=== PATIENT | female | born 1940 | race Caucasian/White ===

== ENCOUNTER 2022-12-18 11:24 | Inpatient (IN) | payer MEDICARE, SELFPAY ==
[2022-12-18] VITALS (32 sets, daily range): BP systolic 115–181; BP diastolic 53–89; PULSE 58–84; RESP 7–27; TEMP 36.4–36.8; O2SAT 93–100; BMI 35.6; BMI 36.7
--- NOTE | 2022-12-18 11:37 | ECG_ITS ---
[facility] Test Date: 2022-12-18 Pat Name: ISAAC TOURE Department: Room: - Gender: Female Events Director: : 1940 Requested By: BENSON CHAKRABORTY Order Number: [id number] Reading MD: OLIVIA NAJERA Measurements Intervals [place] Rate: 59 P: -87170 NE: -22928 QRS: 126 QRSD: 146 T: 63 QT: 458 QTc: 457 Interpretive Statements 1210 Atrial fibrillation LEFT BUNDLE BRANCH BLOCK w/ secondary ST/T wave changes 3534 Lateral myocardial infarction, age undetermined 9150 abnormal ECG No previous ECG available for comparison Electronically Signed On 12-19-2022 12:35:56 EDT by OLIVIA NAJERA
--- NOTE | 2022-12-18 11:37 | XR_ITS ---
[facility] [place] [id number] Patient Name: ISAAC TOURE MRN: [id number] date: 1940 Sex: F Assigned Patient Location: ER Current Patient Location: ER Accession/Order Number: [id number] Exam Date: 12/18/2022 12:20 Report Date: 12/18/2022 12:39 At the request of: HILLARY LÓPEZ Procedure: XR chest 2V EXAMINATION: XR chest 2V 12/18/2022 9:37 AM PDT, [id number]. HISTORY: sob TECHNIQUE: 2 views of the chest were acquired. COMPARISONS: Chest x-ray 06/06/2021. FINDINGS: Lines/tubes/other: Cardiac pulse generator is similar. Heart and mediastinum: Stable. Bones: No acute osseous abnormality. Lungs: Patchy right basilar opacification, new. No pulmonary edema. Pleura: No pleural effusion or pneumothorax. Other: No pneumoperitoneum. XR/XR chest 2V IMPRESSION: Right basilar opacification, compatible with pneumonia in the appropriate clinical context. Recommend follow-up radiograph in 4-6 weeks, allowing sufficient time after appropriate therapy to evaluate for radiographic improvement/resolution. Electronically authenticated by: SHAHNAZ HAAS Date: 12/18/2022 12:39
[2022-12-18 12:21] LABS: Basophils Absolute Auto 0.1 10^3/uL (0.0-0.1); Basophils Percent Auto 1.2 % (0.2-2.0); Eosinophils Absolute Auto 0.1 10^3/uL (0.0-0.7); Eosinophils Percent Auto 2.6 % (0.9-7.0); Hemoglobin 9.4 g/dL (12.0-16.0); Immature Granulocytes Abs Auto 0.02 10^3/uL (0.00-0.03); Immature Granulocytes Pct Auto 0.4 % (0.0-0.5); Lymphocytes Percent Auto 20.4 % (20.5-60.0); Mean Corpuscular HGB Conc 31.3 g/dL (29.9-35.2); Mean Corpuscular Volume 83.1 fL (81.0-99.0); Mean Platelet Volume 9.5 fL (9.5-13.5); Monocytes Absolute Auto 0.8 10^3/uL (0.3-0.8); Monocytes Percent Auto 16.1 % (1.7-12.0); Neutrophils Percent Auto 59.3 % (43.0-75.0); Platelet Count 219 10^3/uL (150-450); Red Blood Count 3.61 10^6/uL (4.20-5.40); Red Cell Distribution Width 18.6 % (11.0-15.0)
[2022-12-18 12:38] LABS: Alanine Aminotransferase 23 U/L (14-59); Albumin Level 3.5 g/dL (3.4-5.0); Alkaline Phosphatase 78 U/L (46-116); Anion Gap 9.5; Aspartate Amino Transferase 29 U/L (15-37); BUN Creatinine Ratio 15.3; Bilirubin Total 0.5 mg/dL (0.2-1.0); Calcium 8.2 mg/dL (8.5-10.1); Carbon Dioxide 29.1 mmol/L (21.0-32.0); Chloride 102 mmol/L (98-107); Estimated GFR (African America >60 (>=60); Estimated GFR (Non-African Ame 54 (>=60); Globulin 3.4 g/dL; Glucose 113 mg/dL (74-106); Potassium 3.6 mmol/L (3.5-5.1); Sodium 137 mmol/L (136-145); Total Protein 6.9 g/dL (6.4-8.2); Troponin I High Sensitivity 7.8 pg/mL (4.0-51.3)
[2022-12-18] MEDS: IPRATROPIUM/ALBUTEROL SULFATE 3 ML AMPUL.NEB IH (12:49)
[2022-12-18 12:55] LABS: SARS-CoV-2 Ag NEGATIVE (NEGATIVE)
--- NOTE | 2022-12-18 13:36 | ED.GENADUL1 ---
Documented by User: Dionne Green 12/18/22 13:57 HPI - General Adult General Chief complaint: Shortness of Breath/Dyspnea Stated complaint: SHORTNESS OF BREATH Time Seen by Provider: 12/18/22 13:20 Mode of arrival: Wheelchair Limitations: no limitations History of Present Illness HPI narrative: 82-year-old female presents with a chief complaint of shortness of breath. She's had increased shortness of breath while ambulating for the past 3-4 days. Denies any fevers or chills. States she does have a history of chronic obstructive pulmonary disease but denies using oxygen at home. She does have a cardiac history with pacemaker. EKG shows a history of atrial fibrillation with previous EKG similar. Related Data Home Medications Medication Instructions Recorded Confirmed amlodipine 10 mg tablet 10 mg PO DAILY 12/18/22 12/18/22 calcitriol 0.25 mcg capsule 0.25 mcg PO DAILY 12/18/22 12/18/22 doxazosin 2 mg tablet (Cardura) 2 mg PO DAILY 12/18/22 12/18/22 fluticasone propionate 50 1 spray intranasal DAILY PRN 12/18/22 12/18/22 mcg/actuation nasal allergy symptoms spray,suspension (24 Hour Allergy Relief) furosemide 20 mg tablet 20 mg PO DAILY 12/18/22 12/18/22 hydrochlorothiazide 50 mg tablet 50 mg PO DAILY 12/18/22 12/18/22 hydrocodone 5 mg-acetaminophen 325 1 tab PO Q8H PRN pain 12/18/22 12/18/22 mg tablet levothyroxine 112 mcg tablet 112 mcg PO DAILY 12/18/22 12/18/22 (Levo-T) losartan 100 mg tablet 100 mg PO DAILY 12/18/22 12/18/22 metoprolol succinate 100 mg 100 mg PO DAILY 12/18/22 12/18/22 tablet,extended release 24 hr montelukast 10 mg tablet 10 mg PO DAILY 12/18/22 12/18/22 paroxetine HCl 10 mg tablet 10 mg PO DAILY 12/18/22 12/18/22 potassium chloride 20 mEq oral 20 meq PO DAILY 12/18/22 12/18/22 packet (Klor-Con) sulfasalazine 500 mg tablet 0.5 g PO BID 12/18/22 12/18/22 warfarin 2 mg tablet 2 mg PO DAILY 12/18/22 12/18/22 Allergies Allergy/AdvReac Type Severity Reaction Status Date / Time Sulfa (Sulfonamide AdvReac Intermediate Verified 12/18/22 11:33 Antibiotics) Review of Systems ROS Narrative All Systems are negative except as noted/marked.All systems reviewed and otherwise negative [facility] PFS Medical History (Updated 12/18/22 @ 15:27 by Ros Telles) Surgical History (Updated 12/18/22 @ 15:18 by Ros Telles) Family History (Updated 12/18/22 @ 15:21 by Ros Telles) Mother Family history of COPD (chronic obstructive pulmonary disease) Family history of hypertension Brother Family history of diabetes mellitus Father Family history of hypertension Social History (Updated 12/18/22 @ 15:22 by Ros Telles) Within the past year, how often did you have a drink containing alcohol: never Within the past year, how often did you have six or more drinks on one occasion: never Score interpretation: A score less than 3 is consistent with normal alcohol consumption. Smoking status: Former smoker Non-prescribed substance use: denies use Previous occupational history: retired Highest level of school completed/degree received: high school graduate Are you now , , , , never or living with a partner: Little interest or pleasure in doing things: not at all Feeling down, depressed, or hopeless: not at all Feel stressed/tense/nervous/anxious/difficulty sleeping: only a little Do you think of yourself as: straight/heterosexual Gender Identity: female Exam Narrative Exam Narrative: Nurses note and vital signs reviewed and patient is not hypoxic. General: The patient appears well and in no apparent distress. Patient is resting comfortably on cart. Skin: Warm, dry, no pallor noted. There is no rash noted. Head: Normocephalic, atraumatic Eye: Normal conjunctiva, no drainage, EOMI. PERRL Ears, Nose, Mouth, and Throat: oral mucosa is moist. Nares patent. Mouth without vesicles. Ear canals patent. Tm's without Erythema Cardiovascular: Regular Rate and Rhythm Respiratory: Patient is in no distress, no accessory muscle use, lungs are clear to auscultation, no wheezing, rales or rhonchi Back: non-tender, no CVA tenderness bilaterally to percussion. rectal exam is within normal limits, no dark tarry stools GI: Normal bowel sounds, no tenderness to palpation, no masses appreciated. No rebound, guarding, or rigidity noted. Musculoskeletal: The patient has no evidence of calf tenderness, no pitting edema, symmetrical pulses noted bilaterally Neurological: A&O x4, normal speech Psychiatric: Cooperative Constitutional Vital Signs, click to edit/add: Last Vital Signs Temp 98.1 F 12/18/22 14:38 Pulse 60 12/18/22 16:26 Resp 20 12/18/22 14:38 BP 156/76 H 12/18/22 14:38 Pulse Ox 94 L 12/18/22 14:38 O2 Del Method Room Air 12/18/22 14:38 Course Vital Signs Vital signs: Vital Signs Pulse Oximetry 95 12/18/22 11:30 Temperature 98.1 F 12/18/22 14:38 Pulse Rate 60 12/18/22 16:26 Respiratory Rate 20 12/18/22 14:38 Blood Pressure 156/76 H 12/18/22 14:38 Pulse Oximetry 94 L 12/18/22 14:38 Oxygen Delivery Method Room Air 12/18/22 14:38 Medical Decision Making MDM Narrative Medical decision making narrative: patient presented here to the emergency room with chief complaint of increased shortness of breath. she states when she walks her house at home or lays flat she has increased shortness of breath. She denies any weight gain recently.patient is not hypoxic here in the emergency room. Patient was medicated here with breathing treatment to help Improve her symptoms. Chest x-ray shows a right lower lobe pneumonia. She has not been hospitalized the last several months her had a history of pneumonia recently. She states she does take Coumadin daily for her pacemaker. She has not had that checked recently. She states Dr. Almonte checks every couple of months. Patient denies a history of dark tarry stools.CBC BMP were reviewed patient does have a low hemoglobin and hematocrit here today of 9.4 and thirty. Hemoccult is currently pending.EKG does show atrial fibrillation which she has had previously in January 2021. Speak to serving as patient's care. He agrees patient can be admitted for shortness of breath anemia and pneumonia. IV Rocephin and Zithromax given here. Patient be admitted for observation. The family members are aware and agreeable plan of care. Differential Diagnosis Differential Diagnosis: dyspnea, shortness of breath, pneumonia, Medical Records Medical records reviewed: Yes I reviewed the patient's medical records Lab Data Lab results reviewed: Yes I reviewed the patient's lab results Lab results narrative: hemoglobin and hematocrit are low at 9.4 and thirty. Patient has a right lower lobe pneumonia. Labs: Lab Results 12/18/22 12/18/22 12/18/22 Range/Units 12:00 12:01 12:30 WBC 5.0 (4.0-11.0) 10^3/uL RBC 3.61 L (4.20-5.40) 10^6/uL Hgb 9.4 L (12.0-16.0) g/dL Hct 30.0 L (36.0-48.0) % MCV 83.1 (81.0-99.0) fL MCH 26.0 L (26.7-34.0) pg MCHC 31.3 (29.9-35.2) g/dL RDW 18.6 H (11.0-15.0) % Plt Count 219 (150-450) 10^3/uL MPV 9.5 (9.5-13.5) fL Neut % (Auto) 59.3 (43.0-75.0) % Lymph % (Auto) 20.4 L (20.5-60.0) % Gillespie % (Auto) 16.1 H (1.7-12.0) % Eos % (Auto) 2.6 (0.9-7.0) % Baso % (Auto) 1.2 (0.2-2.0) % Neut # (Auto) 3.0 (1.4-6.5) 10^3/uL Lymph # (Auto) 1.0 L (1.2-3.8) 10^3/uL Gillespie # (Auto) 0.8 (0.3-0.8) 10^3/uL Eos # (Auto) 0.1 (0.0-0.7) 10^3/uL Baso # (Auto) 0.1 (0.0-0.1) 10^3/uL Abs Immat Gran (auto) 0.02 (0.00-0.03) 10^3/uL Imm/Tot Granulo (auto) 0.4 (0.0-0.5) % PT 24.1 H (9.0-11.6) sec INR 2.39 APTT 39.6 H (22.3-36.2) sec Sodium 137 (136-145) mmol/L Potassium 3.6 (3.5-5.1) mmol/L Chloride 102 (98-107) mmol/L Carbon Dioxide 29.1 (21.0-32.0) mmol/L Anion Gap 9.5 BUN 15.0 (7.0-18.0) mg/dL Creatinine 0.98 (0.55-1.02) mg/dL Est GFR ( Amer) >60 (>=60) Est GFR (Non-Af Amer) 54 L (>=60) BUN/Creatinine Ratio 15.3 Glucose 113 H (74-106) mg/dL Calcium 8.2 L (8.5-10.1) mg/dL Iron 28.0 L (50.0-170.0) ug/dL TIBC 427.0 (250.0-450.0) ug/dL % Saturation 6.6 % Ferritin 21.0 (8.0-252.0) ng/mL Total Bilirubin 0.5 (0.2-1.0) mg/dL AST 29 (15-37) U/L ALT 23 (14-59) U/L Alkaline Phosphatase 78 (46-116) U/L Troponin I High Sens 7.8 (4.0-51.3) pg/mL NT-Pro-B Natriuret Pep 958.0 (<=1800.0) pg/mL Total Protein 6.9 (6.4-8.2) g/dL Albumin 3.5 (3.4-5.0) g/dL Globulin 3.4 g/dL Albumin/Globulin Ratio 1.0 Vitamin B12 891.0 (193.0-986.0) pg/mL Folate 24.40 (8.60-58.90) ng/mL Stool Occult Blood SARS-CoV-2 (PCR) Negative (NEGATIVE) 12/18/22 Range/Units 13:35 WBC (4.0-11.0) 10^3/uL RBC (4.20-5.40) 10^6/uL Hgb (12.0-16.0) g/dL Hct (36.0-48.0) % MCV (81.0-99.0) fL MCH (26.7-34.0) pg MCHC (29.9-35.2) g/dL RDW (11.0-15.0) % Plt Count (150-450) 10^3/uL MPV (9.5-13.5) fL Neut % (Auto) (43.0-75.0) % Lymph % (Auto) (20.5-60.0) % Gillespie % (Auto) (1.7-12.0) % Eos % (Auto) (0.9-7.0) % Baso % (Auto) (0.2-2.0) % Neut # (Auto) (1.4-6.5) 10^3/uL Lymph # (Auto) (1.2-3.8) 10^3/uL Gillespie # (Auto) (0.3-0.8) 10^3/uL Eos # (Auto) (0.0-0.7) 10^3/uL Baso # (Auto) (0.0-0.1) 10^3/uL Abs Immat Gran (auto) (0.00-0.03) 10^3/uL Imm/Tot Granulo (auto) (0.0-0.5) % PT (9.0-11.6) sec INR APTT (22.3-36.2) sec Sodium (136-145) mmol/L Potassium (3.5-5.1) mmol/L Chloride (98-107) mmol/L Carbon Dioxide (21.0-32.0) mmol/L Anion Gap BUN (7.0-18.0) mg/dL Creatinine (0.55-1.02) mg/dL Est GFR ( Amer) (>=60) Est GFR (Non-Af Amer) (>=60) BUN/Creatinine Ratio Glucose (74-106) mg/dL Calcium (8.5-10.1) mg/dL Iron (50.0-170.0) ug/dL TIBC (250.0-450.0) ug/dL % Saturation % Ferritin (8.0-252.0) ng/mL Total Bilirubin (0.2-1.0) mg/dL AST (15-37) U/L ALT (14-59) U/L Alkaline Phosphatase (46-116) U/L Troponin I High Sens (4.0-51.3) pg/mL NT-Pro-B Natriuret Pep (<=1800.0) pg/mL Total Protein (6.4-8.2) g/dL Albumin (3.4-5.0) g/dL Globulin g/dL Albumin/Globulin Ratio Vitamin B12 (193.0-986.0) pg/mL Folate (8.60-58.90) ng/mL Stool Occult Blood Negative SARS-CoV-2 (PCR) (NEGATIVE) Imaging Data Chest x-ray: Radiologist's impression: Patient Name: ISAAC TOURE MRN: [facility]:[id number] date: 1940 Sex: F Assigned Patient Location: ER Current Patient Location: ER Accession/Order Number: [id number] Exam Date: 12/18/2022 12:20 Report Date: 12/18/2022 12:39 At the request of: HILLARY BAEZ Procedure: XR chest 2V EXAMINATION: XR chest 2V 12/18/2022 9:37 AM PDT, [id number]. HISTORY: sob TECHNIQUE: 2 views of the chest were acquired. COMPARISONS: Chest x-ray 06/06/2021. FINDINGS: Lines/tubes/other: Cardiac pulse generator is similar. Heart and mediastinum: Stable. Bones: No acute osseous abnormality. Lungs: Patchy right basilar opacification, new. No pulmonary edema. Pleura: No pleural effusion or pneumothorax. Other: No pneumoperitoneum. IMPRESSION: Right basilar opacification, compatible with pneumonia in the appropriate clinical context. Recommend follow-up radiograph in 4-6 weeks, allowing sufficient time after appropriate therapy to evaluate for radiographic improvement/resolution. Electronically authenticated by: SHAHNAZ HAAS Date: 12/18/2022 12: ECG Data Attestation: I personally reviewed and interpreted this ECG as follows: Interpretation: 1132 her fibrillation no STEMI QRS duration are 46 ms. similar to previous in 01/2021 Discharge Plan Discharge Chief Complaint: Shortness of Breath/Dyspnea Clinical Impression: Anemia, Community acquired pneumonia Patient Disposition: Admitted As Inpatient Time of Disposition Decision: 13:30 Condition: Fair Discharge Date/Time: 12/18/22 14:29 Documented by User: Hillary Baez MD 12/18/22 16:51 HPI - General Adult General Chief complaint: Shortness of Breath/Dyspnea Stated complaint: SHORTNESS OF BREATH Time Seen by Provider: 12/18/22 13:20 Related Data Home Medications Medication Instructions Recorded Confirmed amlodipine 10 mg tablet 10 mg PO DAILY 12/18/22 12/18/22 calcitriol 0.25 mcg capsule 0.25 mcg PO DAILY 12/18/22 12/18/22 doxazosin 2 mg tablet (Cardura) 2 mg PO DAILY 12/18/22 12/18/22 fluticasone propionate 50 1 spray intranasal DAILY PRN 12/18/22 12/18/22 mcg/actuation nasal allergy symptoms spray,suspension (24 Hour Allergy Relief) furosemide 20 mg tablet 20 mg PO DAILY 12/18/22 12/18/22 hydrochlorothiazide 50 mg tablet 50 mg PO DAILY 12/18/22 12/18/22 hydrocodone 5 mg-acetaminophen 325 1 tab PO Q8H PRN pain 12/18/22 12/18/22 mg tablet levothyroxine 112 mcg tablet 112 mcg PO DAILY 12/18/22 12/18/22 (Levo-T) losartan 100 mg tablet 100 mg PO DAILY 12/18/22 12/18/22 metoprolol succinate 100 mg 100 mg PO DAILY 12/18/22 12/18/22 tablet,extended release 24 hr montelukast 10 mg tablet 10 mg PO DAILY 12/18/22 12/18/22 paroxetine HCl 10 mg tablet 10 mg PO DAILY 12/18/22 12/18/22 potassium chloride 20 mEq oral 20 meq PO DAILY 12/18/22 12/18/22 packet (Klor-Con) sulfasalazine 500 mg tablet 0.5 g PO BID 12/18/22 12/18/22 warfarin 2 mg tablet 2 mg PO DAILY 12/18/22 12/18/22 Allergies Allergy/AdvReac Type Severity Reaction Status Date / Time Sulfa (Sulfonamide AdvReac Intermediate Verified 12/18/22 11:33 Antibiotics) PFSH PFS Medical History (Updated 12/18/22 @ 15:27 by Ros Telles) Surgical History (Updated 12/18/22 @ 15:18 by Ros Telles) Family History (Updated 12/18/22 @ 15:21 by Ros Telles) Mother Family history of COPD (chronic obstructive pulmonary disease) Family history of hypertension Brother Family history of diabetes mellitus Father Family history of hypertension Social History (Updated 12/18/22 @ 15:22 by Ros Telles) Within the past year, how often did you have a drink containing alcohol: never Within the past year, how often did you have six or more drinks on one occasion: never Score interpretation: A score less than 3 is consistent with normal alcohol consumption. Smoking status: Former smoker Non-prescribed substance use: denies use Previous occupational history: retired Highest level of school completed/degree received: high school graduate Are you now , , , , never or living with a partner: Little interest or pleasure in doing things: not at all Feeling down, depressed, or hopeless: not at all Feel stressed/tense/nervous/anxious/difficulty sleeping: only a little Do you think of yourself as: straight/heterosexual Gender Identity: female Exam Constitutional Vital Signs, click to edit/add: Last Vital Signs Temp 98.1 F 12/18/22 14:38 Pulse 60 12/18/22 16:26 Resp 20 12/18/22 14:38 BP 156/76 H 12/18/22 14:38 Pulse Ox 94 L 12/18/22 14:38 O2 Del Method Room Air 12/18/22 14:38 Course Vital Signs Vital signs: Vital Signs Pulse Oximetry 95 12/18/22 11:30 Temperature 98.1 F 12/18/22 14:38 Pulse Rate 60 12/18/22 16:26 Respiratory Rate 20 12/18/22 14:38 Blood Pressure 156/76 H 12/18/22 14:38 Pulse Oximetry 94 L 12/18/22 14:38 Oxygen Delivery Method Room Air 12/18/22 14:38 Medical Decision Making MDM Narrative Medical decision making narrative: patient presented here to the emergency room with chief complaint of increased shortness of breath. she states when she walks her house at home or lays flat she has increased shortness of breath. She denies any weight gain recently.patient is not hypoxic here in the emergency room. Patient was medicated here with breathing treatment to help Improve her symptoms. Chest x-ray shows a right lower lobe pneumonia. She has not been hospitalized the last several months her had a history of pneumonia recently. She states she does take Coumadin daily for her pacemaker. She has not had that checked recently. She states Dr. Almonte checks every couple of months. Patient denies a history of dark tarry stools.CBC BMP were reviewed patient does have a low hemoglobin and hematocrit here today of 9.4 and thirty. Hemoccult is currently pending.EKG does show atrial fibrillation which she has had previously in January 2021. Speak to serving as patient's care. He agrees patient can be admitted for shortness of breath anemia and pneumonia. IV Rocephin and Zithromax given here. Patient be admitted for observation. The family members are aware and agreeable plan of care. I, Dr Beaz, have reviewed the above progress note and course of action in the ER; agree with the above. I have personally seen and evaluated this patient, gone over history and physical, and discussed disposition and treatment plan with the patient. Lab Data Labs: Lab Results 12/18/22 12/18/22 12/18/22 Range/Units 12:00 12:01 12:30 WBC 5.0 (4.0-11.0) 10^3/uL RBC 3.61 L (4.20-5.40) 10^6/uL Hgb 9.4 L (12.0-16.0) g/dL Hct 30.0 L (36.0-48.0) % MCV 83.1 (81.0-99.0) fL MCH 26.0 L (26.7-34.0) pg MCHC 31.3 (29.9-35.2) g/dL RDW 18.6 H (11.0-15.0) % Plt Count 219 (150-450) 10^3/uL MPV 9.5 (9.5-13.5) fL Neut % (Auto) 59.3 (43.0-75.0) % Lymph % (Auto) 20.4 L (20.5-60.0) % Gillespie % (Auto) 16.1 H (1.7-12.0) % Eos % (Auto) 2.6 (0.9-7.0) % Baso % (Auto) 1.2 (0.2-2.0) % Neut # (Auto) 3.0 (1.4-6.5) 10^3/uL Lymph # (Auto) 1.0 L (1.2-3.8) 10^3/uL Gillespie # (Auto) 0.8 (0.3-0.8) 10^3/uL Eos # (Auto) 0.1 (0.0-0.7) 10^3/uL Baso # (Auto) 0.1 (0.0-0.1) 10^3/uL Abs Immat Gran (auto) 0.02 (0.00-0.03) 10^3/uL Imm/Tot Granulo (auto) 0.4 (0.0-0.5) % PT 24.1 H (9.0-11.6) sec INR 2.39 APTT 39.6 H (22.3-36.2) sec Sodium 137 (136-145) mmol/L Potassium 3.6 (3.5-5.1) mmol/L Chloride 102 (98-107) mmol/L Carbon Dioxide 29.1 (21.0-32.0) mmol/L Anion Gap 9.5 BUN 15.0 (7.0-18.0) mg/dL Creatinine 0.98 (0.55-1.02) mg/dL Est GFR ( Amer) >60 (>=60) Est GFR (Non-Af Amer) 54 L (>=60) BUN/Creatinine Ratio 15.3 Glucose 113 H (74-106) mg/dL Calcium 8.2 L (8.5-10.1) mg/dL Iron 28.0 L (50.0-170.0) ug/dL TIBC 427.0 (250.0-450.0) ug/dL % Saturation 6.6 % Ferritin 21.0 (8.0-252.0) ng/mL Total Bilirubin 0.5 (0.2-1.0) mg/dL AST 29 (15-37) U/L ALT 23 (14-59) U/L Alkaline Phosphatase 78 (46-116) U/L Troponin I High Sens 7.8 (4.0-51.3) pg/mL NT-Pro-B Natriuret Pep 958.0 (<=1800.0) pg/mL Total Protein 6.9 (6.4-8.2) g/dL Albumin 3.5 (3.4-5.0) g/dL Globulin 3.4 g/dL Albumin/Globulin Ratio 1.0 Vitamin B12 891.0 (193.0-986.0) pg/mL Folate 24.40 (8.60-58.90) ng/mL Stool Occult Blood SARS-CoV-2 (PCR) Negative (NEGATIVE) 12/18/22 Range/Units 13:35 WBC (4.0-11.0) 10^3/uL RBC (4.20-5.40) 10^6/uL Hgb (12.0-16.0) g/dL Hct (36.0-48.0) % MCV (81.0-99.0) fL MCH (26.7-34.0) pg MCHC (29.9-35.2) g/dL RDW (11.0-15.0) % Plt Count (150-450) 10^3/uL MPV (9.5-13.5) fL Neut % (Auto) (43.0-75.0) % Lymph % (Auto) (20.5-60.0) % Gillespie % (Auto) (1.7-12.0) % Eos % (Auto) (0.9-7.0) % Baso % (Auto) (0.2-2.0) % Neut # (Auto) (1.4-6.5) 10^3/uL Lymph # (Auto) (1.2-3.8) 10^3/uL Gillespie # (Auto) (0.3-0.8) 10^3/uL Eos # (Auto) (0.0-0.7) 10^3/uL Baso # (Auto) (0.0-0.1) 10^3/uL Abs Immat Gran (auto) (0.00-0.03) 10^3/uL Imm/Tot Granulo (auto) (0.0-0.5) % PT (9.0-11.6) sec INR APTT (22.3-36.2) sec Sodium (136-145) mmol/L Potassium (3.5-5.1) mmol/L Chloride (98-107) mmol/L Carbon Dioxide (21.0-32.0) mmol/L Anion Gap BUN (7.0-18.0) mg/dL Creatinine (0.55-1.02) mg/dL Est GFR ( Amer) (>=60) Est GFR (Non-Af Amer) (>=60) BUN/Creatinine Ratio Glucose (74-106) mg/dL Calcium (8.5-10.1) mg/dL Iron (50.0-170.0) ug/dL TIBC (250.0-450.0) ug/dL % Saturation % Ferritin (8.0-252.0) ng/mL Total Bilirubin (0.2-1.0) mg/dL AST (15-37) U/L ALT (14-59) U/L Alkaline Phosphatase (46-116) U/L Troponin I High Sens (4.0-51.3) pg/mL NT-Pro-B Natriuret Pep (<=1800.0) pg/mL Total Protein (6.4-8.2) g/dL Albumin (3.4-5.0) g/dL Globulin g/dL Albumin/Globulin Ratio Vitamin B12 (193.0-986.0) pg/mL Folate (8.60-58.90) ng/mL Stool Occult Blood Negative SARS-CoV-2 (PCR) (NEGATIVE) Discharge Plan Discharge Chief Complaint: Shortness of Breath/Dyspnea Clinical Impression: Anemia, Community acquired pneumonia Patient Disposition: Admitted As Inpatient Time of Disposition Decision: 13:30 Condition: Fair Discharge Date/Time: 12/18/22 14:29
[2022-12-18] MEDS: CEFTRIAXONE 1,000 MG in 0.9 % SODIUM CHLORIDE 50 ML 100 MG IV (13:51)
[2022-12-18 13:57] LABS: Occult Blood Negative
[2022-12-18 14:08] LABS: INR 2.39; Partial Thromboplastin Time 39.6 sec (22.3-36.2); Prothrombin Time 24.1 sec (9.0-11.6)
[2022-12-18] MEDS: AZITHROMYCIN 500 MG in 0.9 % SODIUM CHLORIDE 250 ML 250 MG IV (14:24)
[2022-12-18 14:31] LABS: Percent Iron Saturation 6.6 %
[2022-12-18] MEDS: DOXAZOSIN MESYLATE 2 MG TABLET PO (21:06)
[2022-12-18] MEDS: SULFASALAZINE 500 MG TABLET PO (21:06)
--- NOTE | 2022-12-18 21:24 | RESP.RT ---
Patient states she is feeling much better
[2022-12-19] VITALS (22 sets, daily range): BP systolic 143–152; BP diastolic 66–74; PULSE 60–75; RESP 18; TEMP 36.4–36.7; O2SAT 82–97
[2022-12-19 05:07] LABS: Transferrin 333 mg/dL (149-313)
[2022-12-19] MEDS: LEVOTHYROXINE SODIUM 112 MCG TABLET PO (05:34)
[2022-12-19 05:55] LABS: Basophils Absolute Auto 0.1 10^3/uL (0.0-0.1); Basophils Percent Auto 1.1 % (0.2-2.0); Eosinophils Absolute Auto 0.1 10^3/uL (0.0-0.7); Eosinophils Percent Auto 2.3 % (0.9-7.0); Hemoglobin 9.1 g/dL (12.0-16.0); Immature Granulocytes Abs Auto 0.02 10^3/uL (0.00-0.03); Immature Granulocytes Pct Auto 0.4 % (0.0-0.5); Lymphocytes Absolute Auto 1.2 10^3/uL (1.2-3.8); Lymphocytes Percent Auto 21.1 % (20.5-60.0); Mean Corpuscular HGB Conc 31.4 g/dL (29.9-35.2); Mean Corpuscular Hemoglobin 25.9 pg (26.7-34.0); Mean Corpuscular Volume 82.4 fL (81.0-99.0); Mean Platelet Volume 10.1 fL (9.5-13.5); Monocytes Absolute Auto 1.1 10^3/uL (0.3-0.8); Monocytes Percent Auto 19.1 % (1.7-12.0); Neutrophils Absolute Auto 3.2 10^3/uL (1.4-6.5); Platelet Count 214 10^3/uL (150-450); Red Blood Count 3.52 10^6/uL (4.20-5.40); Red Cell Distribution Width 18.4 % (11.0-15.0); White Blood Count 5.6 10^3/uL (4.0-11.0)
[2022-12-19 06:11] LABS: INR 2.31; Prothrombin Time 23.4 sec (9.0-11.6)
[2022-12-19 06:12] LABS: Alanine Aminotransferase 28 U/L (14-59); Albumin Level 3.2 g/dL (3.4-5.0); Alkaline Phosphatase 74 U/L (46-116); Anion Gap 9.4; Aspartate Amino Transferase 26 U/L (15-37); Bilirubin Total 0.5 mg/dL (0.2-1.0); Calcium 8.1 mg/dL (8.5-10.1); Carbon Dioxide 29.3 mmol/L (21.0-32.0); Chloride 106 mmol/L (98-107); Estimated GFR (African America >60 (>=60); Estimated GFR (Non-African Ame >60 (>=60); Globulin 3.2 g/dL; Glucose 85 mg/dL (74-106); Potassium 3.7 mmol/L (3.5-5.1); Sodium 141 mmol/L (136-145); Total Protein 6.4 g/dL (6.4-8.2)
--- NOTE | 2022-12-19 08:17 | PT.DAILY ---
Physical Therapy Daily Note PT Daily Note/Assess Start: 12/19/22 08:13 Freq: Status: Active Protocol: Document 12/19/22 08:13 [email or web address] (Rec: 12/19/22 08:17 [email or web address] [id number]) Physical Therapy Daily Note/Assessment Time In/Time Out Time In 07:38 Time Out 08:05 Pain In Pain N/A Pain Out Pain N/A Subjective Subjective Pt supine upon arrival. Agrees to PT. Denies pain currently. Therapeutic Exercise Time Therapeutic Exercise Minutes (minutes) 5 Therapeutic Exercise Units 0 Therapeutic Exercise Treatment Therapeutic Exercise Treatment Seated ex complete while sitting unsupported at EOB - 10x ea. Therapeutic Activity Time Therapeutic Activity Minutes (minutes) 20 Therapeutic Activity Units 2 Therapeutic Activity Treatment Bed Mobility Ability Standby Assistance Chair Transfer Ability Standby Assistance Therapeutic Activity Comments Pt performs supine>sit transfer with SBA and increased time needed to advance upper body using handrail. Pt sits EOB unsupported for 5 min while completing bilat LE strengthening ex - no LOB. Sit >stand to RW SBA with increased time. Pt amb in room 40' then stops at sink. While at sink pt washes face and brushes her teeth - 5 min static standing without LOB. Pt amb 8' into restroom with RW. Performs toilet transfer SUP and able to misha/doff her brief and performs pericare with SUP. Pt amb 25' with RW over to BS chair. Pt remains in BS chair with call light in reach and needs met. Total Physical Therapy Time Total Therapy Minutes 25 Total Physical Therapy Units 2 Summary Daily Note Summary Does well with functional activity in room this morning. NO LOB. Does require set up for self care at sink. Wheezing noticed with activity . Denies pain upon completion.
--- NOTE | 2022-12-19 08:32 | PM.HP ---
H&P: HPI History of Present Illness Chief complaint: SOB/PNEUMONIA/HYPOXIA Narrative: patient is a 82-year-old female with past medical history of atrial fibrillation, status post pacemaker, and chronic obstructive pulmonary disease. Patient follows with Dr. Mckeon as her primary care physician and [facility] cardiology. She reports a several day history of increased shortness of breath and also increased coughing. She has a history of chronic obstructive pulmonary disease but denies using any oxygen at home. She denies any fevers or chills but says that her breathing just became worse so her brought her to the Emergency Room yesterday. This morning she notes improvement in her breathing but is requiring 2 L of nasal cannula. She was found to have a right lower lobe pneumonia. Patient remained afebrile overnight and appears in no acute respiratory distress at the time of exam. Review of Systems ROS Narrative ROS: a complete review of systems were reviewed with patient and are positive as below or listed in History of Chief Complaint. General: no fever, chills, night sweats Head: no headache, trauma, visual changes, nausea or vomiting Skin: no reported rashes, itching or sores Eyes: no blurriness of vision Ears: no reported hearing loss, vertigo, earache, or tinnitus Throat: no sore throat, hoarseness, swelling of neck, or tongue pain Heart: no chest pain Lungs: shortness of breath with dry cough GI: no diarrhea or vomiting/nausea Urinary: no urinary urgency, frequency or pain Neuro: no numbness or tingling HEM: no bleeding issues or bruising ENDO: no thyroid problems Psych: no anxiety or depression PFSH [facility] Medical History (Updated 12/18/22 @ 15:27 by Ros Telles) Surgical History Family History Mother Family history of COPD (chronic obstructive pulmonary disease) Family history of hypertension Brother Family history of diabetes mellitus Father Family history of hypertension Social History Within the past year, how often did you have a drink containing alcohol: never Within the past year, how often did you have six or more drinks on one occasion: never Score interpretation: A score less than 3 is consistent with normal alcohol consumption. Smoking status: Former smoker Non-prescribed substance use: denies use Previous occupational history: retired Highest level of school completed/degree received: high school graduate Are you now , , , , never or living with a partner: Little interest or pleasure in doing things: not at all Feeling down, depressed, or hopeless: not at all Feel stressed/tense/nervous/anxious/difficulty sleeping: only a little Do you think of yourself as: straight/heterosexual Gender Identity: female Meds Home Medications and Allergies Home Medications Medication Instructions Recorded Confirmed Type amlodipine 10 mg tablet 10 mg PO DAILY 12/18/22 12/18/22 History calcitriol 0.25 mcg capsule 0.25 mcg PO DAILY 12/18/22 12/18/22 History doxazosin 2 mg tablet (Cardura) 2 mg PO DAILY 12/18/22 12/18/22 History fluticasone propionate 50 1 spray intranasal DAILY PRN 12/18/22 12/18/22 History mcg/actuation nasal allergy symptoms spray,suspension (24 Hour Allergy Relief) furosemide 20 mg tablet 20 mg PO DAILY 12/18/22 12/18/22 History hydrochlorothiazide 50 mg tablet 50 mg PO DAILY 12/18/22 12/18/22 History hydrocodone 5 mg-acetaminophen 325 1 tab PO Q8H PRN pain 12/18/22 12/18/22 History mg tablet levothyroxine 112 mcg tablet 112 mcg PO DAILY 12/18/22 12/18/22 History (Levo-T) losartan 100 mg tablet 100 mg PO DAILY 12/18/22 12/18/22 History metoprolol succinate 100 mg 100 mg PO DAILY 12/18/22 12/18/22 History tablet,extended release 24 hr montelukast 10 mg tablet 10 mg PO DAILY 12/18/22 12/18/22 History paroxetine HCl 10 mg tablet 10 mg PO DAILY 12/18/22 12/18/22 History potassium chloride 20 mEq oral 20 meq PO DAILY 12/18/22 12/18/22 History packet (Klor-Con) sulfasalazine 500 mg tablet 0.5 g PO BID 12/18/22 12/18/22 History warfarin 2 mg tablet 2 mg PO DAILY 12/18/22 12/18/22 History Allergies Allergy/AdvReac Type Severity Reaction Status Date / Time Sulfa (Sulfonamide AdvReac Intermediate Verified 12/18/22 11:33 Antibiotics) Exam Narrative Exam Narrative: General: Patient is alert, and oriented to person, place and time with normal affect, proper hygiene Skin: no visible rashes, or ulcers Head: atraumatic, acephalic Eyes: PERRLA, no nystagmus present, conjunctiva clear, no scleral icterus Ears: normal gross auditory acuity Nose: symmetric, no discharge, no maxillary or frontal sinus tenderness Neck: no masses palpated, normal thyroid, no JVD or audible carotid bruits Heart: Normal rate and rhythm, no murmurs/rubs/gallops Lungs: no audible wheezes, crackles and diminished breath sounds all lung barton Abdomen: Normal audible bowel sounds, no distension, No palpable masses, no organomegaly, no rebound/guarding/ or rigidity Musculoskeletal: muscle atrophy noted, ROM is limited due to being in hospital bed, +1 swelling bilateral lower extremities Vascular: Normal carotid, radial, femoral, posterior tibial, and dorsalis pedis pulses Lymph: no supraclavicular, axillary, or anterior/posterior cervical adenopathy Neuro: CN II-X grossly intact, normal sensation upper and lower extremities Constitutional Vital Signs, click to edit/add: Last Vital Signs Temp 97.8 F 12/19/22 05:10 Pulse 60 12/19/22 06:00 Resp 18 12/19/22 05:10 BP 143/74 H 12/19/22 05:10 Pulse Ox 94 L 12/19/22 05:10 O2 Del Method Nasal Cannula 12/19/22 05:10 O2 Flow Rate 2 12/19/22 05:10 Results Labs Labs: Short CBC 12/18/22 12/19/22 Range/Units 12:00 04:50 WBC 5.0 5.6 (4.0-11.0) 10^3/uL Hgb 9.4 L 9.1 L (12.0-16.0) g/dL Hct 30.0 L 29.0 L (36.0-48.0) % Plt Count 219 214 (150-450) 10^3/uL BMP 12/18/22 12/19/22 12:00 04:50 Sodium 137 141 Potassium 3.6 3.7 Chloride 102 106 Carbon Dioxide 29.1 29.3 BUN 15.0 12.0 Creatinine 0.98 0.86 Glucose 113 H 85 Calcium 8.2 L 8.1 L Liver Function 12/18/22 12/19/22 Range/Units 12:00 04:50 Total Bilirubin 0.5 0.5 (0.2-1.0) mg/dL AST 29 26 (15-37) U/L ALT 23 28 (14-59) U/L Alkaline Phosphatase 78 74 (46-116) U/L Albumin 3.5 3.2 L (3.4-5.0) g/dL Assessment and Plan Assessment and Plan (1) Community acquired pneumonia: Assessment and Plan: continue Rocephin and Levaquin. Continue oxygen as needed, will schedule duo nebulizers and placed on PEP therapy, normal white blood cell count, however patient is requiring 2 L nasal cannula (2) Afib: Assessment and Plan: monitor daily INRs, continue warfarin (3) Hypertension: Assessment and Plan: continue with metoprolol, losartan, hydrochlorothiazide, Lasix, Cardura, amlodipine. (4) Seasonal allergies: Assessment and Plan: continue Flonase, montelukast (5) Anemia: Assessment and Plan: no acute bleeding, stool Hemoccult negative, urine studies normal (6) COPD (chronic obstructive pulmonary disease): Assessment and Plan: please see #1 Plan patient is a full code Will continue Coumadin for deep vein thrombosis and PE prophylaxis Patient is inpatient status and is expected to stay more than two midnights
[2022-12-19] MEDS: WARFARIN SODIUM 2 MG TABLET PO (09:25)
[2022-12-19] MEDS: LOSARTAN POTASSIUM 50 MG TABLET 100 MG PO (09:25)
[2022-12-19] MEDS: MONTELUKAST SODIUM 10 MG TABLET PO (09:25)
[2022-12-19] MEDS: POTASSIUM CHLORIDE 10 MEQ ER TABLET 20 MEQ PO (09:25)
[2022-12-19] MEDS: METOPROLOL SUCCINATE 100 MG TAB.ER.24H PO (09:25)
[2022-12-19] MEDS: SULFASALAZINE 500 MG TABLET PO ×2 (09:25→20:14)
[2022-12-19] MEDS: CALCITRIOL 0.25 MCG CAPSULE PO (09:25)
[2022-12-19] MEDS: PAROXETINE HCL 20 MG TABLET 10 MG PO (09:25)
[2022-12-19] MEDS: AMLODIPINE BESYLATE 5 MG TABLET 10 MG PO (09:25)
[2022-12-19] MEDS: IPRATROPIUM/ALBUTEROL SULFATE 3 ML AMPUL.NEB IH ×3 (11:39→23:35)
[2022-12-19] MEDS: CEFTRIAXONE 1,000 MG in 0.9 % SODIUM CHLORIDE 50 ML 100 MG IV (14:09)
[2022-12-19 14:16] LABS: SARS-CoV-2 NAA INVALID (NOT DETECTE)
--- NOTE | 2022-12-19 16:53 | RESP.RT ---
placed on room air
[2022-12-19] MEDS: ACETAMINOPHEN 325 MG TABLET 650 MG PO (20:14)
[2022-12-19] MEDS: DOXAZOSIN MESYLATE 2 MG TABLET PO (21:17)
[2022-12-20] VITALS (10 sets, daily range): BP systolic 156; BP diastolic 70; PULSE 60–67; RESP 18–20; TEMP 36.6; O2SAT 93–96
[2022-12-20] MEDS: IPRATROPIUM/ALBUTEROL SULFATE 3 ML AMPUL.NEB IH (04:11)
[2022-12-20 05:11] LABS: Basophils Absolute Auto 0.1 10^3/uL (0.0-0.1); Basophils Percent Auto 0.9 % (0.2-2.0); Eosinophils Absolute Auto 0.1 10^3/uL (0.0-0.7); Hematocrit 28.3 % (36.0-48.0); Hemoglobin 8.8 g/dL (12.0-16.0); Immature Granulocytes Abs Auto 0.02 10^3/uL (0.00-0.03); Immature Granulocytes Pct Auto 0.4 % (0.0-0.5); Lymphocytes Absolute Auto 1.1 10^3/uL (1.2-3.8); Lymphocytes Percent Auto 20.2 % (20.5-60.0); Mean Corpuscular HGB Conc 31.1 g/dL (29.9-35.2); Mean Corpuscular Volume 83.7 fL (81.0-99.0); Monocytes Absolute Auto 1.2 10^3/uL (0.3-0.8); Monocytes Percent Auto 20.9 % (1.7-12.0); Neutrophils Absolute Auto 3.1 10^3/uL (1.4-6.5); Neutrophils Percent Auto 55.6 % (43.0-75.0); Platelet Count 202 10^3/uL (150-450); Red Blood Count 3.38 10^6/uL (4.20-5.40); Red Cell Distribution Width 18.7 % (11.0-15.0); White Blood Count 5.5 10^3/uL (4.0-11.0)
[2022-12-20 05:27] LABS: INR 2.36; Prothrombin Time 23.8 sec (9.0-11.6)
[2022-12-20 05:29] LABS: Alanine Aminotransferase 30 U/L (14-59); Albumin Level 3.1 g/dL (3.4-5.0); Alkaline Phosphatase 74 U/L (46-116); Anion Gap 11.5; Aspartate Amino Transferase 28 U/L (15-37); BUN Creatinine Ratio 14.8; Bilirubin Total 0.4 mg/dL (0.2-1.0); Calcium 8.3 mg/dL (8.5-10.1); Carbon Dioxide 27.3 mmol/L (21.0-32.0); Chloride 105 mmol/L (98-107); Estimated GFR (African America >60 (>=60); Estimated GFR (Non-African Ame >60 (>=60); Globulin 3.2 g/dL; Glucose 90 mg/dL (74-106); Potassium 3.8 mmol/L (3.5-5.1); Sodium 140 mmol/L (136-145); Total Protein 6.3 g/dL (6.4-8.2)
[2022-12-20] MEDS: LEVOTHYROXINE SODIUM 112 MCG TABLET PO (05:51)
[2022-12-20] MEDS: LOSARTAN POTASSIUM 50 MG TABLET 100 MG PO (08:19)
[2022-12-20] MEDS: AMLODIPINE BESYLATE 5 MG TABLET 10 MG PO (08:19)
[2022-12-20] MEDS: POTASSIUM CHLORIDE 10 MEQ ER TABLET 20 MEQ PO (08:19)
[2022-12-20] MEDS: METOPROLOL SUCCINATE 100 MG TAB.ER.24H PO (08:19)
[2022-12-20] MEDS: MONTELUKAST SODIUM 10 MG TABLET PO (08:19)
[2022-12-20] MEDS: SULFASALAZINE 500 MG TABLET PO (08:20)
[2022-12-20] MEDS: WARFARIN SODIUM 2 MG TABLET PO (08:20)
[2022-12-20] MEDS: IRON POLYSACCHARIDE COMPLEX 150 MG CAPSULE PO (08:20)
[2022-12-20] MEDS: PAROXETINE HCL 20 MG TABLET 10 MG PO (08:20)
[2022-12-20] MEDS: CALCITRIOL 0.25 MCG CAPSULE PO (08:20)
--- NOTE | 2022-12-20 08:21 | PM.DS1 ---
DS: Providers Provider Date of admission: 12/18/22 13:49 Primary care physician: BENSON CHAKRABORTY Attending physician on admission: Shaikh Margarita Consults: 12/18/22 13:36 Occupational Therapy Eval and Treat Routine Reason for consultation: weakness Physical Therapy Eval and Treat Routine Reason for consultation: weakness Discharging clinician: Yamilka Humphries DS: Diagnosis Discharge Diagnosis (1) Community acquired pneumonia: (2) Afib: (3) Hypertension: (4) Seasonal allergies: (5) Anemia: (6) COPD (chronic obstructive pulmonary disease): DS: Summary Hospital Course Hospital Course: Patient responded well to oxygen, PEP therapy and duonebs along with antibiotics IV. At the time of discharge she is not requiring oxygen. She feels much improved from admission. She has inhalers at home. Will place her on levaquin 250mg daily for 7 days. Her INR is therapeutic at 2.36. Discussed that with the addition of antibiotics and iron she will need close INR check within 7 days. Also found to be iron deficient, anemic. Will place on daily iron supplement again with close monitoring of INR/coumadin. No other changes in home meds. Close follow up with PCP 5-7 days. Status at Discharge Functional status at discharge: uses cane/walker Overall status at discharge: patient is back to baseline Time Spent with Patient Time attestation: Total time spent providing and/or coordinating discharge services: Time spent: less than 30 minutes Exam Narrative Exam Narrative: General: Patient is alert, and oriented to person, place and time with normal affect, proper hygiene Skin: no visible rashes, or ulcers Head: atraumatic, acephalic Eyes: PERRLA, no nystagmus present, conjunctiva clear, no scleral icterus Heart: Normal rate and rhythm, no murmurs/rubs/gallops Lungs: no audible wheezes, crackles and normal breath sounds all lung barton Musculoskeletal: no swelling bilateral lower extremities Vascular: Normal carotid, radial, femoral, posterior tibial, and dorsalis pedis pulses Lymph: no supraclavicular, axillary, or anterior/posterior cervical adenopathy Neuro: CN II-X grossly intact, normal sensation upper and lower extremities Constitutional Vital Signs, click to edit/add: Last Vital Signs Temp 97.9 F 12/20/22 05:55 Pulse 60 12/20/22 06:00 Resp 20 12/20/22 05:55 BP 156/70 H 12/20/22 05:55 Pulse Ox 93 L 12/20/22 05:55 O2 Del Method Room Air 12/20/22 05:55 O2 Flow Rate 2 12/19/22 21:52 DS: Data Data Completed and Pending Labs on day of discharge: Labs from last 24 hours 12/20/22 12/18/22 04:40 12:30 WBC 5.5 RBC 3.38 L Hgb 8.8 L Hct 28.3 L MCV 83.7 MCH 26.0 L MCHC 31.1 RDW 18.7 H Plt Count 202 MPV 10.0 Neut % (Auto) 55.6 Lymph % (Auto) 20.2 L [place] % (Auto) 20.9 H Eos % (Auto) 2.0 Baso % (Auto) 0.9 Neut # (Auto) 3.1 Lymph # (Auto) 1.1 L [place] # (Auto) 1.2 H Eos # (Auto) 0.1 Baso # (Auto) 0.1 Abs Immat Gran (auto) 0.02 Imm/Tot Granulo (auto) 0.4 PT 23.8 H INR 2.36 Sodium 140 Potassium 3.8 Chloride 105 Carbon Dioxide 27.3 Anion Gap 11.5 BUN 13.0 Creatinine 0.88 Est GFR ( Amer) >60 Est GFR (Non-Af Amer) >60 BUN/Creatinine Ratio 14.8 Glucose 90 Calcium 8.3 L Total Bilirubin 0.4 AST 28 ALT 30 Alkaline Phosphatase 74 Total Protein 6.3 L Albumin 3.1 L Globulin 3.2 Albumin/Globulin Ratio 1.0 SARS-CoV-2 RNA (MELIDA) Invalid A Discharge Plan Discharge Disposition: Home, Self-Care Condition: Fair Discharge Medications: New polysaccharide iron complex [Ferrex 150] 150 mg iron Capsule 150 mg PO QD 30 Days Qty: 30 0RF levofloxacin 250 mg tablet 250 mg PO DAILY Qty: 7 0RF Continued montelukast 10 mg tablet 10 mg PO DAILY sulfasalazine 500 mg tablet 0.5 g PO BID Patient Comments: PER PATIENT TAKES TWICE A DAY Rx Instructions: give with food (meal/snack) hydrocodone-acetaminophen 5-325 mg tablet 1 tab PO Q8H PRN (Reason: pain) potassium chloride [Klor-Con] 20 mEq packet 20 meq PO DAILY hydrochlorothiazide 50 mg tablet 50 mg PO DAILY fluticasone propionate [24 Hour Allergy Relief] 50 mcg/actuation spray,suspension 1 spray intranasal DAILY PRN (Reason: allergy symptoms) Rx Instructions: administer into each nostril furosemide 20 mg tablet 20 mg PO DAILY doxazosin [Cardura] 2 mg tablet 2 mg PO DAILY levothyroxine [Levo-T] 112 mcg tablet 112 mcg PO DAILY metoprolol succinate 100 mg tablet extended release 24 hr 100 mg PO DAILY paroxetine HCl 10 mg tablet 10 mg PO DAILY warfarin 2 mg tablet 2 mg PO DAILY calcitriol 0.25 mcg capsule 0.25 mcg PO DAILY amlodipine 10 mg tablet 10 mg PO DAILY losartan 100 mg tablet 100 mg PO DAILY Activity: ambulate only with your walker Diet: advance to your usual diet Diet Detail: discussed iron rich foods but also that iron and antibiotic interact with coumadin so she will need to get weekly INR checks until she is consistent with this Patient Instructions: Anemia (DC), Pneumonia (DC) Forms: Portal Instructions Follow Up Appointments: Follow up with Dr. Mckeon in 5-7 days. [phone], will need INR checked then as well Discharge Date/Time: 12/20/22 11:40
--- NOTE | 2022-12-21 14:56 | CM.DCFOLLOWU ---
Person spoke with: patient How are you feeling? well How is your pain? no pain Did you understand your discharge instructions? yes Do you have any questions about your discharge instructions? no Were you given any prescriptions at discharge? yes Were you able to get your prescriptions filled? yes Do you understand how to take your medications as ordered? yes Do you have any questions about your follow up appointment and do you plan to keep your follow up appointment? no questions and follow up with PCP is Oct. 2nd Is there anything else that you would like to discuss? no Questions/Comments/Concerns/Other:
== END 2022-12-20 11:40 | disposition home or self-care (01) | DRG 195 ==
LOC: ER 13:39 → MS 18:27
PROVIDERS: Physician Assistant; Admitting Provider Family Medicine; Emergency Provider Emergency Medicine; PCP Internal Medicine; Visit Provider Internal Medicine
DX: J18.9 Pneumonia, unspecified organism (principal); I48.91 Unspecified atrial fibrillation; I10 Essential (primary) hypertension; J30.2 Other seasonal allergic rhinitis; D50.9 Iron deficiency anemia, unspecified; J44.9 Chronic obstructive pulmonary disease, unspecified; R09.02 Hypoxemia; Z95.0 Presence of cardiac pacemaker; Z83.3 Family history of diabetes mellitus; Z82.49 Family history of ischemic heart disease and other diseases of the circulatory system; Z83.6 Family history of other diseases of the respiratory system; Z87.891 Personal history of nicotine dependence; Z79.890 Hormone replacement therapy; Z79.899 Other long term (current) drug therapy; Z88.2 Allergy status to sulfonamides
CPT/HCPCS: 36415; 71046; 80053; 82607; 82728; 82746; 83540; 83550; 83880; 84466; 84484; 85025; 85610; 85730; 87635; 87811; 93005; 94640; 94667; 94668; 94761; 96365; 96366; 96375; 97161; 97165; 97530; 99285; G0328; G0378; J0456; U0003

== ENCOUNTER 2023-02-10 11:31 | Outpatient (OUT) | payer MEDICARE, SELFPAY ==
--- NOTE | 2023-02-10 11:38 | XR_ITS ---
[address] [address] Patient Name: ISAAC TOURE MRN: [id number] date: 1940 Sex: F Assigned Patient Location: [facility] Current Patient Location: [facility] Accession/Order Number: [id number] Exam Date: 02/10/2023 11:40 Report Date: 02/10/2023 20:24 At the request of: CHAVO BRYANT Procedure: XR sinus min 3V Exam: Radiographs: XR sinus min 3V Reason for exam: Chronic Sinusitis Comparison: None XR/XR sinus min 3V IMPRESSION: No radiographically evident fractures or lytic osseous changes. No radiographically evident opacification of the paranasal sinuses. Right carotid stent. Cervical spine fusion hardware. Remainder unremarkable. Electronically authenticated by: SWETHA POOLE Date: 02/10/2023 20:24
== END 2023-02-10 11:32 | disposition home or self-care (01) ==
LOC: RAD 11:32
PROVIDERS: PCP Internal Medicine; Visit Provider Otolaryngology
DX: J32.8 Other chronic sinusitis (principal)
CPT/HCPCS: 70220

== ENCOUNTER 2023-02-12 13:34 | Outpatient (OUT) | payer MEDICARE, SELFPAY ==
--- NOTE | 2023-02-12 13:40 | MM_ITS ---
Patient Name: ISAAC TOURE MR#: [id number] : 1940 Exam Date: 02/12/2023 Ordering Doctor: DR BENSON CHAKRABORTY M.D. RADIOLOGY REPORT PROCEDURE: MM SCREENING MAMMO BI COMPARISON: MG MAMM SCREEN 3D TOM CAD, 01/27/2021. MG MAMM SCREEN TOM W CAD, 01/30/2022. INDICATIONS: Screening Calculator Name NCI Breast Cancer Risk Assessment Tool 5 Year Breast Cancer Risk 1.30% Lifetime Breast Cancer Risk 1.90% Personal Breast Cancer No Personal Ovarian Cancer No Treatments None Family Cancers Cousin-maternal with breast cancer at age 45. LOCATION: [facility] BREAST COMPOSITION: Heterogeneously dense,which may obscure small masses. FINDINGS: DIAGNOSTIC CATEGORY 1--NEGATIVE. NO CHANGE FROM COMPARISON ASSESSMENT. Scattered benign-appearing calcifications are present. RIGHT BREAST: No significant suspicious finding. LEFT BREAST: No significant suspicious finding. Pacemaker obscures the axillary tail RECOMMENDATIONS: ROUTINE MAMMOGRAM AND CLINICAL EVALUATION IN 12 MONTHS. PLEASE NOTE: A NORMAL MAMMOGRAM DOES NOT EXCLUDE THE POSSIBILITY OF BREAST CANCER. A CLINICALLY SUSPICIOUS PALPABLE LUMP SHOULD BE BIOPSIED. Dictated by: Sam Coyne MD on 02/12/2023 at 15:08 Approved by: Sam Coyne MD on 02/12/2023 at 15:09
== END 2023-02-12 13:35 | disposition home or self-care (01) ==
LOC: MAMMO 13:35
PROVIDERS: PCP Internal Medicine; Visit Provider Internal Medicine
DX: Z12.31 Encounter for screening mammogram for malignant neoplasm of breast (principal); Z80.3 Family history of malignant neoplasm of breast
CPT/HCPCS: 77067

== ENCOUNTER 2023-02-17 15:10 | Outpatient (OUT) | payer MEDICARE, SELFPAY ==
[2023-02-17 16:22] LABS: SARS-CoV-2 Ag NEGATIVE (NEGATIVE)
[2023-02-18 21:33] LABS: SARS-CoV-2 NAA INCONCLUSIVE (NOT DETECTE)
== END 2023-02-17 15:11 | disposition home or self-care (01) ==
LOC: LAB 15:46
PROVIDERS: PCP Internal Medicine; Visit Provider Internal Medicine
DX: J06.9 Acute upper respiratory infection, unspecified (principal)
CPT/HCPCS: 87635; 87811

== ENCOUNTER 2023-04-28 12:53 | Outpatient (OUT) | payer MEDICARE, SELFPAY ==
--- NOTE | 2023-04-28 13:01 | US_ITS ---
[facility] [place] [id number] Patient Name: ISAAC TOURE MRN: [id number] date: 1940 Sex: F Assigned Patient Location: [place] Current Patient Location: [place] Accession/Order Number: [id number] Exam Date: 04/28/2023 13:05 Report Date: 04/28/2023 13:45 At the request of: CAROLYN ADKINS Procedure: US venous doppler UE RT US venous doppler UE RT, 04/28/2023 1:05 PM EST INDICATION: Right arm edema x3 months. COMPARISON: No prior right upper extremity Doppler ultrasound available for comparison at the time of this dictation. TECHNIQUE: Multi-planar real-time ultrasonography of the right upper extremity venous system using grayscale imaging supplemented by color Doppler. Augmentation and compression maneuvers were utilized as needed. FINDINGS: The subclavian, axillary, brachial, antecubital, basilic and cephalic veins are fully compressible with anterograde flow. Augmentation and respiratory variation within normal limits. The radial and ulnar veins are fully compressible. US/US venous doppler UE RT IMPRESSION: Negative for deep venous thrombosis within the right upper extremity. Electronically authenticated by: NEERAJ MEIER Date: 04/28/2023 13:45
--- OUTSIDE RECORDS SUMMARY | 2023-04-28 13:01 | XMS_ITS | CCD ---
Author Name Unknown Address [address] [place] [address] Organization [facility] Care Team Providers Care Health And Wellness Coach Name Role Phone SELF, REFERRED Referring Unavailable BERNARDO ALMONTE Primary Care Unavailable ILIANA MCKOY Admitting Unavailable OK Procedure Practitioner Unavailab FAISAL Kong Surgeon Unavailable IVETH TRISTAN Attending Unavailable FAISAL JOHNS Admitting Unavailable FAISAL JOHNS Attending Unavailable FAISAL JOHNS Referring Unavailable BERNARDO ALMONTE Primary Care Unavailable FAISAL JOHNS Admitting Unavailable FAISAL JOHNS Attending Unavailable BERNARDO ALMONTE Referring Unavailable BERNARDO ALMONTE Primary Care Unavailable Bernardo Almonte II Primary Care Provider DR BERNARDO ALMONTE Primary Care Unavailable MYLENE, DR KNOWLES Consulting Unavailable MYLENE, DR KNOWLES Attending Unavailable MYLENE, DR KNOWLES Admitting Unavailable RALPH, DR CONSTANTINE Farrell Consulting Unavailable ALEKSANDAR, DR SIVAKUMAR Flynn Admitting Unavailable BETTIE SHOEMAKER Consulting Unavailable ALEKSANDAR, DR SIVAKUMAR Flynn Attending Unavailable MYLENE, DR KNOWLES Primary Care Unavailable ALEKSANDAR, DR SIVAKUMAR Flynn Admitting Unavailable BETTIE SHOEMAKER Consulting Unavailable MYLENE, DR KNOWLES Primary Care Unavailable ALEKSANDAR, DR SIVAKUMAR Flynn Attending Unavailable MYLENE, DR KNOWLES Attending Unavailable MYLENE, DR KNOWLES Admitting Unavailable MYLENE, DR KNOWLES Primary Care Unavailable JULIANA TITUS Attending Unavailable JULIANA TITUS Admitting Unavailable MYLENE, DR KNOWLES Primary Care Unavailable GAL, DR GUERRA Consulting Unavailable JULIANA TITUS Attending Unavailable JULIANA TITUS Admitting Unavailable JULIANA TITUS Consulting Unavailable MYLENE, DR KNOWLES Primary Care Unavailable JULIANA TITUS Consulting Unavailable JULIANA TITUS Attending Unavailable JULIANA TITUS Admitting Unavailable MYLENE, DR KNOWLES Primary Care Unavailable JULIANA TITUS Attending Unavailable JULIANA TITUS Admitting Unavailable DR BERNARDO ALMONTE Primary Care Unavailable MARGY AHUJA Consulting Unavailable JULIANA TITUS Consulting Unavailable JULIANA TITUS Attending Unavailable JULIANA TITUS Admitting Unavailable JULIANA TITUS Consulting Unavailable DR BERNARDO ALMONTE Primary Care Unavailable BETTIE SHOEMAKER Attending Unavailable BETTIE SHOEMAKER Admitting Unavailable DR BERNARDO ALMONTE Consulting Unavailable DR BERNARDO ALMONTE Primary Care Unavailable RALPH, DR CONSTANTINE Farrell Consulting Unavailable BENNY JOSEPH Attending Unavailable HALIMA STATON Referring Unavailable CAROLYN ADKINS Referring Unavailable CHAVO BRYANT Attending Unavailable BERNARDO ALMONTE Attending Unavailable Allergies Allergy Classification Reported Allergen(s) Allergy Type Date of Onset Reaction(s) Facility Sulfanilamide (1 source) Sulfanilamide Drug Allergy 5 [facility] (4 sources) Sulfonamides (Antibiotic); Translations: [SULFA (SULFONAMIDE ANTIBIOTICS)] Drug allergy (disorder) 3 [facility] (1 source) Milk; Translations: [MILK] Propensity to adverse reactions to drug (disorder) 2 [facility] Medications Completed/Discontinued Medications Medication Drug Class(es) Dates Sig (Normalized) Sig (Original) alendronic acid 70 mg oral tablet (1 source) Bisphosphonate take 1 tablet by mouth every week alendronate (FOSAMAX) 70 mg tablet Take 70 mg by mouth once each week. 0 Active Comment on above: Take 70 mg by mouth once each week. ALPRAZolam 0.5 mg oral tablet (1 source) Benzodiazepine take 1 tablet by mouth once daily ALPRAZolam (XANAX) 0.5 mg tablet Take 0.5 mg by mouth once daily. 0 Active Comment on above: Take 0.5 mg by mouth once daily. amLODIPine 10 mg oral tablet (2 sources) Dihydropyridine Calcium Channel Murali Start: 07-11-2015 End: 07-20-2016 take 1 tablet by mouth once daily amLODIPine (NORVASC) 10 mg tablet TAKE ONE TABLET BY MOUTH ONCE DAILY 90 tablet 3 07/20/2016 Active Comment on above: TAKE ONE TABLET BY M OUTH ONCE DAILY Take 1 tablet by olivier th once daily. atorvastatin 10 mg oral tablet (1 source) HMG-CoA Reductase Inhibitor take 2 tablets by mouth once daily atorvastatin (LIPITOR) 10 mg tablet Take 20 mg by mouth once daily. 0 Active Comment on above: Take 20 mg by mouth once daily. bimatoprost 0.3 mg/ml ophthalmic solution (1 source) Prostaglandin Analog take 1 drop(s) into the eye(s) once daily at bedtime bimatoprost (LUMIGAN) 0.03 % ophthalmic drops 1 Drop daily at bedtime. 0 Active Comment on above: 1 Drop daily at bedt jasmina. calcitriol 0.10787 mg oral capsule (1 source) Vitamin D3 Analog take 1 capsule by mouth once daily calcitriol (ROCALTROL) 0.25 mcg capsule Take 0.25 mcg by mouth once daily. 0 Active Comment on above: Take 0.25 mcg by olivier th once daily. ergocalciferol 1.25 mg oral capsule (1 source) Provitamin D2 Compound take 1 capsule by mouth every week ergocalciferol, vitamin D2, (VITAMIN D) 50,000 unit capsule Take 50,000 Units by mouth once each week. 0 Active Comment on above: Take 50,000 Units by mouth once each week. esomeprazole 20 mg delayed release oral capsule (1 source) Proton Pump Inhibitor esomeprazole (NEXIUM) 20 mg capsule Take 20 mg by mouth. 0 Active Comment on above: Take 20 mg by mouth. fluticasone propionate 0.05 mg/actuat metered dose nasal spray (1 source) Corticosteroid fluticasone (FLONASE) 50 mcg/actuation nasal spray Use 1 [place] in each nostril as needed. 0 Active Comment on above: Use 1 [place] in each nostril as needed. GLUC/CHND/OM3/DHA/E PA/FISH/STR (GLUCOSAMINE CHONDROITIN PLUS ORAL) (1 source) GLUC/CHND/OM3/DH A/E PA/FISH/STR (GLUCOSAMINE CHONDROITIN PLUS ORAL) Take by mouth once daily. 0 Active Comment on above: Take by mouth once d aily. levothyroxine sodium 0.1 mg oral tablet (1 source) l-Thyroxine take 1 tablet by mouth once daily before breakfast levothyroxine (SYNTHROID) 100 mcg tablet Take 100 mcg by mouth daily before breakfast. 0 Active Comment on above: Take 100 mcg by mout h daily before breakfast. mesalamine 1200 mg delayed release oral tablet (1 source) Aminosalicylate Mesalamine (LIAL DA) 1.2 gram EC tablet Take 1,200 mg by mouth daily with breakfast. 0 Active Comment on above: Take 1,200 mg by [facility] daily with breakfast. 24 hr metoprolol succinate 50 mg extended release oral tablet (1 source) beta-Adrenergic Murali Start: 08-29-2015 take 2 tablets by mouth once daily metoprolol succinate ER (TOPROL XL) 50 mg 24 hr tablet Take 2 tablets by mouth once daily. 90 tablet 3 08/29/2015 Active Comment on above: Take 2 tablets by [facility] once daily. mirtazapine 15 mg oral tablet (1 source) take 1 tablet by mouth once daily at bedtime mirtazapine (REMERON) 15 mg tablet Take 15 mg by mouth daily at bedtime. 0 Active Comment on above: Take 15 mg by mouth daily at bedtime. MG-6-ION-EPA-Fish Oil-Vit D3 300-1,000-1,000 mg-mg-unit cap (1 source) QO-9-TSZ-EPA-Fis h Oil-Vit D3 300-1,000-1,000 mg-mg-unit cap Take by mouth daily at bedtime. 0 Active Comment on above: Take by mouth daily at bedtime. Potassium Chloride gran (1 source) Potassium Chlori de gran 20 mEq once daily. 0 Active Comment on above: 20 mEq once daily. vitamin b12 1 mg oral tablet (1 source) Vitamin B12 take 1 tablet by mouth once daily cyanocobalamin (VITAMIN B-12) 1,000 mcg tab Take 1,000 mcg by mouth once daily. 0 Active Comment on above: Take 1,000 mcg by [facility] once daily. warfarin sodium 2 mg oral tablet (1 source) Vitamin K Antagonist take 2 mg by mouth once daily WARFARIN SODIUM (WARFARIN ORAL) Take 2 mg by mouth daily as directed. 0 Active Comment on above: Take 2 mg by mouth d aily as directed. Problems Active Problems Problem Classification Problem Date Documented Date Episodic/Chronic Acute cerebrovascular disease (1 source) Occlusion of cerebral artery with stroke; Translations: [Cerebral infarction due to unspecified occlusion or stenosis of unspecified cerebral artery] 05-08-2014 Chronic Cardiac dysrhythmias (7 sources) Unspecified atrial flutter; Translations: [Unspecified atrial fibrillation] Onset: 05-07-2014 05-07-2014 Chronic Complication of device; implant or graft (2 sources) Other specified complication of cardiac prosthetic devices, implants and grafts, initial encounter; Translations: [Other specified complication of cardiac prosthetic devices, implants and grafts, initial encounter] Onset: 08-18-2022 Episodic Complications of surgical procedures or medical care (1 source) Postprocedural hypothyroidism; Translations: [POSTPROCEDURAL HYPOTHYROIDISM] Onset: 03-20-2018 Chronic Conduction disorders (4 sources) Presence of cardiac pacemaker; Translations: [Cardiac pacemaker in situ] Onset: 05-10-2015 05-10-2015 Chronic Congestive heart failure; nonhypertensive (5 sources) Chronic diastolic (congestive) heart failure; Translations: [Acute diastolic (congestive) heart failure] Onset: 03-20-2018 Chronic Coronary atherosclerosis and other heart disease (1 source) Atherosclerotic heart disease of [place] coronary artery without angina pectoris; Translations: [ATHSCL HEART DISEASE OF [place] CORONARY ARTERY W/O ANG PCTRS] Onset: 03-20-2018 Chronic Disorders of lipid metabolism (2 sources) Hyperlipidemia, unspecified; Translations: [Hyperlipidemia] Onset: 03-20-2018 05-08-2014 Chronic Esophageal disorders (1 source) Gastro-esophageal reflux disease without esophagitis; Translations: [GASTRO-ESOPHAGEAL REFLUX DISEASE WITHOUT ESOPHAGITIS] Onset: 03-20-2018 Chronic Essential hypertension (5 sources) Hypertensive disorder; Translations: [Essential (primary) hypertension] Onset: 04-11-2021 05-08-2014 Chronic External cause codes: Fall (1 source) Other fall on same level, initial encounter; Translations: [OTHER FALL ON SAME LEVEL, INITIAL ENCOUNTER] Onset: 03-20-2018 Fluid and electrolyte disorders (2 sources) Hypokalemia; Translations: [Hypokalemia] Onset: 03-20-2018 05-08-2014 Episodic Fracture of lower limb (4 sources) Other fracture of shaft of left femur, subsequent encounter for closed fracture with routine healing; Translations: [Unspecified fracture of shaft of left femur, initial encounter for closed fracture] Onset: 03-20-2018 Episodic Heart valve disorders (1 source) Nonrheumatic mitral (valve) insufficiency; Translations: [NONRHEUMATIC MITRAL INSUFFICIENCY] Onset: 05-13-2021 Chronic Hypertension with complications and secondary hypertension (1 source) Hypertensive heart disease with heart failure; Translations: [HYPERTENSIVE HEART DISEASE WITH HEART FAILURE] Onset: 03-20-2018 Chronic Occlusion or stenosis of precerebral arteries (5 sources) Carotid artery stenosis; Translations: [Occlusion and stenosis of unspecified carotid artery] Onset: 04-01-2021 05-08-2014 Chronic Osteoarthritis (3 sources) Unilateral primary osteoarthritis, left hip; Translations: [Unilateral primary osteoarthritis, left knee] Onset: 05-11-2018 Chronic Other aftercare (3 sources) Encounter for other orthopedic aftercare; Translations: [ENCOUNTER FOR OTHER ORTHOPEDIC AFTERCARE] Onset: 05-11-2018 Episodic Other connective tissue disease (1 source) Arthrodesis status; Translations: [ARTHRODESIS STATUS] Onset: 05-11-2018 Episodic Other ear and sense organ disorders (1 source) Unspecified hearing loss, unspecified ear; Translations: [UNSPECIFIED HEARING LOSS, UNSPECIFIED EAR] Onset: 03-20-2018 Chronic Other hereditary and degenerative nervous system conditions (1 source) Restless legs syndrome; Translations: [RESTLESS LEGS SYNDROME] Onset: 03-20-2018 Chronic Other nutritional; endocrine; and metabolic disorders (1 source) Hypomagnesemia; Translations: [HYPOMAGNESEMIA] Onset: 03-20-2018 Chronic Other nutritional; endocrine; and metabolic disorders (1 source) Hypercalcemia; Translations: [Hypercalcemia] 05-08-2014 Chronic Other nutritional; endocrine; and metabolic disorders (1 source) Disorder of magnesium metabolism; Translations: [Disorders of magnesium metabolism, unspecified] 05-08-2014 Chronic Other screening for suspected conditions (not mental disorders or infectious disease) (4 sources) Encounter for screening mammogram for malignant neoplasm of breast; Translations: [ENC SCR MAMMO MALIG NEOPLASM BREAST] Onset: 01-30-2022 Episodic Jane-; endo-; and myocarditis; cardiomyopathy (except that caused by tuberculosis or sexually transmitted disease) (2 sources) Cardiomyopathy, unspecified; Translations: [Cardiomyopathy, unspecified] Onset: 08-18-2022 Chronic Residual codes; unclassified (1 source) Family history of malignant neoplasm of breast; Translations: [FAMILY HX MALIG NEOPLASM OF BREAST] Onset: 02-05-2022 Episodic Rheumatoid arthritis and related disease (1 source) Rheumatoid arthritis, unspecified; Translations: [RHEUMATOID ARTHRITIS, UNSPECIFIED] Onset: 03-20-2018 Chronic Spondylosis; intervertebral disc disorders; other back problems (2 sources) Other spondylosis with radiculopathy, lumbar region; Translations: [Spondylosis without myelopathy or radiculopathy, lumbar region] Onset: 12-16-2021 Chronic Spondylosis; intervertebral disc disorders; other back problems (5 sources) Intervertebral disc disorders with radiculopathy, lumbar region; Translations: [Radiculopathy, lumbar region] Onset: 12-12-2021 Episodic Unclassified (1 source) C/O LT FEMUR FX Onset: 03-20-2018 Unclassified (1 source) LT FEMUR FX Onset: 03-20-2018 Unclassified (4 sources) LOW BACK PAIN, UNSPECIFIED; Translations: [LOW BACK PAIN, UNSPECIFIED] Onset: 12-16-2021 Past or Other Problems Problem Classification Problem Date Documented Date Episodic/Chronic Acute posthemorrhagic anemia (1 source) Acute posthemorrhagic anemia; Translations: [ACUTE POSTHEMORRHAGIC ANEMIA] Onset: 03-20-2018 Episodic Allergic reactions (1 source) Allergy status to sulfonamides status; Translations: [ALLERGY STATUS TO SULFONAMIDES STATUS] Onset: 03-20-2018 Episodic Other aftercare (1 source) half-way (current) use of anticoagulants; Translations: [BUSINESS MANAGEMENT CONSULTANT (CURRENT) USE OF ANTICOAGULANTS] Onset: 03-20-2018 Episodic Other aftercare (1 source) half-way (current) use of aspirin; Translations: [BUSINESS MANAGEMENT CONSULTANT (CURRENT) USE OF ASPIRIN] Onset: 03-20-2018 Episodic Other circulatory disease (1 source) Personal history of transient ischemic attack (TIA), and cerebral infarction without residual deficits; Translations: [PRSNL HX OF TIA (TIA), AND CEREB INFRC W/O RESID DEFICITS] Onset: 03-20-2018 Episodic Other lower respiratory disease (4 sources) Other forms of dyspnea; Translations: [OTHER FORMS OF DYSPNEA] Onset: 05-07-2021 Episodic Screening and history of mental health and substance abuse codes (1 source) Personal history of nicotine dependence; Translations: [PERSONAL HISTORY OF NICOTINE DEPENDENCE] Onset: 03-20-2018 Episodic Unclassified (1 source) LOW BACK PAIN, UNSPECIFIED; Translations: [LOW BACK PAIN, UNSPECIFIED] Onset: 12-12-2021 Results Test Name Value Interpretation Reference Range Facility Office Visiton 08-18-2022 Follow-up visit [id number] Isaac Toure 1940 F Date Provider Department Center 08/18/2022 Karan6-BENNY JOSEPH [facility] Family History Problem Relation Age of Onset Diabetes Mother Hypertension Mother Hyperlipidemia Mother Diabetes Father Hypertension Father Stroke Father Hyperlipidemia Father Family Status - Relation Status Age at Mother Father Level of Service:69320 [place] OFFICE/OUTPATIENT ESTABLISHED MOD MDM 30-39 MIN Reason for Visit and Comments: Follow-up [877603] - 1 yr. Follow up Normal [facility] MG MAMM SCREEN TOM W CADon 1 04-01-2021 MG MAMM SCREEN TOM W CAD Patient: ISAAC TOURE. Exam Date: 01/30/2022 : 1940 Gender:F Ordering : DR BERNARDO ALMONTE M.D. Admission #: [id number] Family : Order #: [id number] CLICK HERE TO VIEW EXAM RADIOLOGY REPORT PROCEDURE: MAMMOGRAM BILATERAL SCREENING DIGITAL WITH COMPUTER AIDED DETECTION COMPARISON: MG MAMM SCREEN TOM W CAD, 01/26/2020. MG MAMM SCREEN 3D TOM CAD, 01/27/2021. INDICATIONS: Screening mammography Calculator Name NCI Breast Cancer Risk Assessment Tool 5 Year Breast Cancer Risk 1.30% Lifetime Breast Cancer Risk 2.10% Personal Breast Cancer No Personal Ovarian Cancer No Treatments None Family Cancers Cousin-maternal with breast cancer at age 45. LOCATION: [facility] BREAST COMPOSITION: Heterogeneously dense,which may obscure small masses. FINDINGS: DIAGNOSTIC CATEGORY 1--NEGATIVE. NO CHANGE FROM COMPARISON ASSESSMENT. Scattered benign-appearing calcifications are present. RIGHT BREAST: No significant suspicious finding. LEFT BREAST: No significant suspicious finding. Pacemaker obscures the axillary to RECOMMENDATIONS: ROUTINE MAMMOGRAM AND CLINICAL EVALUATION IN 12 MONTHS. PLEASE NOTE: A NORMAL MAMMOGRAM DOES NOT EXCLUDE THE POSSIBILITY OF BREAST CANCER. A CLINICALLY SUSPICIOUS PALPABLE LUMP SHOULD BE BIOPSIED. Dictated by: Constantine Rosas MD on 01/30/2022 at 12:50 Approved by: Constantine Rosas MD on 01/30/2022 at 13:03 Normal [facility] XR LSPINE MIN 4 VIEWSon 09- XR LSPINE MIN 4 VIEWS EXAMINATION: XR LSPINE MIN 4 VIEWS HISTORY: Low back pain COMPARISON: No relevant comparison available. FINDINGS: BONES: Mild dextrocurvature. Posterior decompression bilateral transpedicular fusion L3-L5. Moderate degenerative spondylosis. Moderate to severe facet osteoarthropathy DISC SPACES: Hard to severe multilevel disc space narrowing with endplate sclerosis PARASPINOUS: Negative. No paraspinous abnormality is seen. OTHER: Vascular calcification IMPRESSION: Moderate to severe diffuse degenerative change Electronically authenticated by: CONSTANTINE ROSAS Date: 2021-12-12 16:39 Normal [facility] Abstracton 12-04-2021 Abstract [id number] Isaac Toure N 1940 Date Provider Department Center 12/04/2021 [facility] Problem Relation Age of Onset Diabetes Mother Hypertension Mother Hyperlipidemia Mother Diabetes Father Hypertension Father Stroke Father Hyperlipidemia Father Family Status - Relation Status Age at Mother Father Normal [facility] Abstracton 11-28-2021 Abstract [id number] Mendoza Touree N 1940 Provider Department Center 11/28/2021 [place] Family History Problem Relation Age of Onset Diabetes Mother Hypertension Mother Hyperlipidemia Mother Diabetes Father Hypertension Father Stroke Father Hyperlipidemia Father Family Status - Relation Status Age at Mother Father Normal [facility] BNPon 06-16-2021 Natriuretic peptide B (Bld) [Mass/Vol] 1502.0 pg/mL Normal <=1,800.0 [facility] Comment on above: Performed By: #### B PRINTMAKER, CMP #### [facility] [address] [place] [address] Dr. Phil Bobby PROF 14(COMP METB)on 022 Albumin [Mass/Vol] 3.9 g/dL Normal 3.4-5.0 [facility] Comment on above: Performed By: #### B PRINTMAKER, CMP #### [facility] [address] [address] [address] Phil Bobby Albumin/Globulin [Mass ratio] 1.0 {ratio} Normal [facility] Comment on above: Performed By: #### B PRINTMAKER, CMP #### [facility] [address] [address] [address] Phil Bobby ALP [Catalytic activity/Vol] 89 U/L Normal 46-116 [facility] Comment on above: Performed By: #### B PRINTMAKER, CMP #### [facility] [address] [address] [address] Phil Bobby ALT [Catalytic activity/Vol] 51 U/L Normal 14-59 [facility] Comment on above: Performed By: #### B PRINTMAKER, CMP #### [facility] [address] [address] [address] Phil Bobby Anion gap [Moles/Vol] 13.3 mmol/L Normal [facility] Comment on above: Performed By: #### B PRINTMAKER, CMP #### [facility] [address] [address] [address] Phil Bobby AST [Catalytic activity/Vol] 29 U/L Normal 15-37 [facility] Comment on above: Performed By: #### B PRINTMAKER, CMP #### [facility] [address] [address] [address] Phil Bobby Bilirubin [Mass/Vol] 0.4 mg/dL Normal 0.2-1.3 [facility] Comment on above: Performed By: #### B PRINTMAKER, CMP #### [facility] [address] [address] [address] Phil Bobby Calcium [Mass/Vol] 8.5 mg/dL Normal 8.5-10.1 [facility] Comment on above: Performed By: #### B PRINTMAKER, CMP #### [facility] [address] [address] [address] Phil Bobby Chloride [Moles/Vol] 102 mmol/L Normal 98-107 [facility] Comment on above: Performed By: #### B PRINTMAKER, CMP #### [facility] [address] [address] [address] Phil Bobby CO2 [Moles/Vol] 27.9 mmol/L Normal 22.0-30.0 [facility] Comment on above: Performed By: #### B PRINTMAKER, CMP #### [facility] [address] [address] [address] Phil Bobby Creatinine [Mass/Vol] 1.04 mg/dL Normal 0.52-1.04 [facility] Comment on above: Performed By: #### B PRINTMAKER, CMP #### [facility] [address] [address] [address] Phil Bobby EGFR-AF ISRAELI >60 Normal >=60 [facility] Comment on above: Performed By: #### B PRINTMAKER, CMP #### [facility] [address] [address] [address] Phil Bobby EGFR-NON AF ISRAELI 51 mL/min/1.73m2 Critically low >=60 [facility] Comment on above: Performed By: #### B PRINTMAKER, CMP #### [facility] [address] [address] [address] Phil Bobby Globulin (S) [Mass/Vol] 4.0 g/dL Normal [facility] Comment on above: Performed By: #### B PRINTMAKER, CMP #### [facility] [address] [address] [address] Phil Bobby Glucose [Mass/Vol] 118 mg/dL Critically high 74-106 [facility] Comment on above: Performed By: #### B PRINTMAKER, CMP #### [facility] [address] [address] [address] Phil Bobby Potassium [Moles/Vol] 4.2 mmol/L Normal 3.4-5.0 [facility] Comment on above: Performed By: #### B PRINTMAKER, CMP #### [facility] [address] [address] [address] Phil Bobby Protein [Mass/Vol] 7.9 g/dL Normal 6.1-8.2 [facility] Comment on above: Performed By: #### B PRINTMAKER, CMP #### [facility] [address] [address] [address] Phil Bobby Sodium [Moles/Vol] 139 mmol/L Normal 137-145 [facility] Comment on above: Performed By: #### B PRINTMAKER, CMP #### [facility] [address] [address] [address] Phil Bobby Urea nitrogen [Mass/Vol] 20.0 mg/dL Critically high 7.0-18.0 [facility] Comment on above: Performed By: #### B PRINTMAKER, CMP #### [facility] [address] [place], [place] [address] Dr. Phil Bobby Urea nitrogen/Creatinine [Mass ratio] 19.2 mg/mg Normal [facility] Comment on above: Performed By: #### B PRINTMAKER, CMP #### [facility] [address] [place], [place] [address] Dr. Phil Bobby Basic Metabolic Panelon 05-27 Anion gap [Moles/Vol] 18 mmol/L Normal 12-20 [facility] Comment on above: Result Comment: Effe ctive 04/03/2019 reference range changed. Performed By: #### B MP #### [facility] [address] [place], [place] [id number] Calcium [Mass/Vol] 8.8 mg/dL Normal 8.6-10.2 [facility] Comment on above: Performed By: #### B MP #### [facility] [address] [place] [id number] Chloride [Moles/Vol] 104 mmol/L Normal 98-107 [facility] Comment on above: Performed By: #### B MP #### [facility] [address] [place], [place] [id number] CO2 [Moles/Vol] 23 mmol/L Normal 20-31 [facility] Comment on above: Performed By: #### B MP #### [facility] [address] [place], [place] [id number] Creatinine [Mass/Vol] 0.9 mg/dL Normal 0.6-1.4 [facility] Comment on above: Performed By: #### B MP #### [facility] [address] [place], [place] [id number] eGFRAA 77 mL/min/1.73m2 Normal >60 [facility] Comment on above: Performed By: #### B MP #### [facility] Laboratory [address] [place], [place] [id number] eGFRNAA 64 mL/min/1.73m2 Normal >60 [facility] Comment on above: Performed By: #### B MP #### [facility] [address] [place], [place] [id number] Glucose [Mass/Vol] 79 mg/dL Normal 65-99 [facility] Elevator Serviceman Comment on above: Result Comment: For FASTING Glucose --- ADA reference ranges: Normal 65-99 mg/dl Prediabetes 100-125 Diabetes >/= 126 Performed By: #### B MP #### [facility] [address] [place], [place] [id number] Potassium [Moles/Vol] 4.0 mmol/L Normal 3.5-5.5 [facility] Specialist Comment on above: Performed By: #### B MP #### [facility] [address] [place], [place] [id number] Sodium [Moles/Vol] 141 mmol/L Normal 135-146 [facility] Elevator Serviceman Comment on above: Performed By: #### B MP #### [facility] [address] [place], [place] [id number] Urea nitrogen [Mass/Vol] 17 mg/dL Normal 7-25 [facility] Elevator Serviceman Comment on above: Performed By: #### B MP #### [facility] [address] [place], [place] [id number] XR CHEST 2 Von 06-06-2021 XR CHEST 2 V EXAM: XR CHEST 2 V HISTORY: Acute diastolic heart failure COMPARISON: 02/03/2021 TECHNIQUE: 2 views chest FINDINGS: There is atherosclerosis and mild to moderate coronary megaly that is stable. Cardiac pacer device is noted. There is mild atelectasis or scarring along the posterior lower lung. No consolidation, pleural effusion, or pneumothorax. There are degenerative changes of the spine with fusion is rotation the cervical spine and lumbar spine partially seen. IMPRESSION: 1. Atherosclerosis and stable cardiomegaly with cardiac pacer. Negative for pulmonary edema. 2. Small area of atelectasis or scarring in the posterior lower lung. No consolidation or effusion. Electronically authenticated by: MARGY AHUJA Date: 2021-06-06 13:25 Normal [facility] ECHOCARDIO M/2D COMPLETEon 0 05-07-2021 ECHOCARDIO M/2D COMPLETE Patient: ISAAC TOURE Exam Date: 05/07/2021 : 1940 Gender:F Ordering : JULIANA TITUS Admission #: [id number] Family : DR BERNARDO ALMONTE M.D. Order #: [id number] CLICK HERE TO VIEW EXAM ECHOCARDIOGRAM REPORT PROCEDURE: CARDIO PULMONARY ECHOCARDIO M/2D COMP INDICATIONS: Dyspnea on exertion, H/O Smoker, Pacemaker COMPARISON: None. DESCRIPTION: COMPLETE ECHOCARDIOGRAM Real-time transthoracic echocardiography with 2D, M-mode, spectral and color flow Doppler performed. QUALITY: Technical quality was good. 65 205# 178/70 HR 67 LEFT VENTRICLE: Normal chamber size. Mild concentric left ventricular hypertrophy. No regional wall motion abnormalities. Visual EF 65%. LV EF: Normal left ventricular ejection fraction, (>55%). DIASTOLIC: Grade III diastolic dysfunction. ATRIAL SEPTUM: LEFT ATRIUM: Severe dilatation. RIGHT ATRIUM: Severe dilatation. RIGHT VENTRICLE: Mild dilatation. Normal right ventricular systolic function. Pacer wire present. TRICUSPID VALVE: Normal mobility and thickness. No stenosis with moderate regurgitation. Doppler studies reveal mildly (35-45) elevated right sided pressures. RVSP 38 mmHg. MITRAL VALVE: Normal mobility and thickness. Moderate mitral annular calcification. Mild to moderate mitral regurgitation. AORTIC VALVE: Normal trileaflet appearance. Moderately calcified aortic valve. Doppler velocity suggest mild aortic valve stenosis. DVI 0.5. Mean gradient is 14 mmHg. Peak velocity is 2.38 m/s. Mild aortic regurgitation. AORTIC ROOT: Normal diameter and appearance. PULMONIC VALVE: Normal thickness and mobility. No stenosis. Trivial regurgitation. PERICARDIUM: Trivial pericardial effusion. IVC: Collapses with inspirations. IVC is normal in size. PLEURA: CONCLUSION: 1. Normal ventricular systolic function. 2. Grade III diastolic dysfunction, 3. Mild aortic valve stenosis. 4. Moderate mitral regurgitation. 5. Mildly elevated right sided pressures. 6. Severe biatrial enlargement. Dictated by: Devonte Garcia M.D. on 05/08/2021 at 12:10 Approved by: Devonte Garcia M.D. on 05/08/2021 at 12:15 Normal [facility] PROF CHEM 8 (BAS METB)on Anion gap [Moles/Vol] 7.3 mmol/L Normal [facility] Comment on above: Performed By: #### B MP #### [facility] [address] [place] [address] Dr. Phil Bobby Calcium [Mass/Vol] 9.3 mg/dL Normal 8.4-10.2 [facility] Comment on above: Performed By: #### B MP #### [facility] [address] [address] [address] Phil Bobby Chloride [Moles/Vol] 99 mmol/L Normal 98-107 [facility] Comment on above: Performed By: #### B MP #### [facility] [address] [address] [address] Phil Bobby CO2 [Moles/Vol] 34.1 mmol/L Critically high 22.0-30.0 [facility] Comment on above: Performed By: #### B MP #### [facility] [address] [place] [address] Dr. Phil Bobby Creatinine [Mass/Vol] 1.07 mg/dL Critically high 0.52-1.04 [facility] Comment on above: Performed By: #### B MP #### [facility] [address] [place] [address] Dr. Phil Bobby EGFR-AF ISRAELI =60 Normal >=60 [facility] Comment on above: Performed By: #### B MP #### [facility] [address] [place] [address] Dr. Phil Bobby EGFR-NON AF ISRAELI 49 mL/min/1.73m2 Critically low >=60 [facility] Comment on above: Performed By: #### B MP #### [facility] [address] [address] [address] Phil Bobby Glucose [Mass/Vol] 123 mg/dL Critically high 74-106 [facility] Comment on above: Performed By: #### B MP #### [facility] [address] [place] [address] Dr. Phil Bobby Potassium [Moles/Vol] 3.4 mmol/L Normal 3.4-5.0 [facility] Comment on above: Performed By: #### B MP #### [facility] [address] [place] [address] Dr. Phil Bobby Sodium [Moles/Vol] 137 mmol/L Normal 137-145 [facility] Comment on above: Performed By: #### B MP #### [facility] [address] [place], [place] [address] Dr. Phil Bobby Urea nitrogen [Mass/Vol] 28.0 mg/dL Critically high 7.0-17.0 [facility] Comment on above: Performed By: #### B MP #### [facility] [address] [id number] Phil Bobby Urea nitrogen/Creatinine [Mass ratio] 26.2 mg/mg Normal [facility] Comment on above: Performed By: #### B MP #### [facility] [address] [id number] Phil Bobby LIPID PROFILEon 04-01-2021 CHOL-HDL RATIO NORM SEE BELOW Normal [facility] Comment on above: Result Comment: 3.3 - 4.4 LOW RISK 4.4 - 7.1 AVERAGE RISK 7.1 - 11.0 MODERATE RISK >11.0 HIGH RISK Performed By: #### L IPID ####[facility] [address] [place], [place] [address]Za. Phil Bobby Cholesterol [Mass/Vol] 158 mg/dL Normal <=200 [facility] Comment on above: Performed By: #### L IPID ####[facility] [address] [place] [id number][address] Phil Bobby Cholesterol in HDL [Mass/Vol] 74 mg/dL Normal [facility] Comment on above: Performed By: #### L IPID ####[facility] [address] [place] [id number]. Phil Bobby Cholesterol in LDL [Mass/Vol] 78.0 mg/dL Normal [facility] Comment on above: Performed By: #### L IPID ####[facility] [address] [place] [id number]. Phil Bobby Cholesterol.total/C holesterol in HDL [Mass ratio] 2.1 {ratio} Normal [facility] Comment on above: Performed By: #### L IPID ####[facility] [address] [place], [place] [address]Kw. Phil Bobby HDL NORMAL > or = 60 mg/dl - LO W CARDIOVASCULAR RISK <40 mg/dl - HIGH CARDIOVASCULAR RISK Normal [facility] Comment on above: Performed By: #### L IPID ####[facility] [address] [place], [place] [address]Om. Phil Bobby LDL CALC NORMAL SEE BELOW Normal [facility] Comment on above: Result Comment: <100 mg/dl OPTIMAL 100 - 129 mg/dl NEAR OR ABOVE OPTIMAL 130 - 159 mg/dl BORDERLINE HIGH 160 - 189 mg/dl HIGH >190 mg/dl VERY HIGH Performed By: #### L IPID ####[facility] [address] [place] [id number][address] Phil Bobby Triglyceride [Mass/Vol] 30 mg/dL Normal <=150 [facility] Comment on above: Performed By: #### L IPID ####[facility] [address] [id number][address] Phil Bobby VLDL CALC 6.0 mg/dL Normal [facility] Comment on above: Performed By: #### L IPID ####[facility] [address] [place], [place] [address]Ia. Phil Bobby FEMUR LEFT 2 Son 9 FEMUR LEFT 2 S [facility] Department of Radiology [address] [place] [id number] Patient Name: ISAAC TOURE : 1940 Sex: F Age: Race: White Pt. 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 QUESTION FOR THE RADIOLOGIST: , Views (X-RAY, FEMUR): AP, Lateral , Views (X-RAY, FEMUR): AP, Lateral , , , Ordering Provider - FAISAL JOHNS MD , PROTOCOL: AP(PA) and Lateral views were obtained. COMPARISON: May 11, 2018 FINDINGS: Soft tissues: Minor heterotopic ossification Mild vascular calcification Bones: Right fixation of femur fracture unchanged in satisfactory alignment but still limited healing Joints: Mild hip and moderate knee arthritis IMPRESSION: Femoral pipo with still limited healing along the femur fracture in satisfactory alignment Electronically signed by:Christian Gomez. Transcribed by: [email or web address], User Resident: Electronically Signed by: CHRISTIAN GOMEZ @ 06/22/2018 01:23 PM Normal [facility] Comment on above: Order Comment: , Katherine ws (X-RAY, FEMUR): AP, Lateral , Views (X- RAY, FEMUR): AP, Lateral , , , Ordering Provider - FAISAL JOHNS MD , FEMUR LEFT 2 [facility] 9 FEMUR LEFT 2 [facility] Department of Radiology [address] [place] [address] Patient Name: ISAAC TOURE : 1940 Sex: F Age: Race: White Pt. Location: Patient Status: O Ordered Date: 05/11/2018 12:20:00 PM Completed Date: 05/11/2018 12:24 PM Requesting Provider: FAISAL JOHNS Attending Provider: FAISAL JOHNS Report Copy To: BERNARDO ALMONTE Signs & Symptoms: Z47.89 Encounter for other orthopedic aftercare I10 History: [place] Comments: , Views (X-RAY, FEMUR): AP, Lateral , Views (X-RAY, FEMUR): AP, Lateral , , , Ordering Provider - FAISAL JOHNS MD , Exam: FEMUR LEFT 2 [facility] FEMUR LEFT 2 [facility] 05/11/2018 12:24 PM EST SIGNS AND SYMPTOMS: Z47.89 Encounter for other orthopedic aftercare I10 TECHNOLOGIST COMMENTS: History of left femur surgery 03/23/2018. Ortho follow up. QUESTION FOR THE RADIOLOGIST: , Views (X-RAY, FEMUR): AP, Lateral , Views (X-RAY, FEMUR): AP, Lateral , , , Ordering Provider - FAISAL JOHNS MD , PROTOCOL: AP(PA) and Lateral views were obtained. COMPARISON: March 23, 2018 FINDINGS: Soft tissues: Air has resolved Some heterotopic ossification is present along the greater trochanter Bones: Pipo fixation of proximal shaft fracture in good alignment with some heterotopic ossification and some periosteal reaction Joints: Mild hip and moderate knee arthritis Vascular calcifications IMPRESSION: Early healing to femoral shaft fracture fixed by pipo in good alignment Electronically signed by:Christian Gomez. Transcribed by: [email or web address], User Resident: Electronically Signed by: CHRISTIAN GOMEZ @ 05/11/2018 03:15 PM Normal [facility] Comment on above: Order Comment: , Vie ws (X-RAY, FEMUR): AP, Lateral , Views (X- RAY, FEMUR): AP, Lateral , , , Ordering Provider - FAISAL JOHNS MD , PROTHROMBIN TIMEon 9 INR Coag RelTime (PPP) 1.41 {INR} High 0.91-1.16 [facility] Comment on above: Order Comment: Unkno wn Result Comment: [facility] P RECOMMENDED INR FOR WARFARIN THERAPY ------ ------- CONDITION INR PROPHYLAXIS OF VENOUS THROMBOSIS 2-3 (HIGH-RISK SURGERY) TREATMENT OF VENOUS THROMBOSIS 2-3 TREATMENT OF PULMONARY EMBOLISM 2-3 PREVENTION OF SYSTEMIC EMBOLISM: 2-3 ACUTE MYOCARDIAL INFARCTION TISSUE HEART VALVES VALVULAR HEART DISEASE ATRIAL FIBRILLATION RECURRENT SYSTEMIC EMBOLISM MECHANICAL HEART VALVE 2.5-3.5 FROM: ORAL ANTICOAGULANTS. MECHANISM OF ACTION, CLINICAL EFFECTIVENESS, AND OPTIMAL THERAPEUTIC RANGE. CHEST 1995;108:231S-246S. Performed By: #### 0 2202, 27967, 09520 #### [facility] [address] Prothrombin time (PT) Coag time (PPP) 17.3 s High 12.3-14.8 [facility] Comment on above: Order Comment: Unkno wn Result Comment: ALL RESULTS MUST BE INTERPRETED WITH RESPECT TO BLOOD DRAWING ARTIFACT OR DILUTION ERROR OF ANTICOAGULANT AT THE TIME OF SAMPLING. Performed By: #### 0 0071, 19256, 74672 #### [facility] [address] [place] [address], [facility] BASIC METABOLIC PANELon - Calcium mass conc 8.0 mg/dL Low 8.6-10.[address] [facility] Comment on above: Order Comment: No: D o not add to previous draw Performed By: #### 0 0071, 32836, 82180 #### [facility] [address] [place] [address], [facility] Chloride molar conc 102 mmol/L Normal 98-107 [facility] Comment on above: Order Comment: No: D o not add to previous draw Performed By: #### 0 0071, 95840, 05956 #### [facility] [address] [facility] [place] [address], [facility] CO2 molar conc 27 mmol/L Normal 21-31 [facility] Comment on above: Order Comment: No: D o not add to previous draw Performed By: #### 0 0071, 05014, 93447 #### [facility] [address] [place] [address], [facility] Creatinine mass conc 0.70 mg/dL Normal 0.60-1.20 [facility] Comment on above: Order Comment: No: D o not add to previous draw Performed By: #### 0 0071, 09725, 53424 #### [facility] [address] [place] [address], [facility] GFR/1.73 sq M predicted among blacks MDRD vol rate/area (S/P/Bld) mL/min/{1.73_m2} Normal >60 [facility] Comment on above: Order Comment: No: D o not add to previous draw Result Comment: Calc ulation may not be valid for patients over 70 years Performed By: #### 0 0071, 66159, 97393 #### [facility] [address] [place] [address], [facility] GFR/1.73 sq M predicted among non-blacks MDRD vol rate/area (S/P/Bld) mL/min/{1.73_m2} Normal >60 [facility] Comment on above: Order Comment: No: D o not add to previous draw Result Comment: Calc ulation may not be valid for patients over 70 years Performed By: #### 0 0071, 19394, 56285 #### [facility] [address] [place] [address], [facility] Glucose mass conc 104 mg/dL High 70-100 [facility] Comment on above: Order Comment: No: D o not add to previous draw Performed By: #### 0 0071, 19731, 88636 #### [facility] [address] [place] [address], [facility] Potassium molar conc 3.7 mmol/L Normal 3.5-5.1 [facility] Comment on above: Order Comment: No: D o not add to previous draw Performed By: #### 0 0071, 12536, 51880 #### [facility] [address] [place] [address], [place] Sodium molar conc 135 mmol/L Low 136-145 [facility] Comment on above: Order Comment: No: D o not add to previous draw Performed By: #### 0 0071, 61778, 57621 #### [facility] [address] [place] [address], [place] Urea nitrogen mass conc 17 mg/dL Normal 7-25 [facility] Comment on above: Order Comment: No: D o not add to previous draw Performed By: #### 0 0071, 93299, 25341 #### [facility] [address] [place] [address], [facility] CBC COMPLETE BLOOD COUNTon 0 03-29-2018 Erythrocyte distribution width Ratio (RBC) 14.5 % Normal 11.5-15.0 [facility] Comment on above: Order Comment: No: D o not add to previous draw Performed By: #### 0 0071, 04272, 84243 #### [facility] [address] [place] [address], [facility] Hematocrit Volume Fraction (Bld) 23.8 % Low 36.0-45.0 [facility] Comment on above: Order Comment: No: D o not add to previous draw Performed By: #### 0 0071, 45986, 50320 #### [facility] [address] [place] [address], [facility] Hemoglobin mass conc (Bld) 7.9 g/dL Low 12.0-15.0 [facility] Comment on above: Order Comment: No: D o not add to previous draw Performed By: #### 0 0071, 63814, 89266 #### [facility] [address] [facility] [place] [address], [facility] MCH Entitic mass (RBC) 32.9 pg Normal 27.0-33.0 [facility] Comment on above: Order Comment: No: D o not add to previous draw Performed By: #### 0 0071, 01137, 29802 #### [facility] [address] [place] [address], [facility] MCHC mass conc (RBC) 33.2 g/dL Normal 32.0-35.0 [facility] Comment on above: Order Comment: No: D o not add to previous draw Performed By: #### 0 0071, 49208, 69194 #### [facility] [address] [place] [address], [facility] MCV Entitic volume (RBC) 99.2 fL High 82.0-98.0 [facility] Comment on above: Order Comment: No: D o not add to previous draw Performed By: #### 0 0071, 80535, 73923 #### [facility] [address] [place] [address], [facility] Nucleated RBC/100 WBC Ratio (Bld) 3 % High 0-0 [facility] Comment on above: Order Comment: No: D o not add to previous draw Performed By: #### 0 0071, 49541, 07834 #### [facility] [address] [place] [address], [facility] PLAT CNT 401 10*3/uL High 150-400 The [facility] Comment on above: Order Comment: No: D o not add to previous draw Performed By: #### 0 0071, 68967, 69236 #### [facility] [address] [place] [address], [facility] RBC #/vol (Bld) 2.40 10*6/uL Low 3.80-5.00 [facility] Comment on above: Order Comment: No: D o not add to previous draw Performed By: #### 0 0071, 42249, 59878 #### [facility] [address] [facility] [place] [address], [facility] WBC #/vol (Bld) 9.83 10*3/uL Normal 4.00-10.60 [facility] Comment on above: Order Comment: No: D o not add to previous draw Performed By: #### 0 0071, 37429, 76949 #### [facility] [address] [place] [address], [facility] PROTHROMBIN TIMEon 9 INR Coag RelTime (PPP) 1.31 {INR} High 0.91-1.16 [facility] Comment on above: Order Comment: Unkno wn Result Comment: [facility] P RECOMMENDED INR FOR WARFARIN THERAPY ------ ------- CONDITION INR PROPHYLAXIS OF VENOUS THROMBOSIS 2-3 (HIGH-RISK SURGERY) TREATMENT OF VENOUS THROMBOSIS 2-3 TREATMENT OF PULMONARY EMBOLISM 2-3 PREVENTION OF SYSTEMIC EMBOLISM: 2-3 ACUTE MYOCARDIAL INFARCTION TISSUE HEART VALVES VALVULAR HEART DISEASE ATRIAL FIBRILLATION RECURRENT SYSTEMIC EMBOLISM MECHANICAL HEART VALVE 2.5-3.5 FROM: ORAL ANTICOAGULANTS. MECHANISM OF ACTION, CLINICAL EFFECTIVENESS, AND OPTIMAL THERAPEUTIC RANGE. CHEST 1995;108:231S-246S. Performed By: #### 0 0071, 83092, 89078 #### [facility] [address] Prothrombin time (PT) Coag time (PPP) 16.3 s High 12.3-14.8 [facility] Comment on above: Order Comment: Unkno wn Result Comment: ALL RESULTS MUST BE INTERPRETED WITH RESPECT TO BLOOD DRAWING ARTIFACT OR DILUTION ERROR OF ANTICOAGULANT AT THE TIME OF SAMPLING. Performed By: #### 0 0071, 87464, 96761 #### [facility] [address] [facility]. [address] BASIC METABOLIC PANELon 12-3 Calcium mass conc 8.2 mg/dL Low 8.6-10.3 [facility] Comment on above: Order Comment: No: D o not add to previous draw Performed By: #### 0 0071, 46130, 99518 #### [facility] [address] [facility]. [address] Chloride molar conc 101 mmol/L Normal 98-107 [facility] Comment on above: Order Comment: No: D o not add to previous draw Performed By: #### 0 0071, 64853, 10539 #### [facility] [address] [place] [address], [facility] CO2 molar conc 26 mmol/L Normal 21-31 [facility] Comment on above: Order Comment: No: D o not add to previous draw Performed By: #### 0 0071, 46011, 88393 #### [facility] [address] [place] [address], [facility] Creatinine mass conc 0.70 mg/dL Normal 0.60-1.20 [facility] Comment on above: Order Comment: No: D o not add to previous draw Performed By: #### 0 0071, 17532, 90998 #### [facility] [address] [place] [address], [facility] GFR/1.73 sq M predicted among blacks MDRD vol rate/area (S/P/Bld) mL/min/{1.73_m2} Normal >60 [facility] Comment on above: Order Comment: No: D o not add to previous draw Result Comment: Calc ulation may not be valid for patients over 70 years Performed By: #### 0 0071, 58191, 65883 #### [facility] [address] [place] [address], [facility] GFR/1.73 sq M predicted among non-blacks MDRD vol rate/area (S/P/Bld) mL/min/{1.73_m2} Normal >60 [facility] Comment on above: Order Comment: No: D o not add to previous draw Result Comment: Calc ulation may not be valid for patients over 70 years Performed By: #### 0 0071, 54593, 82295 #### [facility] [address] [place] [address], [place] Glucose mass conc 108 mg/dL High 70-[address] [facility] Comment on above: Order Comment: No: D o not add to previous draw Performed By: #### 0 0071, 65254, 01638 #### [facility] [address] [place] [address], [facility] Potassium molar conc 4.0 mmol/L Normal 3.5-5.1 [facility] Comment on above: Order Comment: No: D o not add to previous draw Performed By: #### 0 0071, 50858, 80448 #### [facility] [address] [place] [address], [facility] Sodium molar conc 133 mmol/L Low 136-145 [facility] Comment on above: Order Comment: No: D o not add to previous draw Performed By: #### 0 0071, 43418, 38884 #### [facility] [address] [place] [address], [facility] Urea nitrogen mass conc 17 mg/dL Normal 7-25 [facility] Comment on above: Order Comment: No: D o not add to previous draw Performed By: #### 0 0071, 17289, 66547 #### [facility] [address] [place] [id number], [facility] CBC COMPLETE BLOOD COUNTon 1 Erythrocyte distribution width Ratio (RBC) 14.3 % Normal 11.5-15.0 [facility] Comment on above: Order Comment: No: D o not add to previous draw Performed By: #### 0 0071, 51134, 29280 #### [facility] [address] [place] [address], [facility] Hematocrit Volume Fraction (Bld) 22.9 % Low 36.0-45.0 [facility] Comment on above: Order Comment: No: D o not add to previous draw Performed By: #### 0 0071, 79013, 09168 #### [facility] [address] [place] [address], [facility] Hemoglobin mass conc (Bld) 7.6 g/dL Low 12.0-15.0 [facility] Comment on above: Order Comment: No: D o not add to previous draw Performed By: #### 0 0071, 68831, 78300 #### [facility] [address] MCH Entitic mass (RBC) 32.9 pg Normal 27.0-33.0 [facility] Comment on above: Order Comment: No: D o not add to previous draw Performed By: #### 0 0071, 55708, 06647 #### [facility] [address] MCHC mass conc (RBC) 33.2 g/dL Normal 32.0-35.0 [facility] Comment on above: Order Comment: No: D o not add to previous draw Performed By: #### 0 0071, 69714, 16372 #### [facility] [address] [facility]. [address] MCV Entitic volume (RBC) 99.1 fL High 82.0-98.0 [facility] Comment on above: Order Comment: No: D o not add to previous draw Performed By: #### 0 0071, 21085, 67383 #### [facility] [address] Nucleated RBC/100 WBC Ratio (Bld) 2 % High 0-0 [facility] Comment on above: Order Comment: No: D o not add to previous draw Performed By: #### 0 0071, 17526, 75596 #### [facility] [address] [facility] [address], [facility] PLAT CNT 333 10*3/uL Normal 150-400 [facility] Comment on above: Order Comment: No: D o not add to previous draw Performed By: #### 0 0071, 82686, 57453 #### [facility] [address] [place] [address], [facility] RBC #/vol (Bld) 2.31 10*6/uL Low 3.80-5.00 [facility] Comment on above: Order Comment: No: D o not add to previous draw Performed By: #### 0 0071, 72280, 59368 #### [facility] [address] [place] [address], [facility] WBC #/vol (Bld) 13.64 10*3/uL High 4.00-10.60 [facility] Comment on above: Order Comment: No: D o not add to previous draw Performed By: #### 0 0071, 81314, 22854 #### [facility] [address] MAGNESIUM BLOODon 03-28-2018 Magnesium mass conc 1.9 mg/dL Normal 1.9-2.7 [facility] Comment on above: Order Comment: No: D o not add to previous draw Performed By: #### 0 0071, 32387, 48698 #### [facility] [address] [facility] [address] PROTHROMBIN TIMEon 8 INR Coag RelTime (PPP) 1.29 {INR} High 0.91-1.16 [facility] Comment on above: Order Comment: Unkno wn Result Comment: ACCC P RECOMMENDED INR FOR WARFARIN THERAPY ------ ------- CONDITION INR PROPHYLAXIS OF VENOUS THROMBOSIS 2-3 (HIGH-RISK SURGERY) TREATMENT OF VENOUS THROMBOSIS 2-3 TREATMENT OF PULMONARY EMBOLISM 2-3 PREVENTION OF SYSTEMIC EMBOLISM: 2-3 ACUTE MYOCARDIAL INFARCTION TISSUE HEART VALVES VALVULAR HEART DISEASE ATRIAL FIBRILLATION RECURRENT SYSTEMIC EMBOLISM MECHANICAL HEART VALVE 2.5-3.5 FROM: ORAL ANTICOAGULANTS. MECHANISM OF ACTION, CLINICAL EFFECTIVENESS, AND OPTIMAL THERAPEUTIC RANGE. CHEST 1995;108:231S-246S. Performed By: #### 0 0071, 29285, 08494 #### [facility] [address] [place] [address], [facility] Prothrombin time (PT) Coag time (PPP) 16.1 s High 12.3-14.8 [facility] Comment on above: Order Comment: Unkno wn Result Comment: ALL RESULTS MUST BE INTERPRETED WITH RESPECT TO BLOOD DRAWING ARTIFACT OR DILUTION ERROR OF ANTICOAGULANT AT THE TIME OF SAMPLING. Performed By: #### 0 0071, 72864, 51820 #### [facility] [address] [place] [address], [facility] BASIC METABOLIC PANELon 12-3 Calcium mass conc 7.9 mg/dL Low 8.6-10.[address] [facility] Comment on above: Order Comment: This order is a replacement of the rejected order with accession number [id number]. Performed By: #### 0 0071, 63753, 93928 #### [facility] [address] [place] [address], [facility] Chloride molar conc 99 mmol/L Normal 98-107 [facility] Comment on above: Order Comment: This order is a replacement of the rejected order with accession number [id number]. Performed By: #### 0 0071, 39303, 13561 #### [facility] [address] [place] [address], [facility] CO2 molar conc 28 mmol/L Normal 21-31 [facility] Comment on above: Order Comment: This order is a replacement of the rejected order with accession number [id number]. Performed By: #### 0 0071, 76347, 88275 #### [facility] [address] [place] [id number], [facility] Creatinine mass conc 0.77 mg/dL Normal 0.60-1.20 [facility] Comment on above: Order Comment: This order is a replacement of the rejected order with accession number [id number]. Performed By: #### 0 0071, 68215, 26792 #### [facility] [address] [place] [address], [facility] GFR/1.73 sq M predicted among blacks MDRD vol rate/area (S/P/Bld) mL/min/{1.73_m2} Normal >60 [facility] Comment on above: Order Comment: This order is a replacement of the rejected order with accession number [id number]. Result Comment: Calc ulation may not be valid for patients over 70 years Performed By: #### 0 0071, 64325, 43131 #### [facility] [address] [place] [address], [facility] GFR/1.73 sq M predicted among non-blacks MDRD vol rate/area (S/P/Bld) mL/min/{1.73_m2} Normal >60 [facility] Comment on above: Order Comment: This order is a replacement of the rejected order with accession number [id number]. Result Comment: Calc ulation may not be valid for patients over 70 years Performed By: #### 0 0071, 44981, 65359 #### [facility] [address] [facility] [place] [address], [facility] Glucose mass conc 112 mg/dL High 70-100 [facility] Comment on above: Order Comment: This order is a replacement of the rejected order with accession number [id number]. Performed By: #### 0 0071, 28119, 10634 #### [facility] [address] [place] [address], [facility] Potassium molar conc 3.1 mmol/L Low 3.5-5.1 [facility] Comment on above: Order Comment: This order is a replacement of the rejected order with accession number [id number]. Performed By: #### 0 0071, 09997, 39558 #### [facility] [address] [place] [address], [facility] Sodium molar conc 133 mmol/L Low 136-145 [facility] Comment on above: Order Comment: This order is a replacement of the rejected order with accession number [id number]. Performed By: #### 0 0071, 95514, 42969 #### [facility] [address] Urea nitrogen mass conc 17 mg/dL Normal 7-25 [facility] Comment on above: Order Comment: This order is a replacement of the rejected order with accession number [id number]. Performed By: #### 0 0071, 41343, 76203 #### [facility] [address] CBC COMPLETE BLOOD COUNTon Erythrocyte distribution width Ratio (RBC) 14.3 % Normal 11.5-15.0 [facility] Comment on above: Order Comment: No: D o not add to previous draw Performed By: #### 0 0071, 73701, 68200 #### [facility] [address] Hematocrit Volume Fraction (Bld) 23.7 % Low 36.0-45.0 [facility] Comment on above: Order Comment: No: D o not add to previous draw Performed By: #### 0 0071, 38940, 53573 #### [facility] [address] [facility] [place] [address], [facility] Hemoglobin mass conc (Bld) 8.0 g/dL Low 12.0-15.0 [facility] Comment on above: Order Comment: No: D o not add to previous draw Performed By: #### 0 0071, 17021, 00801 #### [facility] [address] [place] [address], [facility] MCH Entitic mass (RBC) 33.1 pg High 27.0-33.0 [facility] Comment on above: Order Comment: No: D o not add to previous draw Performed By: #### 0 0071, 49410, 79286 #### [facility] [address] MCHC mass conc (RBC) 33.8 g/dL Normal 32.0-35.0 [facility] Comment on above: Order Comment: No: D o not add to previous draw Performed By: #### 0 0071, 61471, 02432 #### [facility] [address] [place] [address], [facility] MCV Entitic volume (RBC) 97.9 fL Normal 82.0-98.0 [facility] Comment on above: Order Comment: No: D o not add to previous draw Performed By: #### 0 0071, 82675, 29886 #### [facility] [address] [place] [address], [facility] Nucleated RBC/100 WBC Ratio (Bld) 1 % High 0-0 [facility] Comment on above: Order Comment: No: D o not add to previous draw Performed By: #### 0 0071, 72419, 37669 #### [facility] [address] [place] [address], [facility] PLAT CNT 324 10*3/uL Normal 150-400 [facility] Comment on above: Order Comment: No: D o not add to previous draw Performed By: #### 0 0071, 09358, 80933 #### [facility] [address] [facility] [place] [address], [facility] RBC #/vol (Bld) 2.42 10*6/uL Low 3.80-5.[address] [facility] Comment on above: Order Comment: No: D o not add to previous draw Performed By: #### 0 0071, 11464, 54169 #### [facility] [address] [place] [address], [facility] WBC #/vol (Bld) 14.07 10*3/uL High 4.00-10.60 [facility] Comment on above: Order Comment: No: D o not add to previous draw Performed By: #### 0 0071, 40686, 02205 #### [facility] [address] Erythrocyte distribution width Ratio (RBC) 14.2 % Normal 11.5-15.0 [facility] Comment on above: Order Comment: This order is a replacement of the rejected order with accession number [id number]. Performed By: #### 0 0071, 95457, 73765 #### [facility] [address] Hematocrit Volume Fraction (Bld) 22.3 % Low 36.0-45.0 [facility] Comment on above: Order Comment: This order is a replacement of the rejected order with accession number [id number]. Performed By: #### 0 0071, 88064, 76452 #### [facility] [address] Hemoglobin mass conc (Bld) 7.4 g/dL Low 12.0-15.0 [facility] Comment on above: Order Comment: This order is a replacement of the rejected order with accession number [id number]. Performed By: #### 0 0071, 00313, 28023 #### [facility] [address] MCH Entitic mass (RBC) 32.5 pg Normal 27.0-33.0 [facility] Comment on above: Order Comment: This order is a replacement of the rejected order with accession number [id number]. Performed By: #### 0 0071, 20605, 29067 #### [facility] [address] [place] [address], [facility] MCHC mass conc (RBC) 33.2 g/dL Normal 32.0-35.0 [facility] Comment on above: Order Comment: This order is a replacement of the rejected order with accession number [id number]. Performed By: #### 0 0071, 62991, 65757 #### [facility] [address] MCV Entitic volume (RBC) 97.8 fL Normal 82.0-98.0 [facility] Comment on above: Order Comment: This order is a replacement of the rejected order with accession number [id number]. Performed By: #### 0 0071, 29570, 22320 #### [facility] [address] Nucleated RBC/100 WBC Ratio (Bld) 1 % High 0-0 [facility] Comment on above: Order Comment: This order is a replacement of the rejected order with accession number [id number]. Performed By: #### 0 0071, 34142, 86597 #### [facility] [address] PLAT CNT 278 10*3/uL Normal 150-400 [facility] Comment on above: Order Comment: This order is a replacement of the rejected order with accession number [id number]. Performed By: #### 0 0071, 30935, 63333 #### [facility] [address] [facility]. [address] RBC #/vol (Bld) 2.28 10*6/uL Low 3.80-5.[address] [facility] Comment on above: Order Comment: This order is a replacement of the rejected order with accession number [id number]. Performed By: #### 0 0071, 70069, 90652 #### [facility] [address] WBC #/vol (Bld) 11.31 10*3/uL High 4.00-10.60 [facility] Comment on above: Order Comment: This order is a replacement of the rejected order with accession number [id number]. Performed By: #### 0 0071, 38469, 29531 #### [facility] [address] MAGNESIUM BLOODon 12-30-2018 Magnesium mass conc 1.8 mg/dL Low 1.9-2.7 [facility] Comment on above: Order Comment: This order is a replacement of the rejected order with accession number [id number]. Performed By: #### 0 0071, 05547, 09209 #### [facility] [address] [facility]. [address] PROTHROMBIN TIMEon 8 INR Coag RelTime (PPP) 1.14 {INR} Normal 0.91-1.16 [facility] Comment on above: Order Comment: This order is a replacement of the rejected order with accession number [id number]. Result Comment: ACCC P RECOMMENDED INR FOR WARFARIN THERAPY ------ ------- CONDITION INR PROPHYLAXIS OF VENOUS THROMBOSIS 2-3 (HIGH-RISK SURGERY) TREATMENT OF VENOUS THROMBOSIS 2-3 TREATMENT OF PULMONARY EMBOLISM 2-3 PREVENTION OF SYSTEMIC EMBOLISM: 2-3 ACUTE MYOCARDIAL INFARCTION TISSUE HEART VALVES VALVULAR HEART DISEASE ATRIAL FIBRILLATION RECURRENT SYSTEMIC EMBOLISM MECHANICAL HEART VALVE 2.5-3.5 FROM: ORAL ANTICOAGULANTS. MECHANISM OF ACTION, CLINICAL EFFECTIVENESS, AND OPTIMAL THERAPEUTIC RANGE. CHEST 1995;108:231S-246S. Performed By: #### 0 0071, 32079, 88181 #### [facility] [address] [facility]. [address] Prothrombin time (PT) Coag time (PPP) 14.6 s Normal 12.3-14.8 [facility] Comment on above: Order Comment: This order is a replacement of the rejected order with accession number [id number]. Result Comment: ALL RESULTS MUST BE INTERPRETED WITH RESPECT TO BLOOD DRAWING ARTIFACT OR DILUTION ERROR OF ANTICOAGULANT AT THE TIME OF SAMPLING. Performed By: #### 0 0071, 57547, 64418 #### [facility] [address] [place] [address], [facility] BASIC METABOLIC PANELon 12-2 Calcium mass conc 7.8 mg/dL Low 8.6-10.[address] [facility] Comment on above: Order Comment: This order is a replacement of the rejected order with accession number [id number]. Performed By: #### 0 0071, 11543, 25881 #### [facility] [address] [place] [address], [facility] Chloride molar conc 100 mmol/L Normal 98-107 [facility] Comment on above: Order Comment: This order is a replacement of the rejected order with accession number [id number]. Performed By: #### 0 0071, 52753, 29401 #### [facility] [address] [place] [address], [facility] CO2 molar conc 27 mmol/L Normal 21-31 [facility] Comment on above: Order Comment: This order is a replacement of the rejected order with accession number [id number]. Performed By: #### 0 0071, 59604, 23654 #### [facility] [address] [place] [address], [facility] Creatinine mass conc 0.70 mg/dL Normal 0.60-1.20 [facility] Comment on above: Order Comment: This order is a replacement of the rejected order with accession number [id number]. Performed By: #### 0 0071, 57296, 07267 #### [facility] [address] [place] [address], [facility] GFR/1.73 sq M predicted among blacks MDRD vol rate/area (S/P/Bld) mL/min/{1.73_m2} Normal >60 [facility] Comment on above: Order Comment: This order is a replacement of the rejected order with accession number [id number]. Result Comment: Calc ulation may not be valid for patients over 70 years Performed By: #### 0 0071, 04099, 71785 #### [facility] [address] [place] [address], [facility] GFR/1.73 sq M predicted among non-blacks MDRD vol rate/area (S/P/Bld) mL/min/{1.73_m2} Normal >60 [facility] Comment on above: Order Comment: This order is a replacement of the rejected order with accession number [id number]. Result Comment: Calc ulation may not be valid for patients over 70 years Performed By: #### 0 0071, 74079, 46525 #### [facility] [address] [place] [address], [facility] Glucose mass conc 118 mg/dL High 70-100 [facility] Comment on above: Order Comment: This order is a replacement of the rejected order with accession number [id number]. Performed By: #### 0 0071, 26051, 88291 #### [facility] [address] [place] [address], [facility] Potassium molar conc 3.6 mmol/L Normal 3.5-5.1 [facility] Comment on above: Order Comment: This order is a replacement of the rejected order with accession number [id number]. Performed By: #### 0 0071, 69867, 90520 #### [facility] [address] [place] [address], [facility] Sodium molar conc 134 mmol/L Low 136-145 [facility] Comment on above: Order Comment: This order is a replacement of the rejected order with accession number [id number]. Performed By: #### 0 0071, 15378, 94850 #### [facility] [address] [place] [address], [place] Urea nitrogen mass conc 16 mg/dL Normal 7-25 [facility] Comment on above: Order Comment: This order is a replacement of the rejected order with accession number [id number]. Performed By: #### 0 0071, 57236, 89415 #### [facility] [address] CBC COMPLETE BLOOD COUNTon 1 Erythrocyte distribution width Ratio (RBC) 13.9 % Normal 11.5-15.0 [facility] Comment on above: Order Comment: This order is a replacement of the rejected order with accession number [id number]. Performed By: #### 0 0071, 67232, 64827 #### [facility] [address] Hematocrit Volume Fraction (Bld) 23.4 % Low 36.0-45.0 [facility] Comment on above: Order Comment: This order is a replacement of the rejected order with accession number [id number]. Performed By: #### 0 0071, 72106, 02915 #### [facility] [address] Hemoglobin mass conc (Bld) 7.8 g/dL Low 12.0-15.0 [facility] Comment on above: Order Comment: This order is a replacement of the rejected order with accession number [id number]. Performed By: #### 0 0071, 51558, 40675 #### [facility] [address] MCH Entitic mass (RBC) 33.1 pg High 27.0-33.0 [facility] Comment on above: Order Comment: This order is a replacement of the rejected order with accession number [id number]. Performed By: #### 0 0071, 95373, 71064 #### [facility] [address] MCHC mass conc (RBC) 33.3 g/dL Normal 32.0-35.0 [facility] Comment on above: Order Comment: This order is a replacement of the rejected order with accession number [id number]. Performed By: #### 0 0071, 52453, 26430 #### [facility] [address] MCV Entitic volume (RBC) 99.2 fL High 82.0-98.0 [facility] Comment on above: Order Comment: This order is a replacement of the rejected order with accession number [id number]. Performed By: #### 0 0071, 79025, 96233 #### [facility] [address] Nucleated RBC/100 WBC Ratio (Bld) 0 % Normal 0-0 [facility] Comment on above: Order Comment: This order is a replacement of the rejected order with accession number [id number]. Performed By: #### 0 70, 69970, 36140 #### [facility] [address] PLAT CNT 252 10*3/uL Normal 150-400 [facility] Comment on above: Order Comment: This order is a replacement of the rejected order with accession number [id number]. Performed By: #### 0 1, 16373, 51277 #### [facility] [address] [facility] RBC #/vol (Bld) 2.36 10*6/uL Low 3.80-5.[address] [facility] Comment on above: Order Comment: This order is a replacement of the rejected order with accession number [id number]. Performed By: #### 0 0071, 03539, 10282 #### [facility] [address] WBC #/vol (Bld) 10.89 10*3/uL High 4.00-10.60 [facility] Comment on above: Order Comment: This order is a replacement of the rejected order with accession number [id number]. Performed By: #### 0 0071, 24170, 87577 #### [facility] [address] [place] [address], [facility] LIVER BATTERYon 03-26-2018 Albumin mass conc 2.8 g/dL Low 3.5-5.[address] [facility] Comment on above: Order Comment: This order is a replacement of the rejected order with accession number [id number]. Performed By: #### 0 0071, 70154, 83267 #### [facility] [address] [place] [address], [facility] ALKALINE PHOSPH 120 IU/L High 34-104 [facility] Comment on above: Order Comment: This order is a replacement of the rejected order with accession number [id number]. Performed By: #### 0 0071, 80415, 78761 #### [facility] [address] [facility] [address] ALT enzyme act/vol 46 U/L Normal 7-52 [facility] Comment on above: Order Comment: This order is a replacement of the rejected order with accession number [id number]. Performed By: #### 0 0071, 10175, 60357 #### [facility] 3000 [facility] [place] [address], [facility] AST enzyme act/vol 86 U/L High 13-39 [facility] Comment on above: Order Comment: This order is a replacement of the rejected order with accession number [id number]. Performed By: #### 0 0071, 78556, 03242 #### [facility] [address] [place] [address], [facility] Bilirubin mass conc 1.2 mg/dL High 0.3-1.0 [facility] Comment on above: Order Comment: This order is a replacement of the rejected order with accession number [id number]. Performed By: #### 0 0071, 55601, 01931 #### [facility] [address] [address] Bilirubin.direct mass conc 0.5 mg/dL High 0.0-0.2 [facility] Comment on above: Order Comment: This order is a replacement of the rejected order with accession number [id number]. Performed By: #### 0 0071, 51428, 88084 #### [facility] [address] Protein mass conc 5.4 g/dL Low 6.0-8.[address] [facility] Comment on above: Order Comment: This order is a replacement of the rejected order with accession number [id number]. Performed By: #### 0 0071, 32284, 03345 #### [facility] [address] MAGNESIUM BLOODon 03-26-2018 Magnesium mass conc 1.8 mg/dL Low 1.9-2.7 [facility] Comment on above: Order Comment: This order is a replacement of the rejected order with accession number [id number]. Performed By: #### 0 0071, 49698, 73359 #### [facility] [address] PROTHROMBIN TIMEon 8 INR Coag RelTime (PPP) 1.13 {INR} Normal 0.91-1.16 [facility] Comment on above: Order Comment: This order is a replacement of the rejected order with accession number [id number]. Result Comment: [facility] P RECOMMENDED INR FOR WARFARIN THERAPY ------ ------- CONDITION INR PROPHYLAXIS OF VENOUS THROMBOSIS 2-3 (HIGH-RISK SURGERY) TREATMENT OF VENOUS THROMBOSIS 2-3 TREATMENT OF PULMONARY EMBOLISM 2-3 PREVENTION OF SYSTEMIC EMBOLISM: 2-3 ACUTE MYOCARDIAL INFARCTION TISSUE HEART VALVES VALVULAR HEART DISEASE ATRIAL FIBRILLATION RECURRENT SYSTEMIC EMBOLISM MECHANICAL HEART VALVE 2.5-3.5 FROM: ORAL ANTICOAGULANTS. MECHANISM OF ACTION, CLINICAL EFFECTIVENESS, AND OPTIMAL THERAPEUTIC RANGE. CHEST 1995;108:231S-246S. Performed By: #### 0 0071, 44901, 10985 #### [facility] [address] Prothrombin time (PT) Coag time (PPP) 14.5 s Normal 12.3-14.8 [facility] Comment on above: Order Comment: This order is a replacement of the rejected order with accession number [id number]. Result Comment: ALL RESULTS MUST BE INTERPRETED WITH RESPECT TO BLOOD DRAWING ARTIFACT OR DILUTION ERROR OF ANTICOAGULANT AT THE TIME OF SAMPLING. Performed By: #### 0 0071, 30877, 35535 #### [facility] [address] BASIC METABOLIC PANELon 12-2 Calcium mass conc 7.5 mg/dL Low 8.6-10.[address] [facility] Comment on above: Order Comment: This order is a replacement of the rejected order with accession number [id number]. Performed By: #### 6 2586 #### [facility] [address] Chloride molar conc 101 mmol/L Normal 98-107 [facility] Comment on above: Order Comment: This order is a replacement of the rejected order with accession number [id number]. Performed By: #### 6 2586 #### [facility] [address] [place] [address], [facility] CO2 molar conc 25 mmol/L Normal 21-31 [facility] Comment on above: Order Comment: This order is a replacement of the rejected order with accession number [id number]. Performed By: #### 6 2586 #### [facility] [address] [place] [address], [facility] Creatinine mass conc 0.65 mg/dL Normal 0.60-1.20 [facility] Comment on above: Order Comment: This order is a replacement of the rejected order with accession number [id number]. Performed By: #### 6 2586 #### [facility] [address] [place] [address], [facility] GFR/1.73 sq M predicted among blacks MDRD vol rate/area (S/P/Bld) mL/min/{1.73_m2} Normal >60 [facility] Comment on above: Order Comment: This order is a replacement of the rejected order with accession number [id number]. Result Comment: Calc ulation may not be valid for patients over 70 years Performed By: #### 6 2586 #### [facility] [address] [facility] [place] [address], [facility] GFR/1.73 sq M predicted among non-blacks MDRD vol rate/area (S/P/Bld) mL/min/{1.73_m2} Normal >60 [facility] Comment on above: Order Comment: This order is a replacement of the rejected order with accession number [id number]. Result Comment: Calc ulation may not be valid for patients over 70 years Performed By: #### 6 2586 #### [facility] [address] [place] [address], [facility] Glucose mass conc 115 mg/dL High 70-[address] [facility] Comment on above: Order Comment: This order is a replacement of the rejected order with accession number [id number]. Performed By: #### 6 2586 #### [facility] [address] [place] [address], [facility] Potassium molar conc 3.3 mmol/L Low 3.5-5.1 [facility] Comment on above: Order Comment: This order is a replacement of the rejected order with accession number [id number]. Performed By: #### 6 2586 #### [facility] [address] Sodium molar conc 134 mmol/L Low 136-145 [facility] Comment on above: Order Comment: This order is a replacement of the rejected order with accession number [id number]. Performed By: #### 6 2586 #### [facility] [address] [place] [address], [facility] Urea nitrogen mass conc 14 mg/dL Normal 7-25 [facility] Comment on above: Order Comment: This order is a replacement of the rejected order with accession number [id number]. Performed By: #### 6 2586 #### [facility] [address] [facility] [address] CBC COMPLETE BLOOD COUNTon 1 05-26-2017 Erythrocyte distribution width Ratio (RBC) 13.5 % Normal 11.5-15.0 [facility] Comment on above: Order Comment: This order is a replacement of the rejected order with accession number [id number]. Performed By: #### 6 2586 #### [facility] [address] [facility] [address] Hematocrit Volume Fraction (Bld) 24.1 % Low 36.0-45.0 [facility] Comment on above: Order Comment: This order is a replacement of the rejected order with accession number [id number]. Performed By: #### 6 2586 #### [facility] [address] Hemoglobin mass conc (Bld) 8.2 g/dL Low 12.0-15.0 [facility] Comment on above: Order Comment: This order is a replacement of the rejected order with accession number [id number]. Performed By: #### 6 2586 #### [facility] [address] [place] [address], [facility] MCH Entitic mass (RBC) 33.1 pg High 27.0-33.[address] [facility] Comment on above: Order Comment: This order is a replacement of the rejected order with accession number [id number]. Performed By: #### 6 2586 #### [facility] [address] MCHC mass conc (RBC) 34.0 g/dL Normal 32.0-35.0 [facility] Comment on above: Order Comment: This order is a replacement of the rejected order with accession number [id number]. Performed By: #### 6 2586 #### [facility] [address] MCV Entitic volume (RBC) 97.2 fL Normal 82.0-98.0 [facility] Comment on above: Order Comment: This order is a replacement of the rejected order with accession number [id number]. Performed By: #### 6 2586 #### [facility] 3000 [facility]. [address] Nucleated RBC/100 WBC Ratio (Bld) 0 % Normal 0-0 [facility] Comment on above: Order Comment: This order is a replacement of the rejected order with accession number [id number]. Performed By: #### 6 2586 #### [facility] 3000 [facility]. [address] PLAT CNT 206 10*3/uL Normal 150-400 [facility] Comment on above: Order Comment: This order is a replacement of the rejected order with accession number [id number]. Performed By: #### 6 2586 #### [facility] 3000 [facility]. [address] RBC #/vol (Bld) 2.48 10*6/uL Low 3.80-5.[address] [facility] Comment on above: Order Comment: This order is a replacement of the rejected order with accession number [id number]. Performed By: #### 6 2586 #### [facility] [address] WBC #/vol (Bld) 9.27 10*3/uL Normal 4.00-10.60 [facility] Comment on above: Order Comment: This order is a replacement of the rejected order with accession number [id number]. Performed By: #### 6 2586 #### [address] PROTHROMBIN TIMEon 03-25-201 8 INR Coag RelTime (PPP) 1.23 {INR} High 0.91-1.16 [facility] Comment on above: Order Comment: This order is a replacement of the rejected order with accession number [id number]. Result Comment: [facility] P RECOMMENDED INR FOR WARFARIN THERAPY ------ ------- CONDITION INR PROPHYLAXIS OF VENOUS THROMBOSIS 2-3 (HIGH-RISK SURGERY) TREATMENT OF VENOUS THROMBOSIS 2-3 TREATMENT OF PULMONARY EMBOLISM 2-3 PREVENTION OF SYSTEMIC EMBOLISM: 2-3 ACUTE MYOCARDIAL INFARCTION TISSUE HEART VALVES VALVULAR HEART DISEASE ATRIAL FIBRILLATION RECURRENT SYSTEMIC EMBOLISM MECHANICAL HEART VALVE 2.5-3.5 FROM: ORAL ANTICOAGULANTS. MECHANISM OF ACTION, CLINICAL EFFECTIVENESS, AND OPTIMAL THERAPEUTIC RANGE. CHEST 1995;108:231S-246S. Performed By: #### 6 2586 #### [address] Prothrombin time (PT) Coag time (PPP) 15.5 s High 12.3-14.8 [facility] Comment on above: Order Comment: This order is a replacement of the rejected order with accession number [id number]. Result Comment: ALL RESULTS MUST BE INTERPRETED WITH RESPECT TO BLOOD DRAWING ARTIFACT OR DILUTION ERROR OF ANTICOAGULANT AT THE TIME OF SAMPLING. Performed By: #### 6 2586 #### [facility] [address] [place] [address], [facility] BASIC METABOLIC PANELon 12-2 Calcium mass conc 7.5 mg/dL Low 8.6-10.[address] [facility] Comment on above: Order Comment: This order is a replacement of the rejected order with accession number [id number]. Performed By: #### 6 2586 #### [facility] [address] [place] [address], [facility] Chloride molar conc 99 mmol/L Normal 98-107 [facility] Comment on above: Order Comment: This order is a replacement of the rejected order with accession number [id number]. Performed By: #### 6 2586 #### [facility] [address] [place] [address], [facility] CO2 molar conc 24 mmol/L Normal 21-31 [facility] Comment on above: Order Comment: This order is a replacement of the rejected order with accession number [id number]. Performed By: #### 6 2586 #### [facility] [address] [place] [address], [facility] Creatinine mass conc 0.62 mg/dL Normal 0.60-1.20 [facility] Comment on above: Order Comment: This order is a replacement of the rejected order with accession number [id number]. Performed By: #### 6 2586 #### [facility] [address] [place] [address], [facility] GFR/1.73 sq M predicted among blacks MDRD vol rate/area (S/P/Bld) mL/min/{1.73_m2} Normal >60 [facility] Comment on above: Order Comment: This order is a replacement of the rejected order with accession number [id number]. Result Comment: Calc ulation may not be valid for patients over 70 years Performed By: #### 6 2586 #### [facility] [address] [place] [address], [facility] GFR/1.73 sq M predicted among non-blacks MDRD vol rate/area (S/P/Bld) mL/min/{1.73_m2} Normal >60 [facility] Comment on above: Order Comment: This order is a replacement of the rejected order with accession number [id number]. Result Comment: Calc ulation may not be valid for patients over 70 years Performed By: #### 6 2586 #### [facility] [address] [place] [address], [facility] Glucose mass conc 130 mg/dL High 70-100 [facility] Comment on above: Order Comment: This order is a replacement of the rejected order with accession number [id number]. Performed By: #### 6 2586 #### [facility] [address] [place] [address], [facility] Potassium molar conc 3.3 mmol/L Low 3.5-5.1 [facility] Comment on above: Order Comment: This order is a replacement of the rejected order with accession number [id number]. Performed By: #### 6 2586 #### [facility] [address] [place] [address], [facility] Sodium molar conc 133 mmol/L Low 136-145 [facility] Comment on above: Order Comment: This order is a replacement of the rejected order with accession number [id number]. Performed By: #### 6 2586 #### [facility] [address] [place] [address], [facility] Urea nitrogen mass conc 13 mg/dL Normal 7-25 [facility] Comment on above: Order Comment: This order is a replacement of the rejected order with accession number [id number]. Performed By: #### 6 2586 #### [facility] [address] [place], [address] CBC COMPLETE BLOOD COUNTon 1 05-25-2017 Erythrocyte distribution width Ratio (RBC) 13.4 % Normal 11.5-15.0 [facility] Comment on above: Order Comment: This order is a replacement of the rejected order with accession number [id number]. Performed By: #### 5 7307, 26369 #### [facility] [address] Hematocrit Volume Fraction (Bld) 26.5 % Low 36.0-45.0 [facility] Comment on above: Order Comment: This order is a replacement of the rejected order with accession number [id number]. Performed By: #### 5 73, 08741 #### [facility] [address] Hemoglobin mass conc (Bld) 9.2 g/dL Low 12.0-15.0 [facility] Comment on above: Order Comment: This order is a replacement of the rejected order with accession number [id number]. Performed By: #### 5 73, 31574 #### [facility] [address] MCH Entitic mass (RBC) 33.7 pg High 27.0-33.0 [facility] Comment on above: Order Comment: This order is a replacement of the rejected order with accession number [id number]. Performed By: #### 5 73, 80874 #### [facility] [address] MCHC mass conc (RBC) 34.7 g/dL Normal 32.0-35.0 [facility] Comment on above: Order Comment: This order is a replacement of the rejected order with accession number [id number]. Performed By: #### 5 7307, 79391 #### [facility] [address] [place] [address], [facility] MCV Entitic volume (RBC) 97.1 fL Normal 82.0-98.0 [facility] Comment on above: Order Comment: This order is a replacement of the rejected order with accession number [id number]. Performed By: #### 5 7307, 07715 #### [facility] [address] Nucleated RBC/100 WBC Ratio (Bld) 0 % Normal 0-0 [facility] Comment on above: Order Comment: This order is a replacement of the rejected order with accession number [id number]. Performed By: #### 5 73, 58635 #### [facility] [address] PLAT CNT 187 10*3/uL Normal 150-400 [facility] Comment on above: Order Comment: This order is a replacement of the rejected order with accession number [id number]. Performed By: #### 5 73, 83789 #### [facility] [address] RBC #/vol (Bld) 2.73 10*6/uL Low 3.80-5.[address] [facility] Comment on above: Order Comment: This order is a replacement of the rejected order with accession number [id number]. Performed By: #### 5 7307, 03841 #### [facility] [address] WBC #/vol (Bld) 12.04 10*3/uL High 4.00-10.60 [facility] Comment on above: Order Comment: This order is a replacement of the rejected order with accession number [id number]. Performed By: #### 5 7307, 44845 #### [facility] [address] MAGNESIUM BLOODon 03-24-2018 Magnesium mass conc 1.6 mg/dL Low 1.9-2.7 [facility] Comment on above: Performed By: #### 6 2586 #### [facility] [address] PROTHROMBIN TIMEon 8 INR Coag RelTime (PPP) 1.41 {INR} High 0.91-1.16 [facility] Comment on above: Order Comment: This order is a replacement of the rejected order with accession number [id number]. Result Comment: [facility] P RECOMMENDED INR FOR WARFARIN THERAPY ------ ------- CONDITION INR PROPHYLAXIS OF VENOUS THROMBOSIS 2-3 (HIGH-RISK SURGERY) TREATMENT OF VENOUS THROMBOSIS 2-3 TREATMENT OF PULMONARY EMBOLISM 2-3 PREVENTION OF SYSTEMIC EMBOLISM: 2-3 ACUTE MYOCARDIAL INFARCTION TISSUE HEART VALVES VALVULAR HEART DISEASE ATRIAL FIBRILLATION RECURRENT SYSTEMIC EMBOLISM MECHANICAL HEART VALVE 2.5-3.5 FROM: ORAL ANTICOAGULANTS. MECHANISM OF ACTION, CLINICAL EFFECTIVENESS, AND OPTIMAL THERAPEUTIC RANGE. CHEST 1995;108:231S-246S. Performed By: #### 6 2586 #### [facility] [address] [facility] [address] Prothrombin time (PT) Coag time (PPP) 17.3 s High 12.3-14.8 [facility] Comment on above: Order Comment: This order is a replacement of the rejected order with accession number [id number]. Result Comment: ALL RESULTS MUST BE INTERPRETED WITH RESPECT TO BLOOD DRAWING ARTIFACT OR DILUTION ERROR OF ANTICOAGULANT AT THE TIME OF SAMPLING. Performed By: #### 6 2586 #### [facility] [address] UFH HEPARIN ASSAYon 03-24-20 18 UNFRACTIONATED HEPARIN <0.10 Critically low 0.30-0.70 [facility] Comment on above: Result Comment: [place] roxaban and Apixaban will interfere with the anti Xa assay used to monitor UFH and LMWH. RESULT CHECKED AND CALLED TO ALEKSANDRA 0729 Performed By: #### 6 2586 #### [facility] [address] [place] [address], [facility] BASIC METABOLIC PANELon 12-2 Calcium mass conc 8.0 mg/dL Low 8.6-10.[address] [facility] Comment on above: Order Comment: This order is a replacement of the rejected order with accession number [id number]. Performed By: #### 5 7307, 68327 #### [facility] [address] [place] [address], [facility] Chloride molar conc 98 mmol/L Normal 98-107 [facility] Comment on above: Order Comment: This order is a replacement of the rejected order with accession number [id number]. Performed By: #### 5 7307, 35974 #### [facility] [address] [place] [address], [facility] CO2 molar conc 25 mmol/L Normal 21-31 [facility] Comment on above: Order Comment: This order is a replacement of the rejected order with accession number [id number]. Performed By: #### 5 7307, 87916 #### [facility] [address] [place] [address], [facility] Creatinine mass conc 0.68 mg/dL Normal 0.60-1.20 [facility] Comment on above: Order Comment: This order is a replacement of the rejected order with accession number [id number]. Performed By: #### 5 7307, 99521 #### [facility] [address] [place] [address], [facility] GFR/1.73 sq M predicted among blacks MDRD vol rate/area (S/P/Bld) mL/min/{1.73_m2} Normal >60 [facility] Comment on above: Order Comment: This order is a replacement of the rejected order with accession number [id number]. Result Comment: Calc ulation may not be valid for patients over 70 years Performed By: #### 5 7307, 99164 #### [facility] [address] [place] [address], [facility] GFR/1.73 sq M predicted among non-blacks MDRD vol rate/area (S/P/Bld) mL/min/{1.73_m2} Normal >60 [facility] Comment on above: Order Comment: This order is a replacement of the rejected order with accession number [id number]. Result Comment: Calc ulation may not be valid for patients over 70 years Performed By: #### 5 73, 14367 #### [facility] [address] [place] [address], [facility] Glucose mass conc 118 mg/dL High 70-100 The [facility] Comment on above: Order Comment: This order is a replacement of the rejected order with accession number [id number]. Performed By: #### 5 73, 18102 #### [facility] [address] [place] [address], [facility] Potassium molar conc 3.0 mmol/L Low 3.5-5.1 [facility] Comment on above: Order Comment: This order is a replacement of the rejected order with accession number [id number]. Performed By: #### 5 7307, 73695 #### [facility] [address] [place] [id number], [facility] Sodium molar conc 132 mmol/L Low 136-145 [facility] Comment on above: Order Comment: This order is a replacement of the rejected order with accession number [id number]. Performed By: #### 5 7307, 12214 #### [facility] [address] [place] [address], [facility] Urea nitrogen mass conc 8 mg/dL Normal 7-25 [facility] Comment on above: Order Comment: This order is a replacement of the rejected order with accession number [id number]. Performed By: #### 5 73, 89479 #### [facility] [address] CBC COMPLETE BLOOD COUNTon 05-24-2017 Erythrocyte distribution width Ratio (RBC) 13.4 % Normal 11.5-15.0 [facility] Comment on above: Order Comment: This order is a replacement of the rejected order with accession number [id number]. Performed By: #### 5 7306, 09443 #### [facility] [address] Hematocrit Volume Fraction (Bld) 32.2 % Low 36.0-45.0 [facility] Comment on above: Order Comment: This order is a replacement of the rejected order with accession number [id number]. Performed By: #### 5 73, 39475 #### [facility] [address] [facility] [place] Hemoglobin mass conc (Bld) 11.0 g/dL Low 12.0-15.0 [facility] Comment on above: Order Comment: This order is a replacement of the rejected order with accession number [id number]. Performed By: #### 5 73, 33212 #### [facility] [address] [facility] MCH Entitic mass (RBC) 33.3 pg High 27.0-33.0 [facility] Comment on above: Order Comment: This order is a replacement of the rejected order with accession number [id number]. Performed By: #### 5 73, 39502 #### [facility] [address] MCHC mass conc (RBC) 34.2 g/dL Normal 32.0-35.0 [facility] Comment on above: Order Comment: This order is a replacement of the rejected order with accession number [id number]. Performed By: #### 5 73, 97758 #### [facility] [address] MCV Entitic volume (RBC) 97.6 fL Normal 82.0-98.0 [facility] Comment on above: Order Comment: This order is a replacement of the rejected order with accession number [id number]. Performed By: #### 5 7307, 42757 #### [facility] [address] Nucleated RBC/100 WBC Ratio (Bld) 0 % Normal 0-0 [facility] Comment on above: Order Comment: This order is a replacement of the rejected order with accession number [id number]. Performed By: #### 5 7307, 50786 #### [facility] [address] PLAT CNT 195 10*3/uL Normal 150-400 [facility] Comment on above: Order Comment: This order is a replacement of the rejected order with accession number [id number]. Performed By: #### 5 7307, 50470 #### [facility] [address] [facility] [place] [address] RBC #/vol (Bld) 3.30 10*6/uL Low 3.80-5.[address] [facility] Comment on above: Order Comment: This order is a replacement of the rejected order with accession number [id number]. Performed By: #### 5 7307, 95890 #### [facility] [address] WBC #/vol (Bld) 10.42 10*3/uL Normal 4.00-10.60 [facility] Comment on above: Order Comment: This order is a replacement of the rejected order with accession number [id number]. Performed By: #### 5 7307, 01535 #### [facility] [address] FEMUR LEFT 2 VWSon 8 FEMUR LEFT 2 [facility] Department of Radiology [address] [place] [address] Patient Name: ISAAC TOURE : 1940 Sex: F Age: Race: White Pt. Location: [id number] Patient Status: I Ordered Date: 03/23/2018 7:10:00 PM Completed Date: 03/23/2018 08:19 PM Requesting Provider: KRISTOFER NUNEZ Attending Provider: ANDREW JONES Report Copy To: Signs & Symptoms: Pain ( specify Location) History: Patient history not available Comments: Hardware Evaluation, post op Exam: FEMUR LEFT 2 [facility] FEMUR LEFT 2 [facility] 03/23/2018 8:19 PM EST SIGNS AND SYMPTOMS: Pain ( specify Location) TECHNOLOGIST COMMENTS: Hardware Evaluation, post op QUESTION FOR THE RADIOLOGIST: Hardware Evaluation, post op PROTOCOL: AP(PA) and Lateral views were obtained. 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 Transcribed by: [email or web address], User Resident: Electronically Signed by: CHRISTIAN GOMEZ @ 03/24/2018 09:03 AM Normal [facility] Comment on above: Order Comment: This order is a replacement of the rejected order with accession number [id number]. FEMUR LEFT 2 [facility] Department of Radiology [address] [place] [id number] Patient Name: ISAAC TOURE : 1940 Sex: F Age: Race: White Pt. Location: [id number] Patient Status: I Ordered Date: 03/23/2018 6:25:00 AM Completed Date: 03/23/2018 06:10 PM Requesting Provider: FAISAL JOHNS Attending Provider: FAISAL JOHNS Report Copy To: Signs & Symptoms: LEFT FEMUR INTRAMEDULARY NAIL History: LEFT FEMUR INTRAMEDULARY NAIL Comments: LEFT FEMUR INTRAMEDULARY NAIL Exam: FEMUR LEFT 2 S FEMUR LEFT 2 S 03/23/2018 6:10 PM EST SIGNS AND SYMPTOMS: LEFT FEMUR INTRAMEDULARY NAIL TECHNOLOGIST COMMENTS: FLUORO FOR INTRA OP IM PIPO OF LEFT FEMUR WITH DR. JOHNS IN OR 6 RED C-ARM USED FLUORO TIME 4 MINUTES AND 50 SECONDS QUESTION FOR THE RADIOLOGIST: LEFT FEMUR INTRAMEDULARY NAIL PROTOCOL: AP(PA) and Lateral views were obtained. COMPARISON: None FINDINGS: Dictation for documentation purposes only. IMPRESSION: Dictation for documentation purposes only. Approved by:Nancy Diaz on 03/23/2018 6:17 PM EST. I, Dell Pang, have reviewed the images and report and concur with these findings. Electronically signed by:Dell Pang. Transcribed by: [email or web address], User Resident: NANCY DIAZ Electronically Signed by: DELL PANG @ 03/25/2018 06:48 PM I personally read this/these film(s) with this resident Normal [facility] Comment on above: Order Comment: This order is a replacement of the rejected order with accession number [id number]. Operative Reporton 8 Operative Report MR#: [id number] I [facility] Pt. Name: Isaac Toure Room #: 6AB [id number] Discharge Date: Birthdate: 1940 OPERATIVE REPORT DATE OF SURGERY: 03/23/2018 SURGEON: Faisal Johns M.D. ASSISTANTS: 1. Kristofer Nunez, PGY 4. 2. Jamir Manrique, PGY 4. 3. Frandy Vargas, PGY 2. ANESTHESIA: General. BLOOD LOSS: 250 mL. IMPLANTS: A Synthes TFN nail measuring 12 mm x 380 mm. Helical blade measuring 95 mm and 2 distal interlocking screws measuring 48 mm and 50 mm. INTRAOPERATIVE FINDINGS: Left femur fracture. PREOPERATIVE DIAGNOSIS: Left closed displaced Femoral shaft fracture. POSTOPERATIVE DIAGNOSIS: Left closed displaced Femoral shaft fracture. PROCEDURE PERFORMED: Left cephalomedullary, intramedullary nail of left femur. CLINICAL SUMMARY: The patient is a 77-year-old female, who sustained a mechanical fall sustaining the aforementioned injury. The patient required medical clearance from a medical as well as a cardiology standpoint. Once the patient was cleared for surgery, the patient was consented for the aforementioned procedure. We discussed the benefits and risks. The patient subsequently agreed to proceed. OPERATIVE DETAILS: The patient was met in the preoperative holding area where informed consent was obtained and the surgical site was marked. The patient received intraoperative antibiotics in accordance with her allergies. General anesthesia was administered in the table. The patient was subsequently transferred over to the fracture table with the left lower extremity in traction and the right lower extremity into a well position. A time-out was then performed. The patient, procedure, and laterality were well verified in the administration of antibiotics. We then began the procedure by using the fracture table to distract through the fracture. We also used a crutch to apply a medial force in the proximal fragment. Once we were happy with our reduction, length alignment and rotation, the left lower extremity was prepped and draped in normal sterile fashion. We began by making a 3-inch incision approximately 3 inches proximal to the tip of the greater trochanter. We dissected through the subcutaneous tissue and subsequently gluteal fascia with Bovie electrocautery until we encountered the tip of the greater trochanter. A guidewire was subsequently advanced. The tip of the greater trochanter into the femur that was verified under AP and lateral radiographs. We then used an opening reamer to open the proximal segment of the femur. We then advanced our ball-tipped guidewire to the fracture position. We obtained AP and lateral radiographs, made small adjustments in the fracture alignment, subsequently passed our bent ball-tipped guidewire just distal to the superior pole of the patella. Once we were happy with the length, we measured for our implant, which was 380 mm length, 12 mm diameter Synthes TFN. We then sequentially reamed the length of the femur up to 13.5 mm. Once we were happy with reaming, we placed our nail into position and again verified its position in the AP and lateral radiographs. We then began our instrumentation for the cephalomedullary portion, made a small stab incision on the lateral side of the thigh for the cephalomedullary jig and subsequently advanced a guide pin within 5 mm of the femoral head. We subsequently measured the guide pin and determined this to be 90 mm cephalomedullary helical blade. We then reamed the opening cortex and subsequently drilled for the 90 mm helical blade. We then inserted the helical blade under mallet and AP fluoroscopy, direct visualization. Once we were happy with its position, the jig was removed and the locking screw was inserted in the proximal end of the nail. At this point, we released traction on the femur to allow compression of the fracture site. We again verified our rotation of the femur. We then used perfect mashpee technique to place 2 distal interlocks measuring 48 mm and 50 mm respectively. We then removed the jig, obtained our final radiographs, irrigated the wound, and subsequently closed them in a layered fashion using 4-0 Vicryl for the deep fascia and IT band, 2-0 Vicryl for the deep dermal, and then 4-0 nylon for the skin. We then dressed this with Xeroform and a Mepilex dressing x3. The patient will be weightbearing as tolerated to the left lower extremity. She will be mobilized with physical therapy and will receive appropriate DVT prophylaxis. She will remainder under the care of Medicine Service. Dr. Johns was present for all critical aspects of the procedure and was otherwise immediately available for assistance. Electronically Signed by: Faisal Johns M.D. 03/26/2018 08:39 A Faisal Johns M.D. I was present for the entire procedure. Date Dict: 03/23/2018/06:40 P/Kristofer Nunez MD Date Trans: 03/23/2018 09:15 P/denise DN_JN:[id number] cc: Bernardo Almonte M.D. [address] [place] [address] [facility] PROTHROMBIN TIMEon 8 INR Coag RelTime (PPP) 1.46 {INR} High 0.91-1.16 [facility] Comment on above: Order Comment: This order is a replacement of the rejected order with accession number [id number]. Result Comment: ACCC P RECOMMENDED INR FOR WARFARIN THERAPY ------ ------- CONDITION INR PROPHYLAXIS OF VENOUS THROMBOSIS 2-3 (HIGH-RISK SURGERY) TREATMENT OF VENOUS THROMBOSIS 2-3 TREATMENT OF PULMONARY EMBOLISM 2-3 PREVENTION OF SYSTEMIC EMBOLISM: 2-3 ACUTE MYOCARDIAL INFARCTION TISSUE HEART VALVES VALVULAR HEART DISEASE ATRIAL FIBRILLATION RECURRENT SYSTEMIC EMBOLISM MECHANICAL HEART VALVE 2.5-3.5 FROM: ORAL ANTICOAGULANTS. MECHANISM OF ACTION, CLINICAL EFFECTIVENESS, AND OPTIMAL THERAPEUTIC RANGE. CHEST 1995;108:231S-246S. Performed By: #### 5 7307, 46957 #### [address] Prothrombin time (PT) Coag time (PPP) 17.8 s High 12.3-14.8 [facility] Comment on above: Order Comment: This order is a replacement of the rejected order with accession number [id number]. Result Comment: ALL RESULTS MUST BE INTERPRETED WITH RESPECT TO BLOOD DRAWING ARTIFACT OR DILUTION ERROR OF ANTICOAGULANT AT THE TIME OF SAMPLING. Performed By: #### 5 7307, 50237 #### [facility] [address] UFH HEPARIN ASSAYon 03-23-20 18 UNFRACTIONATED HEPARIN 0.66 IU/mL Normal 0.30-0.70 [facility] Comment on above: Result Comment: [place] roxaban and Apixaban will interfere with the anti Xa assay used to monitor UFH and LMWH. Performed By: #### 5 7307, 75603 #### [facility] [address] UNFRACTIONATED HEPARIN 0.79 IU/mL High 0.30-0.70 [facility] Comment on above: Result Comment: [place] roxaban and Apixaban will interfere with the anti Xa assay used to monitor UFH and LMWH. Performed By: #### 5 7307, 28353 #### [facility] [address] APTTon 03-22-2018 aPTT Coag time (Bld) 27.1 s Normal 25.0-35.0 [facility] Comment on above: Order Comment: This order is a replacement of the rejected order with accession number [id number]. Result Comment: ALL RESULTS MUST BE INTERPRETED WITH RESPECT TO BLOOD DRAWING ARTIFACT OR DILUTION ERROR OF ANTICOAGULANT AT THE TIME OF SAMPLING. THE APTT SHOULD NOT BE USED TO MONITOR UNFRACTIONATED HEPARIN THERAPY, THIS LABORATORY NO LONGER HAS AN ESTABLISHED THERAPEUTIC RANGE BASED ON THE APTT. IT IS RECOMMENDED THAT THE UFH - HEPARIN ASSAY (ANTI-XA ACTIVITY) BE USED FOR THIS PURPOSE. Performed By: #### 5 7307, 45874 #### [facility] [address] BASIC METABOLIC PANELon 12-2 Calcium mass conc 7.6 mg/dL Low 8.6-10.[address] [facility] Comment on above: Order Comment: This order is a replacement of the rejected order with accession number [id number]. Performed By: #### 5 7307, 43885 #### [facility] [address] [place] [address], [facility] Chloride molar conc 101 mmol/L Normal 98-107 [facility] Comment on above: Order Comment: This order is a replacement of the rejected order with accession number [id number]. Performed By: #### 5 73, 32231 #### [facility] [address] [place] [address], [facility] CO2 molar conc 19 mmol/L Low 21-31 The [facility] Comment on above: Order Comment: This order is a replacement of the rejected order with accession number [id number]. Performed By: #### 5 73, 91526 #### [facility] [address] [place] [address], [facility] Creatinine mass conc 0.76 mg/dL Normal 0.60-1.20 [facility] Comment on above: Order Comment: This order is a replacement of the rejected order with accession number [id number]. Performed By: #### 5 7307, 00218 #### [facility] [address] [place] [address], [facility] GFR/1.73 sq M predicted among blacks MDRD vol rate/area (S/P/Bld) mL/min/{1.73_m2} Normal >60 [facility] Comment on above: Order Comment: This order is a replacement of the rejected order with accession number [id number]. Result Comment: Calc ulation may not be valid for patients over 70 years Performed By: #### 5 7307, 76987 #### [facility] [address] [place] [address], [facility] GFR/1.73 sq M predicted among non-blacks MDRD vol rate/area (S/P/Bld) mL/min/{1.73_m2} Normal >60 [facility] Comment on above: Order Comment: This order is a replacement of the rejected order with accession number [id number]. Result Comment: Calc ulation may not be valid for patients over 70 years Performed By: #### 5 7307, 21838 #### [facility] [address] [place] [address], [facility] Glucose mass conc 107 mg/dL High 70-100 [facility] Comment on above: Order Comment: This order is a replacement of the rejected order with accession number [id number]. Performed By: #### 5 73, 58674 #### [facility] [address] [place] [id number], [facility] Potassium molar conc 4.4 mmol/L Normal 3.5-5.1 [facility] Comment on above: Order Comment: This order is a replacement of the rejected order with accession number [id number]. Performed By: #### 5 73, 22775 #### [facility] [address] [place] [address], [facility] Sodium molar conc 132 mmol/L Low 136-145 [facility] Comment on above: Order Comment: This order is a replacement of the rejected order with accession number [id number]. Performed By: #### 5 7307, 61175 #### [facility] [address] [place] [address], [facility] Urea nitrogen mass conc 11 mg/dL Normal 7-25 [facility] Comment on above: Order Comment: This order is a replacement of the rejected order with accession number [id number]. Performed By: #### 5 7307, 34651 #### [facility] [address] [place] [address], [facility] CBC COMPLETE BLOOD COUNTon 05-23-2017 Erythrocyte distribution width Ratio (RBC) 13.5 % Normal 11.5-15.0 [facility] Comment on above: Order Comment: This order is a replacement of the rejected order with accession number [id number]. Performed By: #### 5 73, 54116 #### [facility] [address] Hematocrit Volume Fraction (Bld) 35.4 % Low 36.0-45.0 [facility] Comment on above: Order Comment: This order is a replacement of the rejected order with accession number [id number]. Performed By: #### 5 73, 62996 #### [facility] [address] Hemoglobin mass conc (Bld) 12.0 g/dL Normal 12.0-15.0 [facility] Comment on above: Order Comment: This order is a replacement of the rejected order with accession number [id number]. Performed By: #### 5 73, 78837 #### [facility] [address] MCH Entitic mass (RBC) 33.4 pg High 27.0-33.0 [facility] Comment on above: Order Comment: This order is a replacement of the rejected order with accession number [id number]. Performed By: #### 5 73, 16843 #### [facility] [address] MCHC mass conc (RBC) 33.9 g/dL Normal 32.0-35.0 [facility] Comment on above: Order Comment: This order is a replacement of the rejected order with accession number [id number]. Performed By: #### 5 7307, 75776 #### [facility] [address] MCV Entitic volume (RBC) 98.6 fL High 82.0-98.0 [facility] Comment on above: Order Comment: This order is a replacement of the rejected order with accession number [id number]. Performed By: #### 5 7307, 21699 #### [facility] [address] Nucleated RBC/100 WBC Ratio (Bld) 0 % Normal 0-0 [facility] Comment on above: Order Comment: This order is a replacement of the rejected order with accession number [id number]. Performed By: #### 5 7307, 58881 #### [facility] [address] PLAT CNT 203 10*3/uL Normal 150-400 [facility] Comment on above: Order Comment: This order is a replacement of the rejected order with accession number [id number]. Performed By: #### 5 7307, 86119 #### [facility] [address] RBC #/vol (Bld) 3.59 10*6/uL Low 3.80-5.[address] [facility] Comment on above: Order Comment: This order is a replacement of the rejected order with accession number [id number]. Performed By: #### 5 7307, 48947 #### [facility] [address] WBC #/vol (Bld) 10.63 10*3/uL High 4.00-10.60 [facility] Comment on above: Order Comment: This order is a replacement of the rejected order with accession number [id number]. Performed By: #### 5 7307, 67525 #### [facility] [address] CBC W/DIFFon 03-22-2018 ABS BASOPHILS 0.1 10*3/uL Normal 0.0-0.2 [facility] Comment on above: Order Comment: This order is a replacement of the rejected order with accession number [id number]. Performed By: #### 5 7307, 69916 #### [facility] [address] ABS IMM GRANS 0.0 10*3/uL Normal 0.0-0.2 [facility] Comment on above: Order Comment: This order is a replacement of the rejected order with accession number [id number]. Performed By: #### 5 73, 54615 #### [facility] [address] ABS NEUTROPHILS 7.6 10*3/uL Normal 1.6-7.[address] [facility] Comment on above: Order Comment: This order is a replacement of the rejected order with accession number [id number]. Performed By: #### 5 73, 42097 #### [facility] [address] Basophils #/vol (Bld) 1.0 % Normal 0.0-1.0 [facility] Comment on above: Order Comment: This order is a replacement of the rejected order with accession number [id number]. Performed By: #### 5 73, 74633 #### [facility] [address] Eosinophils #/vol (Bld) 0.0 10*3/uL Normal 0.0-0.5 [facility] [facility] Comment on above: Order Comment: This order is a replacement of the rejected order with accession number [id number]. Performed By: #### 5 73, 55634 #### [facility] [address] Erythrocyte distribution width Ratio (RBC) 14.0 % Normal 11.5-15.0 [facility] Comment on above: Order Comment: This order is a replacement of the rejected order with accession number [id number]. Performed By: #### 5 7307, 84838 #### [facility] [address] Hematocrit Volume Fraction (Bld) 35.1 % Low 36.0-45.0 [facility] Comment on above: Order Comment: This order is a replacement of the rejected order with accession number [id number]. Performed By: #### 5 7307, 80249 #### [facility] [address] Hemoglobin mass conc (Bld) 11.5 g/dL Low 12.0-15.0 [facility] Comment on above: Order Comment: This order is a replacement of the rejected order with accession number [id number]. Performed By: #### 5 73, 41282 #### [facility] [address] [facility] [place] [address] IMM PLATELET FRAC 3.8 % Normal 0.8-6.[address] [facility] Comment on above: Order Comment: This order is a replacement of the rejected order with accession number [id number]. Performed By: #### 5 73, 60378 #### [facility] [address] [facility] [place] [address] Lymphocytes #/vol (Bld) 1.3 10*3/uL Normal 1.2-4.0 [facility] Comment on above: Order Comment: This order is a replacement of the rejected order with accession number [id number]. Performed By: #### 5 7307, 66257 #### [facility] [address] Lymphocytes/100 WBC (Bld) 13.0 % Low 20.0-45.0 [facility] Comment on above: Order Comment: This order is a replacement of the rejected order with accession number [id number]. Performed By: #### 5 7307, 59598 #### [facility] [address] [place] [address], [facility] MCH Entitic mass (RBC) 33.7 pg High 27.0-33.0 [facility] Comment on above: Order Comment: This order is a replacement of the rejected order with accession number [id number]. Performed By: #### 5 7306, 41411 #### [facility] [address] MCHC mass conc (RBC) 32.8 g/dL Normal 32.0-35.0 [facility] Comment on above: Order Comment: This order is a replacement of the rejected order with accession number [id number]. Performed By: #### 5 7306, 01326 #### [facility] [address] MCV Entitic volume (RBC) 102.9 fL High 82.0-98.0 [facility] Comment on above: Order Comment: This order is a replacement of the rejected order with accession number [id number]. Performed By: #### 5 7306, 34473 #### [facility] 3000 [facility] [address] Monocytes #/vol (Bld) 0.7 10*3/uL Normal 0.1-1.0 [facility] Comment on above: Order Comment: This order is a replacement of the rejected order with accession number [id number]. Performed By: #### 5 7306, 64305 #### [facility] [address] MONOS 7.0 % Normal 5.0-12.0 [facility] Comment on above: Order Comment: This order is a replacement of the rejected order with accession number [id number]. Performed By: #### 5 7306, 07017 #### [facility] [address] Neutrophils/100 WBC (Bld) 79.0 % High 40.0-72.0 [facility] Comment on above: Order Comment: This order is a replacement of the rejected order with accession number [id number]. Performed By: #### 5 73, 17779 #### [facility] 3000 [facility] [address] OTHER 1 Normal red cell morphology seen Normal [facility] Comment on above: Order Comment: This order is a replacement of the rejected order with accession number [id number]. Performed By: #### 5 7307, 36731 #### [facility] [address] [place] [address], [facility] PLAT CNT 186 10*3/uL Normal 150-400 [facility] Comment on above: Order Comment: This order is a replacement of the rejected order with accession number [id number]. Performed By: #### 5 73, 47075 #### [facility] 3000 [facility]. [address] RBC #/vol (Bld) 3.41 10*6/uL Low 3.80-5.00 [facility] Comment on above: Order Comment: This order is a replacement of the rejected order with accession number [id number]. Performed By: #### 5 73, 41197 #### [facility] 3000 [facility]. [address] WBC #/vol (Bld) 9.65 10*3/uL Normal 4.00-10.60 [facility] Comment on above: Order Comment: This order is a replacement of the rejected order with accession number [id number]. Performed By: #### 5 7307, 43348 #### [facility] 3000 [facility] [address] MAGNESIUM BLOODon 03-22-2018 Magnesium mass conc 1.9 mg/dL Normal 1.9-2.7 [facility] Comment on above: Order Comment: This order is a replacement of the rejected order with accession number [id number]. Performed By: #### 5 7307, 69122 #### [facility] [address] POC GLUCOSE LABon 03-22-2018 Glucose mass conc 143 mg/dL High 70-100 [facility] Comment on above: Performed By: #### 5 7307, 96330 #### [facility] 3000 [facility]. [address] PROTHROMBIN TIMEon 12- 8 INR Coag RelTime (PPP) 1.58 {INR} High 0.91-1.16 [facility] Comment on above: Order Comment: This order is a replacement of the rejected order with accession number [id number]. Result Comment: ACCC P RECOMMENDED INR FOR WARFARIN THERAPY ------ ------- CONDITION INR PROPHYLAXIS OF VENOUS THROMBOSIS 2-3 (HIGH-RISK SURGERY) TREATMENT OF VENOUS THROMBOSIS 2-3 TREATMENT OF PULMONARY EMBOLISM 2-3 PREVENTION OF SYSTEMIC EMBOLISM: 2-3 ACUTE MYOCARDIAL INFARCTION TISSUE HEART VALVES VALVULAR HEART DISEASE ATRIAL FIBRILLATION RECURRENT SYSTEMIC EMBOLISM MECHANICAL HEART VALVE 2.5-3.5 FROM: ORAL ANTICOAGULANTS. MECHANISM OF ACTION, CLINICAL EFFECTIVENESS, AND OPTIMAL THERAPEUTIC RANGE. CHEST 1995;108:231S-246S. Performed By: #### 5 7307, 44403 #### [facility] [address] [facility] [address] Prothrombin time (PT) Coag time (PPP) 18.9 s High 12.3-14.8 [facility] Comment on above: Order Comment: This order is a replacement of the rejected order with accession number [id number]. Result Comment: ALL RESULTS MUST BE INTERPRETED WITH RESPECT TO BLOOD DRAWING ARTIFACT OR DILUTION ERROR OF ANTICOAGULANT AT THE TIME OF SAMPLING. Performed By: #### 5 7307, 92543 #### [facility] [address] INR Coag RelTime (PPP) 1.75 {INR} High 0.91-1.16 [facility] Comment on above: Order Comment: This order is a replacement of the rejected order with accession number [id number]. Result Comment: ACCC P RECOMMENDED INR FOR WARFARIN THERAPY ------ ------- CONDITION INR PROPHYLAXIS OF VENOUS THROMBOSIS 2-3 (HIGH-RISK SURGERY) TREATMENT OF VENOUS THROMBOSIS 2-3 TREATMENT OF PULMONARY EMBOLISM 2-3 PREVENTION OF SYSTEMIC EMBOLISM: 2-3 ACUTE MYOCARDIAL INFARCTION TISSUE HEART VALVES VALVULAR HEART DISEASE ATRIAL FIBRILLATION RECURRENT SYSTEMIC EMBOLISM MECHANICAL HEART VALVE 2.5-3.5 FROM: ORAL ANTICOAGULANTS. MECHANISM OF ACTION, CLINICAL EFFECTIVENESS, AND OPTIMAL THERAPEUTIC RANGE. CHEST 1995;108:231S-246S. Performed By: #### 5 7307, 56126 #### [facility] [address] Prothrombin time (PT) Coag time (PPP) 20.5 s High 12.3-14.8 [facility] Comment on above: Order Comment: This order is a replacement of the rejected order with accession number [id number]. Result Comment: ALL RESULTS MUST BE INTERPRETED WITH RESPECT TO BLOOD DRAWING ARTIFACT OR DILUTION ERROR OF ANTICOAGULANT AT THE TIME OF SAMPLING. Performed By: #### 5 7307, 63598 #### [facility] [address] UFH HEPARIN ASSAYon 12-25-20 18 UNFRACTIONATED HEPARIN 0.53 IU/mL Normal 0.30-0.70 [facility] Comment on above: Result Comment: Lily roxaban and Apixaban will interfere with the anti Xa assay used to monitor UFH and LMWH. Performed By: #### 5 7307, 97772 #### [facility] [address] [place] [address], [facility] BASIC METABOLIC PANELon 12-2 Calcium mass conc 8.1 mg/dL Low 8.6-10.[address] [facility] Comment on above: Order Comment: This order is a replacement of the rejected order with accession number [id number]. Performed By: #### 5 73, 56158 #### [facility] [address] [place] [address], [facility] Chloride molar conc 102 mmol/L Normal 98-107 [facility] Comment on above: Order Comment: This order is a replacement of the rejected order with accession number [id number]. Performed By: #### 5 73, 59360 #### [facility] [address] CO2 molar conc 26 mmol/L Normal 21-31 The [facility] Comment on above: Order Comment: This order is a replacement of the rejected order with accession number [id number]. Performed By: #### 5 7307, 25542 #### [facility] [address] [place] [address], [facility] Creatinine mass conc 0.72 mg/dL Normal 0.60-1.20 [facility] Comment on above: Order Comment: This order is a replacement of the rejected order with accession number [id number]. Performed By: #### 5 7307, 02708 #### [facility] [address] [place] [address], [facility] GFR/1.73 sq M predicted among blacks MDRD vol rate/area (S/P/Bld) mL/min/{1.73_m2} Normal >60 The [facility] Comment on above: Order Comment: This order is a replacement of the rejected order with accession number [id number]. Result Comment: Calc ulation may not be valid for patients over 70 years Performed By: #### 5 73, 30221 #### [facility] [address] [place] [address], [facility] GFR/1.73 sq M predicted among non-blacks MDRD vol rate/area (S/P/Bld) mL/min/{1.73_m2} Normal >60 The [facility] Comment on above: Order Comment: This order is a replacement of the rejected order with accession number [id number]. Result Comment: Calc ulation may not be valid for patients over 70 years Performed By: #### 5 7307, 47101 #### [facility] [address] [place] [address], [facility] Glucose mass conc 103 mg/dL High 70-100 [facility] Comment on above: Order Comment: This order is a replacement of the rejected order with accession number [id number]. Performed By: #### 5 73, 18704 #### [facility] [address] [place] [address], [facility] Potassium molar conc 3.3 mmol/L Low 3.5-5.1 [facility] Comment on above: Order Comment: This order is a replacement of the rejected order with accession number [id number]. Performed By: #### 5 73, 39813 #### [facility] [address] [place] [address], [facility] Sodium molar conc 135 mmol/L Low 136-145 [facility] Comment on above: Order Comment: This order is a replacement of the rejected order with accession number [id number]. Performed By: #### 5 7307, 34110 #### [facility] [address] [place] [address], [facility] Urea nitrogen mass conc 13 mg/dL Normal 7-25 [facility] Comment on above: Order Comment: This order is a replacement of the rejected order with accession number [id number]. Performed By: #### 5 73, 07444 #### [facility] 3000 [facility] [place] [address], [facility] CBC W/DIFFon 03-21-2018 ABS BASOPHILS 0.0 10*3/uL Normal 0.0-0.2 The [facility] Comment on above: Order Comment: No: D o not add to previous draw Performed By: #### 5 0103 #### [facility] [address] [facility] [place] [address], [facility] ABS IMM GRANS 0.0 10*3/uL Normal 0.0-0.2 [facility] Comment on above: Order Comment: No: D o not add to previous draw Performed By: #### 5 0103 #### [facility] 3000 [facility]. [address] ABS NEUTROPHILS 5.5 10*3/uL Normal 1.6-7.[address] [facility] Comment on above: Order Comment: No: D o not add to previous draw Performed By: #### 5 0103 #### [facility] 3000 [facility]. [address] Basophils #/vol (Bld) 0.4 % Normal 0.0-1.0 [facility] Comment on above: Order Comment: No: D o not add to previous draw Performed By: #### 5 0103 #### [facility] [address] [facility] [place] [address], [facility] Eosinophils #/vol (Bld) 0.0 10*3/uL Normal 0.0-0.5 [facility] Comment on above: Order Comment: No: D o not add to previous draw Performed By: #### 5 0103 #### [facility] [address] [place] [address], [facility] Eosinophils/100 WBC (Bld) 0.3 % Normal 0.0-6.0 [facility] Comment on above: Order Comment: No: D o not add to previous draw Performed By: #### 5 0103 #### [facility] [address] Erythrocyte distribution width Ratio (RBC) 13.4 % Normal 11.5-15.0 [facility] Comment on above: Order Comment: No: D o not add to previous draw Performed By: #### 5 0103 #### [facility] [address] [place] [address], [facility] Hematocrit Volume Fraction (Bld) 35.5 % Low 36.0-45.0 [facility] Comment on above: Order Comment: No: D o not add to previous draw Performed By: #### 5 0103 #### [facility] [address] [place] [address], [facility] Hemoglobin mass conc (Bld) 12.0 g/dL Normal 12.0-15.0 [facility] Comment on above: Order Comment: No: D o not add to previous draw Performed By: #### 5 0103 #### [facility] [address] [place] [address], [facility] IMMATURE GRANS 0.3 % Normal 0.0-1.0 The [facility] Comment on above: Order Comment: No: D o not add to previous draw Performed By: #### 5 3 #### [facility] [address] [facility] [place] [address], [facility] Lymphocytes #/vol (Bld) 2.3 10*3/uL Normal 1.2-4.0 [facility] Comment on above: Order Comment: No: D o not add to previous draw Performed By: #### 5 0103 #### [facility] [address] [facility] [place] [address], [facility] Lymphocytes/100 WBC (Bld) 25.4 % Normal 20.0-45.0 [facility] Comment on above: Order Comment: No: D o not add to previous draw Performed By: #### 5 0103 #### [facility] [address] [place] [address], [facility] MCH Entitic mass (RBC) 33.1 pg High 27.0-33.0 [facility] Comment on above: Order Comment: No: D o not add to previous draw Performed By: #### 5 0103 #### [facility] [address] [place] [id number], [facility] MCHC mass conc (RBC) 33.8 g/dL Normal 32.0-35.0 [facility] Comment on above: Order Comment: No: D o not add to previous draw Performed By: #### 5 0103 #### [facility] [address] [place] [address], [facility] MCV Entitic volume (RBC) 97.8 fL Normal 82.0-98.0 [facility] Comment on above: Order Comment: No: D o not add to previous draw Performed By: #### 5 0103 #### [facility] [address] [place] [address], [facility] Monocytes #/vol (Bld) 1.2 10*3/uL High 0.1-1.0 [facility] Comment on above: Order Comment: No: D o not add to previous draw Performed By: #### 5 0103 #### [facility] [address] [place] [address], [facility] MONOS 13.0 % High 5.0-12.0 [facility] Comment on above: Order Comment: No: D o not add to previous draw Performed By: #### 5 0103 #### [facility] [address] [place] [address], [facility] Neutrophils/100 WBC (Bld) 60.6 % Normal 40.0-72.0 [facility] Comment on above: Order Comment: No: D o not add to previous draw Performed By: #### 5 0103 #### [facility] [address] Nucleated RBC/100 WBC Ratio (Bld) 0 % Normal 0-0 [facility] Comment on above: Order Comment: No: D o not add to previous draw Performed By: #### 5 0103 #### [facility] [address] [place] [address], [facility] PLAT CNT 198 10*3/uL Normal 150-400 The [facility] Comment on above: Order Comment: No: D o not add to previous draw Performed By: #### 5 0103 #### [facility] [address] [place] [address], [facility] RBC #/vol (Bld) 3.63 10*6/uL Low 3.80-5.00 [facility] Comment on above: Order Comment: No: D o not add to previous draw Performed By: #### 5 0103 #### [facility] [address] [place] [address], [facility] WBC #/vol (Bld) 9.10 10*3/uL Normal 4.00-10.60 [facility] Comment on above: Order Comment: No: D o not add to previous draw Performed By: #### 5 0103 #### [facility] [address] MAGNESIUM BLOODon 03-21-2018 Magnesium mass conc 1.6 mg/dL Low 1.9-2.7 The [facility] Comment on above: Order Comment: This order is a replacement of the rejected order with accession number [id number]. Performed By: #### 5 7307, 44056 #### [facility] [address] [facility] [place] [address], [facility] PHOSPHORUS BLOODon 8 Phosphate mass conc 2.8 mg/dL Normal 2.5-5.0 [facility] Comment on above: Order Comment: This order is a replacement of the rejected order with accession number [id number]. Performed By: #### 5 7307, 10311 #### [facility] 3000 [facility]. [address] PROTHROMBIN TIMEon 8 INR Coag RelTime (PPP) 2.32 {INR} High 0.91-1.16 [facility] Comment on above: Order Comment: This order is a replacement of the rejected order with accession number [id number]. Result Comment: ACCC P RECOMMENDED INR FOR WARFARIN THERAPY ------ ------- CONDITION INR PROPHYLAXIS OF VENOUS THROMBOSIS 2-3 (HIGH-RISK SURGERY) TREATMENT OF VENOUS THROMBOSIS 2-3 TREATMENT OF PULMONARY EMBOLISM 2-3 PREVENTION OF SYSTEMIC EMBOLISM: 2-3 ACUTE MYOCARDIAL INFARCTION TISSUE HEART VALVES VALVULAR HEART DISEASE ATRIAL FIBRILLATION RECURRENT SYSTEMIC EMBOLISM MECHANICAL HEART VALVE 2.5-3.5 FROM: ORAL ANTICOAGULANTS. MECHANISM OF ACTION, CLINICAL EFFECTIVENESS, AND OPTIMAL THERAPEUTIC RANGE. CHEST 1995;108:231S-246S. Performed By: #### 5 7307, 49368 #### [facility] 3000 [facility]. [address] Prothrombin time (PT) Coag time (PPP) 25.6 s High 12.3-14.8 [facility] Comment on above: Order Comment: This order is a replacement of the rejected order with accession number [id number]. Result Comment: ALL RESULTS MUST BE INTERPRETED WITH RESPECT TO BLOOD DRAWING ARTIFACT OR DILUTION ERROR OF ANTICOAGULANT AT THE TIME OF SAMPLING. Performed By: #### 5 7307, 74704 #### [facility] [address] [facility]. [address] TSH3 WITH REFLEXon 12-24-201 8 T4 free mass conc 1.18 ng/dL Normal 0.71-1.85 The [facility] Comment on above: Performed By: #### 5 7307, 59129 #### [facility] [address] TSH 3RD GENERATION 4.90 uIU/mL Normal 0.34-5.60 The [facility] Comment on above: Performed By: #### 5 7307, 34548 #### [facility] [address] UFH HEPARIN ASSAYon 03-21-20 18 UNFRACTIONATED HEPARIN 0.29 IU/mL Low 0.30-0.70 [facility] Comment on above: Result Comment: Lily roxaban and Apixaban will interfere with the anti Xa assay used to monitor UFH and LMWH. Performed By: #### 3 0477 #### [facility] [address] APTTon 03-20-2018 aPTT Coag time (Bld) 28.7 s Normal 25.0-35.0 [facility] Comment on above: Order Comment: This order is a replacement of the rejected order with accession number [id number]. Result Comment: ALL RESULTS MUST BE INTERPRETED WITH RESPECT TO BLOOD DRAWING ARTIFACT OR DILUTION ERROR OF ANTICOAGULANT AT THE TIME OF SAMPLING. THE APTT SHOULD NOT BE USED TO MONITOR UNFRACTIONATED HEPARIN THERAPY, THIS LABORATORY NO LONGER HAS AN ESTABLISHED THERAPEUTIC RANGE BASED ON THE APTT. IT IS RECOMMENDED THAT THE UFH - HEPARIN ASSAY (ANTI-XA ACTIVITY) BE USED FOR THIS PURPOSE. Performed By: #### 5 7307, 13503 #### [facility] [address] BASIC METABOLIC PANELon - Calcium mass conc 8.4 mg/dL Low 8.6-10.3 [facility] Comment on above: Order Comment: This order is a replacement of the rejected order with accession number [id number]. Performed By: #### 0 0071, 36951, 20503 #### [facility] [address] [place] [address], [facility] Chloride molar conc 100 mmol/L Normal 98-107 [facility] Comment on above: Order Comment: This order is a replacement of the rejected order with accession number [id number]. Performed By: #### 0 0071, 97774, 60774 #### [facility] [address] [place] [address], [facility] CO2 molar conc 26 mmol/L Normal 21-31 [facility] Comment on above: Order Comment: This order is a replacement of the rejected order with accession number [id number]. Performed By: #### 0 0071, 58882, 53896 #### [facility] [address] [place] [address], [facility] Creatinine mass conc 0.87 mg/dL Normal 0.60-1.20 [facility] Comment on above: Order Comment: This order is a replacement of the rejected order with accession number [id number]. Performed By: #### 0 0071, 47655, 77675 #### [facility] [address] [place] [address], [facility] GFR/1.73 sq M predicted among blacks MDRD vol rate/area (S/P/Bld) mL/min/{1.73_m2} Normal >60 [facility] Comment on above: Order Comment: This order is a replacement of the rejected order with accession number [id number]. Result Comment: Calc ulation may not be valid for patients over 70 years Performed By: #### 0 0071, 57587, 18086 #### [facility] [address] [place] [address], [facility] GFR/1.73 sq M predicted among non-blacks MDRD vol rate/area (S/P/Bld) mL/min/{1.73_m2} Normal >60 [facility] Comment on above: Order Comment: This order is a replacement of the rejected order with accession number [id number]. Result Comment: Calc ulation may not be valid for patients over 70 years Performed By: #### 0 0071, 94372, 32376 #### [facility] [address] [place] [address], [facility] Glucose mass conc 113 mg/dL High 70-100 [facility] Comment on above: Order Comment: This order is a replacement of the rejected order with accession number [id number]. Performed By: #### 0 0071, 74725, 86022 #### [facility] [address] [place] [address], [facility] Potassium molar conc 3.1 mmol/L Low 3.5-5.1 [facility] Comment on above: Order Comment: This order is a replacement of the rejected order with accession number [id number]. Performed By: #### 0 0071, 51529, 91399 #### [facility] [address] [place] [address], [facility] Sodium molar conc 137 mmol/L Normal 136-145 [facility] Comment on above: Order Comment: This order is a replacement of the rejected order with accession number [id number]. Performed By: #### 0 0071, 91348, 37548 #### [facility] [address] [facility] [place] [address], [facility] Urea nitrogen mass conc 16 mg/dL Normal 7-25 [facility] Comment on above: Order Comment: This order is a replacement of the rejected order with accession number [id number]. Performed By: #### 0 0071, 13538, 00916 #### [facility] [address] [facility] [place] [address], [facility] CBC COMPLETE BLOOD COUNTon 05-21-2017 Erythrocyte distribution width Ratio (RBC) 13.5 % Normal 11.5-15.0 [facility] Comment on above: Performed By: #### 5 0608 #### [facility] [address] Hematocrit Volume Fraction (Bld) 41.0 % Normal 36.0-45.0 [facility] Comment on above: Performed By: #### 5 0608 #### [facility] [address] [facility] [address] Hemoglobin mass conc (Bld) 13.8 g/dL Normal 12.0-15.0 [facility] Comment on above: Performed By: #### 5 0608 #### [facility] [address] MCH Entitic mass (RBC) 32.9 pg Normal 27.0-33.0 [facility] Comment on above: Performed By: #### 5 0608 #### [facility] [address] MCHC mass conc (RBC) 33.7 g/dL Normal 32.0-35.0 [facility] Comment on above: Performed By: #### 5 0608 #### [facility] [address] MCV Entitic volume (RBC) 97.6 fL Normal 82.0-98.0 [facility] Comment on above: Performed By: #### 5 0608 #### [facility] [address] Nucleated RBC/100 WBC Ratio (Bld) 0 % Normal 0-0 [facility] Comment on above: Performed By: #### 5 0608 #### [facility] [address] [facility] [place] [address], [facility] PLAT CNT 235 10*3/uL Normal 150-400 [facility] Comment on above: Performed By: #### 5 0608 #### [facility] [address] [facility] [place] [address], [facility] RBC #/vol (Bld) 4.20 10*6/uL Normal 3.80-5.00 [facility] Comment on above: Performed By: #### 5 0608 #### [facility] [address] WBC #/vol (Bld) 8.52 10*3/uL Normal 4.00-10.60 [facility] Comment on above: Performed By: #### 5 0608 #### [facility] [address] History and Physicalon 03-20 History and Physical MR#: [id number] [facility] Pt. Name: Isaac Toure Admitted: 03/20/2018 Date of : 1940 Attending Physician: Martin Marin MD Room #: [id number] Discharge Date: HISTORY AND PHYSICAL HISTORY OF PRESENT ILLNESS: The patient is a 77-year-old female. The patient is a poor historian, has hard time difficulty hearing. Past medical history is significant for hypertension; atrial flutter, for that the patient is on Coumadin; history of multiple stroke in the past; hypothyroidism; hyperlipidemia; presented to ED after a fall. The patient initially went to [facility] for left femur fracture today. The patient also has history of carotid stenting and pacemaker. She was in usual state of health until today morning when she was getting to dress, she twisted her left leg and then she fell, but she was able to hold herself to the bed. She was feeling weakness in the left leg and was found to have the left mid shaft fracture. The patient denies any history of hitting head. The patient denies any history of fever, loss of consciousness, seizure activity, difficulty in breathing, chest pain, nausea, vomiting, abdominal pain, diarrhea, constipation, dysuria, hematuria, melena, joint pain. The patient denies any history of syncope in the past. The patient denies any history of fall in the past. The patient also has sinus node dysfunction status post pacemaker placement. The patient's pacemaker was interrogated in April 2017, it was fine. The patient has been following Dr. Micheline Chatman. Also has history of rheumatoid arthritis. The patient denies any recent travel. The patient denies any recent change in medications. REVIEW OF SYSTEMS: A 14-point review of system obtained, negative except as per presenting illness. MEDICATIONS: Will be reviewed. PAST MEDICAL HISTORY: Significant for TIA, multiple restless legs syndrome, hypertension, hypothyroidism after thyroidectomy, atrial fibrillation, hyperlipidemia, sinus node dysfunction, carotid artery stenosis, rheumatoid arthritis. PAST SURGICAL HISTORY: Pacemaker placement, history of appendectomy, back surgery x2, hysterectomy, tonsillectomy, pacemaker was placed in 2010, [facility], thyroid surgery, knee surgery. FAMILY HISTORY: Significant for diabetes in mother and father, hypertension in mother and father, cerebrovascular accident in father, hyperlipidemia in mother and father. SOCIAL HISTORY: The patient is a former smoker, denied currently. No alcohol abuse. No use of illicit drugs. The patient is retired, living by herself. Independent ADLs. ALLERGIES: The patient has known allergies to sulfur drugs, unknown reactions. PHYSICAL EXAMINATION: VITAL SIGNS: The patient is afebrile, pulse is 71, respirations 16, blood pressure 152/59. GENERAL APPEARANCE: The patient is poor historian, hard time hearing; otherwise, alert and oriented. Lying comfortably in bed. HEART: S1, S2 audible. The patient is in atrial flutter at the time of encounter. CHEST: Clear bilaterally. No added sound. No wheezes. No rhonchi. No sign of labored breathing. ABDOMEN: Soft, nontender. Bowel sounds audible. MUSCULOSKELETAL: The patient is unable to move the left leg because of the fracture; otherwise intact. Peripheral pulses intact. NEUROLOGIC: Intact grossly. Hearing deficit noted in the right ear. No other focal deficit noted. SKIN: No rashes. No bruises noted. PSYCHIATRIC: The patient is active and alert. No sign of suicidal or homicidal ideation noted. LABORATORY DATA: BMP showed glucose 113, potassium 3.1, calcium 8.4, INR 1.9. CBC unremarkable. We will obtain TSH and T3, baseline. No imaging. We will obtain the baseline EKG as well. ASSESSMENT AND PLAN: 1. Left femur fracture due to the mechanical fall. Medicine Service will be primary on this patient due to significant medical problems. The patient's METS score is less than 4 because of restricted mobility due to severe rheumatoid arthritis. Given the fact that the patient has pretty significant cardiac history including atrial fibrillation and sinoatrial node dysfunction, status post pacemaker placement; Cardiology need to evaluate the patient I will onboard Cardiology and will appreciate their recommendations. Given the patient has multiple transient ischemic attacks in the past and patient is on warfarin INR is subtherapeutic at 1.9. Patient will be started on Heparin drip, Will obtain echocardiogram. The patient had a last echocardiogram in October 2014, that showed normal LV size and function. Estimated ejection fraction was 65%. 2. Atrial fibrillation without rapid ventricular rate, currently the rate is controlled. Continue warfarin. INR is subtherapeutic at 1.9, as above. 3. History of cerebrovascular accident without significant residual weakness. Continue statin, aspirin. 4. Hypothyroidism after thyroidectomy. Continue levothyroxine. We will check TSH and T3, baseline. 5. Hyperlipidemia. Continue statin. 6. Hypertension. Currently stable. 7. Code status. Discussed with the patient. The patient wants to be full code. 8. Disposition. Pending clinical course. Electronically Signed by: Martin Marin MD 03/24/2018 11:11 P Martin Marin MD Date Dict: 03/20/2018/04:57 P/Martin Marin MD Date Trans: 03/20/2018 06:03 P/denise [id number] Normal The [facility] PROTHROMBIN TIMEon 8 INR Coag RelTime (PPP) 1.91 {INR} High 0.91-1.16 [facility] Comment on above: Order Comment: This order is a replacement of the rejected order with accession number [id number]. Result Comment: ACCC P RECOMMENDED INR FOR WARFARIN THERAPY ------ ------- CONDITION INR PROPHYLAXIS OF VENOUS THROMBOSIS 2-3 (HIGH-RISK SURGERY) TREATMENT OF VENOUS THROMBOSIS 2-3 TREATMENT OF PULMONARY EMBOLISM 2-3 PREVENTION OF SYSTEMIC EMBOLISM: 2-3 ACUTE MYOCARDIAL INFARCTION TISSUE HEART VALVES VALVULAR HEART DISEASE ATRIAL FIBRILLATION RECURRENT SYSTEMIC EMBOLISM MECHANICAL HEART VALVE 2.5-3.5 FROM: ORAL ANTICOAGULANTS. MECHANISM OF ACTION, CLINICAL EFFECTIVENESS, AND OPTIMAL THERAPEUTIC RANGE. CHEST 1995;108:231S-246S. Performed By: #### 5 7307, 93003 #### [facility] [address] Prothrombin time (PT) Coag time (PPP) 22.0 s High 12.3-14.8 The [facility] Comment on above: Order Comment: This order is a replacement of the rejected order with accession number [id number]. Result Comment: ALL RESULTS MUST BE INTERPRETED WITH RESPECT TO BLOOD DRAWING ARTIFACT OR DILUTION ERROR OF ANTICOAGULANT AT THE TIME OF SAMPLING. Performed By: #### 5 7307, 20090 #### [facility] [address] RBC'S 2 UNITSon 03-20-2018 CROSSMATCH INTERP 1 COMP Normal The [facility] Comment on above: Performed By: #### 8 6002 #### [facility] [address] [facility] [place] [address], [facility] CROSSMATCH INTERP 2 COMP Normal [facility] Comment on above: Performed By: #### 8 6002 #### [facility] [address] [facility] [place] [address], [facility] Protein mass conc 336 g/dL Normal The [facility] Comment on above: Performed By: #### 8 6002 #### [facility] [address] [facility] [place] [place] [address], [facility] Protein mass conc RE Normal [facility] Comment on above: Result Comment: Resu lt changed by IF on 03/24/2018 06:42. The previous value was XM. Performed By: #### 8 6002 #### [facility] [address] [place] [address], [facility] UNIT ABO 1 A Normal The [facility] Comment on above: Performed By: #### 8 6002 #### [facility] [address] [place] [address], [facility] UNIT ABO 2 A Normal The [facility] Comment on above: Performed By: #### 8 6002 #### [facility] [address] [place] [address], [facility] UNIT ID 1 [id number] Normal The [facility] Comment on above: Performed By: #### 8 6002 #### [facility] [address] [place] [address], [facility] UNIT ID 2 [id number] Normal The [facility] Comment on above: Performed By: #### 8 6002 #### [facility] [address] [place] [address], [facility] UNIT RH 1 Positive Normal The [facility] Comment on above: Performed By: #### 8 6002 #### [facility] [address] [place] [address], [facility] UNIT RH 2 Positive Normal The [facility] Comment on above: Performed By: #### 8 6002 #### [facility] [address] [place] [address], [facility] TROPONIN-Ion 03-20-2018 Troponin I.cardiac mass conc 0.01 ng/mL Normal 0.00-0.04 The [facility] Comment on above: Result Comment: REFE RENCE RANGES: 0.00 - 0.04 ng/ml NORMAL 0.05 - 0.50 ng/ml INDETERMINATE > 0.50 ng/ml CONSISTENT WITH AN M.I. Performed By: #### 0 0071, 13832, 75577 #### [facility] [address] TSH3 WITH REFLEXon 8 T4 free mass conc 1.38 ng/dL Normal 0.71-1.85 [facility] Comment on above: Performed By: #### 0 0071, 46050, 60982 #### [facility] [address] [place] [address], [facility] TSH 3RD GENERATION 3.20 uIU/mL Normal 0.34-5.60 [facility] Comment on above: Performed By: #### 0 0071, 85311, 86380 #### [facility] [address] [facility]. [address] TYPE AND SCREENon 03-20-2018 ABO INTERPRETATION A Normal The [facility] Comment on above: Order Comment: This order is a replacement of the rejected order with accession number [id number]. Performed By: #### 6 2586 #### [facility] [address] [facility] [place] [address], [facility] RH INTERPRETATION Positive Normal The [facility] Comment on above: Order Comment: This order is a replacement of the rejected order with accession number [id number]. Performed By: #### 6 2586 #### [facility] [address] [facility]. [address] Encounters Encounter Date Encounter Type Care Provider Facility Start: 02-17-2023 End: 02-17-2023 ambulatory BERNARDO ALMONTE Not Available Start: 02-10-2023 End: 02-10-2023 ambulatory CAROLYN ADKINS Not Available Start: 08-18-2022 End: 08-18-2022 ambulatory [facility] Start: 07-21-2022 End: 07-21-2022 ambulatory HALIMA STATON [facility] Start: 01-30-2022 End: 01-31-[address] BERNARDO ALMONTE Facility: Start: 12-26-2021 End: 12-26-2021 ambulatory [facility] Start: 12-17-2021 End: 12-18-[address] SIVAKUMAR HUERTAS Facility:[facility] Start: 12-12-2021 End: 12-13-2021 ambulatory BETTIE SHOEMAKER Facility:[facility] Start: 12-04-2021 End: 12-05-[address] SIVAKUMAR HUERTAS Facility:[facility] Start: 07-04-[address] BERNARDO ALMONTE [place] y:[facility] Start: 06-16-2021 End: 06-17-2021 ambulatory JULIANA TITUS Facility:[facility] Start: 06-06-2021 End: 06-07-2021 ambulatory JULIANA RUSSOER Facility:[facility] Start: 05-07-2021 End: 05-08-2021 ambulatory JULIANA RUSSOER Facility:[facility] Start: 04-11-2021 End: 04-12-2021 ambulatory JULIANA RUSSOER Facility:[facility] Start: 04-01-2021 End: 04-02-2021 ambulatory JULIANA RUSSOER Facility:[facility] Start: 06-22-2018 End: 06-23-2018 Patient encounter procedure FAISAL JOHNS Facility:[facility] Start: 05-11-2018 End: 05-12-2018 Patient encounter procedure FAISAL JOHNS Facility:[facility] Start: 03-20-2018 End: 03-30-2018 Evaluation and management of inpatient REFERRED SELF Facility:[facility] Start: 07-20-2016 End: 07-20-2016 Refill Geovanny Saini Work Phone: Cardiology Comment on above: Refill Request Procedures Date Procedure Procedure Detail Performing Clinician Start: 03-23-2018 REPOSITION L FEMUR S HAFT WITH INTRAMED FIX, PERC APPROACH FAISAL JOHNS Start: 03-20-2018 Antibody screen REFERRE D SELF Comment on above: Order Comment: This order is a replacement of the rejected order with accession number [id number]. Performed By: #### 6 2586 #### [place] [address] [address] Plan of Treatment Date Care Activity Detail Author Start: 11-27-2020 Influenza vaccination INFLUENZA (Sea son Ended) [facility] Start: 2006 ADVANCE DIRECTIVE DISCUSSION ADVANCE DIRECTIVE DISCUSSION [facility] Start: 2006 BONE DENSITY BONE DENSITY [facility] Start: 2006 PNEUMOVAX AGE 65 AND OVER WITH 5YR LOOKBACK (#1) PNEUMOVAX AGE 65 AND OVER WITH 5YR LOOKBACK (#1) [facility] Start: 10-21-1991 Screening for malign ant neoplasm of colon [facility] Start: 10-21-1991 SHINGRIX VACCINE (1 of 2) ESPARZA GRIX VACCINE (1 of 2) [facility] Start: 1986 DIABETES SCREEN DIABETES SCREEN [facility] Start: 1960 Urine microalbumin profile DTAP,TDAP ,TD (1 - Tdap) [facility] Start: 10-21-1959 HEPATITIS C SCREENING HEPATITIS C SC REENING [facility] Start: 1953 Adult depression scr eening assessment DEPRESSION SCREENING [facility] Payers Date Payer Category Payer Medicaid [place] [id number] 2014-Present Medicaid [id number] 2008 Unknown [id number] 2001 Medicare MEDICARE MEDICAR E A AND B [id number] 2001-Present [place] [id number] 1959 Self-pay [id number] 1959 Unknown [id number] 1940 Unknown [id number] [id number] 1941 Unknown [id number] 2.840.1.258028.3.579.2.647 1941 Unknown [id number] 2.16840.1.429851.3.579.2.647 1941 Unknown [id number] 2.16.840.1.492443.3.579.2.593 1941 Unknown [id number] 2.840.1.107892.3.579.2.593 1941 Unknown [id number] 2.16.840.1.969763.3.579.2.593 1941 Unknown [id number] 2.16.840.1.053587.3.579.2.593 1941 Unknown [id number] 2.16.840.1.520658.3.579.2.593 1941 Unknown [id number] 2.16.840.1.621570.3.579.2.593 1941 Unknown [id number] 2.16.840.1.616021.3.579.2.593 1941 Unknown [id number] 2.16.840.1.117492.3.579.2.593 1941 Unknown [id number] 2.16.840.1.896753.3.579.2.593 1941 Unknown [id number] 2.16.840.1.549031.3.579.2.593 1941 Unknown [id number] 2.16.840.1.661994.3.579.2.1259 1941 Unknown [id number] 2.16.840.1.695142.3.579.2.1259 Medicare [id number] Social History Date Type Detail Facility Start: 08-29-2015 [facility] End: 03-29-1998 History of tobacco use Current smoker [facility] End: 03-29-1998 History of tobacco use Cigarette Smoker [facility] Start: 08-29-2015 Cigarettes smoked cu rrent (pack per day) - Reported [facility] Start: 08-29-2015 Alcohol intake 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 CT angiogram of the neck showed possibility of significant stenosis. She has not had any stroke symptoms. Given her advanced age and comorbidities, Dr. Garcia noted it is better to manage her medically and she has done well with this. -Lipids 04/01/2021: Cholesterol 158, trig 30, HDL 74, LDL 78 -She denies any sx's. -Continue aspirin 81 mg daily and statin. [facility] Progress note 08-27-2022 Note Date & Type Note Facility 08-27-2022 Note Last device check TOBI 2.9 years, V paced 94%, high ventricular rate was noted 1 time 02/11/2022 -this is a single-chamber [facility] PPM. -will order TTE [facility] Progress note 08-27-2022 Note Date & Type Note Facility 08-27-2022 Note - recent device chec k shows normal device function and stable lead thresholds - she did have one high ventricular rate back in January 2022 - [facility] PPM TOBI approximately 3 years, V paced 94% - we will order echocardiogram as she should be having these annually with being paced almost 100% in the right ventricle [facility] Progress note 08-27-2022 Note Date & Type Note Facility 08-27-2022 Note - pressures controll ed - continue current medication [facility] Progress note 08-27-2022 Note Date & Type Note Facility 08-27-2022 Note -Stable, NYHA II - stable chronic LE edema -Continue GDMT: Lasix as needed, hydrochlorothiazide 25 mg, losartan 1 mg daily, amlodipine 10 mg daily, Toprol-XL 100 mg, Lasix as needed [facility] Progress note 08-18-2022 Note Date & Type Note Facility 08-18-2022 Note [facility] Consult Note Reason for visit: 1 year follow-up HPI: Isaac Toure is a 81 y.o. year old with past medical history of sick sinus syndrome s/p PPM, chronic A-fib, hypertension, hyperlipidemia, carotid stenosis s/p left carotid stent 2009 in [place], HFpEF She is here for 1 year follow-up. Last device check 07/21/2022 TOBI 2.9 years, V paced 94%, high ventricular rate was noted 1 time 02/11/2022 -this is a single-chamber [facility] PPM. Her last echocardiogram 03/20/2020 noted EF 64%, LA severely dilated, RA severely dilated, mildly elevated RVSP 35-45 with moderate aortic valve sclerosis without significant stenosis. She has been feeling well with no complaints of chest pain, shortness of breath, TELLEZ, worsened LE edema. She does have chronic LE edema which has been stable. Pulse check heart rates 55 . ---- ------- Isaac is seen in follow up. PMHx: SSS s/p PPM, chronic a.fib, HTN, HLD, carotid stenosis s/p left carotid stent in 2009 in [place] 06/06/21 -C/o worsening SOB with exertion -She has gained 7# since last seen despite being on lasix 20mg daily -C/o voice change, dry cough, LE edema unchanged -Denies CP, palpitations, dizziness/LH, syncope 06/17/21 -She is down 3# since we saw her 2 weeks ago -Her SOB is starting to improve along with her leg swelling -Denies dyspnea at rest, orthopnea, PND, palpitations, dizziness/LH. -She is watching her fluid and Na+ intake, she is no longer drinking pedialyte ---- Labs 06/16/2021 Creatinine 1.04, BUN 20, K4.2, GFR 51, ALT 51, AST 29 NT proBNP 1502 Chest x-ray 06/06/2021: 1. Atherosclerosis and stable cardiomegaly with cardiac pacemaker. Negative for pulmonary edema 2. Small area of atelectasis or scarring in the posterior lower lung. No consolidation or effusion. Device check 06/09/21: all lead measurements stable, no episodes, TOBI 5.9-6.3 years ECHO 05/07/2021: preserved LV EF, grade III DD, mild , moderate MR, mildly elevated right sided pressures with RVSP at 38. Severe biatrial enlargement. Lipids 04/01/2021: Cholesterol 158, trig 30, HDL 74, LDL 78 lipid profile 03/21/2020: Cholesterol 174, triglycerides 72, HDL 75, LDL 84. Echocardiogram 03/20/2020: Normal ventricular systolic function, mild mitral regurgitation, moderate tricuspid regurgitation, mildly elevated right-sided pressures, no pericardial effusion. CT angiogram of the neck 03/07/2020: Marked atherosclerotic narrowing of the right carotid bulb and proximal ICA despite endovascular stent within the ICA approximately 88% area reduction. Marked atherosclerotic narrowing of the common carotid artery just proximal to the carotid bulb with up to 83% area reduction. I suspect this may be slightly overestimated. Carotid ultrasound 01/02/2020: Right carotid: PSV 127.9 cm/s, EDV 7.7 cm/s, ICA/CCA ratio of PSV 2.4. Left carotid: PSV 162.4 cm/s, EDV 16 cm/s, ICA/CCA ratio of PSV 2.4. By 2D imaging 88% area of reduction in the left carotid bulb. Echocardiogram 03/23/2018: LVEF is normal at 60%, normal right ventricular systolic function, severe biatrial enlargement, normal right-sided pressures, no significant valvular abnormalities Her pacer check in 11/21/2015 showed V-pacing 76%. Her pacer check in 05/14/2016 showed V-pacing 83%. BMP on 09/20/2015 showed Cr 0.96, BUN 18, K 4.6. Her blood testing in 01/04/2015 showed Cr 1.0. Most recent ECGs showed atrial fibrillation with pacing. Echocardiogram in 11/26/2014: Normal ventricular function, atrial enlargement, mild to moderate MR and TR, mildly elevated right sided pressures. -- PMH: History reviewed. No pertinent past medical history. PSH: Past Surgical History: Procedure Laterality Date APPENDECTOMY BACK SURGERY X 2 HYSTERECTOMY INSERT / REPLACE / REMOVE PACEMAKER 03/29/2010 KNEE SURGERY LEG SURGERY THYROID SURGERY 03/29/2009 TONSILLECTOMY SH: Social Determinants of Health Tobacco Use: Medium Risk Smoking Tobacco Use: Former Smokeless Tobacco Use: Never Passive Exposure: Not on file Alcohol Use: Not on file Financial Resource Strain: Not on file Food Insecurity: Not on file Transportation Needs: Not on file Physical Activity: Not on file Stress: Not on file Social Connections: Not on file Intimate Partner Violence: Not on file Depression: Not on file Housing Stability: Not on file Allergies: Allergies Allergen Reactions Milk Sulfa (Sulfonamide Antibiotics) Weight: 91.1kg Visit Vitals BP 128/72 (BP Location: Left arm, Patient Position: Sitting, BP Cuff Size: Large adult) Pulse 55 Ht 1.626 m (5' 4 ) Wt 91.1 kg (200 lb 12.8 oz) SpO2 99% BMI 34.47 kg/m??? Smoking Status Former BSA 2.03 m??? Me (more content not included)... [facility] Progress note 08-18-2022 Note Date & Type Note Facility 08-18-2022 Note Patient is here toda y for a 1 yr. Follow up Review of Systems Cardiovascular: Positive for irregular heartbeat. Musculoskeletal: Positive for arthritis. All other systems reviewed and are negative. [facility] Consultation note 12-17-2021 Note Date & Type Note Facility 12-17-2021 Note CONSULTATION CONSULTATION DATE: 12/17/2021 HISTORY OF PRESENT ILLNESS: This is an 81-year-old female that was last seen in the clinic on 12/04/2021 as a new patient. She is here today to review lumbar x-rays. Her x-ray shows bilateral transpedicular fusion of L3-L5 in addition to severe facet arthropathy and severe multilevel disc space narrowing with end plate sclerosis. The patient is complaining of diffuse lower back pain, as well as bilateral radicular pain to the lower extremities to the level of the ankle. As a result, the patient uses a walker due to bilateral leg weakness. 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 She does use heat which is beneficial to her. She has seen Dr. Jackman in the past who has provided her with bilateral knee injections. Recently, she was seen by her PCP, Dr. Almonte, who has placed her on antibiotics for a sinus infection. Current medications include Coumadin, Noti 5/325 daily p.r.n. and [id number] Tylenol. She is unable to take NSAIDs. She rates her pain 6/10 today and describes it as a deep burn and ache. Patient's REVIEW OF SYSTEMS / PAST MEDICAL HISTORY / ALLERGIES and IMAGES have been reviewed and they are noted on the chart. PHYSICAL EXAM: VITAL SIGNS: Blood pressure 105/60, heart rate is 68. Temperature is 97.3. She is 5'4 1/2 and weighs 98.2 kg. GENERAL IMPRESSION: Pleasant, appropriate, no acute distress. is at bedside. FOCUSED EXAM - BACK: Range of motion is guarded and decreased in lateral rotation and flexion/extension. Paravertebral muscles are taut but non-spasmodic. Reproduction of spinal axial pain noted to the level above the fusion of T12-L1 and L2-L3. Fullness is palpated at the facets, indicative of facet arthropathy, lumbar spondylosis. Jayden's point mildly tender bilaterally with negative FABERs. MUSCULOSKELETAL: Diffuse motor weakness noted bilateral lower extremities. Muscle weakness noted to bilateral anterior tibialis, extensor digitorum longus and peroneus longus muscles. Patient does use a wheeled walker to ambulates with a slight forward flexion stance. 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 Blunted patellar and Achilles reflexes. DIAGNOSIS: Lumbar radiculitis, lumbar degenerative disc disease, lumbar spondylosis, spinal axial lower back pain. PLAN: We will move forward with advanced imaging for a CT scan due to the fact that she has unknown metal sources from a 1983 fusion. It is unknown if an MRI could be completed. Following that, we will move forward with a lumbar epidural steroid injection and gain approval to hold her Coumadin for that procedure. She will be brought back to the clinic following that for re-evaluation. Nutrition and vitamin importance was discussed with the patient today. Patient and agree with the plan of care, would like to move forward. [facility] Clinical Note 12-12-2021 Note Date & Type Note Facility 12-12-2021 Note PROCEDURE: XR PELVIS 1_2 VIEWS COMPARISON: None. HISTORY: Low back pain FINDINGS: BONES:No acute fracture or dislocation. Bilateral sacroiliac joint sclerosis. Remote left femur fracture fixed with antegrade intramedullary nail and proximal dynamic compression screw. Lumbar fusion hardware partially visualized SOFT TISSUES:Negative. No visible soft tissue swelling. EFFUSION:None visible. OTHER: Pelvic calcifications likely vascular phleboliths. Vascular calcifications. IMPRESSION: No acute abnormality Electronically authenticated by: CONSTATNINE ROSAS Date: 2021-12-12 16:37 [facility] Consultation note 12-04-2021 Note Date & Type Note Facility 12-04-2021 Note CONSULTATION CONSULTATION DATE: 12/06/2021 HISTORY OF PRESENT ILLNESS: This is a pleasant, 81-year-old female who was referred to our Pain Clinic by her PCP, Dr. Almonte, for lumbar pain, lower extremity pain and scoliosis. The patient's chronic pain started in 2018. Today, she is complaining of diffuse lower back pain that radiates down her leg. In the fall of 2019, she suffered a fall resulting in a left femur fracture. She subsequently had surgery and repair with rehab following that. She reports her pain today as 7-8/10, described as throbbing and burning. Activities such as standing, walking, housework, ADLs and physical activity aggravate the pain. She does occasionally use heat, which decreases her pain slightly. She does walk with a wheeled walker and has family present. The patient reports she has tried physical therapy, approximately three years ago, and it made the pain worse. Prior surgeries include a lumbar fusion in the [facility] in 1984 and lumbar anterolisthesis in 1999. Current medications include Noti 5/325 q. 8 p.r.n. by her PCP. The patient reports the pain relief lasts approximately six hours following each dose. She is on Coumadin per her PCP for carotid stenosis. The patient reports to the clinic today with no prior available imaging. Patient's REVIEW OF SYSTEMS / PAST MEDICAL HISTORY and ALLERGIES have been reviewed and noted in the chart. PHYSICAL EXAM: GENERAL IMPRESSION: Pleasant, appropriate, with family present, no acute distress. FOCUSED EXAM - MUSCULOSKELETAL: Bilateral upper and lower extremities with diffuse muscle atrophy. Patient does ambulate steadily with a wheeled walker with an antalgic gait. No noted foot drop. Muscle tone is poor. Bilateral knee edema noted, intact flexion and extension. Anterior medial tenderness noted to direct palpation, no effusion or crepitus appreciated. BACK: Lumbar scoliotic curve is noted with a right convexity. Paravertebral muscles are taut but non-spasmodic. Diffuse reproduction of spinal axial pain to compression along the lumbar spine. Fullness palpated as well, which is concordant with facet arthropathy, lumbar spondylosis L1, L2 and L3, L4. Jayden's point is tender bilaterally with pain radiating to her hips. Negative FABERs and compression test. NEUROLOGICAL: Blunted bilateral patellar and Achilles reflexes. Diffuse radicular pain to the right lower extremity, beginning on the lateral portion of the lower extremities along the L4-L5 dermatome to the level of the ankle. DIAGNOSIS: Chronic lower back pain, lumbar radiculitis and bilateral knee osteoarthritis. PLAN: Due to lack of imaging, we will obtain a lumbar and pelvis x-ray with bending views. Patient will be brought to the clinic for x-ray review and to form a plan of care at that time. In the meantime, vitamin importance was discussed with the patient, as she currently is not on a regimen. She is to start a multivitamin, magnesium and other vitamins indicated on the list provided to the patient. Education was given regarding our interventional approaches at this clinic as she is open to those. She is to use a menthol heat rub in addition to heat application to her back. Patient and family member agree with this plan of care, and she will return shortly for x-ray review and interventional procedure discussion. [facility] Summary Purpose Family History No Family History Records FoundNo Family History Records FoundNo Family History Records FoundNo Family History Records FoundNo Family History Records Found Advance Directives No Advanced Directives Records FoundNo Advanced Directives Records FoundNo Advanced Directives Records FoundNo Advanced Directives Records FoundNo Advanced Directives Records Found Hospital Course Note MR#: [id number] [facility] Pt. Name: Isaac Toure Admitted: 03/20/2018 Discharged: 03/30/2018 Date of : 1940 Physician: Iveth Tristan MD DISCHARGE SUMMARY PRIMARY CARE PHYSICIAN: Bernardo Almonte M.D. PRINCIPAL PROBLEM: 1. Left femur fracture secondary to mechanical fall, status post left femur intramedullary nail placement. 2. Atrial fibrillation, well controlled on Coumadin. 3. Acute blood loss and anemia. SECONDARY DIAGNOSES: 1. Carotid artery stenosis, status post stent. 2. Sick sinus syndrome, status post permanent pacemaker. 3. Rheumatoid arthritis. 4. Hyperlipidemia. 5. Hypertension, well controlled. 6. History of cerebrovascular accident. 7. Hypothyroidism, status post thyroidectomy. 8. Heart failure, preserved EF, clinically compensated. HOSPITAL COURSE: This is a 77-year-old female, who presented to the Emergency Department after a fall. The patient initially presented to [facility] in which they found a left femur fracture. Sh (more content not included)... Additional Source Comments INFORMATION SOURCE (unrecogn ized section and content) DATE CREATED AUTHOR 06/26/2018 [facility] DATE CREATED AUTHOR AUTHOR'S ORGANIZ ATION 06/13/2021 [facility] DATE CREATED AUTHOR AUTHOR'S ORGANIZ ATION 02/06/2022 [facility] DATE CREATED AUTHOR AUTHOR'S ORGANIZ ATION 09/04/2022 [facility] DATE CREATED AUTHOR AUTHOR'S ORGANIZ ATION 02/19/2023 [facility] EPIC Source Comments (unrecognize d section and content) In the event this informatio n is protected by the Federal Confidentiality of Alcohol and Drug Abuse Patient Records regulations: The Federal rules restrict any use of the information to criminally investigate or prosecute any alcohol or drug abuse patient.[facility] Reason for Visit (unrecogniz ed section and content) Reason Comments Refill Request FOR RECORDS PERTAINING TO PATIENTS WHO ARE OR HAVE BEEN ENROLLED IN A CHEMICAL DEPENDENCY/SUBSTANCEABUSE PROGRAM, SOME INFORMATION MAY BE OMITTED. This clinical summary was aggregated from multiple sources. Caution should be exercised in using it in the provision of clinical care. This summary normalizes information from multiple sources, and as a consequence, information in this document may materially change the coding, format and clinical context of patient data. In addition, data may be omitted in some cases. CLINICAL DECISIONS SHOULD BE BASED ON THE PRIMARY CLINICAL RECORDS. [facility]. provides no warranty or guarantee of the accuracy or completeness of information in this document.
== END 2023-04-28 12:54 | disposition home or self-care (01) ==
LOC: US 12:56
PROVIDERS: PCP Internal Medicine; Visit Provider Nurse Practitioner Family
DX: R60.0 Localized edema (principal); M79.601 Pain in right arm; M79.89 Other specified soft tissue disorders
CPT/HCPCS: 93971

== ENCOUNTER 2023-05-19 09:51 | Outpatient (OUT) | payer MEDICARE, SELFPAY ==
--- OUTSIDE RECORDS SUMMARY | 2023-05-19 09:57 | XMS_ITS | CCD ---
Author Name Unknown Address [address] [place] [id number] Organization [facility] Care Team Providers Care Disability Examiner Name Role Phone SELF, REFERRED Referring Unavailable BERNARDO ALMONTE Primary Care Unavailable ILIANA MCKOY Admitting Unavailable [place] Procedure Practitioner Unavailab ABAD Kong Surgeon Unavailable LYLE TRISTAN Attending Unavailable ABAD JOHNS Admitting Unavailable ABAD JOHNS Attending Unavailable ABAD JOHNS Referring Unavailable BERNARDO ALMONTE Primary Care Unavailable LISANDRA JOHNSHEBLOSSOM Adrian Admitting Unavailable LISANDRA JOHNSHEBLOSSOM Adrian Attending Unavailable BERNARDO ALMONTE Referring Unavailable BERNARDO ALMONTE Primary Care Unavailable Bernardo Almonte II Primary Care Provider [phone] BERNARDO ALMONTE Primary Care Unavailable MYLENE, DR KNOWLES Consulting Unavailable MYLENE, DR KNOWLES Attending Unavailable MYLENE, DR KNOWLES Admitting Unavailable RALPH, DR CONSTANTINE Farrell Consulting Unavailable ALEKSANDAR, DR SIVAKUMAR Flynn Admitting Unavailable BETTIE SHOEMAKER Consulting Unavailable ALEKSANDAR, DR SIVAKUMAR Flynn Attending Unavailable MYLENE, DR KNOWLES Primary Care Unavailable ALEKSANDAR, DR SIVAKUMAR Flynn Admitting Unavailable BETTIE SHOEMAKER Consulting Unavailable DR BERNARDO ALMONTE Primary Care Unavailable ALEKSANDAR, DR SIVAKUMAR Flynn Attending Unavailable MYLENE, DR KNOWLES Attending Unavailable MYLENE, DR KNOWLES Admitting Unavailable MYLENE, DR KNOWLES Primary Care Unavailable JULIANA TITUS Attending Unavailable JULIANA TITUS Admitting Unavailable MYLENE, DR KNOWLES Primary Care Unavailable DR CHARLIE SANTO Consulting Unavailable JULIANA TITUS Attending Unavailable JULIANA TITUS Admitting Unavailable JULIANA TITUS Consulting Unavailable MYLENE, DR KNOWLES Primary Care Unavailable JULIANA TITUS Consulting Unavailable JULIANA TITUS Attending Unavailable JULIANA TITUS Admitting Unavailable DR BERNARDO ALMONTE Primary Care Unavailable JULIANA TITUS Attending Unavailable JULIANA TITUS Admitting Unavailable DR BERNARDO ALMONTE Primary Care Unavailable MARGY AHUJA Consulting Unavailable JULIANA TITUS Consulting Unavailable JULIANA TITUS Attending Unavailable JULIANA TITUS Admitting Unavailable JULIANA TITUS Consulting Unavailable MYLENE, DR KNOWLES Primary Care Unavailable BETTIE SHOEMAKER Attending Unavailable BETTIE SHOEMAKER Admitting Unavailable DR BERNARDO ALMONTE Consulting Unavailable DR BERNARDO ALMONTE Primary Care Unavailable RALPH, DR CONSTANTINE Farrell Consulting Unavailable HALIMA STATON Referring Unavailable HALIMA STATON Attending Unavailable HALIMA STATON Referring Unavailable BENNY VICTORIA Attending Unavailable CHAVO BRYANT Attending Unavailable CAROLYN ADKINS Referring Unavailable CAROLYN ADKINS Attending Unavailable BERNARDO ALMONTE Attending Unavailable BERNARDO ALMONTE Attending Unavailable Bernardo Almonte MD Unavailable Bernardo Almonte MD Primary Care Provider Allergies Allergy Classification Reported Allergen(s) Allergy Type Date of Onset Reaction(s) Facility Sulfanilamide (1 source) Sulfanilamide Drug Allergy 5 Unknown [facility] (4 sources) Sulfonamides (Antibiotic); Translations: [SULFA (SULFONAMIDE ANTIBIOTICS)] Drug allergy (disorder) 3 [facility] (1 source) Milk; Translations: [MILK] Propensity to adverse reactions to drug (disorder) 2 [facility] (4 sources) Cow milk Allergy to substance 2 [facility] (4 sources) Sulfanilamide Allergy to substance 3 Unknown [facility] Work Phone: Medications Current Medications Medication Drug Class(es) Dates Sig (Normalized) Sig (Original) acetaminophen 325 mg / HYDROcodone bitartrate 5 mg oral tablet (4 sources) Opioid Agonist take 1 tablet by mouth every eight hours as needed HYDROcodone-aceta minophen ([place]) 5-325 MG tablet TAKE 1 TABLET BY MOUTH EVERY 8 HOURS NEEDED FOR 14 DAYS 0 Active albuterol 0.833 mg/ml / ipratropium bromide 0.167 mg/ml inhalation solution (4 sources) Anticholinergic, beta2-Adrenergic Agonist Start: 04-06-2023 take 3 mL by inhalation every six hours ipratropium-albut lor (Duo-Neb) 0.5-2.5 mg/3 mL nebulizer solution Indications: Pneumonia due to infectious organism, unspecified laterality, unspecified part of lung INHALE 3 ML BY NEBULIZATION EVERY 6 HOURS 90 mL 1 04/06/2023 Active alendronic acid 70 mg oral tablet (5 sources) Bisphosphonate Start: 10-07-2022 alendronate (Fosamax) 70 MG tablet Indications: Age-related osteoporosis without current pathological fracture (CMS/HCC) Take 1 tablet (70 mg) by mouth every 7 (seven) days. With plain water 30 minutes prior to first food, drink or medicine 12 tablet 3 10/07/2022 Active take 1 tablet by mouth every wee k alendronate (FOSAMAX) 70 mg tablet Take 70 mg by mouth once each week. 0 Active Comment on above: Take 70 mg by mouth once each week. ALPRAZolam 0.5 mg oral tablet (5 sources) Benzodiazepine take 1 tablet by mouth three times daily as needed for anxiety ALPRAZolam (Xanax) 0.5 MG tablet Take 1 tablet by mouth 3 (three) times a day as needed for anxiety or sleep. 0 Active take 1 tablet by mouth once charissa y ALPRAZolam (XANAX) 0.5 mg tablet Take 0.5 mg by mouth once daily. 0 Active Comment on above: Take 0.5 mg by mouth once daily. amLODIPine 10 mg oral tablet (6 sources) Dihydropyridine Calcium Channel Murali Start: 3 take 1 tablet by mouth once daily amLODIPine (Norvasc) 10 MG tablet Indications: Essential hypertension, benign (CMS/HCC) TAKE 1 TABLET BY MOUTH EVERY DAY FOR 90 DAYS 90 tablet 3 09/16/2022 Active Start: 07-11-2015 End: 07-20-2016 take 1 tablet by mouth once daily amLODIPine (NORVASC) 10 mg tablet TAKE ONE TABLET BY MOUTH ONCE DAILY 90 tablet 3 07/20/2016 Active Comment on above: TAKE ONE TABLET BY M OUTH ONCE DAILY Take 1 tablet by olivier th once daily. aspirin 81 mg delayed release oral tablet (4 sources) Platelet Aggregation Inhibitor, Nonsteroidal Anti-inflammatory Drug take 1 tablet by mouth in the morning aspirin (Aspirin Adult Low Strength) 81 MG EC tablet Take 1 tablet by mouth in the morning. 0 Active atorvastatin 20 mg oral tablet (5 sources) HMG-CoA Reductase Inhibitor Start: 05-03-19 24 take 1 tablet by mouth once daily atorvastatin (Lipitor) 20 MG tablet Indications: Hyperlipidemia, unspecified (CMS/HCC) TAKE 1 TABLET BY MOUTH EVERY DAY 90 tablet 3 05/03/2023 Active take 2 tablets by mouth once vidya ly atorvastatin (LIPITOR) 10 mg tablet Take 20 mg by mouth once daily. 0 Active Comment on above: Take 20 mg by mouth once daily. bimatoprost 0.3 mg/ml ophthalmic solution (5 sources) Prostaglandin Analog Start: 3 take 1 drop(s) into the eye(s) at bedtime bimatoprost (Lumigan) 0.03 % ophthalmic solution Indications: Primary open angle glaucoma of both eyes, unspecified glaucoma stage ([facility]) Administer 1 drop into both eyes at bedtime. 5 mL 11 10/07/2022 Active take 1 drop(s) into the eye(s) once daily at bedtime bimatoprost (LUMIGAN) 0.03 % ophthalmic drops 1 Drop daily at bedtime. 0 Active Comment on above: 1 Drop daily at bedt jasmina. Biotin (4 sources) take 1 tablet by mouth once daily BIOTIN PO Take 1 tablet by mouth 1 (one) time each day. 0 Active 120 actuat budesonide 0.16 mg/actuat / formoterol fumarate 0.0048 mg/actuat / glycopyrrolate 0.009 mg/actuat metered dose inhaler (4 sources) Corticosteroid, beta2-Adrenergic Agonist Start: 12-15-19 23 take 2 puff(s) by inhalation once Budeson-Glycopyrrol- Formoterol (Breztri Aerosphere) 160-9-4.8 MCG/ACT aerosol Indications: Chronic obstructive pulmonary disease with acute lower respiratory infection ([facility]/HCC) Inhale 2 puffs every 12 (twelve) hours. 3 inhalers, not 3 grams. 3 g 3 12/14/2022 Active calcitriol 0.98131 mg oral capsule (5 sources) Vitamin D3 Analog Start: 04-26-19 24 take 1 capsule by mouth once daily calcitriol (Rocaltrol) 0.25 MCG capsule Indications: Age-related osteoporosis without current pathological fracture (CMS/HCC) TAKE 1 CAPSULE BY MOUTH EVERY DAY FOR 90 DAYS 90 capsule 3 04/26/2023 Active take 1 capsule by mouth once vidya ly calcitriol (ROCALTROL) 0.25 mcg capsule Take 0.25 mcg by mouth once daily. 0 Active Comment on above: Take 0.25 mcg by olivier th once daily. Calcium Citrate / Vitamin D (4 sources) take 1 tablet by mouth once Calcium Citrate-Vitamin D (CALCIUM CITRATE +D PO) Take 1 tablet by mouth every 12 (twelve) hours. 0 Active cholecalciferol 0.025 mg oral capsule (3 sources) Vitamin D Cholecalciferol (Vitamin D3) 1000 units capsule Vitamin D3 1000 0 Active Cholecalciferol (Vitamin D3) 1000 units capsule (1 source) Cholecalciferol (Vitamin D3) 1000 units capsule Vitamin D3 1000 0 Active doxazosin 2 mg oral tablet (4 sources) alpha-Adrenergic Murali Start: End: 024 take 1 tablet by mouth at bedtime doxazosin (Cardura) 2 MG tablet Indications: Essential hypertension (CMS/HCC) Take 1 tablet (2 mg) by mouth at bedtime. 90 tablet 3 10/07/2022 10/07/2023 Active esomeprazole 20 mg delayed release oral capsule (5 sources) Proton Pump Inhibitor esomeprazo le (NexIUM) [address] capsule Comment on above: Take 20 mg by mouth. Fish Oil-Cholecalciferol (Ayr-3 Fish Oil/Vitamin D3) 1334-3504 MG-UNIT capsule (4 sources) Fish Oil-Cholecalciferol (Ayr-3 Fish Oil/Vitamin D3) 1353-3141 MG-UNIT capsule Take by mouth at bedtime. 0 Active fluticasone propionate 0.05 mg/actuat metered dose nasal spray (5 sources) Corticosteroid Start: 023 take 2 spray(s) nasal route in the morning fluticasone (Flonase) 50 MCG/ACT nasal spray Indications: Sinusitis, unspecified chronicity, unspecified location SPRAY 2 SPRAYS INTO EACH NOSTRIL IN THE MORNING 48 mL 1 01/11/2023 Active fluticasone (ANGELINA NASE) 50 mcg/actuation nasal spray Use 1 [place] in each nostril as needed. 0 Active Comment on above: Use 1 [place] in each nostril as needed. FLUTICASONE PROPIONATE, INHAL, IN (4 sources) FLUTICASONE PROPIONATE, INHAL, IN Inhale 2 Inhalation 1 (one) time each day. 0 Active furosemide 20 mg oral tablet (4 sources) Loop Diuretic Start: 3 take 1 tablet by mouth in the morning furosemide (Lasix) 20 MG tablet Take 20 mg by mouth in the morning. 0 06/29/2022 Active Yxdrbr-Hcmly-Ckam Ac-Ca Fructo ([employer] Advance) tablet (4 sources) take 1 tablet by mouth once daily Ddqzxv-Yvofn-Xbpg Ac-Ca Fructo ([employer] Advance) tablet Take 1 tablet by mouth 1 (one) time each day. 0 Active levothyroxine sodium 0.112 mg oral tablet (5 sources) l-Thyroxine Start: 3 take 1 tablet by mouth once daily in the morning levothyroxine (Synthroid, Levoxyl) 112 MCG tablet Indications: Hypothyroidism, unspecified (CMS/HCC) TAKE 1 TABLET BY MOUTH EVERY DAY IN THE MORNING ON EMPTY STOMACH 100 tablet 3 03/15/2023 Active take 1 tablet by olivier th once daily before breakfast levothyroxine (SYNTHROID) 100 mcg tablet Take 100 mcg by mouth daily before breakfast. 0 Active Comment on above: Take 100 mcg by mout h daily before breakfast. losartan potassium 100 mg oral tablet (4 sources) Angiotensin 2 Receptor Murali Start: 02-02-20 23 take 1 tablet by mouth once daily losartan (Cozaar) 100 MG tablet Indications: Essential (primary) hypertension (CMS/HCC) TAKE 1 TABLET BY MOUTH EVERY DAY FOR 90 DAYS 90 tablet 3 02/01/2023 Active mesalamine 1200 mg delayed release oral tablet (5 sources) Aminosalicylate mesalamine (Lial da) 1.2 g EC tablet Mesalamine (LIAL DA) 1.2 gram EC tablet Take 1,200 mg by mouth daily with breakfast. 0 Active Comment on above: Take 1,200 mg by olivier th daily with breakfast. 24 hr metoprolol succinate 100 mg extended release oral tablet (5 sources) beta-Adrenergic Murali Start: 3 take 1 tablet by mouth every twenty-four hours in the morning metoprolol succinate XL (Toprol-XL) 100 MG 24 hr tablet Indications: Longstanding persistent atrial fibrillation (CMS/HCC) Take 1 tablet (100 mg) by mouth in the morning. 100 tablet 3 11/07/2022 Active Start: 08-29-2015 take 2 tablets by mo uth once daily metoprolol succinate ER (TOPROL XL) 50 mg 24 hr tablet Take 2 tablets by mouth once daily. 90 tablet 3 08/29/2015 Active Comment on above: Take 2 tablets by mo uth once daily. mirtazapine 15 mg oral tablet (5 sources) take 1 tablet by mouth at bedtime mirtazapine (Remeron) 15 MG tablet Take 15 mg by mouth at bedtime. 0 Active Comment on above: Take 15 mg by mouth daily at bedtime. Misc Natural Products (Osteo Bi-Flex Triple Strength) tablet (4 sources) take 1 tablet by mouth once daily Misc Natural Products (Osteo Bi-Flex Triple Strength) tablet Take 1 tablet by mouth 1 (one) time each day. 0 Active montelukast 10 mg oral tablet (4 sources) Leukotriene Receptor Antagonist Start: 2022 take 1 tablet by mouth once daily montelukast (Singulair) 10 MG tablet Indications: Allergic rhinitis, unspecified TAKE 1 TABLET BY MOUTH EVERY DAY 90 tablet 4 02/01/2023 Active Ayr-3 Fatty Acids (Fish Oil) 1000 MG capsule delayed-release (4 sources) take 1 capsule by mouth once daily Ayr-3 Fatty Acids (Fish Oil) 1000 MG capsule delayed-release Take 1 capsule by mouth 1 (one) time each day at the same time. 0 Active omeprazole 40 mg delayed release oral capsule (4 sources) Proton Pump Inhibitor take 1 capsule by mouth before mealtime omeprazole (PriLOSEC) [address] capsule Take 40 mg by mouth in the morning. Take before meals. 0 Active PARoxetine hydrochloride 10 mg oral tablet (4 sources) Serotonin Reuptake Inhibitor Start: 2023 take 1 tablet by mouth once daily in the morning PARoxetine (Paxil) 10 MG tablet Indications: Anxiety disorder, unspecified TAKE 1 TABLET BY MOUTH EVERY DAY IN THE MORNING 90 tablet 3 04/19/2023 Active polysaccharide iron complex 150 mg oral capsule (4 sources) Start: 2022 take 1 capsule by mouth in the morning iron polysaccharides (Nu-Iron,Niferex) 150 MG capsule Take 150 mg by mouth in the morning. 0 12/20/2022 Active microencapsulated potassium chloride 20 meq extended release oral tablet (4 sources) Start: 2022 take 1 tablet by mouth once daily potassium chloride CR (KLOR-CON) 20 MEQ ER tablet Indications: Potassium deficiency TAKE 1 TABLET BY MOUTH EVERY DAY 100 tablet 3 12/04/2022 Active spironolactone 25 mg oral tablet (4 sources) Aldosterone Antagonist take 1 tablet by mouth once daily spironolactone (Aldactone) 25 MG tablet spironolactone 25 mg tablet TAKE 1 TABLET BY MOUTH EVERY DAY 0 Active sulfaSALAzine 500 mg oral tablet (4 sources) Aminosalicylate Start: 2022 take 1 tablet by mouth twice daily sulfaSALAzine (Azulfidine) 500 MG tablet Indications: Ulcerative colitis, unspecified, without complications (CMS/HCC) TAKE 1 TABLET BY MOUTH TWICE A DAY FOR 90 DAYS 180 tablet 3 01/08/2023 Active tiZANidine 4 mg oral tablet (4 sources) Central alpha-2 Adrenergic Agonist Start: 2022 take 1 tablet by mouth every eight hours as needed for muscle spasms and muscle spasms tiZANidine (Zanaflex) 4 MG tablet Indications: Muscle spasm Take 1 tablet (4 mg) by mouth every 8 (eight) hours if needed for muscle spasms 30 tablet 2 03/24/2023 Active traMADol hydrochloride 50 mg oral tablet (5 sources) Opioid Agonist Start: 2022 End: 2023 take 1 tablet by mouth every six hours for pain traMADol (Ultram) 50 MG tablet Indications: Osteoarthritis of lumbar spine with myelopathy Take 1 tablet (50 mg) by mouth every 6 (six) hours if needed for moderate pain 60 tablet 1 05/13/2023 Active valsartan 320 mg oral tablet (4 sources) Angiotensin 2 Receptor Murali valsartan (Diovan) 320 MG tablet vitamin b12 0.1 mg oral tablet (5 sources) Vitamin B12 take 1 tablet by mouth in the morning cyanocobalamin (Vitamin B-12) 100 MCG tablet Take 100 mcg by mouth in the morning. 0 Active take 1 tablet by mouth once charissa y cyanocobalamin (VITAMIN B-12) 1,000 mcg tab Take 1,000 mcg by mouth once daily. 0 Active Comment on above: Take 1,000 mcg by mo [facility] once daily. warfarin sodium 2 mg oral tablet (5 sources) Vitamin K Antagonist Start: 01-19-2023 take 1 tablet by mouth once daily warfarin (Coumadin) 2 MG tablet Indications: Unspecified atrial fibrillation (CMS/HCC) TAKE 1 TABLET BY MOUTH EVERY DAY 90 tablet 3 01/19/2023 Active take 2 mg by mouth once daily WA RFARIN SODIUM (WARFARIN ORAL) Take 2 mg by mouth daily as directed. 0 Active Comment on above: Take 2 mg by mouth d aily as directed. Completed/Discontinued Medications Medication Drug Class(es) Dates Sig (Normalized) Sig (Original) ergocalciferol 1.25 mg oral capsule (1 source) Provitamin D2 Compound take 1 capsule by mouth every week ergocalciferol, vitamin D2, (VITAMIN D) 50,000 unit capsule Take 50,000 Units by mouth once each week. 0 Active Comment on above: Take 50,000 Units by mouth once each week. GLUC/CHND/OM3/DHA/EPA/ FISH/STR (GLUCOSAMINE CHONDROITIN PLUS ORAL) (1 source) GLUC/CHND/OM3/DH A/E PA/FISH/STR (GLUCOSAMINE CHONDROITIN PLUS ORAL) Take by mouth once daily. 0 Active Comment on above: Take by mouth once d aily. EK-9-WTC-EPA-Fish Oil-Vit D3 300-1,000-1,000 mg-mg-unit cap (1 source) GN-0-RVT-EPA-Fis h Oil-Vit D3 300-1,000-1,000 mg-mg-unit cap Take by mouth daily at bedtime. 0 Active Comment on above: Take by mouth daily at bedtime. Potassium Chloride gran (1 source) Potassium Chlori de gran 20 mEq once daily. 0 Active Comment on above: 20 mEq once daily. Problems Active Problems Problem Classification Problem Date Documented Date Episodic/Chronic Acute cerebrovascular disease (5 sources) Occlusion of cerebral artery with stroke; Translations: [Cerebral infarction due to unspecified occlusion or stenosis of unspecified cerebral artery] Onset: 09-08-2022 05-08-2014 Chronic Anxiety disorders (4 sources) Anxiety; Translations: [Anxiety disorder, unspecified] Onset: 09-08-2022 09-08-2022 Chronic Cardiac dysrhythmias (19 sources) Unspecified atrial flutter; Translations: [Unspecified atrial fibrillation] Onset: 05-07-2014 05-07-2014 Chronic Chronic obstructive pulmonary disease and bronchiectasis (4 sources) Chronic obstructive pulmonary disease with acute lower respiratory infection; Translations: [Chronic obstructive pulmonary disease with (acute) lower respiratory infection] Onset: 09-08-2022 09-08-2022 Chronic Complications of surgical procedures or medical care (1 source) Postprocedural hypothyroidism; Translations: [POSTPROCEDURAL HYPOTHYROIDISM] Onset: 03-20-2018 Chronic Conduction disorders (4 sources) Presence of cardiac pacemaker; Translations: [Cardiac pacemaker in situ] Onset: 05-10-2015 05-10-2015 Chronic Congestive heart failure; nonhypertensive (9 sources) Chronic diastolic (congestive) heart failure; Translations: [Acute diastolic (congestive) heart failure] Onset: 03-20-2018 Chronic Coronary atherosclerosis and other heart disease (1 source) Atherosclerotic heart disease of [place] coronary artery without angina pectoris; Translations: [ATHSCL HEART DISEASE OF [place] CORONARY ARTERY W/O ANG PCTRS] Onset: 03-20-2018 Chronic Disorders of lipid metabolism (6 sources) Hyperlipidemia, unspecified; Translations: [Hyperlipidemia] Onset: 03-20-2018 05-08-2014 Chronic Esophageal disorders (1 source) Gastro-esophageal reflux disease without esophagitis; Translations: [GASTRO-ESOPHAGEAL REFLUX DISEASE WITHOUT ESOPHAGITIS] Onset: 03-20-2018 Chronic Essential hypertension (9 sources) Hypertensive disorder; Translations: [Essential (primary) hypertension] [...] encounter for closed fracture] Onset: 03-20-2018 Episodic Glaucoma (4 sources) Glaucoma; Translations: [Unspecified glaucoma] Onset: 09-08-2022 09-08-2022 Chronic Heart valve disorders (1 source) Nonrheumatic mitral (valve) insufficiency; Translations: [NONRHEUMATIC MITRAL INSUFFICIENCY] Onset: 05-13-2021 Chronic Hypertension with complications and secondary hypertension (1 source) Hypertensive heart disease with heart failure; Translations: [HYPERTENSIVE HEART DISEASE WITH HEART FAILURE] Onset: 03-20-2018 Chronic Menopausal disorders (8 sources) Primary ovarian failure; Translations: [Other primary ovarian failure] Onset: 09-08-2022 09-08-2022 Chronic Nutritional deficiencies (4 sources) Vitamin D deficiency; Translations: [Vitamin D deficiency, unspecified] Onset: 09-08-2022 09-08-2022 Chronic Occlusion or stenosis of precerebral arteries (9 sources) Carotid artery stenosis; Translations: [Occlusion and stenosis of unspecified carotid artery] Onset: 04-01-2021 05-08-2014 Chronic Osteoarthritis (19 sources) Unilateral primary osteoarthritis, left hip; Translations: [Unilateral primary osteoarthritis, left knee] Onset: 12-15-2017 09-08-2022 Chronic Osteoporosis (4 sources) Osteoporosis; Translations: [Age-related osteoporosis without current pathological fracture] Onset: 09-08-2022 09-08-2022 Chronic Other aftercare (3 sources) Encounter for other orthopedic aftercare; Translations: [ENCOUNTER FOR OTHER ORTHOPEDIC AFTERCARE] Onset: 05-11-2018 Episodic Other connective tissue disease (4 sources) Cramp in lower limb; Translations: [Sleep related leg cramps] Onset: 09-08-2022 09-08-2022 Chronic Other connective tissue disease (1 source) Arthrodesis status; Translations: [ARTHRODESIS STATUS] Onset: 05-11-2018 Episodic Other connective tissue disease (2 sources) Muscle spasm of cervical muscle of neck; Translations: [Other muscle spasm] 05-05-2023 Episodic Other diseases of veins and lymphatics (5 sources) Lymphedema of right upper limb; Translations: [Lymphedema, not elsewhere classified] Onset: 05-05-2023 05-05-2023 Chronic Other ear and sense organ disorders (1 source) Unspecified hearing loss, unspecified ear; Translations: [UNSPECIFIED HEARING LOSS, UNSPECIFIED EAR] Onset: 03-20-2018 Chronic Other ear and sense organ disorders (4 sources) Bilateral hearing loss; Translations: [Unspecified hearing loss, bilateral] Onset: 09-08-2022 09-08-2022 Chronic Other hereditary and degenerative nervous system conditions (1 source) Restless legs syndrome; Translations: [RESTLESS LEGS SYNDROME] Onset: 03-20-2018 Chronic Other hereditary and degenerative nervous system conditions (4 sources) Restless legs; Translations: [Restless legs syndrome] Onset: 09-08-2022 09-08-2022 Chronic Other nervous system disorders (4 sources) Hereditary peripheral neuropathy; Translations: [Hereditary and idiopathic neuropathy, unspecified] Onset: 09-08-2022 09-08-2022 Chronic Other nutritional; endocrine; and metabolic disorders (1 source) Hypomagnesemia; Translations: [HYPOMAGNESEMIA] Onset: 03-20-2018 Chronic Other nutritional; endocrine; and metabolic disorders (1 source) Hypercalcemia; Translations: [Hypercalcemia] 05-08-2014 Chronic Other nutritional; endocrine; and metabolic disorders (5 sources) Disorder of magnesium metabolism; Translations: [Disorders of magnesium metabolism, unspecified] Onset: 09-08-2022 05-08-2014 Chronic Other nutritional; endocrine; and metabolic disorders (4 sources) Body mass index 30+ - obesity; Translations: [Obesity, unspecified] Onset: 09-08-2022 09-08-2022 Chronic Other screening for suspected conditions (not mental disorders or infectious disease) (4 sources) Encounter for screening mammogram for malignant neoplasm of breast; Translations: [ENC SCR MAMMO MALIG NEOPLASM BREAST] Onset: 01-30-2022 Episodic Other upper respiratory disease (4 sources) Allergic rhinitis; Translations: [Other allergic rhinitis] Onset: 09-08-2022 09-08-2022 Chronic Other upper respiratory infections (4 sources) Sinusitis; Translations: [Chronic sinusitis, unspecified] Onset: 09-08-2022 09-08-2022 Chronic Jane-; endo-; and myocarditis; cardiomyopathy (except that caused by tuberculosis or sexually transmitted disease) (2 sources) Cardiomyopathy, unspecified; Translations: [Cardiomyopathy, unspecified] Onset: 08-18-2022 Chronic Regional enteritis and ulcerative colitis (4 sources) Ulcerative colitis; Translations: [Ulcerative colitis, unspecified, without complications] Onset: 09-08-2022 09-08-2022 Chronic Residual codes; unclassified (1 source) Family history of malignant neoplasm of breast; Translations: [FAMILY HX MALIG NEOPLASM OF BREAST] Onset: 02-05-2022 Episodic Rheumatoid arthritis and related disease (5 sources) Rheumatoid arthritis, unspecified; Translations: [Rheumatoid arthritis] Onset: 03-20-2018 01-13-2023 Chronic Spondylosis; intervertebral disc disorders; other back problems (15 sources) Other spondylosis with radiculopathy, lumbar region; Translations: [Spondylosis without myelopathy or radiculopathy, lumbar region] Onset: 12-16-2021 09-08-2022 Chronic Spondylosis; intervertebral disc disorders; other back problems (5 sources) Intervertebral disc disorders with radiculopathy, lumbar region; Translations: [Radiculopathy, lumbar region] Onset: 12-12-2021 Episodic Thyroid disorders (4 sources) Hypothyroidism; Translations: [Hypothyroidism, unspecified] Onset: 09-08-2022 09-08-2022 Chronic Transient cerebral ischemia (4 sources) Transient cerebral ischemia; Translations: [Transient cerebral ischemic attack, unspecified] Onset: 01-13-2023 01-13-2023 Chronic Unclassified (1 source) C/O LT FEMUR FX [...] STATUS TO SULFONAMIDES STATUS] Onset: 03-20-2018 Episodic Complication of device; implant or graft (2 sources) Other specified complication of cardiac prosthetic devices, implants and grafts, initial encounter; Translations: [Other specified complication of cardiac prosthetic devices, implants and grafts, initial encounter] Onset: 08-18-2022 Episodic Deficiency and other anemia (4 sources) Anemia; Translations: [Anemia, unspecified] Onset: 12-28-2022 12-28-2022 Episodic Other aftercare (1 source) ad terminal makeup operator (current) use of anticoagulants; Translations: [RETIREMENT (CURRENT) USE OF ANTICOAGULANTS] Onset: 03-20-2018 Episodic Other aftercare (1 source) ad terminal makeup operator (current) use of aspirin; Translations: [VISUAL DESIGN LEAD (CURRENT) USE OF ASPIRIN] Onset: 03-20-2018 Episodic Other circulatory disease (1 source) Personal history of transient ischemic attack (TIA), and cerebral infarction without residual deficits; Translations: [PRSNL HX OF TIA (TIA), AND CEREB INFRC W/O RESID DEFICITS] Onset: 03-20-2018 Episodic Other lower respiratory disease (4 sources) Other forms of dyspnea; Translations: [OTHER FORMS OF DYSPNEA] Onset: 05-07-2021 Episodic Residual codes; unclassified (4 sources) Acquired absence of cervix and uterus; Translations: [Acquired absence of both cervix and uterus] Onset: 09-08-2022 09-08-2022 Episodic Screening and history of mental health and substance abuse codes (1 source) Personal history of nicotine dependence; Translations: [PERSONAL HISTORY OF NICOTINE DEPENDENCE] Onset: 03-20-2018 Episodic Unclassified (1 source) LOW BACK PAIN, UNSPECIFIED; Translations: [LOW BACK PAIN, UNSPECIFIED] Onset: 12-12-2021 Results Test Name Value Interpretation Reference Range Facility Office Visiton 05-04-2023 Follow-up visit [id number] Isaac Toure 1940 F Date Provider Department Center 05/04/2023 241-[id number] STATON [facility] Family History Problem Relation Age of Onset Diabetes Mother Hypertension Mother Hyperlipidemia Mother Diabetes Father Hypertension Father Stroke Father Hyperlipidemia Father Family Status - Relation Status Age at Mother Father Level of Service:67808 [place] OFFICE/OUTPATIENT NEW MODERATE MDM 45 MINUTES Normal [facility] Office Visiton 08-18-2022 Follow-up visit [id number] Isaac Toure 1940 F Date Provider Department Center 08/18/2022 BENNY BERGMAN [facility] Family History Problem Relation Age of Onset Diabetes Mother Hypertension Mother Hyperlipidemia Mother Diabetes Father Hypertension Father Stroke Father Hyperlipidemia Father Family Status - Relation Status Age at Mother Father Level of Service:95339 [place] OFFICE/OUTPATIENT ESTABLISHED MOD MDM 30-39 MIN Reason for Visit and Comments: Follow-up [586336] - 1 yr. Follow up Normal [facility] MG MAMM SCREEN TOM W CADon 1 04-01-2021 MG MAMM SCREEN TOM W CAD Patient: ISAAC TOURE Exam Date: 01/30/2022 : 1940 Gender:F Ordering : DR BERNARDO ALMONTE M.D. Admission #: [id number] Family : Order #: [id number] CLICK HERE TO VIEW EXAM RADIOLOGY REPORT [...] breast cancer at age 46. LOCATION: [facility] BREAST COMPOSITION: Heterogeneously dense,which may obscure [...] MD on 01/30/2022 at 13:03 Normal [facility] XR LSPINE MIN 4 VIEWSon 11-27 XR LSPINE MIN 4 VIEWS EXAMINATION: XR [...] by: CONSTANTINE ROSAS Date: 2021-12-12 16:39 Normal [facility] BNPon 06-16-2021 Natriuretic peptide B (Bld) [Mass/Vol] 1502.0 pg/mL Normal <=1,800.0 [facility] Comment on above: Performed By: #### B LABORATORY ENGINEER, CMP #### [facility] [address] [address] [address] Phil Bobby PROF 14(COMP METB)on 022 Albumin [Mass/Vol] 3.9 g/dL Normal 3.4-5.0 [facility] Comment on above: Performed By: #### B LABORATORY ENGINEER, CMP #### [facility] [address] [place] [address] Dr. Phil Bobby Albumin/Globulin [Mass ratio] 1.0 {ratio} Normal [facility] Comment on above: Performed By: #### B LABORATORY ENGINEER, CMP #### [facility] [address] [place] [address] Dr. Phil Bobby ALP [Catalytic activity/Vol] 89 U/L Normal 46-116 [facility] Comment on above: Performed By: #### B LABORATORY ENGINEER, CMP #### [facility] [address] [place] [address] Dr. Phil Bobby ALT [Catalytic activity/Vol] 51 U/L Normal 14-59 [facility] Comment on above: Performed By: #### B LABORATORY ENGINEER, CMP #### [facility] [address] [place] [address] Dr. Phil Bobby Anion gap [Moles/Vol] 13.3 mmol/L Normal [facility] Comment on above: Performed By: #### B LABORATORY ENGINEER, CMP #### [facility] [address] [place] [address] Dr. Phil Bobby AST [Catalytic activity/Vol] 29 U/L Normal 15-37 [facility] Comment on above: Performed By: #### B LABORATORY ENGINEER, CMP #### [facility] [address] [place] [address] Dr. Phil Bobby Bilirubin [Mass/Vol] 0.4 mg/dL Normal 0.2-1.3 [facility] Comment on above: Performed By: #### B LABORATORY ENGINEER, CMP #### [facility] [address] [place] [address] Dr. Phil Bobby Calcium [Mass/Vol] 8.5 mg/dL Normal 8.5-10.1 [facility] Comment on above: Performed By: #### B LABORATORY ENGINEER, CMP #### [facility] [address] [address] [address] Phil Bobby Chloride [Moles/Vol] 102 mmol/L Normal 98-107 [facility] Comment on above: Performed By: #### B LABORATORY ENGINEER, CMP #### [facility] [address] [address] [address] Phil Bobby CO2 [Moles/Vol] 27.9 mmol/L Normal 22.0-30.0 [facility] Comment on above: Performed By: #### B LABORATORY ENGINEER, CMP #### [facility] [address] [address] [address] Phil Bobby Creatinine [Mass/Vol] 1.04 mg/dL Normal 0.52-1.04 [facility] Comment on above: Performed By: #### B LABORATORY ENGINEER, CMP #### [facility] [address] [place] [address] Dr. Phil Bobby EGFR-AF ARGENTINE >60 Normal >=60 [facility] Comment on above: Performed By: #### B LABORATORY ENGINEER, CMP #### [facility] [address] [place] [address] Dr. Phil Bobby EGFR-NON AF ARGENTINE 51 mL/min/1.73m2 Critically low >=60 [facility] Comment on above: Performed By: #### B LABORATORY ENGINEER, CMP #### [facility] [address] [place] [address] Dr. Phil Bobby Globulin (S) [Mass/Vol] 4.0 g/dL Normal [facility] Comment on above: Performed By: #### B LABORATORY ENGINEER, CMP #### [facility] [address] [place] [address] Dr. Phil Bobby Glucose [Mass/Vol] 118 mg/dL Critically high 74-106 [facility] Comment on above: Performed By: #### B LABORATORY ENGINEER, CMP #### [facility] [address] [place] [address] Dr. Phil Bobby Potassium [Moles/Vol] 4.2 mmol/L Normal 3.4-5.0 [facility] Comment on above: Performed By: #### B LABORATORY ENGINEER, CMP #### [facility] [address] [place], [place] [address] Dr. Phil Bobby Protein [Mass/Vol] 7.9 g/dL Normal 6.1-8.2 [facility] Comment on above: Performed By: #### B LABORATORY ENGINEER, CMP #### [facility] [address] [address] [address] Phil Bobby Sodium [Moles/Vol] 139 mmol/L Normal 137-145 [facility] Comment on above: Performed By: #### B LABORATORY ENGINEER, CMP #### [facility] [address] [address] [address] Phil Bobby Urea nitrogen [Mass/Vol] 20.0 mg/dL Critically high 7.0-18.0 [facility] Comment on above: Performed By: #### B LABORATORY ENGINEER, CMP #### [facility] [address] [address] [address] Phil Bobby Urea nitrogen/Creatinine [Mass ratio] 19.2 mg/mg Normal [facility] Comment on above: Performed By: #### B LABORATORY ENGINEER, CMP #### [facility] [address] [address] [address] Phil Bobby Basic Metabolic Panelon 05-27 Anion gap [Moles/Vol] 18 mmol/L Normal 12-20 [facility] Comment on above: Result Comment: Effe ctive 04/03/2019 reference range changed. Performed By: #### B MP #### [facility] [address], [place] [id number] Calcium [Mass/Vol] 8.8 mg/dL Normal 8.6-10.2 [facility] Comment on above: Performed By: #### B MP #### [facility] [address], [place] [id number] Chloride [Moles/Vol] 104 mmol/L Normal 98-107 [facility] Comment on above: Performed By: #### B MP #### [facility] [address], [place] [id number] CO2 [Moles/Vol] 23 mmol/L Normal 20-31 [facility] Comment on above: Performed By: #### B MP #### [facility] [address], [place] [id number] Creatinine [Mass/Vol] 0.9 mg/dL Normal 0.6-1.4 [facility] Comment on above: Performed By: #### B MP #### [facility] [address], [place] [id number] eGFRAA 77 mL/min/1.73m2 Normal >60 [facility] Comment on above: Performed By: #### B MP #### [facility] [address], [place] [id number] eGFRNAA 64 mL/min/1.73m2 Normal >60 [facility] Comment on above: Performed By: #### B MP #### [facility] [address], [place] [id number] Glucose [Mass/Vol] 79 mg/dL Normal 65-99 [facility] Comment on above: Result Comment: For FASTING Glucose --- ADA reference ranges: Normal 65-99 mg/dl Prediabetes 100-125 Diabetes >/= 126 Performed By: #### B MP #### [facility] [address], [place] [id number] Potassium [Moles/Vol] 4.0 mmol/L Normal 3.5-5.5 [facility] Comment on above: Performed By: #### B MP #### [facility] [address], [place] [id number] Sodium [Moles/Vol] 141 mmol/L Normal 135-146 [facility] Comment on above: Performed By: #### B MP #### [facility] [address], [place] [id number] Urea nitrogen [Mass/Vol] 17 mg/dL Normal 7-25 [facility] Change Director Comment on above: Performed By: #### B MP #### [facility] [address], [place] [id number] XR CHEST 2 Von 06-06-2021 XR CHEST [...] by: MARGY AHUJA Date: 2021-06-06 13:25 Normal [facility] ECHOCARDIO M/2D COMPLETEon 0 05-07-2021 ECHOCARDIO M/2D COMPLETE Patient: ISAAC TOURE Exam Date: 05/07/2021 : 1940 Gender:F Ordering : JULIANA TITUS Admission #: [id number] Family : DR BERNARDO ALMONTE M.D. Order #: [id number] CLICK HERE TO VIEW EXAM ECHOCARDIOGRAM REPORT [...] pressures. 6. Severe biatrial enlargement. Dictated by: Charlie Santo M.D. on 05/08/2021 at 12:10 Approved by: Charlie Santo M.D. on 05/08/2021 at 12:15 Normal [facility] PROF CHEM 8 (BAS METB)on Anion gap [Moles/Vol] 7.3 mmol/L Normal [facility] Comment on above: Performed By: #### B MP #### [facility] [address] [address] [address] Phil Bobby Calcium [Mass/Vol] 9.3 mg/dL Normal 8.4-10.2 [facility] Comment on above: Performed By: #### B MP #### [facility] [address] [address] [address] Phil Bobby Chloride [Moles/Vol] 99 mmol/L Normal 98-107 [facility] Comment on above: Performed By: #### B MP #### [facility] [address] [address] [address] Phil Bobby CO2 [Moles/Vol] 34.1 mmol/L Critically high 22.0-30.0 [facility] Comment on above: Performed By: #### B MP #### [facility] [address] [address] [address] Phil Bobby Creatinine [Mass/Vol] 1.07 mg/dL Critically high 0.52-1.04 [facility] Comment on above: Performed By: #### B MP #### [facility] [address] [address] [address] Phil Bobby EGFR-AF ARGENTINE =60 Normal >=60 [facility] Comment on above: Performed By: #### B MP #### [facility] [address] [address] [address] Phil Bobby EGFR-NON AF ARGENTINE 49 mL/min/1.73m2 Critically low >=60 [facility] Comment on above: Performed By: #### B MP #### [facility] [address] [address] [address] Phil Bobby Glucose [Mass/Vol] 123 mg/dL Critically high 74-106 [facility] Comment on above: Performed By: #### B MP #### [facility] [address] [address] [address] Phil Bobby Potassium [Moles/Vol] 3.4 mmol/L Normal 3.4-5.0 [facility] Comment on above: Performed By: #### B MP #### [facility] [address] [address] [address] Phil Bobby Sodium [Moles/Vol] 137 mmol/L Normal 137-145 [facility] Comment on above: Performed By: #### B MP #### [facility] [address] [address] [address] Phil Bobby Urea nitrogen [Mass/Vol] 28.0 mg/dL Critically high 7.0-17.0 [facility] Comment on above: Performed By: #### B MP #### [facility] [address] [address] [address] Phil Bobby Urea nitrogen/Creatinine [Mass ratio] 26.2 mg/mg Normal [facility] Comment on above: Performed By: #### B MP #### [facility] [address] [address] [address] Phil Bobby LIPID PROFILEon 04-01-2021 CHOL-HDL RATIO NORM SEE BELOW Normal [facility] Comment on above: Result Comment: 3.3 - 4.4 LOW RISK 4.4 - 7.1 AVERAGE RISK 7.1 - 11.0 MODERATE RISK >11.0 HIGH RISK Performed By: #### L IPID ####[facility] [address] [address]Dr[address] Phil Bobby Cholesterol [Mass/Vol] 158 mg/dL Normal <=200 [facility] Comment on above: Performed By: #### L IPID ####[facility] [address] [address]Dr[address] Phil Bobby Cholesterol in HDL [Mass/Vol] 74 mg/dL Normal [facility] Comment on above: Performed By: #### L IPID ####[facility] [address] [place], [place] [address]Fc. Phil Bobby Cholesterol in LDL [Mass/Vol] 78.0 mg/dL Normal [facility] Comment on above: Performed By: #### L IPID ####[facility] [address] [address]Dr[address] Phil Bobby Cholesterol.total/C holesterol in HDL [Mass ratio] 2.1 {ratio} Normal [facility] Comment on above: Performed By: #### L IPID ####[facility] [address] [address]Dr[address] Phil Bobby HDL NORMAL > or = 60 mg/dl - LO W CARDIOVASCULAR RISK <40 mg/dl - HIGH CARDIOVASCULAR RISK Normal [facility] Comment on above: Performed By: #### L IPID ####[facility] [address] [address]Dr[address] Phil Bobby LDL CALC NORMAL SEE BELOW Normal [facility] Comment on above: Result Comment: <100 mg/dl OPTIMAL 100 - 129 mg/dl NEAR OR ABOVE OPTIMAL 130 - 159 mg/dl BORDERLINE HIGH 160 - 189 mg/dl HIGH >190 mg/dl VERY HIGH Performed By: #### L IPID ####[facility] [address] [address]Dr[address] Phil Bobby Triglyceride [Mass/Vol] 30 mg/dL Normal <=150 [facility] Comment on above: Performed By: #### L IPID ####[facility] [address] [place], [place] [address]Tj. Phil Bobby VLDL CALC 6.0 mg/dL Normal [facility] Comment on above: Performed By: #### L IPID ####[facility] [address] [place], [place] [address]Rt. Phil Bobby FEMUR LEFT 2 VWSon 9 FEMUR LEFT 2 VWS [facility] Department of Radiology [address] [place] [id number] Patient Name: ISAAC TOURE : 1940 Sex: F Age: Race: White Pt. Location: 84 Patient Status: O Ordered Date: 06/22/2018 12:30:00 PM Completed Date: 06/22/2018 12:42 PM Requesting Provider: ABAD JOHNS Attending Provider: ABAD JOHNS Report Copy To: Signs & Symptoms: Z47.89 Encounter for other orthopedic aftercare I10 History: Page Comments: , Views (X-RAY, FEMUR): AP, Lateral , Views (X-RAY, FEMUR): AP, Lateral , , , Ordering Provider - ABAD JOHNS MD , Exam: FEMUR LEFT 2 VWS FEMUR LEFT 2 VWS 06/22/2018 12:42 PM EDT SIGNS AND SYMPTOMS: Z47.89 Encounter for other orthopedic aftercare I10 TECHNOLOGIST COMMENTS: Patient states having ortho follow up for surgery to left femur. QUESTION FOR THE RADIOLOGIST: , Views (X-RAY, FEMUR): AP, Lateral , Views (X-RAY, FEMUR): AP, Lateral , , , Ordering Provider - ABAD JOHNS MD , PROTOCOL: AP(PA) and Lateral views were obtained. COMPARISON: May 11, 2018 FINDINGS: Soft tissues: Minor heterotopic ossification Mild vascular calcification Bones: Right fixation of femur fracture unchanged in satisfactory alignment but still limited healing Joints: Mild hip and moderate knee arthritis IMPRESSION: Femoral pipo with still limited healing along the femur fracture in satisfactory alignment Electronically signed by:He Gomez. Transcribed by: [email or web address], User Resident: Electronically Signed by: HE GOMEZ @ 06/22/2018 01:23 PM Normal [facility] Comment on above: Order Comment: , Vie ws (X-RAY, FEMUR): AP, Lateral , Views (X- RAY, FEMUR): AP, Lateral , , , Ordering Provider - ABAD JOHNS MD , FEMUR LEFT 2 [facility] 9 FEMUR LEFT 2 [facility] Department of Radiology [address] [place] [id number] Patient Name: ISAAC TOURE : 1940 Sex: F Age: Race: White Pt. Location: Patient Status: O Ordered Date: 05/11/2018 12:20:00 PM Completed Date: 05/11/2018 12:24 PM Requesting Provider: ABAD JOHNS Attending Provider: ABAD JOHNS Report Copy To: BERNARDO ALMONTE Signs & Symptoms: Z47.89 Encounter for other orthopedic aftercare I10 History: Page Comments: , Views (X-RAY, FEMUR): AP, Lateral , Views (X-RAY, FEMUR): AP, Lateral , , , Ordering Provider - ABAD JOHNS MD , Exam: FEMUR LEFT [address] [facility] FEMUR LEFT 2 VWS 05/11/2018 12:24 PM EST SIGNS AND SYMPTOMS: Z47.89 Encounter for other orthopedic aftercare I10 TECHNOLOGIST COMMENTS: History of left femur surgery 03/23/2018. Ortho follow up. QUESTION FOR THE RADIOLOGIST: , Views (X-RAY, FEMUR): AP, Lateral , Views (X-RAY, FEMUR): AP, Lateral , , , Ordering Provider - ABAD JOHNS MD , PROTOCOL: AP(PA) and Lateral [...] by pipo in good alignment Electronically signed by:He Gomez. Transcribed by: [email or web address], User Resident: Electronically Signed by: HE GOMEZ @ 05/11/2018 03:15 PM Normal [facility] Comment on above: Order Comment: , Katherine ws (X-RAY, FEMUR): AP, Lateral , Views (X- RAY, FEMUR): AP, Lateral , , , Ordering Provider - ABAD JOHNS MD , PROTHROMBIN TIMEon 9 INR Coag RelTime (PPP) 1.41 {INR} High 0.91-1.16 [facility] Comment on above: Order Comment: Unkno wn Result Comment: [facility] P RECOMMENDED INR FOR WARFARIN THERAPY ------ [...] CHEST 1995;108:231S-246S. Performed By: #### 0 0071, [id number], [id number] #### [facility] [address] Prothrombin time (PT) Coag time (PPP) 17.3 s High 12.3-14.8 [facility] Comment on above: Order Comment: Unkno wn Result Comment: ALL RESULTS MUST BE INTERPRETED WITH RESPECT TO BLOOD DRAWING ARTIFACT OR DILUTION ERROR OF ANTICOAGULANT AT THE TIME OF SAMPLING. Performed By: #### 0 0071, 06500, 35149 #### [facility] [address] [facility] BASIC METABOLIC PANELon 01-0 Calcium mass conc 8.0 mg/dL Low 8.6-10.3 [facility] Comment on above: Order Comment: No: D o not add to previous draw Performed By: #### 0 0071, 16779, 55032 #### [facility] [address] [place] [address], [facility] Chloride molar conc 102 mmol/L Normal 98-107 [facility] Comment on above: Order Comment: No: D o not add to previous draw Performed By: #### 0 0071, 79812, 14047 #### [facility] [address] [place] [id number], [facility] CO2 molar conc 27 mmol/L Normal 21-31 [facility] Comment on above: Order Comment: No: D o not add to previous draw Performed By: #### 0 0071, 85847, 33716 #### [facility] [address] [place] [address], [facility] Creatinine mass conc 0.70 mg/dL Normal 0.60-1.20 [facility] Comment on above: Order Comment: No: D o not add to previous draw Performed By: #### 0 0071, 23916, 93687 #### [facility] [address] [place] [address], [place] GFR/1.73 sq M predicted among blacks MDRD vol rate/area (S/P/Bld) mL/min/{1.73_m2} Normal >60 [facility] Comment on above: Order Comment: No: D o not add to previous draw Result Comment: Calc ulation may not be valid for patients over 70 years Performed By: #### 0 0071, 47877, 98154 #### [facility] [address] [place] [address], [facility] GFR/1.73 sq M predicted among non-blacks MDRD vol rate/area (S/P/Bld) mL/min/{1.73_m2} Normal >60 [facility] Comment on above: Order Comment: No: D o not add to previous draw Result Comment: Calc ulation may not be valid for patients over 70 years Performed By: #### 0 0071, 20819, 40461 #### [facility] [address] [place] [address], [place] Glucose mass conc 104 mg/dL High 70-100 [facility] Comment on above: Order Comment: No: D o not add to previous draw Performed By: #### 0 0071, 27086, 32420 #### [facility] [address] [place] [address], [place] Potassium molar conc 3.7 mmol/L Normal 3.5-5.1 [facility] Comment on above: Order Comment: No: D o not add to previous draw Performed By: #### 0 0071, 74434, 59364 #### [facility] [address] [place] [address], [facility] Sodium molar conc 135 mmol/L Low 136-145 [facility] Comment on above: Order Comment: No: D o not add to previous draw Performed By: #### 0 0071, 90454, 63324 #### [facility] [address] [place] [address], [facility] [facility] Urea nitrogen mass conc 17 mg/dL Normal 7-25 [facility] Comment on above: Order Comment: No: D o not add to previous draw Performed By: #### 0 0071, 37610, 61205 #### [facility] [address] CBC COMPLETE BLOOD COUNTon 0 - Erythrocyte distribution width Ratio (RBC) 14.5 % Normal 11.5-15.0 [facility] Comment on above: Order Comment: No: D o not add to previous draw Performed By: #### 0 0071, 63760, 60059 #### [facility] [address] [facility] [address] Hematocrit Volume Fraction (Bld) 23.8 % Low 36.0-45.0 [facility] Comment on above: Order Comment: No: D o not add to previous draw Performed By: #### 0 0071, 07261, 07852 #### [facility] [address] [place] [address], [facility] Hemoglobin mass conc (Bld) 7.9 g/dL Low 12.0-15.0 [facility] Comment on above: Order Comment: No: D o not add to previous draw Performed By: #### 0 0071, 79852, 49687 #### [facility] [address] [place] [address], [facility] MCH Entitic mass (RBC) 32.9 pg Normal 27.0-33.0 [facility] Comment on above: Order Comment: No: D o not add to previous draw Performed By: #### 0 0071, 34705, 34390 #### [facility] [address] [place] [address], [facility] MCHC mass conc (RBC) 33.2 g/dL Normal 32.0-35.0 [facility] Comment on above: Order Comment: No: D o not add to previous draw Performed By: #### 0 0071, 58835, 22833 #### [facility] [address] [place] [address], [facility] MCV Entitic volume (RBC) 99.2 fL High 82.0-98.0 [facility] Comment on above: Order Comment: No: D o not add to previous draw Performed By: #### 0 0071, 69959, 88794 #### [facility] [address] [place] [address], [facility] Nucleated RBC/100 WBC Ratio (Bld) 3 % High 0-0 [facility] Comment on above: Order Comment: No: D o not add to previous draw Performed By: #### 0 0071, 80704, 88630 #### [facility] [address] [place] [address], [facility] PLAT CNT 401 10*3/uL High 150-400 [facility] Comment on above: Order Comment: No: D o not add to previous draw Performed By: #### 0 0071, 84119, 91623 #### [facility] [address] [place] [address], [facility] RBC #/vol (Bld) 2.40 10*6/uL Low 3.80-5.00 [facility] Comment on above: Order Comment: No: D o not add to previous draw Performed By: #### 0 0071, 50684, 95161 #### [facility] [address] [place] [address], [place] WBC #/vol (Bld) 9.83 10*3/uL Normal 4.00-10.60 [facility] Comment on above: Order Comment: No: D o not add to previous draw Performed By: #### 0 70, 84729, 10433 #### [facility] [address] PROTHROMBIN TIMEon 9 INR Coag RelTime (PPP) 1.31 {INR} High 0.91-1.16 [facility] Comment on above: Order Comment: Unkno wn [...] RANGE. CHEST 1995;108:231S-246S. Performed By: #### 0 70, 24040, 90329 #### [facility] [address] Prothrombin time (PT) Coag time (PPP) 16.3 s High 12.3-14.8 [facility] Comment on above: Order Comment: Unkno wn Result Comment: ALL RESULTS MUST BE INTERPRETED WITH RESPECT TO BLOOD DRAWING ARTIFACT OR DILUTION ERROR OF ANTICOAGULANT AT THE TIME OF SAMPLING. Performed By: #### 0 70, 07586, 13489 #### [facility] [address] [place] [address], [facility] BASIC METABOLIC PANELon 12-3 Calcium mass conc 8.2 mg/dL Low 8.6-10.3 [facility] Comment on above: Order Comment: No: D o not add to previous draw Performed By: #### 0 0071, 82850, 80478 #### [facility] [address] [place] [address], [place] Chloride molar conc 101 mmol/L Normal 98-107 [facility] Comment on above: Order Comment: No: D o not add to previous draw Performed By: #### 0 0071, 10984, 86114 #### [facility] [address] [place] [address], [place] CO2 molar conc 26 mmol/L Normal 21-31 [facility] Comment on above: Order Comment: No: D o not add to previous draw Performed By: #### 0 0071, 66979, 81751 #### [facility] [address] [place] [address], [place] Creatinine mass conc 0.70 mg/dL Normal 0.60-1.20 [facility] Comment on above: Order Comment: No: D o not add to previous draw Performed By: #### 0 0071, 05866, 40753 #### [facility] [address] [place] [address], [place] GFR/1.73 sq M predicted among blacks MDRD vol rate/area (S/P/Bld) mL/min/{1.73_m2} Normal >60 [facility] Comment on above: Order Comment: No: D o not add to previous draw Result Comment: Calc ulation may not be valid for patients over 70 years Performed By: #### 0 0071, 25043, 11408 #### [facility] [address] [place] [address], [place] GFR/1.73 sq M predicted among non-blacks MDRD vol rate/area (S/P/Bld) mL/min/{1.73_m2} Normal >60 [facility] Comment on above: Order Comment: No: D o not add to previous draw Result Comment: Calc ulation may not be valid for patients over 70 years Performed By: #### 0 0071, 02552, 98665 #### [facility] [address] [place] [address], [facility] Glucose mass conc 108 mg/dL High 70-100 [facility] Comment on above: Order Comment: No: D o not add to previous draw Performed By: #### 0 0071, 09545, 62116 #### [facility] [address] [place] [address], [facility] Potassium molar conc 4.0 mmol/L Normal 3.5-5.1 [facility] Comment on above: Order Comment: No: D o not add to previous draw Performed By: #### 0 0071, 22194, 46825 #### [facility] [address] [place] [address], [place] Sodium molar conc 133 mmol/L Low 136-145 [facility] Comment on above: Order Comment: No: D o not add to previous draw Performed By: #### 0 0071, 28355, 21298 #### [facility] [address] [place] [address], [facility] Urea nitrogen mass conc 17 mg/dL Normal 7-25 [facility] Comment on above: Order Comment: No: D o not add to previous draw Performed By: #### 0 0071, 90376, 52106 #### [facility] [address] [place] [address], [place] CBC COMPLETE BLOOD COUNTon 1 Erythrocyte distribution width Ratio (RBC) 14.3 % Normal 11.5-15.0 [facility] Comment on above: Order Comment: No: D o not add to previous draw Performed By: #### 0 0071, 33310, 70662 #### [facility] [address] [place] [address], [facility] Hematocrit Volume Fraction (Bld) 22.9 % Low 36.0-45.0 [facility] Comment on above: Order Comment: No: D o not add to previous draw Performed By: #### 0 0071, 63243, 24323 #### [facility] [address] [place] [address], [facility] Hemoglobin mass conc (Bld) 7.6 g/dL Low 12.0-15.0 [facility] Comment on above: Order Comment: No: D o not add to previous draw Performed By: #### 0 007, 95749, 69451 #### [facility] [address] [place] [address], [facility] MCH Entitic mass (RBC) 32.9 pg Normal 27.0-33.0 [facility] Comment on above: Order Comment: No: D o not add to previous draw Performed By: #### 0 007, 79708, 20352 #### [facility] [address] [place] [address], [facility] MCHC mass conc (RBC) 33.2 g/dL Normal 32.0-35.0 [facility] Comment on above: Order Comment: No: D o not add to previous draw Performed By: #### 0 0071, 03110, 14504 #### [facility] [address] [place] [address], [facility] MCV Entitic volume (RBC) 99.1 fL High 82.0-98.0 [facility] Comment on above: Order Comment: No: D o not add to previous draw Performed By: #### 0 0071, 19693, 59444 #### [facility] [address] [place] [address], [facility] Nucleated RBC/100 WBC Ratio (Bld) 2 % High 0-0 [facility] Comment on above: Order Comment: No: D o not add to previous draw Performed By: #### 0 0071, 02361, 22894 #### [facility] [address] [place] [address], [facility] PLAT CNT 333 10*3/uL Normal 150-400 [facility] Comment on above: Order Comment: No: D o not add to previous draw Performed By: #### 0 0071, 79909, 39529 #### [facility] [address] [place] [address], [facility] RBC #/vol (Bld) 2.31 10*6/uL Low 3.80-5.00 [facility] Comment on above: Order Comment: No: D o not add to previous draw Performed By: #### 0 0071, 75552, 41753 #### [facility] [address] [place] [address], [facility] WBC #/vol (Bld) 13.64 10*3/uL High 4.00-10.60 [facility] Comment on above: Order Comment: No: D o not add to previous draw Performed By: #### 0 0071, 28968, 45896 #### [facility] [address] [facility]. [address] MAGNESIUM BLOODon 03-28-2018 Magnesium mass conc 1.9 mg/dL Normal 1.9-2.7 [facility] Comment on above: Order Comment: No: D o not add to previous draw Performed By: #### 0 0071, 86340, 73573 #### [facility] [address] [place] [address], [facility] PROTHROMBIN TIMEon 8 INR Coag RelTime (PPP) 1.29 {INR} High 0.91-1.16 [facility] Comment on above: Order Comment: Unkno wn [...] CHEST 1995;108:231S-246S. Performed By: #### 0 0071, 82557, 13995 #### [facility] [address] Prothrombin time (PT) Coag time (PPP) 16.1 s High 12.3-14.8 [facility] Comment on above: Order Comment: Unkno wn Result Comment: ALL RESULTS MUST BE INTERPRETED WITH RESPECT TO BLOOD DRAWING ARTIFACT OR DILUTION ERROR OF ANTICOAGULANT AT THE TIME OF SAMPLING. Performed By: #### 0 0071, 98385, 22857 #### [facility] [address] BASIC METABOLIC PANELon 12-3 Calcium mass conc 7.9 mg/dL Low 8.6-10.3 [facility] Comment on above: Order Comment: This order is a replacement of the rejected order with accession number [id number]. Performed By: #### 0 0071, 55372, 61118 #### [facility] [address] Chloride molar conc 99 mmol/L Normal 98-107 [facility] Comment on above: Order Comment: This order is a replacement of the rejected order with accession number [id number]. Performed By: #### 0 0071, 41417, 51089 #### [facility] [address] [place] [address], [place] CO2 molar conc 28 mmol/L Normal 21-31 [facility] Comment on above: Order Comment: This order is a replacement of the rejected order with accession number [id number]. Performed By: #### 0 0071, 86306, 97492 #### [facility] [address] [place] [address], [facility] Creatinine mass conc 0.77 mg/dL Normal 0.60-1.20 [facility] Comment on above: Order Comment: This order is a replacement of the rejected order with accession number [id number]. Performed By: #### 0 0071, 54709, 73732 #### [facility] [address] [place] [address], [facility] GFR/1.73 sq M predicted among blacks MDRD vol rate/area (S/P/Bld) mL/min/{1.73_m2} Normal >60 [facility] Comment on above: Order Comment: This order is a replacement of the rejected order with accession number [id number]. Result Comment: Calc ulation may not be valid for patients over 70 years Performed By: #### 0 0071, 44495, 43931 #### [facility] [address] [place] [address], [place] GFR/1.73 sq M predicted among non-blacks MDRD vol rate/area (S/P/Bld) mL/min/{1.73_m2} Normal >60 [facility] Comment on above: Order Comment: This order is a replacement of the rejected order with accession number [id number]. Result Comment: Calc ulation may not be valid for patients over 70 years Performed By: #### 0 0071, 32361, 69918 #### [facility] [address] [place] [address], [place] Glucose mass conc 112 mg/dL High 70-100 [facility] Comment on above: Order Comment: This order is a replacement of the rejected order with accession number [id number]. Performed By: #### 0 0071, 26856, 07080 #### [facility] [address] [place] [address], [facility] Potassium molar conc 3.1 mmol/L Low 3.5-5.1 [facility] Comment on above: Order Comment: This order is a replacement of the rejected order with accession number [id number]. Performed By: #### 0 0071, 08782, 51185 #### [facility] [address] [place] [address], [facility] Sodium molar conc 133 mmol/L Low 136-145 [facility] Comment on above: Order Comment: This order is a replacement of the rejected order with accession number [id number]. Performed By: #### 0 0071, 92891, 72247 #### [facility] [address] Urea nitrogen mass conc 17 mg/dL Normal 7-25 [facility] Comment on above: Order Comment: This order is a replacement of the rejected order with accession number [id number]. Performed By: #### 0 0071, 87147, 68703 #### [facility] [address] CBC COMPLETE BLOOD COUNTon Erythrocyte distribution width Ratio (RBC) 14.3 % Normal 11.5-15.0 [facility] Comment on above: Order Comment: No: D o not add to previous draw Performed By: #### 0 0071, 62000, 92379 #### [facility] [address] Hematocrit Volume Fraction (Bld) 23.7 % Low 36.0-45.0 [facility] Comment on above: Order Comment: No: D o not add to previous draw Performed By: #### 0 0071, 71388, 58189 #### [facility] [address] Hemoglobin mass conc (Bld) 8.0 g/dL Low 12.0-15.0 [facility] Comment on above: Order Comment: No: D o not add to previous draw Performed By: #### 0 0071, 93379, 41572 #### [facility] [address] [place] [address], [facility] MCH Entitic mass (RBC) 33.1 pg High 27.0-33.0 [facility] Comment on above: Order Comment: No: D o not add to previous draw Performed By: #### 0 0071, 59368, 70325 #### [facility] [address] MCHC mass conc (RBC) 33.8 g/dL Normal 32.0-35.0 [facility] Comment on above: Order Comment: No: D o not add to previous draw Performed By: #### 0 0071, 24100, 14831 #### [facility] [address] [facility]. [address] MCV Entitic volume (RBC) 97.9 fL Normal 82.0-98.0 [facility] Comment on above: Order Comment: No: D o not add to previous draw Performed By: #### 0 0071, 14543, 63674 #### [facility] [address] [facility]. [address] Nucleated RBC/100 WBC Ratio (Bld) 1 % High 0-0 [facility] Comment on above: Order Comment: No: D o not add to previous draw Performed By: #### 0 0071, 26891, 59683 #### [facility] [address] [place] [address], [facility] PLAT CNT 324 10*3/uL Normal 150-400 [facility] Comment on above: Order Comment: No: D o not add to previous draw Performed By: #### 0 0071, 60639, 75371 #### [facility] [address] [place] [address], [facility] RBC #/vol (Bld) 2.42 10*6/uL Low 3.80-5.00 [facility] Comment on above: Order Comment: No: D o not add to previous draw Performed By: #### 0 0071, 09985, 18810 #### [facility] [address] [place] [address], [facility] WBC #/vol (Bld) 14.07 10*3/uL High 4.00-10.60 [facility] Comment on above: Order Comment: No: D o not add to previous draw Performed By: #### 0 70, 34149, 52644 #### [facility] [address] Erythrocyte distribution width Ratio (RBC) 14.2 % Normal 11.5-15.0 [facility] Comment on above: Order Comment: This order is a replacement of the rejected order with accession number [id number]. Performed By: #### 0 70, 12406, 18331 #### [facility] [address] [facility] [address] Hematocrit Volume Fraction (Bld) 22.3 % Low 36.0-45.0 [facility] Comment on above: Order Comment: This order is a replacement of the rejected order with accession number [id number]. Performed By: #### 0 007, 73917, 13588 #### [facility] [address] [place] [address], [facility] Hemoglobin mass conc (Bld) 7.4 g/dL Low 12.0-15.0 [facility] Comment on above: Order Comment: This order is a replacement of the rejected order with accession number [id number]. Performed By: #### 0 007, 83662, 58388 #### [facility] [address] MCH Entitic mass (RBC) 32.5 pg Normal 27.0-33.0 [facility] Comment on above: Order Comment: This order is a replacement of the rejected order with accession number [id number]. Performed By: #### 0 0071, 69510, 06627 #### [facility] [address] MCHC mass conc (RBC) 33.2 g/dL Normal 32.0-35.0 [facility] Comment on above: Order Comment: This order is a replacement of the rejected order with accession number [id number]. Performed By: #### 0 0071, 94054, 76166 #### [facility] [address] MCV Entitic volume (RBC) 97.8 fL Normal 82.0-98.0 [facility] Comment on above: Order Comment: This order is a replacement of the rejected order with accession number [id number]. Performed By: #### 0 0071, 69363, 46311 #### [facility] [address] Nucleated RBC/100 WBC Ratio (Bld) 1 % High 0-0 [facility] Comment on above: Order Comment: This order is a replacement of the rejected order with accession number [id number]. Performed By: #### 0 0071, 51494, 92373 #### [facility] [address] [facility]. [address] PLAT CNT 278 10*3/uL Normal 150-400 [facility] Comment on above: Order Comment: This order is a replacement of the rejected order with accession number [id number]. Performed By: #### 0 0071, 90018, 72755 #### [facility] [address] RBC #/vol (Bld) 2.28 10*6/uL Low 3.80-5.00 [facility] Comment on above: Order Comment: This order is a replacement of the rejected order with accession number [id number]. Performed By: #### 0 0071, 84882, 58050 #### [facility] [address] [facility] WBC #/vol (Bld) 11.31 10*3/uL High 4.00-10.60 [facility] Comment on above: Order Comment: This order is a replacement of the rejected order with accession number [id number]. Performed By: #### 0 0071, 35867, 60202 #### [facility] [address] MAGNESIUM BLOODon 03-27-2018 Magnesium mass conc 1.8 mg/dL Low 1.9-2.7 [facility] Comment on above: Order Comment: This order is a replacement of the rejected order with accession number [id number]. Performed By: #### 0 0071, 72718, 12989 #### [facility] [address] [facility] PROTHROMBIN TIMEon 8 INR Coag RelTime (PPP) 1.14 {INR} Normal 0.91-1.16 [facility] Comment on above: Order Comment: This order is a replacement of the rejected order with accession number [id number]. Result Comment: ACCC P RECOMMENDED INR FOR [...] CHEST 1995;108:231S-246S. Performed By: #### 0 0071, 11310, 59537 #### [facility] [address] Prothrombin time (PT) Coag time (PPP) 14.6 s Normal 12.3-14.8 [facility] Comment on above: Order Comment: This order is a replacement of the rejected order with accession number [id number]. Result Comment: ALL RESULTS MUST BE INTERPRETED WITH RESPECT TO BLOOD DRAWING ARTIFACT OR DILUTION ERROR OF ANTICOAGULANT AT THE TIME OF SAMPLING. Performed By: #### 0 0071, 77335, 16822 #### [facility] [address] BASIC METABOLIC PANELon 12-2 Calcium mass conc 7.8 mg/dL Low 8.6-10.3 [facility] Comment on above: Order Comment: This order is a replacement of the rejected order with accession number [id number]. Performed By: #### 0 0071, 83084, 96594 #### [facility] [address] [facility] Chloride molar conc 100 mmol/L Normal 98-107 [facility] Comment on above: Order Comment: This order is a replacement of the rejected order with accession number [id number]. Performed By: #### 0 0071, 83892, 69935 #### [facility] [address] [place] [address], [facility] CO2 molar conc 27 mmol/L Normal 21-31 [facility] Comment on above: Order Comment: This order is a replacement of the rejected order with accession number [id number]. Performed By: #### 0 0071, 60914, 81457 #### [facility] [address] [place] [address], [facility] Creatinine mass conc 0.70 mg/dL Normal 0.60-1.20 [facility] Comment on above: Order Comment: This order is a replacement of the rejected order with accession number [id number]. Performed By: #### 0 0071, 45578, 25741 #### [facility] [address] [place] [address], [facility] GFR/1.73 sq M predicted among blacks MDRD vol rate/area (S/P/Bld) mL/min/{1.73_m2} Normal >60 [facility] Comment on above: Order Comment: This order is a replacement of the rejected order with accession number [id number]. Result Comment: Calc ulation may not be valid for patients over 70 years Performed By: #### 0 0071, 51641, 54968 #### [facility] [address] [facility] [place] [id number], [facility] GFR/1.73 sq M predicted among non-blacks MDRD vol rate/area (S/P/Bld) mL/min/{1.73_m2} Normal >60 [facility] Comment on above: Order Comment: This order is a replacement of the rejected order with accession number [id number]. Result Comment: Calc ulation may not be valid for patients over 70 years Performed By: #### 0 0071, 75898, 21579 #### [facility] [address] [place] [address], [facility] Glucose mass conc 118 mg/dL High 70-100 [facility] Comment on above: Order Comment: This order is a replacement of the rejected order with accession number [id number]. Performed By: #### 0 0071, 39002, 37293 #### [facility] [address] [place] [address], [facility] Potassium molar conc 3.6 mmol/L Normal 3.5-5.1 [facility] Comment on above: Order Comment: This order is a replacement of the rejected order with accession number [id number]. Performed By: #### 0 0071, 35508, 68227 #### [facility] [address] Sodium molar conc 134 mmol/L Low 136-145 [facility] Comment on above: Order Comment: This order is a replacement of the rejected order with accession number [id number]. Performed By: #### 0 0071, 83259, 60310 #### [facility] [address] Urea nitrogen mass conc 16 mg/dL Normal 7-25 [facility] Comment on above: Order Comment: This order is a replacement of the rejected order with accession number [id number]. Performed By: #### 0 0071, 94026, 49736 #### [facility] [address] [facility] [address] CBC COMPLETE BLOOD COUNTon 1 Erythrocyte distribution width Ratio (RBC) 13.9 % Normal 11.5-15.0 [facility] Comment on above: Order Comment: This order is a replacement of the rejected order with accession number [id number]. Performed By: #### 0 0071, 09625, 14499 #### [facility] [address] Hematocrit Volume Fraction (Bld) 23.4 % Low 36.0-45.0 [facility] Comment on above: Order Comment: This order is a replacement of the rejected order with accession number [id number]. Performed By: #### 0 0071, 82694, 56424 #### [facility] [address] Hemoglobin mass conc (Bld) 7.8 g/dL Low 12.0-15.0 [facility] Comment on above: Order Comment: This order is a replacement of the rejected order with accession number [id number]. Performed By: #### 0 0071, 58548, 77131 #### [facility] [address] MCH Entitic mass (RBC) 33.1 pg High 27.0-33.0 [facility] Comment on above: Order Comment: This order is a replacement of the rejected order with accession number [id number]. Performed By: #### 0 0071, 33594, 83943 #### [facility] [address] MCHC mass conc (RBC) 33.3 g/dL Normal 32.0-35.0 [facility] Comment on above: Order Comment: This order is a replacement of the rejected order with accession number [id number]. Performed By: #### 0 0071, 60827, 41736 #### [facility] [address] MCV Entitic volume (RBC) 99.2 fL High 82.0-98.0 [facility] Comment on above: Order Comment: This order is a replacement of the rejected order with accession number [id number]. Performed By: #### 0 1, 64713, 96323 #### [facility] [address] Nucleated RBC/100 WBC Ratio (Bld) 0 % Normal 0-0 [facility] Comment on above: Order Comment: This order is a replacement of the rejected order with accession number [id number]. Performed By: #### 0 0071, 86069, 91489 #### [facility] [address] PLAT CNT 252 10*3/uL Normal 150-400 [facility] Comment on above: Order Comment: This order is a replacement of the rejected order with accession number [id number]. Performed By: #### 0 0071, 89276, 72230 #### [facility] [address] [place] [address], [place] RBC #/vol (Bld) 2.36 10*6/uL Low 3.80-5.00 [facility] Comment on above: Order Comment: This order is a replacement of the rejected order with accession number [id number]. Performed By: #### 0 0071, 53530, 42922 #### [facility] [address] WBC #/vol (Bld) 10.89 10*3/uL High 4.00-10.60 [facility] Comment on above: Order Comment: This order is a replacement of the rejected order with accession number [id number]. Performed By: #### 0 0071, 06501, 67196 #### [facility] [address] LIVER BATTERYon 03-26-2018 Albumin mass conc 2.8 g/dL Low 3.5-5.7 [facility] Comment on above: Order Comment: This order is a replacement of the rejected order with accession number [id number]. Performed By: #### 0 0071, 15533, 47520 #### [facility] [address] ALKALINE PHOSPH 120 IU/L High 34-104 [facility] Comment on above: Order Comment: This order is a replacement of the rejected order with accession number [id number]. Performed By: #### 0 0071, 64122, 08580 #### [facility] [address] ALT enzyme act/vol 46 U/L Normal 7-52 [facility] Comment on above: Order Comment: This order is a replacement of the rejected order with accession number [id number]. Performed By: #### 0 0071, 98219, 44781 #### [facility] [address] AST enzyme act/vol 86 U/L High 13-39 [facility] Comment on above: Order Comment: This order is a replacement of the rejected order with accession number [id number]. Performed By: #### 0 0071, 96980, 59247 #### [facility] [address] Bilirubin mass conc 1.2 mg/dL High 0.3-1.0 [facility] Comment on above: Order Comment: This order is a replacement of the rejected order with accession number [id number]. Performed By: #### 0 0071, 72807, 14618 #### [facility] [address] Bilirubin.direct mass conc 0.5 mg/dL High 0.0-0.2 [facility] Comment on above: Order Comment: This order is a replacement of the rejected order with accession number [id number]. Performed By: #### 0 0071, 36452, 95117 #### [facility] [address] [facility] Protein mass conc 5.4 g/dL Low 6.0-8.3 [facility] Comment on above: Order Comment: This order is a replacement of the rejected order with accession number [id number]. Performed By: #### 0 0071, 91857, 34339 #### [facility] 3000 [facility]. [address] MAGNESIUM BLOODon 03-26-2018 Magnesium mass conc 1.8 mg/dL Low 1.9-2.7 [facility] Comment on above: Order Comment: This order is a replacement of the rejected order with accession number [id number]. Performed By: #### 0 0071, 29444, 65367 #### [facility] [address] PROTHROMBIN TIMEon 8 INR Coag RelTime (PPP) 1.13 {INR} Normal 0.91-1.16 [facility] Comment on above: Order Comment: This order is a replacement of the rejected order with accession number [id number]. Result Comment: ACCC P RECOMMENDED INR FOR [...] CHEST 1995;108:231S-246S. Performed By: #### 0 0071, 16768, 11254 #### [facility] 3000 [facility]. [address] Prothrombin time (PT) Coag time (PPP) 14.5 s Normal 12.3-14.8 [facility] Comment on above: Order Comment: This order is a replacement of the rejected order with accession number [id number]. Result Comment: ALL RESULTS MUST BE INTERPRETED WITH RESPECT TO BLOOD DRAWING ARTIFACT OR DILUTION ERROR OF ANTICOAGULANT AT THE TIME OF SAMPLING. Performed By: #### 0 0071, 32912, 77864 #### [facility] [address] [facility] BASIC METABOLIC PANELon 12-2 Calcium mass conc 7.5 mg/dL Low 8.6-10.3 [facility] Comment on above: Order Comment: This order is a replacement of the rejected order with accession number [id number]. Performed By: #### 6 2586 #### [facility] [address] [place] [address], [place] Chloride molar conc 101 mmol/L Normal 98-107 [facility] Comment on above: Order Comment: This order is a replacement of the rejected order with accession number [id number]. Performed By: #### 6 2586 #### [facility] [address] [place] [address], [place] CO2 molar conc 25 mmol/L Normal 21-31 [facility] Comment on above: Order Comment: This order is a replacement of the rejected order with accession number [id number]. Performed By: #### 6 2586 #### [facility] [address] [place] [address], [place] Creatinine mass conc 0.65 mg/dL Normal 0.60-1.20 [facility] Comment on above: Order Comment: This order is a replacement of the rejected order with accession number [id number]. Performed By: #### 6 2586 #### [facility] [address] [place] [address], [place] GFR/1.73 sq M predicted among blacks MDRD vol rate/area (S/P/Bld) mL/min/{1.73_m2} Normal >60 [facility] Comment on above: Order Comment: This order is a replacement of the rejected order with accession number [id number]. Result Comment: Calc ulation may not be valid for patients over 70 years Performed By: #### 6 2586 #### [facility] [address] [place] [address], [place] GFR/1.73 sq M predicted among non-blacks MDRD vol rate/area (S/P/Bld) mL/min/{1.73_m2} Normal >60 [facility] Comment on above: Order Comment: This order is a replacement of the rejected order with accession number [id number]. Result Comment: Calc ulation may not be valid for patients over 70 years Performed By: #### 6 2586 #### [facility] [address] [place] [address], [facility] Glucose mass conc 115 mg/dL High 70-100 [facility] Comment on above: Order Comment: This order is a replacement of the rejected order with accession number [id number]. Performed By: #### 6 2586 #### [facility] [address] [place] [address], [facility] Potassium molar conc 3.3 mmol/L Low 3.5-5.1 [facility] Comment on above: Order Comment: This order is a replacement of the rejected order with accession number [id number]. Performed By: #### 6 2586 #### [facility] [address] [place] [address], [facility] Sodium molar conc 134 mmol/L Low 136-145 [facility] Comment on above: Order Comment: This order is a replacement of the rejected order with accession number [id number]. Performed By: #### 6 2586 #### [facility] [address] [facility] [place] [address], [facility] Urea nitrogen mass conc 14 mg/dL Normal 7-25 [facility] Comment on above: Order Comment: This order is a replacement of the rejected order with accession number [id number]. Performed By: #### 6 2586 #### [facility] [address] [facility]. [address] CBC COMPLETE BLOOD COUNTon 1 05-26-2017 Erythrocyte distribution width Ratio (RBC) 13.5 % Normal 11.5-15.0 [facility] Comment on above: Order Comment: This order is a replacement of the rejected order with accession number [id number]. Performed By: #### 6 2586 #### [facility] [address] Hematocrit Volume Fraction (Bld) 24.1 % Low 36.0-45.0 [facility] Comment on above: Order Comment: This order is a replacement of the rejected order with accession number [id number]. Performed By: #### 6 2586 #### [facility] [address] Hemoglobin mass conc (Bld) 8.2 g/dL Low 12.0-15.0 [facility] Comment on above: Order Comment: This order is a replacement of the rejected order with accession number [id number]. Performed By: #### 6 2586 #### [facility] [address] MCH Entitic mass (RBC) 33.1 pg High 27.0-33.0 [facility] Comment on above: Order Comment: This order is a replacement of the rejected order with accession number [id number]. Performed By: #### 6 2586 #### [facility] [address] MCHC mass conc (RBC) 34.0 g/dL Normal 32.0-35.0 [facility] Comment on above: Order Comment: This order is a replacement of the rejected order with accession number [id number]. Performed By: #### 6 2586 #### [facility] [address] MCV Entitic volume (RBC) 97.2 fL Normal 82.0-98.0 [facility] Comment on above: Order Comment: This order is a replacement of the rejected order with accession number [id number]. Performed By: #### 6 2586 #### [facility] [address] Nucleated RBC/100 WBC Ratio (Bld) 0 % Normal 0-0 [facility] Comment on above: Order Comment: This order is a replacement of the rejected order with accession number [id number]. Performed By: #### 6 2586 #### [facility] PLAT CNT 206 10*3/uL Normal 150-400 [facility] Comment on above: Order Comment: This order is a replacement of the rejected order with accession number [id number]. Performed By: #### 6 2586 #### [address] RBC #/vol (Bld) 2.48 10*6/uL Low 3.80-5.00 [facility] Comment on above: Order Comment: This order is a replacement of the rejected order with accession number [id number]. Performed By: #### 6 2586 #### [address] WBC #/vol (Bld) 9.27 10*3/uL Normal 4.00-10.60 [facility] Comment on above: Order Comment: This order is a replacement of the rejected order with accession number [id number]. Performed By: #### 6 2586 #### [address] PROTHROMBIN TIMEon 8 INR Coag RelTime (PPP) 1.23 {INR} High 0.91-1.16 [facility] Comment on above: Order Comment: This order is a replacement of the rejected order with accession number [id number]. Result Comment: ACC[facility] P RECOMMENDED INR FOR [...] 1995;108:231S-246S. Performed By: #### 6 2586 #### [facility] [address] [facility] Prothrombin time (PT) Coag time (PPP) 15.5 s High 12.3-14.8 [facility] Comment on above: Order Comment: This order is a replacement of the rejected order with accession number [id number]. Result Comment: ALL RESULTS MUST BE INTERPRETED WITH RESPECT TO BLOOD DRAWING ARTIFACT OR DILUTION ERROR OF ANTICOAGULANT AT THE TIME OF SAMPLING. Performed By: #### 6 2586 #### [facility] [address] BASIC METABOLIC PANELon 12-2 Calcium mass conc 7.5 mg/dL Low 8.6-10.3 [facility] Comment on above: Order Comment: This order is a replacement of the rejected order with accession number [id number]. Performed By: #### 6 2586 #### [facility] [address] Chloride molar conc 99 mmol/L Normal 98-107 [facility] Comment on above: Order Comment: This order is a replacement of the rejected order with accession number [id number]. Performed By: #### 6 2586 #### [facility] [address] [place] [address], [facility] CO2 molar conc 24 mmol/L Normal 21-31 [facility] Comment on above: Order Comment: This order is a replacement of the rejected order with accession number [id number]. Performed By: #### 6 2586 #### [facility] [address] Creatinine mass conc 0.62 mg/dL Normal 0.60-1.20 [facility] Comment on above: Order Comment: This order is a replacement of the rejected order with accession number [id number]. Performed By: #### 6 2586 #### [facility] [address] [place] [address], [facility] GFR/1.73 sq M predicted among blacks MDRD vol rate/area (S/P/Bld) mL/min/{1.73_m2} Normal >60 [facility] Comment on above: Order Comment: This order is a replacement of the rejected order with accession number [id number]. Result Comment: Calc ulation may not be valid for patients over 70 years Performed By: #### 6 2586 #### [facility] [address] [place] [address], [facility] GFR/1.73 sq M predicted among non-blacks MDRD vol rate/area (S/P/Bld) mL/min/{1.73_m2} Normal >60 [facility] Comment on above: Order Comment: This order is a replacement of the rejected order with accession number [id number]. Result Comment: Calc ulation may not be valid for patients over 70 years Performed By: #### 6 2586 #### [facility] [address] [place] [address], [facility] Glucose mass conc 130 mg/dL High 70-100 [facility] Comment on above: Order Comment: This order is a replacement of the rejected order with accession number [id number]. Performed By: #### 6 2586 #### [facility] [address] [place] [id number], [facility] Potassium molar conc 3.3 mmol/L Low 3.5-5.1 [facility] Comment on above: Order Comment: This order is a replacement of the rejected order with accession number [id number]. Performed By: #### 6 2586 #### [facility] [address] [place] [id number], [facility] Sodium molar conc 133 mmol/L Low 136-145 [facility] Comment on above: Order Comment: This order is a replacement of the rejected order with accession number [id number]. Performed By: #### 6 2586 #### [facility] [address] [place] [id number], [facility] Urea nitrogen mass conc 13 mg/dL Normal 7-25 [facility] Comment on above: Order Comment: This order is a replacement of the rejected order with accession number [id number]. Performed By: #### 6 2586 #### [facility] [address] [facility] [address] CBC COMPLETE BLOOD COUNTon 1 05-25-2017 Erythrocyte distribution width Ratio (RBC) 13.4 % Normal 11.5-15.0 [facility] Comment on above: Order Comment: This order is a replacement of the rejected order with accession number [id number]. Performed By: #### 5 7307, 48266 #### [facility] [address] Hematocrit Volume Fraction (Bld) 26.5 % Low 36.0-45.0 [facility] Comment on above: Order Comment: This order is a replacement of the rejected order with accession number [id number]. Performed By: #### 5 7307, 04854 #### [facility] [address] [place] [address], [facility] Hemoglobin mass conc (Bld) 9.2 g/dL Low 12.0-15.0 [facility] Comment on above: Order Comment: This order is a replacement of the rejected order with accession number [id number]. Performed By: #### 5 7307, 78513 #### [facility] [address] [place] [address], [facility] MCH Entitic mass (RBC) 33.7 pg High 27.0-33.0 [facility] Comment on above: Order Comment: This order is a replacement of the rejected order with accession number [id number]. Performed By: #### 5 73, 53138 #### [facility] [address] MCHC mass conc (RBC) 34.7 g/dL Normal 32.0-35.0 [facility] Comment on above: Order Comment: This order is a replacement of the rejected order with accession number [id number]. Performed By: #### 5 73, 15469 #### [facility] [address] MCV Entitic volume (RBC) 97.1 fL Normal 82.0-98.0 [facility] Comment on above: Order Comment: This order is a replacement of the rejected order with accession number [id number]. Performed By: #### 5 73, 71995 #### [facility] 3000 [facility]. [address] Nucleated RBC/100 WBC Ratio (Bld) 0 % Normal 0-0 [facility] Comment on above: Order Comment: This order is a replacement of the rejected order with accession number [id number]. Performed By: #### 5 73, 12976 #### [facility] [address] [facility] [address] PLAT CNT 187 10*3/uL Normal 150-400 [facility] Comment on above: Order Comment: This order is a replacement of the rejected order with accession number [id number]. Performed By: #### 5 73, 64884 #### [facility] [address] RBC #/vol (Bld) 2.73 10*6/uL Low 3.80-5.00 [facility] Comment on above: Order Comment: This order is a replacement of the rejected order with accession number [id number]. Performed By: #### 5 73, 87220 #### [facility] 3000 [facility]. [address] WBC #/vol (Bld) 12.04 10*3/uL High 4.00-10.60 [facility] Comment on above: Order Comment: This order is a replacement of the rejected order with accession number [id number]. Performed By: #### 5 7307, 85137 #### [facility] [address] MAGNESIUM BLOODon 03-24-2018 Magnesium mass conc 1.6 mg/dL Low 1.9-2.7 [facility] Comment on above: Performed By: #### 6 2586 #### [facility] [address] PROTHROMBIN TIMEon 8 INR Coag RelTime (PPP) 1.41 {INR} High 0.91-1.16 [facility] Comment on above: Order Comment: This order is a replacement of the rejected order with accession number [id number]. Result Comment: ACC[facility] P RECOMMENDED INR FOR [...] RANGE. CHEST 1995;108:231S-246S. Performed By: #### 6 6977 #### [facility] [address] Prothrombin time (PT) Coag time (PPP) 17.3 s High 12.3-14.8 [facility] Comment on above: Order Comment: This order is a replacement of the rejected order with accession number [id number]. Result Comment: ALL RESULTS MUST BE INTERPRETED WITH RESPECT TO BLOOD DRAWING ARTIFACT OR DILUTION ERROR OF ANTICOAGULANT AT THE TIME OF SAMPLING. Performed By: #### 6 2586 #### [facility] [address] UFH HEPARIN ASSAYon 03-24-20 18 UNFRACTIONATED HEPARIN <0.10 Critically low 0.30-0.70 [facility] [facility] Comment on above: Result Comment: Lily roxaban and Apixaban will interfere with the anti Xa assay used to monitor UFH and LMWH. RESULT CHECKED AND CALLED TO ALEKSANDRA 0729 Performed By: #### 6 2586 #### [facility] [address] BASIC METABOLIC PANELon 12-2 Calcium mass conc 8.0 mg/dL Low 8.6-10.3 [facility] Comment on above: Order Comment: This order is a replacement of the rejected order with accession number [id number]. Performed By: #### 5 7307, 27853 #### [facility] [address] Chloride molar conc 98 mmol/L Normal 98-107 The [facility] Comment on above: Order Comment: This order is a replacement of the rejected order with accession number [id number]. Performed By: #### 5 7307, 87730 #### [facility] [address] CO2 molar conc 25 mmol/L Normal 21-31 The [facility] Comment on above: Order Comment: This order is a replacement of the rejected order with accession number [id number]. Performed By: #### 5 7320, 46618 #### [facility] [address] [place] [address], [facility] Creatinine mass conc 0.68 mg/dL Normal 0.60-1.20 [facility] Comment on above: Order Comment: This order is a replacement of the rejected order with accession number [id number]. Performed By: #### 5 73, 85833 #### [facility] [address] [place] [address], [facility] GFR/1.73 sq M predicted among blacks MDRD vol rate/area (S/P/Bld) mL/min/{1.73_m2} Normal >60 The [facility] Comment on above: Order Comment: This order is a replacement of the rejected order with accession number [id number]. Result Comment: Calc ulation may not be valid for patients over 70 years Performed By: #### 5 73, 93684 #### [facility] [address] [place] [address], [facility] GFR/1.73 sq M predicted among non-blacks MDRD vol rate/area (S/P/Bld) mL/min/{1.73_m2} Normal >60 [facility] Comment on above: Order Comment: This order is a replacement of the rejected order with accession number [id number]. Result Comment: Calc ulation may not be valid for patients over 70 years Performed By: #### 5 73, 53589 #### [facility] [address] [place] [address], [facility] Glucose mass conc 118 mg/dL High 70-100 [facility] Comment on above: Order Comment: This order is a replacement of the rejected order with accession number [id number]. Performed By: #### 5 7307, 25775 #### [facility] [address] [place] [address], [facility] Potassium molar conc 3.0 mmol/L Low 3.5-5.1 [facility] Comment on above: Order Comment: This order is a replacement of the rejected order with accession number [id number]. Performed By: #### 5 73, 60960 #### [facility] [address] Sodium molar conc 132 mmol/L Low 136-145 The [facility] Comment on above: Order Comment: This order is a replacement of the rejected order with accession number [id number]. Performed By: #### 5 73, 27733 #### [facility] [address] Urea nitrogen mass conc 8 mg/dL Normal 7-25 [facility] Comment on above: Order Comment: This order is a replacement of the rejected order with accession number [id number]. Performed By: #### 5 73, 60411 #### [facility] [address] CBC COMPLETE BLOOD COUNTon 1 05-24-2017 Erythrocyte distribution width Ratio (RBC) 13.4 % Normal 11.5-15.0 [facility] Comment on above: Order Comment: This order is a replacement of the rejected order with accession number [id number]. Performed By: #### 5 73, 79915 #### [facility] [address] Hematocrit Volume Fraction (Bld) 32.2 % Low 36.0-45.0 [facility] Comment on above: Order Comment: This order is a replacement of the rejected order with accession number [id number]. Performed By: #### 5 73, 19166 #### [facility] [address] Hemoglobin mass conc (Bld) 11.0 g/dL Low 12.0-15.0 [facility] Comment on above: Order Comment: This order is a replacement of the rejected order with accession number [id number]. Performed By: #### 5 73, 37594 #### [facility] [address] MCH Entitic mass (RBC) 33.3 pg High 27.0-33.0 The [facility] Comment on above: Order Comment: This order is a replacement of the rejected order with accession number [id number]. Performed By: #### 5 7307, 48387 #### [facility] [address] [facility] [address] MCHC mass conc (RBC) 34.2 g/dL Normal 32.0-35.0 [facility] Comment on above: Order Comment: This order is a replacement of the rejected order with accession number [id number]. Performed By: #### 5 73, 04153 #### [facility] [address] MCV Entitic volume (RBC) 97.6 fL Normal 82.0-98.0 [facility] Comment on above: Order Comment: This order is a replacement of the rejected order with accession number [id number]. Performed By: #### 5 73, 80141 #### [facility] [address] Nucleated RBC/100 WBC Ratio (Bld) 0 % Normal 0-0 The [facility] Comment on above: Order Comment: This order is a replacement of the rejected order with accession number [id number]. Performed By: #### 5 73, 60592 #### [facility] [address] PLAT CNT 195 10*3/uL Normal 150-400 The [facility] Comment on above: Order Comment: This order is a replacement of the rejected order with accession number [id number]. Performed By: #### 5 7307, 47562 #### [facility] [address] RBC #/vol (Bld) 3.30 10*6/uL Low 3.80-5.00 [facility] Comment on above: Order Comment: This order is a replacement of the rejected order with accession number [id number]. Performed By: #### 5 7307, 53428 #### [address] WBC #/vol (Bld) 10.42 10*3/uL Normal 4.00-10.60 [facility] Comment on above: Order Comment: This order is a replacement of the rejected order with accession number [id number]. Performed By: #### 5 7307, 88201 #### [address] FEMUR LEFT 2 VWSon 8 FEMUR LEFT 2 VWS [facility] Department of Radiology [address] [place] [id number] Patient Name: ISAAC TOURE : 1940 Sex: F Age: Race: White Pt. Location: [address] [place] [address] Patient Status: I Ordered Date: 03/23/2018 7:10:00 PM Completed Date: 03/23/2018 08:19 PM Requesting Provider: KEVIN NUNEZ Attending Provider: ANDREW JONES Report Copy To: Signs & Symptoms: Pain ( specify Location) History: Patient history not available Comments: Hardware Evaluation, post op Exam: FEMUR LEFT 2 VWS FEMUR LEFT 2 VWS 03/23/2018 8:19 PM EST SIGNS AND SYMPTOMS: [...] proximal femur in satisfactory alignment Electronically signed by:He Gomez. Transcribed by: [email or web address], User Resident: Electronically Signed by: HE GOMEZ @ 03/24/2018 09:03 AM Normal The [facility] Comment on above: Order Comment: This order is a replacement of the rejected order with accession number [id number]. FEMUR LEFT 2 [facility] Department of Radiology [address] [place] [phone] Patient Name: ISAAC TOURE : 1940 Sex: F Age: Race: White Pt. Location: [id number] Patient Status: I Ordered Date: 03/23/2018 6:25:00 AM Completed Date: 03/23/2018 06:10 PM Requesting Provider: ABAD JOHNS Attending Provider: ABAD JOHNS Report Copy To: Signs & Symptoms: LEFT FEMUR INTRAMEDULARY NAIL History: LEFT FEMUR INTRAMEDULARY NAIL Comments: LEFT FEMUR INTRAMEDULARY NAIL Exam: FEMUR LEFT [address] [facility] FEMUR LEFT 2 [facility] 03/23/2018 6:10 PM EST SIGNS AND SYMPTOMS: [...] Diaz on 03/23/2018 6:17 PM EST. I, La Pang, have reviewed the images and report and concur with these findings. Electronically signed by:La Pang. Transcribed by: [email or web address], User Resident: NANCY DIAZ Electronically Signed by: LA PANG @ 03/25/2018 06:48 PM I personally read this/these film(s) with this resident Normal The [facility] Comment on above: Order Comment: This order is a replacement of the rejected order with accession number [id number]. Operative Reporton 8 Operative Report MR#: [id number] I [facility] Pt. Name: Isaac Toure Room #: 6AB [id number] Discharge Date: Birthdate: 1940 OPERATIVE REPORT DATE OF SURGERY: 03/23/2018 SURGEON: Abad Johns M.D. ASSISTANTS: 1. Kevin Nunez, PGY 4. 2. Jamir Manrique, PGY [...] of the femur. We then used perfect robinson technique to place 2 distal interlocks measuring [...] immediately available for assistance. Electronically Signed by: Abad Johns M.D. 03/26/2018 08:39 A Abad Johns M.D. I was present for the entire procedure. Date Dict: 03/23/2018/06:40 P/Kevin Nunez MD Date Trans: 03/23/2018 09:15 P/denise [id number] cc: Bernardo Almonte M.D. [address] [place] [id number] Normal The [facility] PROTHROMBIN TIMEon 8 INR Coag RelTime (PPP) 1.46 {INR} High 0.91-1.16 The [facility] Comment on above: Order Comment: This order is a replacement of the rejected order with accession number [id number]. Result Comment: [facility] P RECOMMENDED INR FOR WARFARIN THERAPY ------ [...] CHEST 1995;108:231S-246S. Performed By: #### 5 7307, 86318 #### [facility] [address] [facility] Prothrombin time (PT) Coag time (PPP) 17.8 s High 12.3-14.8 The [facility] Comment on above: Order Comment: This order is a replacement of the rejected order with accession number [id number]. Result Comment: ALL RESULTS MUST BE INTERPRETED WITH RESPECT TO BLOOD DRAWING ARTIFACT OR DILUTION ERROR OF ANTICOAGULANT AT THE TIME OF SAMPLING. Performed By: #### 5 7370, 25637 #### [facility] [address] UFH HEPARIN ASSAYon 03-23-20 18 UNFRACTIONATED HEPARIN 0.66 IU/mL Normal 0.30-0.70 The [facility] Comment on above: Result Comment: Lily roxaban and Apixaban will interfere with the anti Xa assay used to monitor UFH and LMWH. Performed By: #### 5 7373, 26401 #### [facility] [address] UNFRACTIONATED HEPARIN 0.79 IU/mL High 0.30-0.70 The [facility] Comment on above: Result Comment: Lily roxaban and Apixaban will interfere with the anti Xa assay used to monitor UFH and LMWH. Performed By: #### 5 7395, 05858 #### [facility] [address] APTTon 03-22-2018 aPTT Coag time (Bld) 27.1 s Normal 25.0-35.0 The [facility] Comment on above: Order Comment: This order is a replacement of the rejected order with accession number [id number]. Result Comment: ALL RESULTS MUST BE INTERPRETED [...] THIS PURPOSE. Performed By: #### 5 7307, 14420 #### [facility] [address] BASIC METABOLIC PANELon 02-27 Calcium mass conc 7.6 mg/dL Low 8.6-10.3 [facility] Comment on above: Order Comment: This order is a replacement of the rejected order with accession number [id number]. Performed By: #### 5 7307, 16235 #### [facility] [address] Chloride molar conc 101 mmol/L Normal 98-107 [facility] Comment on above: Order Comment: This order is a replacement of the rejected order with accession number [id number]. Performed By: #### 5 7307, 75042 #### [facility] [address] CO2 molar conc 19 mmol/L Low 21-31 [facility] Comment on above: Order Comment: This order is a replacement of the rejected order with accession number [id number]. Performed By: #### 5 7307, 40089 #### [facility] [address] [place] [address], [facility] Creatinine mass conc 0.76 mg/dL Normal 0.60-1.20 The [facility] Comment on above: Order Comment: This order is a replacement of the rejected order with accession number [id number]. Performed By: #### 5 73, 88248 #### [facility] [address] [place] [address], [facility] GFR/1.73 sq M predicted among blacks MDRD vol rate/area (S/P/Bld) mL/min/{1.73_m2} Normal >60 The [facility] Comment on above: Order Comment: This order is a replacement of the rejected order with accession number [id number]. Result Comment: Calc ulation may not be valid for patients over 70 years Performed By: #### 5 73, 63414 #### [facility] [address] [place] [address], [facility] GFR/1.73 sq M predicted among non-blacks MDRD vol rate/area (S/P/Bld) mL/min/{1.73_m2} Normal >60 [facility] Comment on above: Order Comment: This order is a replacement of the rejected order with accession number [id number]. Result Comment: Calc ulation may not be valid for patients over 70 years Performed By: #### 5 7307, 83274 #### [facility] [address] [place] [address], [facility] Glucose mass conc 107 mg/dL High 70-100 The [facility] Comment on above: Order Comment: This order is a replacement of the rejected order with accession number [id number]. Performed By: #### 5 7307, 59454 #### [facility] [address] [place] [address], [facility] Potassium molar conc 4.4 mmol/L Normal 3.5-5.1 The [facility] Comment on above: Order Comment: This order is a replacement of the rejected order with accession number [id number]. Performed By: #### 5 7307, 34864 #### [facility] [address] [place] [address], [facility] Sodium molar conc 132 mmol/L Low 136-145 [facility] Comment on above: Order Comment: This order is a replacement of the rejected order with accession number [id number]. Performed By: #### 5 7307, 35001 #### [facility] [address] [place] [address], [facility] Urea nitrogen mass conc 11 mg/dL Normal 7-25 The [facility] Comment on above: Order Comment: This order is a replacement of the rejected order with accession number [id number]. Performed By: #### 5 73, 25563 #### [facility] [address] CBC COMPLETE BLOOD COUNTon 05-23-2017 Erythrocyte distribution width Ratio (RBC) 13.5 % Normal 11.5-15.0 [facility] Comment on above: Order Comment: This order is a replacement of the rejected order with accession number [id number]. Performed By: #### 5 73, 30820 #### [facility] [address] Hematocrit Volume Fraction (Bld) 35.4 % Low 36.0-45.0 [facility] Comment on above: Order Comment: This order is a replacement of the rejected order with accession number [id number]. Performed By: #### 5 7307, 21261 #### [facility] [address] Hemoglobin mass conc (Bld) 12.0 g/dL Normal 12.0-15.0 [facility] Comment on above: Order Comment: This order is a replacement of the rejected order with accession number [id number]. Performed By: #### 5 7307, 59624 #### [facility] [address] [place] [address], [facility] MCH Entitic mass (RBC) 33.4 pg High 27.0-33.0 The [facility] Comment on above: Order Comment: This order is a replacement of the rejected order with accession number [id number]. Performed By: #### 5 73, 05001 #### [facility] [address] MCHC mass conc (RBC) 33.9 g/dL Normal 32.0-35.0 [facility] Comment on above: Order Comment: This order is a replacement of the rejected order with accession number [id number]. Performed By: #### 5 73, 13746 #### [facility] 3000 [facility]. [address] MCV Entitic volume (RBC) 98.6 fL High 82.0-98.0 [facility] Comment on above: Order Comment: This order is a replacement of the rejected order with accession number [id number]. Performed By: #### 5 73, 86798 #### [facility] [address] Nucleated RBC/100 WBC Ratio (Bld) 0 % Normal 0-0 [facility] Comment on above: Order Comment: This order is a replacement of the rejected order with accession number [id number]. Performed By: #### 5 73, 24308 #### [facility] [address] PLAT CNT 203 10*3/uL Normal 150-400 [facility] Comment on above: Order Comment: This order is a replacement of the rejected order with accession number [id number]. Performed By: #### 5 73, 66852 #### [facility] 3000 [facility]. [address] RBC #/vol (Bld) 3.59 10*6/uL Low 3.80-5.00 [facility] Comment on above: Order Comment: This order is a replacement of the rejected order with accession number [id number]. Performed By: #### 5 73, 92800 #### [facility] [address] WBC #/vol (Bld) 10.63 10*3/uL High 4.00-10.60 [facility] Comment on above: Order Comment: This order is a replacement of the rejected order with accession number [id number]. Performed By: #### 5 7307, 10872 #### [facility] [address] [facility] [address] CBC W/DIFFon 03-22-2018 ABS BASOPHILS 0.1 10*3/uL Normal 0.0-0.2 [facility] Comment on above: Order Comment: This order is a replacement of the rejected order with accession number [id number]. Performed By: #### 5 7307, 21859 #### [facility] [address] ABS IMM GRANS 0.0 10*3/uL Normal 0.0-0.2 [facility] Comment on above: Order Comment: This order is a replacement of the rejected order with accession number [id number]. Performed By: #### 5 7307, 77626 #### [facility] [address] ABS NEUTROPHILS 7.6 10*3/uL Normal 1.6-7.6 The [facility] Comment on above: Order Comment: This order is a replacement of the rejected order with accession number [id number]. Performed By: #### 5 7307, 65014 #### [facility] 3000 [facility]. [address] Basophils #/vol (Bld) 1.0 % Normal 0.0-1.0 The [facility] Comment on above: Order Comment: This order is a replacement of the rejected order with accession number [id number]. Performed By: #### 5 7307, 49290 #### [facility] 3000 [facility]. [address] Eosinophils #/vol (Bld) 0.0 10*3/uL Normal 0.0-0.5 [facility] Comment on above: Order Comment: This order is a replacement of the rejected order with accession number [id number]. Performed By: #### 5 73, 14661 #### [facility] [address] Erythrocyte distribution width Ratio (RBC) 14.0 % Normal 11.5-15.0 [facility] Comment on above: Order Comment: This order is a replacement of the rejected order with accession number [id number]. Performed By: #### 5 73, 87402 #### [facility] [address] Hematocrit Volume Fraction (Bld) 35.1 % Low 36.0-45.0 [facility] Comment on above: Order Comment: This order is a replacement of the rejected order with accession number [id number]. Performed By: #### 5 73, 61960 #### [facility] [address] Hemoglobin mass conc (Bld) 11.5 g/dL Low 12.0-15.0 [facility] Comment on above: Order Comment: This order is a replacement of the rejected order with accession number [id number]. Performed By: #### 5 73, 61911 #### [facility] [address] IMM PLATELET FRAC 3.8 % Normal 0.8-6.3 [facility] Comment on above: Order Comment: This order is a replacement of the rejected order with accession number [id number]. Performed By: #### 5 7307, 68662 #### [facility] [address] Lymphocytes #/vol (Bld) 1.3 10*3/uL Normal 1.2-4.0 [facility] Comment on above: Order Comment: This order is a replacement of the rejected order with accession number [id number]. Performed By: #### 5 7306, 11696 #### [facility] [address] Lymphocytes/100 WBC (Bld) 13.0 % Low 20.0-45.0 [facility] Comment on above: Order Comment: This order is a replacement of the rejected order with accession number [id number]. Performed By: #### 5 7306, 84546 #### [facility] [address] [facility] MCH Entitic mass (RBC) 33.7 pg High 27.0-33.0 The [facility] Comment on above: Order Comment: This order is a replacement of the rejected order with accession number [id number]. Performed By: #### 5 7306, 09960 #### [facility] [address] MCHC mass conc (RBC) 32.8 g/dL Normal 32.0-35.0 The [facility] Comment on above: Order Comment: This order is a replacement of the rejected order with accession number [id number]. Performed By: #### 5 7306, 59468 #### [facility] [address] [facility] MCV Entitic volume (RBC) 102.9 fL High 82.0-98.0 [facility] Comment on above: Order Comment: This order is a replacement of the rejected order with accession number [id number]. Performed By: #### 5 7306, 04590 #### [facility] [address] Monocytes #/vol (Bld) 0.7 10*3/uL Normal 0.1-1.0 [facility] Comment on above: Order Comment: This order is a replacement of the rejected order with accession number [id number]. Performed By: #### 5 73, 62709 #### [facility] [address] [facility] [place] [address], [facility] MONOS 7.0 % Normal 5.0-12.0 The [facility] Comment on above: Order Comment: This order is a replacement of the rejected order with accession number [id number]. Performed By: #### 5 7307, 39770 #### [facility] [address] [place] [address], [facility] Neutrophils/100 WBC (Bld) 79.0 % High 40.0-72.0 The [facility] Comment on above: Order Comment: This order is a replacement of the rejected order with accession number [id number]. Performed By: #### 5 73, 34136 #### [facility] 3000 [facility]. [address] [address] OTHER 1 Normal red cell morphology seen Normal The [facility] Comment on above: Order Comment: This order is a replacement of the rejected order with accession number [id number]. Performed By: #### 5 73, 78811 #### [facility] [address] [facility]. [address] PLAT CNT 186 10*3/uL Normal 150-400 [facility] Comment on above: Order Comment: This order is a replacement of the rejected order with accession number [id number]. Performed By: #### 5 7307, 96311 #### [facility] [address] [facility] [place] [address], [facility] RBC #/vol (Bld) 3.41 10*6/uL Low 3.80-5.00 The [facility] Comment on above: Order Comment: This order is a replacement of the rejected order with accession number [id number]. Performed By: #### 5 7307, 60386 #### [facility] [address] [place] [address], [facility] WBC #/vol (Bld) 9.65 10*3/uL Normal 4.00-10.60 [facility] Comment on above: Order Comment: This order is a replacement of the rejected order with accession number [id number]. Performed By: #### 5 7307, 17560 #### [facility] [address] MAGNESIUM BLOODon 03-22-2018 Magnesium mass conc 1.9 mg/dL Normal 1.9-2.7 [facility] Comment on above: Order Comment: This order is a replacement of the rejected order with accession number [id number]. Performed By: #### 5 7307, 06310 #### [facility] [address] POC GLUCOSE LABon 03-22-2018 Glucose mass conc 143 mg/dL High 70-100 [facility] Comment on above: Performed By: #### 5 7307, 87143 #### [facility] [address] PROTHROMBIN TIMEon 8 INR Coag RelTime (PPP) 1.58 {INR} High 0.91-1.16 [facility] Comment on above: Order Comment: This order is a replacement of the rejected order with accession number [id number]. Result Comment: [facility] P RECOMMENDED INR FOR [...] CHEST 1995;108:231S-246S. Performed By: #### 5 7307, 90458 #### [facility] [address] Prothrombin time (PT) Coag time (PPP) 18.9 s High 12.3-14.8 The [facility] Comment on above: Order Comment: This order is a replacement of the rejected order with accession number [id number]. Result Comment: ALL RESULTS MUST BE INTERPRETED WITH RESPECT TO BLOOD DRAWING ARTIFACT OR DILUTION ERROR OF ANTICOAGULANT AT THE TIME OF SAMPLING. Performed By: #### 5 7307, 20001 #### [facility] [address] [facility] [address] INR Coag RelTime (PPP) 1.75 {INR} High 0.91-1.16 [facility] Comment on above: Order Comment: This order is a replacement of the rejected order with accession number [id number]. Result Comment: [facility] P RECOMMENDED INR FOR [...] CHEST 1995;108:231S-246S. Performed By: #### 5 7307, 25131 #### [facility] [address] Prothrombin time (PT) Coag time (PPP) 20.5 s High 12.3-14.8 [facility] Comment on above: Order Comment: This order is a replacement of the rejected order with accession number [id number]. Result Comment: ALL RESULTS MUST BE INTERPRETED WITH RESPECT TO BLOOD DRAWING ARTIFACT OR DILUTION ERROR OF ANTICOAGULANT AT THE TIME OF SAMPLING. Performed By: #### 5 7307, 87104 #### [facility] [address] UFH HEPARIN ASSAYon 03-22-20 UNFRACTIONATED HEPARIN 0.53 IU/mL Normal 0.30-0.70 [facility] Comment on above: Result Comment: [place] roxaban and Apixaban will interfere with the anti Xa assay used to monitor UFH and LMWH. Performed By: #### 5 7307, 39841 #### [address] BASIC METABOLIC PANELon 12-2 Calcium mass conc 8.1 mg/dL Low 8.6-10.3 [facility] Comment on above: Order Comment: This order is a replacement of the rejected order with accession number [id number]. Performed By: #### 5 7307, 96707 #### [facility] [address] Chloride molar conc 102 mmol/L Normal 98-107 [facility] Comment on above: Order Comment: This order is a replacement of the rejected order with accession number [id number]. Performed By: #### 5 7307, 91488 #### [facility] [address] CO2 molar conc 26 mmol/L Normal 21-31 The [facility] Comment on above: Order Comment: This order is a replacement of the rejected order with accession number [id number]. Performed By: #### 5 7307, 27936 #### [facility] [address] [place] [address], [facility] Creatinine mass conc 0.72 mg/dL Normal 0.60-1.20 [facility] Comment on above: Order Comment: This order is a replacement of the rejected order with accession number [id number]. Performed By: #### 5 7307, 08788 #### [facility] [address] [place] [address], [facility] GFR/1.73 sq M predicted among blacks MDRD vol rate/area (S/P/Bld) mL/min/{1.73_m2} Normal >60 The [facility] Comment on above: Order Comment: This order is a replacement of the rejected order with accession number [id number]. Result Comment: Calc ulation may not be valid for patients over 70 years Performed By: #### 5 7307, 33016 #### [facility] [address] [facility] [place] [place] [address], [facility] GFR/1.73 sq M predicted among non-blacks MDRD vol rate/area (S/P/Bld) mL/min/{1.73_m2} Normal >60 [facility] Comment on above: Order Comment: This order is a replacement of the rejected order with accession number [id number]. Result Comment: Calc ulation may not be valid for patients over 70 years Performed By: #### 5 7307, 60548 #### [facility] [address] [place] [address], [facility] Glucose mass conc 103 mg/dL High 70-100 [facility] Comment on above: Order Comment: This order is a replacement of the rejected order with accession number [id number]. Performed By: #### 5 7307, 99440 #### [facility] [address] [place] [address], [facility] Potassium molar conc 3.3 mmol/L Low 3.5-5.1 [facility] Comment on above: Order Comment: This order is a replacement of the rejected order with accession number [id number]. Performed By: #### 5 7307, 82979 #### [facility] [address] [facility]. [address] Sodium molar conc 135 mmol/L Low 136-145 [facility] Comment on above: Order Comment: This order is a replacement of the rejected order with accession number [id number]. Performed By: #### 5 7307, 95265 #### [facility] [address] [facility]. [address] Urea nitrogen mass conc 13 mg/dL Normal 7-25 [facility] Comment on above: Order Comment: This order is a replacement of the rejected order with accession number [id number]. Performed By: #### 5 7307, 39361 #### [facility] [address] CBC W/DIFFon 03-21-2018 ABS BASOPHILS 0.0 10*3/uL Normal 0.0-0.2 [facility] Comment on above: Order Comment: No: D o not add to previous draw Performed By: #### 5 0103 #### [facility] [address] ABS IMM GRANS 0.0 10*3/uL Normal 0.0-0.2 [facility] Comment on above: Order Comment: No: D o not add to previous draw Performed By: #### 5 0103 #### [facility] [address] [facility]. [address] ABS NEUTROPHILS 5.5 10*3/uL Normal 1.6-7.6 The [facility] Comment on above: Order Comment: No: D o not add to previous draw Performed By: #### 5 0103 #### [facility] [address] Basophils #/vol (Bld) 0.4 % Normal 0.0-1.0 [facility] Comment on above: Order Comment: No: D o not add to previous draw Performed By: #### 5 0103 #### [facility] [address] [place] [address], [facility] Eosinophils #/vol (Bld) 0.0 10*3/uL Normal 0.0-0.5 [facility] Comment on above: Order Comment: No: D o not add to previous draw Performed By: #### 5 0103 #### [facility] [address] [facility] [address], [facility] Eosinophils/100 WBC (Bld) 0.3 % Normal 0.0-6.0 [facility] Comment on above: Order Comment: No: D o not add to previous draw Performed By: #### 5 0103 #### [facility] [address] [facility] [address] Erythrocyte distribution width Ratio (RBC) 13.4 % Normal 11.5-15.0 [facility] Comment on above: Order Comment: No: D o not add to previous draw Performed By: #### 5 0103 #### [facility] [address] [place] [address], [facility] Hematocrit Volume Fraction (Bld) 35.5 % Low 36.0-45.0 [facility] Comment on above: Order Comment: No: D o not add to previous draw Performed By: #### 5 0103 #### [facility] [address] [facility] [place] [address], [facility] Hemoglobin mass conc (Bld) 12.0 g/dL Normal 12.0-15.0 [facility] Comment on above: Order Comment: No: D o not add to previous draw Performed By: #### 5 0103 #### [facility] [address] [place] [address], [facility] IMMATURE GRANS 0.3 % Normal 0.0-1.0 [facility] Comment on above: Order Comment: No: D o not add to previous draw Performed By: #### 5 0103 #### [facility] [address] [place] [address], [facility] Lymphocytes #/vol (Bld) 2.3 10*3/uL Normal 1.2-4.0 [facility] Comment on above: Order Comment: No: D o not add to previous draw Performed By: #### 5 0103 #### [facility] [address] [place] [address], [facility] Lymphocytes/100 WBC (Bld) 25.4 % Normal 20.0-45.0 [facility] Comment on above: Order Comment: No: D o not add to previous draw Performed By: #### 5 0103 #### [facility] [address] [place] [address], [facility] MCH Entitic mass (RBC) 33.1 pg High 27.0-33.0 [facility] Comment on above: Order Comment: No: D o not add to previous draw Performed By: #### 5 0103 #### [facility] [address] [facility] [place] [address], [facility] MCHC mass conc (RBC) 33.8 g/dL Normal 32.0-35.0 [facility] Comment on above: Order Comment: No: D o not add to previous draw Performed By: #### 3 #### [facility] [address] [facility] [place] [address], [facility] MCV Entitic volume (RBC) 97.8 fL Normal 82.0-98.0 [facility] Comment on above: Order Comment: No: D o not add to previous draw Performed By: #### 5 0103 #### [facility] [address] [facility] [place] [address], [facility] Monocytes #/vol (Bld) 1.2 10*3/uL High 0.1-1.0 [facility] Comment on above: Order Comment: No: D o not add to previous draw Performed By: #### 5 3 #### [facility] [address] [place] [address], [facility] MONOS 13.0 % High 5.0-12.0 [facility] Comment on above: Order Comment: No: D o not add to previous draw Performed By: #### 5 0103 #### [facility] [address] [place] [address], [facility] Neutrophils/100 WBC (Bld) 60.6 % Normal 40.0-72.0 [facility] Comment on above: Order Comment: No: D o not add to previous draw Performed By: #### 5 0103 #### [facility] [address] [place] [address], [facility] Nucleated RBC/100 WBC Ratio (Bld) 0 % Normal 0-0 [facility] Comment on above: Order Comment: No: D o not add to previous draw Performed By: #### 5 0103 #### [facility] [address] [place] [id number], [facility] PLAT CNT 198 10*3/uL Normal 150-400 [facility] Comment on above: Order Comment: No: D o not add to previous draw Performed By: #### 5 0103 #### [facility] [address] [place] [address], [facility] RBC #/vol (Bld) 3.63 10*6/uL Low 3.80-5.00 [facility] Comment on above: Order Comment: No: D o not add to previous draw Performed By: #### 5 0103 #### [facility] [address] [place] [address], [facility] WBC #/vol (Bld) 9.10 10*3/uL Normal 4.00-10.60 [facility] Comment on above: Order Comment: No: D o not add to previous draw Performed By: #### 5 0103 #### [facility] [address] MAGNESIUM BLOODon 03-21-2018 Magnesium mass conc 1.6 mg/dL Low 1.9-2.7 The [facility] Comment on above: Order Comment: This order is a replacement of the rejected order with accession number [id number]. Performed By: #### 5 7307, 98250 #### [facility] [address] PHOSPHORUS BLOODon 8 Phosphate mass conc 2.8 mg/dL Normal 2.5-5.0 [facility] Comment on above: Order Comment: This order is a replacement of the rejected order with accession number [id number]. Performed By: #### 5 7307, 76486 #### [facility] [address] PROTHROMBIN TIMEon 8 INR Coag RelTime (PPP) 2.32 {INR} High 0.91-1.16 [facility] Comment on above: Order Comment: This order is a replacement of the rejected order with accession number [id number]. Result Comment: [facility] P RECOMMENDED INR FOR [...] CHEST 1995;108:231S-246S. Performed By: #### 5 7307, 05971 #### [facility] [address] Prothrombin time (PT) Coag time (PPP) 25.6 s High 12.3-14.8 [facility] Comment on above: Order Comment: This order is a replacement of the rejected order with accession number [id number]. Result Comment: ALL RESULTS MUST BE INTERPRETED WITH RESPECT TO BLOOD DRAWING ARTIFACT OR DILUTION ERROR OF ANTICOAGULANT AT THE TIME OF SAMPLING. Performed By: #### 5 7307, 15225 #### [facility] [address] [facility] [address] TSH3 WITH REFLEXon 8 T4 free mass conc 1.18 ng/dL Normal 0.71-1.85 [facility] Comment on above: Performed By: #### 5 7307, 77129 #### [facility] [address] [facility]. [address] TSH 3RD GENERATION 4.90 uIU/mL Normal 0.34-5.60 [facility] Comment on above: Performed By: #### 5 7307, 86432 #### [facility] [address] [facility] [address] UFH HEPARIN ASSAYon 03-21-20 18 UNFRACTIONATED HEPARIN 0.29 IU/mL Low 0.30-0.70 [facility] Comment on above: Result Comment: [place] roxaban and Apixaban will interfere with the anti Xa assay used to monitor UFH and LMWH. Performed By: #### 3 0477 #### [facility] [address] APTTon 03-20-2018 aPTT Coag time (Bld) 28.7 s Normal 25.0-35.0 [facility] Comment on above: Order Comment: This order is a replacement of the rejected order with accession number [id number]. Result Comment: ALL RESULTS MUST BE INTERPRETED [...] THIS PURPOSE. Performed By: #### 5 7307, 79146 #### [facility] [address] BASIC METABOLIC PANELon 12-2 Calcium mass conc 8.4 mg/dL Low 8.6-10.3 [facility] Comment on above: Order Comment: This order is a replacement of the rejected order with accession number [id number]. Performed By: #### 0 0071, 70247, 03184 #### [facility] [address] [place] [address], [facility] Chloride molar conc 100 mmol/L Normal 98-107 [facility] Comment on above: Order Comment: This order is a replacement of the rejected order with accession number [id number]. Performed By: #### 0 0071, 43863, 92803 #### [facility] [address] [facility] [place] [address], [facility] CO2 molar conc 26 mmol/L Normal 21-31 [facility] Comment on above: Order Comment: This order is a replacement of the rejected order with accession number [id number]. Performed By: #### 0 0071, 47485, 76555 #### [facility] [address] [place] [address], [facility] Creatinine mass conc 0.87 mg/dL Normal 0.60-1.20 [facility] Comment on above: Order Comment: This order is a replacement of the rejected order with accession number [id number]. Performed By: #### 0 0071, 58343, 01032 #### [facility] [address] [place] [address], [facility] GFR/1.73 sq M predicted among blacks MDRD vol rate/area (S/P/Bld) mL/min/{1.73_m2} Normal >60 [facility] Comment on above: Order Comment: This order is a replacement of the rejected order with accession number [id number]. Result Comment: Calc ulation may not be valid for patients over 70 years Performed By: #### 0 0071, 83578, 32892 #### [facility] [address] [place] [address], [facility] GFR/1.73 sq M predicted among non-blacks MDRD vol rate/area (S/P/Bld) mL/min/{1.73_m2} Normal >60 [facility] Comment on above: Order Comment: This order is a replacement of the rejected order with accession number [id number]. Result Comment: Calc ulation may not be valid for patients over 70 years Performed By: #### 0 0071, 65618, 36432 #### [facility] [address] [facility]. [address] Glucose mass conc 113 mg/dL High 70-100 [facility] Comment on above: Order Comment: This order is a replacement of the rejected order with accession number [id number]. Performed By: #### 0 0071, 97282, 58018 #### [facility] [address] [place] [address], [facility] Potassium molar conc 3.1 mmol/L Low 3.5-5.1 [facility] Comment on above: Order Comment: This order is a replacement of the rejected order with accession number [id number]. Performed By: #### 0 0071, 80010, 48346 #### [facility] [address] [facility] [place] [address], [facility] Sodium molar conc 137 mmol/L Normal 136-145 [facility] Comment on above: Order Comment: This order is a replacement of the rejected order with accession number [id number]. Performed By: #### 0 0071, 13000, 42202 #### [facility] [address] Urea nitrogen mass conc 16 mg/dL Normal 7-25 [facility] Comment on above: Order Comment: This order is a replacement of the rejected order with accession number [id number]. Performed By: #### 0 0071, 35887, 70265 #### [facility] [address] [facility] [address] CBC COMPLETE BLOOD COUNTon 05-21-2017 Erythrocyte distribution width Ratio (RBC) 13.5 % Normal 11.5-15.0 [facility] Comment on above: Performed By: #### 5 0608 #### [facility] [address] [facility]. [address] Hematocrit Volume Fraction (Bld) 41.0 % Normal 36.0-45.0 [facility] Comment on above: Performed By: #### 5 0608 #### [facility] [address] [facility]. [address] Hemoglobin mass conc (Bld) 13.8 g/dL Normal 12.0-15.0 [facility] Comment on above: Performed By: #### 5 0608 #### [facility] [address] [facility] [place] [address], [facility] MCH Entitic mass (RBC) 32.9 pg Normal 27.0-33.0 [facility] Comment on above: Performed By: #### 5 0608 #### [facility] [address] [facility] [address] MCHC mass conc (RBC) 33.7 g/dL Normal 32.0-35.0 [facility] Comment on above: Performed By: #### 5 0608 #### [facility] [address] MCV Entitic volume (RBC) 97.6 fL Normal 82.0-98.0 [facility] Comment on above: Performed By: #### 5 0608 #### [facility] [address] [facility]. [address] Nucleated RBC/100 WBC Ratio (Bld) 0 % Normal 0-0 [facility] Comment on above: Performed By: #### 5 0608 #### [facility] [address] [facility] [place] [address], [facility] PLAT CNT 235 10*3/uL Normal 150-400 [facility] Comment on above: Performed By: #### 5 0608 #### [facility] [address] [facility]. [address] RBC #/vol (Bld) 4.20 10*6/uL Normal 3.80-5.00 [facility] Comment on above: Performed By: #### 5 0608 #### [facility] [address] [facility]. [address] WBC #/vol (Bld) 8.52 10*3/uL Normal 4.00-10.60 [facility] Comment on above: Performed By: #### 5 0608 #### [facility] [address] History and Physicalon 03-20 History and Physical MR#: [id number] [facility] Pt. Name: Isaac Toure Admitted: 03/20/2018 Date of : 1940 Attending Physician: Martin Marin MD Room #: 6AB [id number] Discharge Date: HISTORY AND PHYSICAL HISTORY OF PRESENT ILLNESS: The patient is a 77-year-old female. The patient is a poor historian, has hard time difficulty hearing. Past medical history is significant for hypertension; atrial flutter, for that the patient is on Coumadin; history of multiple stroke in the past; hypothyroidism; hyperlipidemia; presented to ED after a fall. The patient initially went to [facility] for left femur fracture today. The [...] Disposition. Pending clinical course. Electronically Signed by: Maritn Marin MD 03/24/2018 11:11 P Martin Marin MD Date Dict: 03/20/2018/04:57 P/Martin Marin MD Date Trans: 03/20/2018 06:03 P/denise [id number] Normal [facility] PROTHROMBIN TIMEon 8 INR Coag RelTime (PPP) 1.91 {INR} High 0.91-1.16 [facility] Comment on above: Order Comment: This order is a replacement of the rejected order with accession number [id number]. Result Comment: [facility] P RECOMMENDED INR FOR WARFARIN THERAPY ------ [...] CHEST 1995;108:231S-246S. Performed By: #### 5 [id number], [id number] #### [facility] [address] [employer] Prothrombin time (PT) Coag time (PPP) 22.0 s High 12.3-14.8 [facility] Comment on above: Order Comment: This order is a replacement of the rejected order with accession number [id number]. Result Comment: ALL RESULTS MUST BE INTERPRETED WITH RESPECT TO BLOOD DRAWING ARTIFACT OR DILUTION ERROR OF ANTICOAGULANT AT THE TIME OF SAMPLING. Performed By: #### 5 [id number], [id number] #### [facility] [address] RBC'S 2 UNITSon 03-20-2018 CROSSMATCH INTERP 1 COMP Normal The U [facility] Comment on above: Performed By: #### [id number] #### [facility] [address] [facility] [place] [address], [facility] CROSSMATCH INTERP 2 COMP Normal [facility] Comment on above: Performed By: #### 8 [id number] #### [facility] [address] [place] [address], [place] Protein mass conc 336 g/dL Normal The Uni [facility] Comment on above: Performed By: #### 8 [id number] #### [facility] [address] [place] [address], [facility] Protein mass conc RE Normal The [facility] Comment on above: Result Comment: Resu lt changed by IF on 03/24/2018 06:42. The previous value was XM. Performed By: #### 8 [id number] #### [facility] [address] [place] [address], [facility] UNIT ABO 1 A Normal The [facility] Comment on above: Performed By: #### 8 [id number] #### [facility] [address] [place] [address], [facility] UNIT ABO 2 A Normal The [facility] Comment on above: Performed By: #### 8 [id number] #### [facility] [address] [place] [address], [facility] UNIT ID 1 [id number] Normal The [facility] Comment on above: Performed By: #### 8 [id number] #### [facility] [address] [place] [address], [facility] UNIT ID 2 [id number] Normal The Unive [facility] Comment on above: Performed By: #### 8 [id number] #### [facility] [address] [place] [address], [place] UNIT RH 1 Positive Normal The [facility] Comment on above: Performed By: #### 8 [id number] #### [facility] [address] UNIT RH 2 Positive Normal The [facility] Comment on above: Performed By: #### 8 [id number] #### [facility] [address] TROPONIN-Ion 03-20-2018 Troponin I.cardiac mass conc 0.01 ng/mL Normal 0.00-0.04 The [facility] Comment on above: Result Comment: REFE RENCE RANGES: 0.00 - 0.04 ng/ml NORMAL 0.05 - 0.50 ng/ml INDETERMINATE > 0.50 ng/ml CONSISTENT WITH AN M.I. Performed By: #### 0 0071, [id number], [id number] #### [facility] [address] TSH3 WITH REFLEXon 8 T4 free mass conc 1.38 ng/dL Normal 0.71-1.85 The [facility] Comment on above: Performed By: #### 0 0071, [id number], [id number] #### [facility] [address] [facility]. [address] TSH 3RD GENERATION 3.20 uIU/mL Normal 0.34-5.60 The [facility] Comment on above: Performed By: #### 0 0071, 17352, [id number] #### [facility] [address] [facility]. [address] TYPE AND SCREENon 03-20-2018 ABO INTERPRETATION A Normal The [facility] Comment on above: Order Comment: This order is a replacement of the rejected order with accession number [id number]. Performed By: #### 6 [id number] #### [facility] [address] [facility] [place] [address], [facility] RH INTERPRETATION Positive Normal The [facility] Comment on above: Order Comment: This order is a replacement of the rejected order with accession number [id number]. Performed By: #### 6 [id number] #### [facility] [address] Vital Signs Date Time Vital Sign Value Performing Clinician Faci lity 05-05-2023 10:22-0500 Body height 152.4 cm Bernardo Almonte MD Work Phone: [facility] 05-05-2023 10:22-0500 Body mass index (BMI) [Ratio] 43.16 kg/m2 Bernardo Almonte MD Work Phone: [facility] 05-05-2023 10:22-0500 Body weight 100.25 kg Bernardo Almonte MD Work Phone: [facility] 05-05-2023 10:22-0500 Diastolic blood pressure 82 mm[Hg] Bernardo Almonte MD Work Phone: [facility] 05-05-2023 10:22-0500 Heart rate 67 /min Bernardo Almonte MD Work Phone: [facility] 05-05-2023 10:22-0500 SaO2% (BldA) [Mass fraction] 97 % Bernardo Almonte MD Work Phone: [facility] 05-05-2023 10:22-0500 Systolic blood pressure 138 mm[Hg] Bernardo Almonte MD Work Phone: [facility] Encounters Encounter Date Encounter Type Care Provider Facility Start: 05-13-2023 Refill Bernardo Almonte MD Work Phone: [facility] Comment on above: 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 Start: 05-05-2023 Bamboo flowsheet Bernardo calzada MD Work Phone: [facility] Start: 05-05-2023 Bamboo flowsheet Bernardo calzada MD Work Phone: [facility] Start: 05-05-2023 End: 05-05-2023 ambulatory BERNARDO ALMONTE Not Available Start: 05-05-2023 End: 05-05-2023 Office outpatient visit 25 minutes Bernardo Almonte MD Work Phone: [facility] Comment on above: Lymphedema of right arm (Primary Dx); Trapezius muscle spasm; Longstanding persistent atrial fibrillation (CMS/HCC) Start: 05-04-2023 End: 05-04-2023 ambulatory [facility] Start: 04-28-2023 End: 04-28-2023 ambulatory CAROLYN ADKINS Not Available Start: 02-17-2023 End: 02-17-2023 ambulatory BERNARDO ALMONTE Not Available Start: 02-10-2023 End: 02-10-2023 ambulatory CHAVO Hernandez ANNETTE Not Available Start: 08-18-2022 End: 08-18-2022 ambulatory BENNY [facility] Start: 07-21-2022 End: 07-21-2022 ambulatory HALIMA [facility] Start: 01-30-2022 End: 01-31-[address] BERNARDO ALMONTE Facility:[facility] Start: 12-17-2021 End: 12-18-[address] SIVAKUMAR HUERTAS Facility:[facility] Start: 12-12-2021 End: 12-13-2021 ambulatory BETTIE SHOEMAKER Facility:[facility] Start: 12-04-2021 End: 12-05-[address] SIVAKUMAR HUERTAS Facility:[facility] Start: 07-04-[address] BERNARDO ALMONTE Facilit y:[facility]1 Start: 06-16-2021 End: 06-17-2021 ambulatory JULIANA TITUS Facility:[facility] Start: 06-06-2021 End: 06-07-2021 ambulatory JULIANA TITUS Facility:[facility] Start: 05-07-2021 End: 05-08-2021 ambulatory JULIANA TITUS Facility:[facility] Start: 04-11-2021 End: 04-12-2021 ambulatory JULIANA TITUS Facility:[facility] Start: 04-01-2021 End: 04-02-2021 ambulatory JULIANA TITUS Facility:[facility] Start: 06-22-2018 End: 06-23-2018 Patient encounter procedure ABAD JOHNS Facility:[facility] Start: 05-11-2018 End: 05-12-2018 Patient encounter procedure ABAD JOHNS Facility:[facility] Start: 03-20-2018 End: 03-30-2018 Evaluation and management of inpatient REFERRED SELF Facility:[facility] Start: 07-20-2016 End: 07-20-2016 Refill Geovanny Fisher) Yeny Work Phone: Cardiology Comment on above: Refill Request Procedures Date Procedure Procedure Detail Performing Clinician Start: 03-23-2018 REPOSITION L FEMUR SHAFT WITH INTRAMED FIX, PERC APPROACH ABAD JOHNS Start: 03-20-2018 Antibody screen REFERRE D SELF Comment on above: Order Comment: This order is a replacement of the rejected order with accession number [id number]. Performed By: #### 6 [id number] #### [place] [address] [place], [place] [address] Start: 05-31-2015 H/O: hysterectomy History of hystere ctomy Bernardo Almonte MD Work Phone: Plan of Treatment Date Care Activity Detail Author Start: 08-14-2023 Medicare Annual Well ness (AWV) Medicare Annual Wellness (AWV) [facility] Start: 08-04-2023 End: 08-04-2023 Patient encounter procedure 08/04/2023 10:30 AM EDT Office Visit [facility] [address] [facility] [address] [place] [address] Bernardo Almonte MD [address] [facility] [address] [place] [address] [facility] Start: 07-22-2023 End: 07-22-2023 Patient encounter procedure 07/22/2023 1:30 PM EDT Office Visit [facility] [address] [facility] [address] [place] [address] Bernardo Almonte MD [address] [facility] [address] [place] [address] [facility] Start: 11-27-2020 Influenza vaccination INFLUENZA (Sea son Ended) [facility] Start: 2006 ADVANCE DIRECTIVE DISCUSSION ADVANCE DIRECTIVE DISCUSSION [facility] Start: 2006 BONE DENSITY BONE DENSITY [facility] Start: 2006 PNEUMOVAX AGE 65 AND OVER WITH 5YR LOOKBACK (#1) PNEUMOVAX AGE 65 AND OVER WITH 5YR LOOKBACK (#1) [facility] Start: 10-21-1991 Screening for malign ant neoplasm of colon [facility] Start: 10-21-1991 SHINGRIX VACCINE (1 of 2) SHINGRIX V ACCINE (1 of 2) [facility] Start: 1986 DIABETES SCREEN DIABETES SCREEN [facility] Start: 1960 Urine microalbumin profile DTAP,TDAP,TD (1 - Tdap) [facility] Start: 10-21-1959 HEPATITIS C SCREENING HEPATITIS C SC REENING [facility] Start: 1953 Adult depression screening assessment DEPRESSION SCREENING [facility] Immunizations Immunization Date Immunization Notes Care Provider Fa cility 12-12-2022 Influenza, Seasonal, Quadrivalent, Adjuvanted Bernardo Almonte MD Work Phone: [facility] 08-17-2022 tetanus toxoid, redu inderjit diphtheria toxoid, and acellular pertussis vaccine, adsorbed Bernardo Almonte MD Work Phone: [facility] 08-13-2022 Pneumococcal Conjuga te PCV 20 Bernardo Almonte MD Work Phone: [facility] 06-10-2022 zoster vaccine recombinant D aleida Almonte MD Work Phone: [facility] 01-05-[address] 12 Years And Older Bernardo Almonte MD Work Phone: [facility] 01-02-2022 Influenza, High-dose Seasonal, Quadrivalent, Preservative Free Bernardo Almonte MD Work Phone: [facility] 01-06-2021 Influenza, High-dose Seasonal, Quadrivalent, Preservative Free Bernardo Almonte MD Work Phone: [facility] 12-20-2019 influenza, high dose seasonal, preservative-free Bernardo Almonte MD Work Phone: [facility] 02-01-2019 influenza, injectabl e, madin emmie canine kidney, preservative free Bernardo Almonte MD Work Phone: [facility] 12-27-2017 influenza, high dose seasonal, preservative-free Bernardo Almonte MD Work Phone: [facility] 12-24-2016 Influenza, High-dose Seasonal, Quadrivalent, Preservative Free eBrnardo Almonte MD Work Phone: [facility] 01-23-2016 pneumococcal conjuga te vaccine, 13 valent Bernardo Almonte MD Work Phone: [facility] 12-11-2015 influenza, injectabl e, quadrivalent, contains preservative Bernardo lAmonte MD Work Phone: [facility] 12-18-2014 seasonal influenza, intradermal, preservative free Bernardo Almonte MD Work Phone: [facility] 05-31-2014 zoster vaccine, live Bernardo Almonte MD Work Phone: [facility] 05-28-2014 pneumococcal polysaccharide vaccine, 23 valent Bernardo Almonte MD Work Phone: [facility] 12-21-2012 seasonal influenza, intradermal, preservative free Bernardo Almonte MD Work Phone: [facility] Payers Date Payer Category Payer Medicare [employer] MEDICARE ADVANTAGE [facility] MEDICARE ADVANTAGE [id number] 2021-Present [address] [place] [address] [id number] 2014 Medicaid MEDICAID [facility] MEDICAID [id number] 2014-Present Medicaid [id number] 2008 Unknown [id number] 2001 Medicare MEDICARE MEDICAR E A AND B [id number] 2001-Present [place], [place] Medicare [id number] 1959 Self-pay [id number] 1959 Unknown [id number] 1941 Unknown [id number] 1941 Unknown [id number] [id number] 1941 Unknown [id number] 2.16.840.1.058319.3.579.2.647 1941 Unknown [id number] [id number] 1941 Unknown [id number] 2.16.840.1.653364.3.579.2.593 1941 Unknown [id number] 2.16.840.1.760169.3.579.2.593 1941 Unknown [id number] 2.16.840.1.552647.3.579.2.593 1941 Unknown [id number] 2.16.840.1.699311.3.579.2.593 1941 Unknown [id number] 2.16.840.1.938504.3.579.2.593 1941 Unknown [id number] 2.16.840.1.105686.3.579.2.593 1941 Unknown [id number] 2.16.840.1.076431.3.579.2.593 1941 Unknown [id number] 2.16.840.1.814234.3.579.2.593 1941 Unknown [id number] 2.16.840.1.334269.3.579.2.593 1941 Unknown [id number] 2.16.840.1.008241.3.579.2.125 9 1941 Unknown [id number] 2.16.840.1.299389.3.579.2.125 9 1941 Unknown [id number] 2.16.840.1.524188.3.579.2.125 9 1941 Unknown [id number] [id number] 9 Medicare [id number] Social History Date Type Detail Facility Start: 08-29-2015 [facility]oker [facility] End: 03-29-1998 History of tobacco use Current smoker [facility] End: 03-29-1998 History of tobacco use Cigarette Smoker [facility] Start: 08-29-2015 End: 05-05-2023 Cigarettes smoked current (pack per day) - Reported [facility] Start: 08-29-2015 Alcohol intake Current non-dr [employer] adventure [employer] of alcohol (finding) [facility] Start: 1940 Sex Assigned At Not on file [facility] Start: 09-08-2022 Tobacco smoking stat [facility] Never smoked tobacco [facility] Start: 09-08-2022 Tobacco use and exposure Smoke less tobacco non-user [facility] Start: 04-28-2023 End: 05-05-2023 Alcohol intake Lifetime non-drinker (finding) [facility] Start: 04-28-2023 End: 05-05-2023 Tobacco use panel [facility] Start: 02-10-2023 Alcohol Comment caffeine: yes, coffee; soda [facility] Clinical Notes 12-04-2021 to 05-05-2023 Bernardo Almonte MD - 05/05/2023 10:15 AM EST Note Date & Type Note Facility 05-05-2023 History of Present illness Narrative HPI Follow-up Additional comments: Appt with cardiology yesterday they advised pt she could stop the coumadin and switch to eliquis pt ? If that is what she should do Last edited by Bridget Reyes LPN on 05/05/2023 10:27 AM. Subjective Patient ID: Isaac Toure is a 82 y.o. female who presents for Follow-up (Appt with cardiology yesterday they advised pt she could stop the coumadin and switch to eliquis pt ? If that is what she should do) and Arm Pain. Atrial Fibrillation Patient is a 81 y.o. female who presents for follow-up of atrial fibrillation. Symptoms include none currently. Onset was years ago, and have been controlled since that time. Associated symptoms include: none. The patient denies rapid heart beat. The patient has a past history of atrial fibrillation. Pt has had ongoing issue with right arm pain and swelling she had us previously that was negative Current Outpatient Medications on File Prior to Visit Medication Sig Dispense Refill alendronate (Fosamax) 70 MG tablet Take 1 tablet (70 mg) by mouth every 7 (seven) days. With plain water 30 minutes prior to first food, drink or medicine 12 tablet 3 ALPRAZolam (Xanax) 0.5 MG tablet Take 1 tablet by mouth 3 (three) times a day as needed for anxiety or sleep. amLODIPine (Norvasc) 10 MG tablet TAKE 1 TABLET BY MOUTH EVERY DAY FOR 90 DAYS 90 tablet 3 aspirin (Aspirin Adult Low Strength) 81 MG EC tablet Take 1 tablet by mouth in the morning. atorvastatin (Lipitor) 20 MG tablet TAKE 1 TABLET BY MOUTH EVERY DAY 90 tablet 3 bimatoprost (Lumigan) 0.03 % ophthalmic solution Administer 1 drop into both eyes at bedtime. 5 mL 11 BIOTIN PO Take 1 tablet by mouth 1 (one) time each day. Bbrovou-Gixsxpzlmqk-Wombzmjaik (Breztri Aerosphere) 160-9-4.8 MCG/ACT aerosol Inhale 2 puffs every 12 (twelve) hours. 3 inhalers, not 3 grams. 3 g 3 calcitriol (Rocaltrol) 0.25 MCG capsule TAKE 1 CAPSULE BY MOUTH EVERY DAY FOR 90 DAYS 90 capsule 3 Calcium Citrate-Vitamin D (CALCIUM CITRATE +D PO) Take 1 tablet by mouth every 12 (twelve) hours. Cholecalciferol (Vitamin D3) 1000 units capsule Vitamin D3 1000 cyanocobalamin (Vitamin B-12) 100 MCG tablet Take 100 mcg by mouth in the morning. doxazosin (Cardura) 2 MG tablet Take 1 tablet (2 mg) by mouth at bedtime. 90 tablet 3 esomeprazole (NexIUM) [address] capsule Fish Oil-Cholecalciferol (Ayr-3 Fish Oil/Vitamin D3) 7188-4462 MG-UNIT capsule Take by mouth at bedtime. fluticasone (Flonase) 50 MCG/ACT nasal spray SPRAY 2 SPRAYS INTO EACH NOSTRIL IN THE MORNING 48 mL 1 FLUTICASONE PROPIONATE, INHAL, IN Inhale 2 Inhalation 1 (one) time each day. furosemide (Lasix) 20 MG tablet Take 20 mg by mouth in the morning. Hqrbvj-Vpfvl-Awoy Ac-Ca Fructo (Move Free [facility] Advance) tablet Take 1 tablet by mouth 1 (one) time each day. HYDROcodone-acetaminophen (Suffolk) 5-325 MG tablet TAKE 1 TABLET BY MOUTH EVERY 8 HOURS NEEDED FOR 14 DAYS ipratropium-albuterol (Duo-Neb) 0.5-2.5 mg/3 mL nebulizer solution INHALE 3 ML BY NEBULIZATION EVERY 6 HOURS 90 mL 1 iron polysaccharides (Nu-Iron,Niferex) 150 MG capsule Take 150 mg by mouth in the morning. levothyroxine (Synthroid, Levoxyl) 112 MCG tablet TAKE 1 TABLET BY MOUTH EVERY DAY IN THE MORNING ON EMPTY STOMACH 100 tablet 3 losartan (Cozaar) 100 MG tablet TAKE 1 TABLET BY MOUTH EVERY DAY FOR 90 DAYS 90 tablet 3 mesalamine (Lialda) 1.2 g EC tablet metoprolol succinate XL (Toprol-XL) 100 MG 24 hr tablet Take 1 tablet (100 mg) by mouth in the morning. 100 tablet 3 mirtazapine (Remeron) 15 MG tablet Take 15 mg by mouth at bedtime. Misc Natural Products (Osteo Bi-Flex Triple Strength) tablet Take 1 tablet by mouth 1 (one) time each day. montelukast (Singulair) 10 MG tablet TAKE 1 TABLET BY MOUTH EVERY DAY 90 tablet 4 Ayr-3 Fatty Acids (Fish Oil) 1000 MG capsule delayed-release Take 1 capsule by mouth 1 (one) time each day at the same time. omeprazole (PriLOSEC) [address] capsule Take 40 mg by mouth in the morning. Take before meals. PARoxetine (Paxil) 10 MG tablet TAKE 1 TABLET BY MOUTH EVERY DAY IN THE MORNING 90 tablet 3 potassium chloride CR (KLOR-CON) 20 MEQ ER tablet TAKE 1 TABLET BY MOUTH EVERY DAY 100 tablet 3 spironolactone (Aldactone) 25 MG tablet spironolactone 25 mg tablet TAKE 1 TABLET BY MOUTH EVERY DAY sulfaSALAzine (Azulfidine) 500 MG tablet TAKE 1 TABLET BY MOUTH TWICE A DAY FOR 90 DAYS 180 tablet 3 tiZANidine (Zanaflex) 4 MG tablet Take 1 tablet (4 mg) by mouth every 8 (eight) hours if needed for muscle spasms 30 tablet 2 traMADol (Ultram) 50 MG tablet Take 1 tablet (50 mg) by mouth every 6 (six) hours if needed for moderate pain 60 tablet 1 valsartan (Diovan) 320 MG tablet warfarin (Coumadin) 2 MG tablet TAKE 1 TABLET BY MOUTH EVERY DAY 90 tablet 3 [DISCONTINUED] atorvastatin (Lipitor) 20 MG tablet Take 20 mg by mouth in the morning. No current facility-administered medications on file prior to visit. Allergies Allergen Reactions Milk (Cow) Other Reaction(s): Not available Sulfanilamide Unknown Social History Tobacco Use Smoking status: Never Smokeless tobacco: Never Substance Use Topics Alcohol use: Never Comment: caffeine: yes, coffee; soda Drug use: Never Family History Problem Relation Name Age of Onset Diabetes Mother Heart disease Mother Heart disease Father Past Medical History: Diagnosis Date A-fib ([facility]) Anxiety Arthritis Cerebral infarction ([facility]/HCC) Disease of thyroid gland ([facility]) Femur fracture, left ([facility]) 02/2018 GERD (gastroesophageal reflux disease) Glaucoma ([facility]/HCC) History of sinoatrial node dysfunction Hypercalcemia Hyperlipemia ([facility]/HCC) Hypertension ([facility]/HCC) Magnesium metabolism disorder Peripheral neuropathy RLS (restless legs syndrome) Ulcerative colitis ([facility]) Vitamin D deficiency Past Surgical History: Procedure Laterality Date APPENDECTOMY 1967 BACK SURGERY 1999 BACK SURGERY 1998 CARDIAC SURGERY 2009 Angioplasty with stent CARDIAC SURGERY 2012 pacemaker HYSTERECTOMY 1973 KNEE ARTHROSCOPY W/ DEBRIDEMENT Right LUMBAR FUSION 1985 ORIF FEMUR FRACTURE Left 03/23/2018 THYROIDECTOMY TONSILLECTOMY 1950 Visit Vitals BP 138/82 Pulse 67 Ht 5' Wt 221 lb SpO2 97% BMI 43.16 kg/m Smoking Status Never BSA 2.06 m Review of Systems Constitutional: Negative for fever and unexpected weight change. Respiratory: Negative for shortness of breath. Cardiovascular: Negative for palpitations and leg swelling. Musculoskeletal: Positive for myalgias and neck pain. Rt arm pain and swelling Objective Physical Exam Vitals reviewed. Constitutional: Appearance: Normal appearance. HENT: Head: Normocephalic. Cardiovascular: Rate and Rhythm: Normal rate. Pulmonary: Effort: Pulmonary effort is normal. Musculoskeletal: Right upper arm: Swelling, edema and tenderness present. Right elbow: Swelling present. Right forearm: Swelling, edema and tenderness present. Right wrist: Swelling and tenderness present. Skin: General: Skin is warm and dry. Neurological: General: No focal deficit present. Mental Status: She is alert and oriented to person, place, and time. Psychiatric: Mood and Affect: Mood normal. Behavior: Behavior normal. Assessment/Plan Diagnoses and all orders for this visit: Lymphedema of right arm - Lymphedema sleeve Rx. Trapezius muscle spasm - heat, massage, TENS, PT, Muscle relaxers Longstanding persistent atrial fibrillation (CMS/HCC) - Switch from Couadin to Eliquis Follow up in about 3 months (around 08/03/2023) for Routine F/U. documented in this encounter [facility] 05-04-2023 Note Patient here for 6 m o follow up and device check. She did not have echo done that was ordered in July 2022 by Benny Victoria CNP. She was admitted to [facility] in Nov 2022 by pneumonia. Denies chest pain, palpitations, and lightheadedness/syncope. Denies bleeding on warfarin. Review of Systems HENT: Positive for hearing loss. Cardiovascular: Positive for dyspnea on exertion. Musculoskeletal: Positive for arthritis, joint pain, muscle weakness and myalgias. Neurological: Positive for weakness. All other systems reviewed and are negative. [facility] 05-04-2023 Note [place] Electrophysiology Consult Note Reason for visit: Afib/ PPM HPI: Isaac Toure is a 82 y.o. year old with past medical history of sick sinus syndrome s/p single chamber PPM ( SJD), chronic A-fib, hypertension, hyperlipidemia, carotid stenosis s/p left carotid stent 2009 in [place], HFpEF Was previously seen by Dr. Chatman and Dr. ENAMORADO. She was recently admitted to [facility] in November 2022 with pneumonia. subsequently she was discharged. she has been on Coumadin for her A-fib and unclear as to why it was never considered to change to a DOAC even though her kidney function was normal. she is limited in her activity due to the fact that she has Osteoarthritic problems. Device check performed on 05/04/2023 shows that the device has 2 years to TOBI with underlying atrial fibrillation and thresholds being stable 8.8 V at 0.5 ms. she is paced 94% of the time Prior device check 07/21/2022 TOBI 2.9 years, V paced 94%, high ventricular rate was noted 1 time 02/11/2022 -this is a single-chamber [facility] PPM. Labs 06/16/2021 Creatinine 1.04, BUN 20, K4.2, GFR 51, ALT 51, AST 29 NT proBNP 1502 Lipids 04/01/2021: Cholesterol 158, trig 30, HDL 74, LDL 78 lipid profile 03/21/2020: Cholesterol 174, triglycerides 72, HDL 75, LDL 84. Chest x-ray 06/06/2021: 1. Atherosclerosis and stable [...] with RVSP at 38. Severe biatrial enlargement. Echocardiogram 03/20/2020: Normal ventricular systolic function, mild mitral regurgitation, moderate tricuspid regurgitation, mildly elevated right-sided pressures, no pericardial effusion. Echocardiogram 03/23/2018: LVEF is normal at 60%, normal right ventricular systolic function, severe biatrial enlargement, normal right-sided pressures, no significant valvular abnormalities Echocardiogram in 11/26/2014: Normal ventricular function, atrial enlargement, mild to moderate MR and TR, mildly elevated right sided pressures. CT angiogram of the neck 03/07/2020: Marked [...] of reduction in the left carotid bulb. -------- PMH: No past medical history on file. PSH: Past Surgical History: Procedure Laterality Date APPENDECTOMY BACK SURGERY X 2 HYSTERECTOMY INSERT / REPLACE / REMOVE PACEMAKER 03/29/2010 KNEE SURGERY LEG SURGERY THYROID SURGERY 03/29/2009 TONSILLECTOMY SH: Social Determinants of Health Tobacco Use: Medium Risk (08/18/2022) Patient History Smoking Tobacco Use: Former Smokeless Tobacco Use: Never Passive Exposure: Not on file Alcohol Use: Not on file Financial Resource Strain: Not on file Food Insecurity: Not on file Transportation Needs: Not on file Physical Activity: Not on file Stress: Not on file Social Connections: Not on file Intimate Partner Violence: Not on file Depression: Not on file Housing Stability: Not on file Utilities: Not on file Allergies: Allergies Allergen Reactions Milk Sulfa (Sulfonamide Antibiotics) Weight: 100kg Visit Vitals Smoking Status Former Meds: Current Outpatient Medications on File Prior to Visit Medication Sig Dispense Refill amLODIPine (Norvasc) 10 mg tablet Take 1 tablet by mouth in the morning. aspirin 81 mg EC tablet Take 1 tablet every day by oral route. atorvastatin (Lipitor) 20 mg tablet TAKE 1 TABLET BY MOUTH EVERY DAY FOR 90 DAYS furosemide (Lasix) 20 mg tablet TAKE 1 TABLET BY MOUTH EVERY DAY 90 tablet 3 HYDROcodone-acetaminophen (Suffolk) 5-325 mg tablet TAKE 1 TABLET BY MOUTH EVERY 8 HOURS NEEDED FOR 14 DAYS levothyroxine (Synthroid, Levoxyl) 112 mcg tablet Take 1 tablet every day by oral route for 30 days. losartan (Cozaar) 100 mg tablet TAKE 1 TABLET BY MOUTH EVERY DAY FOR 90 DAYS metoprolol succinate XL (Toprol-XL) 100 mg 24 hr tablet Take 1 tablet by mouth in the morning. montelukast (Singulair) 10 mg tablet Take 1 tablet by mouth in the morning. omeprazole (PriLOSEC) [address] capsule Take 1 tablet by mouth in the morning. PARoxetine (Paxil) 10 mg tablet Take 1 tablet every day by oral route for 90 days. potassium (more content not included)... [facility] 05-04-2023 Note Patient here for 6 m o follow up and device check. She did not have echo done that was ordered in July 2022 by Benny Victoria CNP. She was admitted to [facility] in Nov 2022 by pneumonia. Denies chest pain, palpitations, and lightheadedness/syncope. Denies bleeding on warfarin. Review of Systems HENT: Positive for hearing loss. Cardiovascular: Positive for dyspnea on exertion. Musculoskeletal: Positive for arthritis, back pain and joint pain. All other systems reviewed and are negative. [facility] 08-27-2022 Note -Carotid ultrasound 12/2019 showed possible high-grade stenosis of the left internal carotid [this was by 2D imaging, the velocities were not very elevated]. CT angiogram of the neck showed possibility of significant stenosis. She has not had any stroke symptoms. Given her advanced age and comorbidities, Dr. Santo noted it is better to manage her medically and she has done well with this. -Lipids 04/01/2021: Cholesterol 158, trig 30, HDL 74, LDL 78 -She denies any sx's. -Continue aspirin 81 mg daily and statin. [facility] 08-27-2022 Note Last device check TOBI 2.9 years, V paced 94%, high ventricular rate was noted 1 time 02/11/2022 -this is a single-chamber [facility] PPM. -will order TTE [facility] 08-27-2022 Note - recent device chec k shows normal device function and stable lead thresholds - she did have one high ventricular rate back in January 2022 - [facility] P[facility] TOBI approximately 3 years, V paced 94% - we will order echocardiogram as she should be having these annually with being paced almost 100% in the right ventricle [facility] 08-27-2022 Note - pressures controll ed - continue current medication [facility] 08-27-2022 Note -Stable, NYHA II - stable chronic LE edema -Continue GDMT: Lasix as needed, hydrochlorothiazide 25 mg, losartan 1 mg daily, amlodipine 10 mg daily, Toprol-XL 100 mg, Lasix as needed [facility] 08-18-2022 Note [facility] Consult Note Reason for visit: 1 year follow-up HPI: Isaac Toure is a 81 y.o. year old with past medical history of sick sinus syndrome s/p PPM, chronic A-fib, hypertension, hyperlipidemia, carotid stenosis s/p left carotid stent 2009 in [place], HFpEF She is here for 1 year [...] stable. Pulse check heart rates 55 . ------- [place] is seen in follow up. PMHx: SSS s/p PPM, chronic a.fib, HTN, HLD, carotid stenosis s/p left carotid stent in 2009 in [place] 06/06/21 -C/o worsening SOB with exertion -She [...] intake, she is no longer drinking pedialyte Labs 06/16/2021 Creatinine 1.04, BUN 20, K4.2, [...] and TR, mildly elevated right sided pressures. -------- PMH: History reviewed. No pertinent past medical [...] 2.03 m??? Me (more content not included)... [facility] 08-18-2022 Note Patient is here toda y for a 1 yr. Follow up Review of Systems Cardiovascular: Positive for irregular heartbeat. Musculoskeletal: Positive for arthritis. All other systems reviewed and are negative. 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 She does use heat which is beneficial to her. She has seen Dr. Jackman in the past who has provided her with bilateral knee injections. Recently, she was seen by her PCP, Dr. Almonte, who has placed her on antibiotics for a sinus infection. Current medications include Coumadin, [place] 5/325 daily p.r.n. and [id number] Tylenol. She is unable to take NSAIDs. [...] care, would like to move forward. [facility] 12-12-2021 Note PROCEDURE: XR PELVIS 1_2 VIEWS [...] IMPRESSION: No acute abnormality Electronically authenticated by: CONSTANTINE ROSAS Date: 2021-12-12 16:37 [facility] 12-04-2021 Note CONSULTATION CONSULTATION DATE: 12/06/2021 HISTORY OF PRESENT ILLNESS: This is a pleasant, 81-year-old female who was referred to our Pain [facility] by her PCP, Dr. Almonte, for lumbar pain, lower extremity pain and scoliosis. The patient's chronic pain started in 2018. Today, she is complaining of diffuse lower back pain that radiates down her leg. In the fall of 2018, she suffered a fall resulting in a [...] surgeries include a lumbar fusion in the [facility] in 1984 and lumbar anterolisthesis in 1999. Current medications include [place] 5/325 q. 8 p.r.n. by her PCP. [...] x-ray review and interventional procedure discussion. [facility] Evaluation note Diagnosis Lymphedema of right arm- Primary Trapezius muscle spasm Longstanding persistent atrial fibrillation (CMS/HCC) [facility] Diagnosis Osteoarthritis of lumbar spine with myelopathy documented in this encounter [facility] Summary Purpose Family History No Family History Records FoundNo Family History Records FoundNo Family History Records FoundNo Family History Records FoundNo Family History Records Found Advance Directives No Advanced Directives Records FoundNo Advanced Directives Records FoundNo Advanced Directives Records FoundNo Advanced Directives Records FoundNo Advanced Directives Records Found Hospital Course Note MR#: [id number] [facility] Pt. Name: Isaac Toure Admitted: 03/20/2018 Discharged: 03/30/2018 Date of : 1940 Physician: Lyle Tristan MD DISCHARGE SUMMARY PRIMARY CARE PHYSICIAN: [...] a fall. The patient initially presented to [facility] in which they found a left femur fracture. Sh (more content not included)... Reason for Referral Specialty Diagnoses / Procedures Referred By Contac t Referred To Contact Diagnoses Osteoarthritis of lumbar spine with myelopathy Bernardo Almonte MD [address] [place] [id number] Referral ID Status Reason Start Date Expiration Date V isits Requested Visits Authorized [id number] Pending Review 1 1 Additional Source Comments INFORMATION SOURCE (unrecogn ized section and content) DATE CREATED AUTHOR 06/26/2018 [facility] DATE CREATED AUTHOR AUTHOR'S ORGANIZ ATION 06/13/2021 [facility] dical Specialist DATE CREATED AUTHOR AUTHOR'S ORGANIZ ATION 02/06/2022 [facility] DATE CREATED AUTHOR AUTHOR'S ORGANIZ ATION 05/05/2023 [facility] DATE CREATED AUTHOR AUTHOR'S ORGANIZ ATION 05/06/2023 [facility] dical Specialists EPIC Source Comments (unrecognize d section and content) In the event this informatio n is protected by the Federal Confidentiality of Alcohol and Drug Abuse Patient Records regulations: The Federal rules restrict any use of the information to criminally investigate or prosecute any alcohol or drug abuse patient.[facility] Reason for Visit (unrecogniz ed section and content) Reason Comments Refill Request Reason Comments Follow-up Appt with cardiology yesterday they advised pt she could stop the coumadin and switch to eliquis pt ? If that is what she should do Arm Pain Reason Onset Date Comments Med Refill 05/13/2023 [id number] LEVUE Care Teams (unrecognized sec tion and content) Disability Examiner Relationship Specialty Start Date End Date Bernardo Almonte MD [address] [place] [address] PCP - Yanni ALLEN 03/29/21 Bernardo Almonte MD [address] [place] [address] PCP - General Internal Medicine 09/07/22 Disability Examiner Relationship Specialty Start Date End Date Bernardo Almonte MD [address] [place] [address] PCP - Yanni ALLEN 03/29/21 Bernardo Almonte MD [address] [place] [address] PCP - General Internal Medicine 09/07/22 Disability Examiner Relationship Specialty Start Date End Date Bernardo Almonte MD [address] [place] [address] PCP - Yanni ALLEN 03/29/21 Bernardo Almonte MD [address] [place] [address] PCP - General Internal Medicine 09/07/22 FOR RECORDS PERTAINING TO PATIENTS WHO ARE [...] BE BASED ON THE PRIMARY CLINICAL RECORDS. [facility]. provides no warranty or guarantee of the accuracy or completeness of information in this document.
--- NOTE | 2023-05-19 11:04 | CA_ITS ---
Patient Name: ISAAC TOURE MR#: [id number] : 1940 Exam Date: 05/19/2023 Ordering Doctor: HALIMA STATON ECHOCARDIOGRAM REPORT PROCEDURE: CA ECHO DOPPLER COMPLETE INDICATIONS: Paroxysmal atrial fibrillation COMPARISON: None. DESCRIPTION: COMPLETE ECHOCARDIOGRAM Real-time transthoracic echocardiography with 2D, M-mode, spectral and color flow Doppler performed. QUALITY: Technical quality was good. LEFT VENTRICLE: Normal chamber size. Moderate concentric left ventricular hypertrophy. Global left ventricular systolic function is normal. LV EF: Estimated left ventricular ejection fraction is 55-60 %. DIASTOLIC: Grade III diastolic dysfunction. ATRIAL SEPTUM: LEFT ATRIUM: Severe dilatation. RIGHT ATRIUM: Severe dilatation. RIGHT VENTRICLE: Mildly dilated. Normal right ventricular systolic function. Pacer wire present. TRICUSPID VALVE: Normal mobility and thickness. No stenosis with moderate regurgitation. Moderate pulmonary hypertension. RVSP 50 mmHg. MITRAL VALVE: Normal mobility and thickness. No evidence of mitral valve stenosis. Mild mitral annular calcification. Moderate mitral regurgitation. AORTIC VALVE: Normal trileaflet appearance. Moderately calcified aortic valve. Moderately diminished mobility. Doppler velocity suggest possible paradoxical low-flow low gradient severe aortic valve stenosis. DVI 0.3, Mean gradient 21mmHg, Peak velocity 2.81m/s. Calculated valve area 0.8 cm?. LV stroke-volume index 30 mL/m? [BSA 2.03 m?]. No aortic regurgitation. AORTIC ROOT: Normal diameter and appearance. PULMONIC VALVE: Normal thickness and mobility. No stenosis. Trivial regurgitation. PERICARDIUM: No evidence of pericardial effusion. IVC: Mild dilatation, measuring 2.3 cm with no collapse. PLEURA: CONCLUSION: 1. Moderate concentric left ventricular hypertrophy with normal systolic function. LVEF is estimated at 55 to 60%. 2. Mildly dilated right ventricle with normal systolic function. 3. Severe biatrial dilatation. 4. Grade 3 diastolic dysfunction. 5. Possible severe paradoxical low-flow low gradient aortic valve stenosis. 6. At least moderate mitral regurgitation. 7. Moderate tricuspid regurgitation. 8. Moderately elevated right-sided pressures. RVSP is 50 mmHg. 9. A transesophageal echocardiogram is recommended for better assessment of the aortic and mitral valves. Adult Echocardiography Procedure Report Left Ventricle LVEDD (3.7 - 5.6 cm): 4.53 cm LVESD (2.2 - 4.0 cm): 2.78 cm LVIVS thickness (0.6 - 1.2 cm): 1.26 cm LVPW thickness (0.5 - 1.0 cm): 1.41 cm e': 0.10 m/s E - e': 13.98 LVOT Max Gradient: 3.18 mm[Hg] LVOT Area (cm2): 0.89 m/s Peak Velocity (LVOT): 0.89 m/s Mean Velocity (LVOT): 0.63 m/s LVOT Diameter 1.79 cm Left Ventricular Ejection Fraction: 55-60 % Left Atrium LA Volume Index (2D A2C): 81.74 ml/m2 Left Atrium Systolic Dimension: 4.88 cm Mitral Valve MV E to A Ratio: 3.30 Mitral Valve A-Wave Peak Velocity: 0.40 m/s Mitral Valve E-Wave Peak Velocity: 1.33 m/s Right Ventricle RV Internal Diastolic Dimension: 3.82 cm Aorta AO Root Diam: 2.68 cm Ascending Ao Diam: 3.10 cm Aortic Valve AoV Area (Peak Victoriano): 0.74 cm2, 0.71 cm2 AoV Area (VTI): 0.76 cm2, 0.71 cm2 Peak Velocity(Antegrade Flow): 2.81 m/s, 2.62 m/s Peak Gradient(Antegrade Flow): 31.63 mm[Hg], 27.45 mm[Hg] Mean Velocity(Antegrade Flow): 2.15 m/s, 1.93 m/s Mean Gradient(Antegrade Flow): 20.55 mm[Hg], 16.81 mm[Hg] Velocity Time Integral: 75.82 cm, 66.50 cm Tricuspid Valve Peak Velocity (Regurgitant Flow): 2.96 m/s, 2.91 m/s, 3.53 m/s Pulmonic Valve Mean Gradient: 1.74 mm[Hg], 1.66 mm[Hg] Mean Velocity: 0.63 m/s, 0.61 m/s Peak Velocity: 0.90 m/s Peak Gradient: 3.21 mm[Hg], 3.21 mm[Hg] Right Atrium Right Atrium Systolic Pressure: 69.64 ml, 69.64 ml Dictated by: Devonte Garcia M.D. on 05/20/2023 at 12:18 Approved by: Devonte Garcia M.D. on 05/20/2023 at 12:30
== END 2023-05-19 09:52 | disposition home or self-care (01) ==
LOC: CARD 09:51
PROVIDERS: PCP Internal Medicine; Visit Provider Internal Medicine Cardiovascular Disease
DX: I48.0 Paroxysmal atrial fibrillation (principal)
CPT/HCPCS: 93306

== ENCOUNTER 2023-07-16 14:07 | Emergency (ER) | payer MEDICARE, SELFPAY ==
[2023-07-16] VITALS (21 sets, daily range): BP systolic 166–188; BP diastolic 76–82; PULSE 56–90; TEMP 37.1; O2SAT 89–97; BMI 38.3
--- NOTE | 2023-07-16 14:17 | US_ITS ---
The [address] [address] Patient Name: ISAAC TOURE MRN: [id number] date: 1940 Sex: F Assigned Patient Location: ER Current Patient Location: ER Accession/Order Number: [id number] Exam Date: 07/16/2023 15:49 Report Date: 07/16/2023 16:54 At the request of: ADITI WARREN Procedure: US venous doppler UE RT EXAMINATION: US venous doppler UE RT HISTORY: swelling r/o DVT COMPARISON: No relevant comparison available. FINDINGS: REGION: Right upper extremity THROMBI: None. COMPRESSIBILITY: Normal compressibility. FLOW: Normal waveform and antegrade flow between 5 and 20 cm/s. OTHER: Subcutaneous edema. US/US venous doppler UE RT IMPRESSION: 1. No deep vein thrombus or appreciable superficial venous thrombus within right upper extremity. 2. Slightly limited evaluation of the radial and ulnar veins due to edema. Electronically authenticated by: LEILA PALACIO Date: 07/16/2023 16:54
--- NOTE | 2023-07-16 14:17 | ECG_ITS ---
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
--- NOTE | 2023-07-16 14:21 | ED.GENADUL1 ---
HPI HPI - General Adult General Chief complaint: Extremity Problem, Nontraumatic Stated complaint: right arm swelling/fall Time Seen by Provider: 07/16/23 14:12 Source: patient Mode of arrival: Wheelchair Limitations: no limitations History of Present Illness HPI narrative: Patient is a 82-year-old female presents to the ER for evaluation of swelling to the right upper extremity. Patient notes swelling in the right upper extremity for the past 2 months, worsened after fall yesterday. She has seen 2 doctors for the same condition but reports no change in treatment. She has some mild shortness of breath and reports a history of COPD. She denies any chest pain. She notes difficulty with range of motion of the elbow secondary to swelling. Patient notes fluid leaking from the distal forearm where she appears to have blisters from edema. Patient also noted to have 2+ edema in the bilateral lower legs with slight blistering formation. Patient speaking in full sentences but using wheelchair for transportation but does ambulate to the bed with mild increase in shortness of breath. Significant other at bedside states we need the swelling in the arm to go down. Denies history of breast surgery, prior pacemaker implantation. Onset (ago): month(s) (2) Severity: mild Relieving factors: Reports none Exacerbating factors: Reports movement Treatments prior to arrival: Reports none Related Data Home Medications ?Medication ?Instructions ?Recorded ?Confirmed amlodipine 10 mg tablet 10 mg PO DAILY 12/18/22 07/16/23 calcitriol 0.25 mcg capsule 0.25 mcg PO DAILY 12/18/22 07/16/23 fluticasone propionate 50 1 spray intranasal DAILY PRN 12/18/22 07/16/23 mcg/actuation nasal allergy symptoms spray,suspension (24 Hour Allergy Relief) furosemide 20 mg tablet 20 mg PO DAILY 12/18/22 07/16/23 hydrocodone 5 mg-acetaminophen 325 1 tab PO Q8H PRN pain 12/18/22 07/16/23 mg tablet levothyroxine 112 mcg tablet 112 mcg PO DAILY 12/18/22 07/16/23 (Levo-T) losartan 100 mg tablet 100 mg PO DAILY 12/18/22 07/16/23 metoprolol succinate 100 mg 100 mg PO DAILY 12/18/22 07/16/23 tablet,extended release 24 hr montelukast 10 mg tablet 10 mg PO DAILY 12/18/22 07/16/23 paroxetine HCl 10 mg tablet 10 mg PO DAILY 12/18/22 07/16/23 potassium chloride 20 mEq oral 20 meq PO DAILY 12/18/22 07/16/23 packet (Klor-Con) sulfasalazine 500 mg tablet 0.5 g PO BID 12/18/22 07/16/23 apixaban 5 mg tablet (Eliquis) 5 mg PO Q12H 07/16/23 07/16/23 atorvastatin 20 mg tablet 20 mg PO DAILY 07/16/23 07/16/23 bimatoprost 0.03 % eye drops 1 drp ophthalmic (eye) BEDTIME 07/16/23 07/16/23 budesonide 160 mcg-glycopyr 9 2 inh inhalation BID 07/16/23 07/16/23 mcg-formot 4.8 mcg/actuation HFA inhaler (Breztri Aerosphere) budesonide 160 mcg-glycopyr 9 2 inh inhalation BID 07/16/23 07/16/23 mcg-formot 4.8 mcg/actuation HFA inhaler (Breztri Aerosphere) doxazosin 2 mg tablet 2 mg PO .hs 07/16/23 07/16/23 ipratropium 0.5 mg-albuterol 3 mg 3 ml inhalation Q6H PRN shortness 07/16/23 07/16/23 (2.5 mg base)/3 mL nebulization of breath soln montelukast 10 mg tablet 10 mg PO DAILY 07/16/23 07/16/23 (Singulair) omeprazole 40 mg capsule,delayed 40 mg PO DAILY 07/16/23 07/16/23 release tizanidine 4 mg tablet 4 mg PO Q8H PRN muscle spasticity 07/16/23 07/16/23 tramadol 50 mg tablet 50 mg PO Q6H PRN pain 07/16/23 07/16/23 Allergies Allergy/AdvReac Type Severity Reaction Status Date / Time Sulfa (Sulfonamide AdvReac Intermediate Verified 12/18/22 11:33 Antibiotics) Opioid HPI Opioid Management Most Recent Opioid Data: Last Pain Scale 3 07/16/23 15:16 Last Pain Intensity 3 12/18/22 15:37 Review of Systems ROS Constitutional Denies: fever or chills Eyes Denies: change in vision Ears, nose, mouth, and throat Denies: throat pain or neck pain Cardiovascular Reports: edema, swelling of feet/ankles, shortness of breath with exertion and shortness of breath when lying down; Denies: chest pain Respiratory Reports: shortness of breath; Denies: cough or wheezing Gastrointestinal Denies: abdominal pain, nausea or vomiting Genitourinary Denies: painful urination or urinary frequency Musculoskeletal Reports: extremity pain (right elbow) and extremity swelling; Denies: back pain or neck pain Integumentary/Breast Reports: skin swelling; Denies: rash or itching Neurological Denies: headache or numbness in extremities Psychiatric Denies: anxiety Endocrine Denies: excessive urination Hematologic/Lymphatic Denies: easy bruising Allergic/Immunologic Denies: hives [facility] Medical History (Updated 07/16/23 @ 18:07 by GIO Higginbotham) Arthritis ?M19.90 - Unspecified osteoarthritis, unspecified site (ICD-10) Anxiety ?F41.9 - Anxiety disorder, unspecified (ICD-10) Seasonal allergies ?J30.2 - Other seasonal allergic rhinitis (ICD-10) COPD (chronic obstructive pulmonary disease) ?J44.9 - Chronic obstructive pulmonary disease, unspecified (ICD-10) Atherosclerosis ?I70.90 - Unspecified atherosclerosis (ICD-10) Afib ?I48.91 - Unspecified atrial fibrillation (ICD-10) Hypertension ?I10 - Essential (primary) hypertension (ICD-10) Surgical History Family History Mother Family history of COPD (chronic obstructive pulmonary disease) Family history of hypertension Brother Family history of diabetes mellitus Father Family history of hypertension Social History Within the past year, how often did you have a drink containing alcohol: never Within the past year, how often did you have six or more drinks on one occasion: never Score interpretation: A score less than 3 is consistent with normal alcohol consumption. Smoking status: Former smoker Non-prescribed substance use: denies use Previous occupational history: retired Highest level of school completed/degree received: high school graduate Are you now , , , , never or living with a partner: Little interest or pleasure in doing things: not at all Feeling down, depressed, or hopeless: not at all Feel stressed/tense/nervous/anxious/difficulty sleeping: only a little Do you think of yourself as: straight/heterosexual Gender Identity: female Exam Narrative Exam Narrative: Nurses notes and vital signs reviewed and patient is not hypoxic. General: The patient appears in NAD , speaking full Sentences becomes winded on exertion. Skin: Warm, dry, no pallor noted. Bilateral ankles, similar appearance with areas of scabbing to the right forearm,no active serous leaking, compartments soft. Head: Normocephalic, atraumatic Neck: Supple, trachea mid-line, no tenderness, no lymphadenopathy Eye: Pupils are equal, round and reactive to light, EOMI Ears, Nose, Mouth, and Throat: TM are clear, normal light reflex, oral mucosa is moist, no posterior oropharynx erythema or hypertrophy, uvula is mid-line Cardiovascular: Regular Rate and Rhythm Respiratory: Patient is in no distress, no accessory muscle use, lungs are clear to auscultationBut diminished in the bases, slight crackles. Chest Wall: no tenderness Back: non-tender, no CVA tenderness2+ sacral edema Musculoskeletal: Minimal tenderness with palpation of the right elbow joint, patient has 4+ edema noted to the right upper extremity starting at the mid humerus, no obvious bruising. Dependent edema noted bilateral legs 4+ pitting with slight blister formation skin appears shiny and taut, compartments are soft. No pain with motion of the hand wrist or shoulder joint, GI: Normal bowel sounds, no tenderness to palpation, no masses appreciated. No rebound, guarding, or rigidity noted. Neurological: A&O x4 Psychiatric: Cooperative Constitutional Vital Signs, click to edit/add: Last Vital Signs Temp 98.7 F 07/16/23 14:14 Pulse 65 07/16/23 17:00 Resp 25 H 07/16/23 17:00 BP 188/80 H 07/16/23 15:46 Pulse Ox 96 07/16/23 16:50 Course Vital Signs Vital signs: Vital Signs Temperature 98.7 F 07/16/23 14:14 Pulse Rate 66 07/16/23 14:14 Respiratory Rate 20 07/16/23 14:14 Blood Pressure 180/81 H 07/16/23 14:14 Pulse Oximetry 93 L 07/16/23 14:14 Temperature 98.7 F 07/16/23 14:14 Pulse Rate 65 07/16/23 17:00 Respiratory Rate 25 H 07/16/23 17:00 Blood Pressure 188/80 H 07/16/23 15:46 Pulse Oximetry 96 07/16/23 16:50 Medical Decision Making MDM Narrative Medical decision making narrative: Patient presents with acute on chronic shortness of breath, chief concern is 3+ edema in the right upper extremity. X-ray and ultrasound of the right upper extremity ordered along with chest x-ray, patient be given 40 mg of Lasix given diffuse edema on appearance. Suspect anasarca, patient had over 700 mL of urine output within the first 40 minutes. Bp improved 166/80 She reports being seen here earlier in the year for same complaint outpatient workup, ultrasound right upper extremity negative for DVT. Obstructive process, her cardiac echo at that time was reviewed. Patient's chest x-ray today showing slight increase in cardiomegaly. Patient does not have fluid retention in the left upper extremity but does in the bilateral lower legs and right upper extremity. Reviewed x-ray from 12/18/22: Right lower patchy infilltrate, I feel still present today on Xray. will get Ct with IV contrast given prominent RUE swelling. 2 hour into stay 1750ml output. Last reading with fluid output was 3100 mL Patient notes she is feeling better. We discussed her CT of the chest with IV contrast, there is no obstruction in her chest. We discussed the edema in her legs, arm, no significant fluid collection in the chest or lung tissue, her breathing appears improved. We discussed her medication compliance and she reports taking her Lasix daily 20 mg but sometimes does not take it if she is going out of the home for a period of time such as to the store. Patient acknowledges that the symptoms are acute on chronic and have been progressing for several months. She would likely benefit from a lymphedema clinic to start compression treatments on her extremities. We discussed the risks and benefits of an admission, and given that the patient is not short of breath and was able to ambulate with her walker as normal at home. We recommend she take her medication as prescribed, follow-up with her family doctor on Wednesday and discuss referral to lymphedema clinic. We discussed changing her medications but may require more close monitoring of her symptoms. Patient thankful and agreeable to disposition home and declines the need for admission as we discussed the short and long-term treatments for her condition. Patient may return to the ER if symptoms worsen or new symptoms develop. Medical Records Medical records reviewed: Yes I reviewed the patient's medical records Medical records narrative: The [address] [address] Cardiology Report Signed Patient: ISAAC TOURE MR#: [id number] : 1940 Acct:[id number] Age/Sex: 82 / F ADM Date: 05/19/23 Loc: CARD Attending Dr: Juan Durham M.D. Ordering Physician: Juan Durham M.D. Date of Service: 05/19/23 Procedure(s): CA echo doppler complete Accession Number(s): [id number] cc: BENSON ALMONTE ; Juan Durham M.D.~ Patient Name: ISAAC TOURE MR#: [id number] : 1940 Exam Date: 05/19/2023 Ordering Doctor: JUAN DURHAM ECHOCARDIOGRAM REPORT PROCEDURE: CA ECHO DOPPLER COMPLETE INDICATIONS: Paroxysmal atrial fibrillation COMPARISON: None. DESCRIPTION: COMPLETE ECHOCARDIOGRAM Real-time transthoracic echocardiography with 2D, M-mode, spectral and color flow Doppler performed. QUALITY: Technical quality was good. LEFT VENTRICLE: Normal chamber size. Moderate concentric left ventricular hypertrophy. Global left ventricular systolic function is normal. LV EF: Estimated left ventricular ejection fraction is 55-60 %. DIASTOLIC: Grade III diastolic dysfunction. ATRIAL SEPTUM: LEFT ATRIUM: Severe dilatation. RIGHT ATRIUM: Severe dilatation. RIGHT VENTRICLE: Mildly dilated. Normal right ventricular systolic function. Pacer wire present. TRICUSPID VALVE: Normal mobility and thickness. No stenosis with moderate regurgitation. Moderate pulmonary hypertension. RVSP 50 mmHg. MITRAL VALVE: Normal mobility and thickness. No evidence of mitral valve stenosis. Mild mitral annular calcification. Moderate mitral regurgitation. AORTIC VALVE: Normal trileaflet appearance. Moderately calcified aortic valve. Moderately diminished mobility. Doppler velocity suggest possible paradoxical low-flow low gradient severe aortic valve stenosis. DVI 0.3, Mean gradient 21mmHg, Peak velocity 2.81m/s. Calculated valve area 0.8 cm?. LV stroke-volume index 30 mL/m? [BSA 2.03 m?]. No aortic regurgitation. AORTIC ROOT: Normal diameter and appearance. PULMONIC VALVE: Normal thickness and mobility. No stenosis. Trivial regurgitation. PERICARDIUM: No evidence of pericardial effusion. IVC: Mild dilatation, measuring 2.3 cm with no collapse. PLEURA: CONCLUSION: 1. Moderate concentric left ventricular hypertrophy with normal systolic function. LVEF is estimated at 55 to 60%. 2. Mildly dilated right ventricle with normal systolic function. 3. Severe biatrial dilatation. 4. Grade 3 diastolic dysfunction. 5. Possible severe paradoxical low-flow low gradient aortic valve stenosis. 6. At least moderate mitral regurgitation. 7. Moderate tricuspid regurgitation. 8. Moderately elevated right-sided pressures. RVSP is 50 mmHg. 9. A transesophageal echocardiogram is recommended for better assessment of the aortic and mitral valves. Adult Echocardiography Procedure Report Left Ventricle LVEDD (3.7 - 5.6 cm): 4.53 cm LVESD (2.2 - 4.0 cm): 2.78 cm LVIVS thickness (0.6 - 1.2 cm): 1.26 cm LVPW thickness (0.5 - 1.0 cm): 1.41 cm e': 0.10 m/s E - e': 13.98 LVOT Max Gradient: 3.18 mm[Hg] LVOT Area (cm2): 0.89 m/s Peak Velocity (LVOT): 0.89 m/s Mean Velocity (LVOT): 0.63 m/s LVOT Diameter 1.79 cm Left Ventricular Ejection Fraction: 55-60 % Left Atrium LA Volume Index (2D A2C): 81.74 ml/m2 Left Atrium Systolic Dimension: 4.88 cm Mitral Valve MV E to A Ratio: 3.30 Mitral Valve A-Wave Peak Velocity: 0.40 m/s Mitral Valve E-Wave Peak Velocity: 1.33 m/s Right Ventricle RV Internal Diastolic Dimension: 3.82 cm Aorta AO Root Diam: 2.68 cm Ascending Ao Diam: 3.10 cm Aortic Valve AoV Area (Peak Victoriano): 0.74 cm2, 0.71 cm2 AoV Area (VTI): 0.76 cm2, 0.71 cm2 Peak Velocity(Antegrade Flow): 2.81 m/s, 2.62 m/s Peak Gradient(Antegrade Flow): 31.63 mm[Hg], 27.45 mm[Hg] Mean Velocity(Antegrade Flow): 2.15 m/s, 1.93 m/s Mean Gradient(Antegrade Flow): 20.55 mm[Hg], 16.81 mm[Hg] Velocity Time Integral: 75.82 cm, 66.50 cm Tricuspid Valve Peak Velocity (Regurgitant Flow): 2.96 m/s, 2.91 m/s, 3.53 m/s Pulmonic Valve Mean Gradient: 1.74 mm[Hg], 1.66 mm[Hg] Mean Velocity: 0.63 m/s, 0.61 m/s Peak Velocity: 0.90 m/s Peak Gradient: 3.21 mm[Hg], 3.21 mm[Hg] Right Atrium Right Atrium Systolic Pressure: 69.64 ml, 69.64 ml Dictated by: Charlie Garcia M.D. on 05/20/2023 at 12:18 Approved by: Charlie Garcia M.D. on 05/20/2023 at 12:30 Dictated By: [place] [address] Ultrasound Report Signed Patient: ISAAC TOURE MR#: [id number] : 1940 Acct:[id number] Age/Sex: 82 / F ADM Date: 04/28/23 Loc: US Attending Dr: CAROLYN ADKINS Ordering Physician: CAROLYN ADKINS Date of Service: 04/28/23 Procedure(s): US venous doppler UE RT Accession Number(s): [id number] cc: BENSON ALMONTE ; CAROLYN ADKINS [place] [id number] Patient Name: ISAAC TOURE MRN: [id number] date: 1940 Sex: F Assigned Patient Location: US Current Patient Location: US Accession/Order Number: [id number] Exam Date: 04/28/2023 13:05 Report Date: 04/28/2023 13:45 At the request of: CAROLYN ADKINS Procedure: US venous doppler UE RT US venous doppler UE RT, 04/28/2023 1:05 PM EST INDICATION: Right arm edema x3 months. COMPARISON: No prior right upper extremity Doppler ultrasound available for comparison at the time of this dictation. TECHNIQUE: Multi-planar real-time ultrasonography of the right upper extremity venous system using grayscale imaging supplemented by color Doppler. Augmentation and compression maneuvers were utilized as needed. FINDINGS: The subclavian, axillary, brachial, antecubital, basilic and cephalic veins are fully compressible with anterograde flow. Augmentation and respiratory variation within normal limits. The radial and ulnar veins are fully compressible. US/US venous doppler UE RT IMPRESSION: Negative for deep venous thrombosis within the right upper extremity. Electronically authenticated by: WARREN MEIER Date: 04/28/2023 13:45 Dictated By: Warren Meier M.D Lab Data Lab results reviewed: Yes I reviewed the patient's lab results Labs: Lab Results 07/16/23 07/16/23 07/16/23 Range/Units 15:00 15:05 15:10 WBC 5.3 (4.0-11.0) 10^3/uL RBC 3.74 L (4.20-5.40) 10^6/uL Hgb 11.4 L (12.0-16.0) g/dL Hct 35.6 L (36.0-48.0) % MCV 95.2 (81.0-99.0) fL MCH 30.5 (26.7-34.0) pg MCHC 32.0 (29.9-35.2) g/dL RDW 17.5 H (11.0-15.0) % Plt Count 209 (150-450) 10^3/uL MPV 11.0 (9.5-13.5) fL Neut % (Auto) 54.8 (43.0-75.0) % Lymph % (Auto) 19.9 L (20.5-60.0) % [place] % (Auto) 22.3 H (1.7-12.0) % Eos % (Auto) 1.7 (0.9-7.0) % Baso % (Auto) 1.1 (0.2-2.0) % Neut # (Auto) 2.9 (1.4-6.5) 10^3/uL Lymph # (Auto) 1.1 L (1.2-3.8) 10^3/uL [place] # (Auto) 1.2 H (0.3-0.8) 10^3/uL Eos # (Auto) 0.1 (0.0-0.7) 10^3/uL Baso # (Auto) 0.1 (0.0-0.1) 10^3/uL Abs Immat Gran (auto) 0.01 (0.00-0.03) 10^3/uL Imm/Tot Granulo (auto) 0.2 (0.0-0.5) % PT (9.0-11.6) sec INR APTT (22.3-36.2) sec Sodium 140 (136-145) mmol/L Potassium 3.5 (3.5-5.1) mmol/L Chloride 104 (98-107) mmol/L Carbon Dioxide 26.8 (21.0-32.0) mmol/L Anion Gap 12.7 BUN 12.0 (7.0-18.0) mg/dL Creatinine 0.89 (0.55-1.02) mg/dL Est GFR ( Amer) >60 (>=60) Est GFR (Non-Af Amer) >60 (>=60) BUN/Creatinine Ratio 13.5 Glucose 113 H (74-106) mg/dL Calcium 9.1 (8.5-10.1) mg/dL Total Bilirubin 0.8 (0.2-1.0) mg/dL AST 29 (15-37) U/L ALT 25 (14-59) U/L Alkaline Phosphatase 113 (46-116) U/L Troponin I High Sens 10.9 (4.0-51.3) pg/mL NT-Pro-B Natriuret Pep 1194.0 (<=1800.0) pg/mL Total Protein 7.1 (6.4-8.2) g/dL Albumin 3.7 (3.4-5.0) g/dL Globulin 3.4 g/dL Albumin/Globulin Ratio 1.1 Urine Color Lt. yellow (YELLOW) Urine Clarity Clear (CLEAR) Urine pH 6.0 (5.0-9.0) Ur Specific [place] <=1.005 A (1.005-1.025) Urine Protein Negative (NEG/TRACE) mg/dL Urine Glucose (UA) Negative (NEGATIVE) mg/dL Urine Ketones Negative (NEGATIVE) mg/dL Urine Occult Blood Negative (NEGATIVE) Urine Nitrite Negative (NEGATIVE) Urine Bilirubin Negative (NEGATIVE) Urine Urobilinogen 0.2 (0.2-1.0) EU/dL Ur Leukocyte Esterase Negative (NEGATIVE) Adenovirus (PCR) Not detected (NOT DETECTE) C. pneumoniae DNA (PCR) Not detected (NOT DETECTE) Coronavirus Type OC43 Not detected (NOT DETECTE) Coronavirus Type HKU1 Not detected (NOT DETECTE) Coronavirus Type 229E Not detected (NOT DETECTE) Coronavirus Type NL63 Not detected (NOT DETECTE) Human Metapneumovir PCR Not detected (NOT DETECTE) M. pneumoniae (PCR) Not detected (NOT DETECTE) Parainfluenza PCR Not detected (NOT DETECTE) Parainfluenza 2 (PCR) Not detected (NOT DETECTE) Parainfluenza 3 (PCR) Not detected (NOT DETECTE) Parainfluenza 4 (PCR) Not detected (NOT DETECTE) RSV (RT-PCR) Not detected (NOT DETECTE) Entero/Rhino (PCR) Not detected (NOT DETECTE) SARS-CoV-2 (PCR) Not detected (NOT DETECTE) Bordetella pertussis (PCR) Not detected (NOT DETECTE) B parapertussis DNA PCR Not detected (NOT DETECTE) Influenza Type A (PCR) Not detected (NOT DETECTE) Influenza Type B (PCR) Not detected (NOT DETECTE) 07/16/23 Range/Units 15:39 WBC (4.0-11.0) 10^3/uL RBC (4.20-5.40) 10^6/uL Hgb (12.0-16.0) g/dL Hct (36.0-48.0) % MCV (81.0-99.0) fL MCH (26.7-34.0) pg MCHC (29.9-35.2) g/dL RDW (11.0-15.0) % Plt Count (150-450) 10^3/uL MPV (9.5-13.5) fL Neut % (Auto) (43.0-75.0) % Lymph % (Auto) (20.5-60.0) % [place] % (Auto) (1.7-12.0) % Eos % (Auto) (0.9-7.0) % Baso % (Auto) (0.2-2.0) % Neut # (Auto) (1.4-6.5) 10^3/uL Lymph # (Auto) (1.2-3.8) 10^3/uL [place] # (Auto) (0.3-0.8) 10^3/uL Eos # (Auto) (0.0-0.7) 10^3/uL Baso # (Auto) (0.0-0.1) 10^3/uL Abs Immat Gran (auto) (0.00-0.03) 10^3/uL Imm/Tot Granulo (auto) (0.0-0.5) % PT 11.5 (9.0-11.6) sec INR 1.09 APTT 32.0 (22.3-36.2) sec Sodium (136-145) mmol/L Potassium (3.5-5.1) mmol/L Chloride (98-107) mmol/L Carbon Dioxide (21.0-32.0) mmol/L Anion Gap BUN (7.0-18.0) mg/dL Creatinine (0.55-1.02) mg/dL Est GFR ( Amer) (>=60) Est GFR (Non-Af Amer) (>=60) BUN/Creatinine Ratio Glucose (74-106) mg/dL Calcium (8.5-10.1) mg/dL Total Bilirubin (0.2-1.0) mg/dL AST (15-37) U/L ALT (14-59) U/L Alkaline Phosphatase (46-116) U/L Troponin I High Sens (4.0-51.3) pg/mL NT-Pro-B Natriuret Pep (<=1800.0) pg/mL Total Protein (6.4-8.2) g/dL Albumin (3.4-5.0) g/dL Globulin g/dL Albumin/Globulin Ratio Urine Color (YELLOW) Urine Clarity (CLEAR) Urine pH (5.0-9.0) Ur Specific [place] (1.005-1.025) Urine Protein (NEG/TRACE) mg/dL Urine Glucose (UA) (NEGATIVE) mg/dL Urine Ketones (NEGATIVE) mg/dL Urine Occult Blood (NEGATIVE) Urine Nitrite (NEGATIVE) Urine Bilirubin (NEGATIVE) Urine Urobilinogen (0.2-1.0) EU/dL Ur Leukocyte Esterase (NEGATIVE) Adenovirus (PCR) (NOT DETECTE) C. pneumoniae DNA (PCR) (NOT DETECTE) Coronavirus Type OC43 (NOT DETECTE) Coronavirus Type HKU1 (NOT DETECTE) Coronavirus Type 229E (NOT DETECTE) Coronavirus Type NL63 (NOT DETECTE) Human Metapneumovir PCR (NOT DETECTE) M. pneumoniae (PCR) (NOT DETECTE) Parainfluenza PCR (NOT DETECTE) Parainfluenza 2 (PCR) (NOT DETECTE) Parainfluenza 3 (PCR) (NOT DETECTE) Parainfluenza 4 (PCR) (NOT DETECTE) RSV (RT-PCR) (NOT DETECTE) Entero/Rhino (PCR) (NOT DETECTE) SARS-CoV-2 (PCR) (NOT DETECTE) Bordetella pertussis (PCR) (NOT DETECTE) B parapertussis DNA PCR (NOT DETECTE) Influenza Type A (PCR) (NOT DETECTE) Influenza Type B (PCR) (NOT DETECTE) Imaging Data Right elbow: Attestation: I personally reviewed and interpreted this imaging study as follows: Radiologist's impression: ITS Impressions Venous Doppler Study 07/16/23 14:17 IMPRESSION: 1. No deep vein thrombus or appreciable superficial venous thrombus within right upper extremity. 2. Slightly limited evaluation of the radial and ulnar veins due to edema. Electronically authenticated by: LEILA PALACIO Date: 07/16/2023 16:54 Chest X-Ray 07/16/23 15:35 IMPRESSION: 1. No appreciable acute cardiopulmonary process or findings to suggest pulmonary edema. 2. Cardiomegaly; slightly increased compared to prior study. Electronically authenticated by: LEILA PALACIO Date: 07/16/2023 15:49 Elbow X-Ray 07/16/23 15:35 IMPRESSION: 1. No acute bone abnormality or joint effusion. Mild degenerative changes. Electronically authenticated by: LEILA PALACIO Date: 07/16/2023 15:[address] 07/16/23 17:15 IMPRESSION: A left chest wall single-lead AICD is in place, with the lead traversing the left brachiocephalic vein and SVC, which are otherwise normal in caliber. Otherwise no evidence for a centrally obstructing process. The heart is enlarged. There are trace pleural effusions present. Electronically authenticated by: EMI ALVAREZ Date: 07/16/2023 17:37 ECG Data Attestation: I personally reviewed and interpreted this ECG as follows: Interpretation: EKG interpretation: Emergency Department physician interpretation, normal sinus rhythm 62 bpm,Paced rhythm with occasional PVC.No st elevation. Discharge Plan Discharge Stand Alone Forms: Portal Instructions Chief Complaint: Extremity Problem, Nontraumatic Clinical Impression: Dyspnea, Lymphedema, Elbow pain, right Patient Disposition: Home, Self-Care Time of Disposition Decision: 18:06 Condition: Good Prescriptions / Home Meds: No Action montelukast 10 mg tablet 10 mg PO DAILY sulfasalazine 500 mg tablet 0.5 g PO BID Patient Comments: PER PATIENT TAKES TWICE A DAY Rx Instructions: give with food (meal/snack) hydrocodone-acetaminophen 5-325 mg tablet 1 tab PO Q8H PRN (Reason: pain) potassium chloride [Klor-Con] 20 mEq packet 20 meq PO DAILY fluticasone propionate [24 Hour Allergy Relief] 50 mcg/actuation spray,suspension 1 spray intranasal DAILY PRN (Reason: allergy symptoms) Rx Instructions: administer into each nostril furosemide 20 mg tablet 20 mg PO DAILY levothyroxine [Levo-T] 112 mcg tablet 112 mcg PO DAILY metoprolol succinate 100 mg tablet extended release 24 hr 100 mg PO DAILY paroxetine HCl 10 mg tablet 10 mg PO DAILY calcitriol 0.25 mcg capsule 0.25 mcg PO DAILY amlodipine 10 mg tablet 10 mg PO DAILY losartan 100 mg tablet 100 mg PO DAILY Eliquis 5 mg tablet 5 mg PO Q12H atorvastatin 20 mg tablet 20 mg PO DAILY bimatoprost 0.03 % drops 1 drp OPHTHALMIC (EYE) BEDTIME Breztri Aerosphere 160-9-4.8 mcg/actuation HFA aerosol inhaler 2 inh INHALATION BID ipratropium-albuterol 0.5 mg-3 mg(2.5 mg base)/3 mL solution for nebulization 3 ml INHALATION Q6H PRN (Reason: shortness of breath) omeprazole 40 mg capsule,delayed release(DR/EC) 40 mg PO DAILY tramadol 50 mg tablet 50 mg PO Q6H PRN (Reason: pain) tizanidine 4 mg tablet 4 mg PO Q8H PRN (Reason: muscle spasticity) doxazosin 2 mg tablet 2 mg PO .hs montelukast [Singulair] 10 mg tablet 10 mg PO DAILY Charity Aerosphere 160-9-4.8 mcg/actuation HFA aerosol inhaler 2 inh inhalation BID Print Language: Korean Instructions: Lymphedema (ED) Additional Instructions: Contact Dr. Almonte's office Wednesday for follow-up, discussed referral to lymphedema clinic and notify him of the ER visit with studies performed. Referrals: BENSON ALMONTE [Primary Care Provider] - 07/19/23
[2023-07-16] MEDS: FUROSEMIDE 40 MG/4 ML VIAL IVP (15:00)
[2023-07-16 15:16] LABS: Adenovirus NOT DETECTED (NOT DETECTE); Bordetella parapertussis NOT DETECTED (NOT DETECTE); Coronavirus 229E NOT DETECTED (NOT DETECTE); Coronavirus HKU1 NOT DETECTED (NOT DETECTE); Coronavirus NL63 NOT DETECTED (NOT DETECTE); Coronavirus OC43 NOT DETECTED (NOT DETECTE); Human Metapneumovirus NOT DETECTED (NOT DETECTE); Human Rhinovirus/Enterovirus NOT DETECTED (NOT DETECTE); Influenza A NOT DETECTED (NOT DETECTE); Influenza B NOT DETECTED (NOT DETECTE); Mycoplasma pneumoniae NOT DETECTED (NOT DETECTE); Parainfluenza Virus 1 NOT DETECTED (NOT DETECTE); Parainfluenza Virus 2 NOT DETECTED (NOT DETECTE); Parainfluenza Virus 3 NOT DETECTED (NOT DETECTE); Parainfluenza Virus 4 NOT DETECTED (NOT DETECTE); Respiratory Syncytial Virus NOT DETECTED (NOT DETECTE); SARS-CoV-2 NOT DETECTED (NOT DETECTE)
[2023-07-16 15:24] LABS: Basophils Absolute Auto 0.1 10^3/uL (0.0-0.1); Basophils Percent Auto 1.1 % (0.2-2.0); Eosinophils Absolute Auto 0.1 10^3/uL (0.0-0.7); Eosinophils Percent Auto 1.7 % (0.9-7.0); Hematocrit 35.6 % (36.0-48.0); Hemoglobin 11.4 g/dL (12.0-16.0); Immature Granulocytes Abs Auto 0.01 10^3/uL (0.00-0.03); Immature Granulocytes Pct Auto 0.2 % (0.0-0.5); Lymphocytes Absolute Auto 1.1 10^3/uL (1.2-3.8); Lymphocytes Percent Auto 19.9 % (20.5-60.0); Mean Corpuscular Hemoglobin 30.5 pg (26.7-34.0); Mean Corpuscular Volume 95.2 fL (81.0-99.0); Monocytes Absolute Auto 1.2 10^3/uL (0.3-0.8); Monocytes Percent Auto 22.3 % (1.7-12.0); Neutrophils Absolute Auto 2.9 10^3/uL (1.4-6.5); Neutrophils Percent Auto 54.8 % (43.0-75.0); Platelet Count 209 10^3/uL (150-450); Red Blood Count 3.74 10^6/uL (4.20-5.40); Red Cell Distribution Width 17.5 % (11.0-15.0); White Blood Count 5.3 10^3/uL (4.0-11.0)
[2023-07-16 15:25] LABS: Bilirubin Urine NEGATIVE (NEGATIVE); Blood Urine NEGATIVE (NEGATIVE); Clarity Urine CLEAR (CLEAR); Color Urine LT. YELLOW (YELLOW); Glucose Urine UA NEGATIVE (NEGATIVE); Ketones Urine NEGATIVE (NEGATIVE); Leukocyte Esterase Urine NEGATIVE (NEGATIVE); Nitrite Urine NEGATIVE (NEGATIVE); Protein Urine NEGATIVE (NEG/TRACE); Specific Gravity Urine <=1.005 (1.005-1.025); Urobilinogen Urine 0.2 EU/dL (0.2-1.0)
[2023-07-16 15:27] LABS: Urine Microscopic Indicated NO
--- NOTE | 2023-07-16 15:35 | XR_ITS ---
The [address] [address] Patient Name: ISAAC TOURE MRN: [id number] date: 1940 Sex: F Assigned Patient Location: ER Current Patient Location: ER Accession/Order Number: [id number] Exam Date: 07/16/2023 15:25 Report Date: 07/16/2023 15:50 At the request of: ADITI WARREN Procedure: XR elbow RT min 3V PROCEDURE: XR elbow RT min 3V HISTORY: pain s/p fall COMPARISON: None. FINDINGS: BONES:No fracture, acute abnormality, or significant arthropathy. SOFT TISSUES:Atherosclerotic disease. Calcifications within soft tissues posterior to the proximal forearm suspected to be chronic. EFFUSION:None visible. OTHER: Negative. XR/XR elbow RT min 3V IMPRESSION: 1. No acute bone abnormality or joint effusion. Mild degenerative changes. Electronically authenticated by: LEILA PALACIO Date: 07/16/2023 15:50
--- NOTE | 2023-07-16 15:35 | XR_ITS ---
The [address] [address] Patient Name: ISAAC TOURE MRN: [id number] date: 1940 Sex: F Assigned Patient Location: ER Current Patient Location: ER Accession/Order Number: [id number] Exam Date: 07/16/2023 15:25 Report Date: 07/16/2023 15:49 At the request of: ADITI WARREN Procedure: XR chest 2V EXAMINATION: XR chest 2V HISTORY: fluid retention COMPARISON: XR chest 12/18/2022 FINDINGS: LUNGS: No significant pulmonary parenchymal abnormalities. VASCULATURE: No increased pulmonary vasculature. PLEURA: No pneumothorax, effusion, or pleural thickening. CARDIAC: Cardiomegaly. Cardiac pacer. MEDIASTINUM: No visible mass or adenopathy. BONES: No fracture or visible bone lesion. OTHER: Negative. XR/XR chest 2V IMPRESSION: 1. No appreciable acute cardiopulmonary process or findings to suggest pulmonary edema. 2. Cardiomegaly; slightly increased compared to prior study. Electronically authenticated by: LEILA PALACIO Date: 07/16/2023 15:49
[2023-07-16 15:42] LABS: Alanine Aminotransferase 25 U/L (14-59); Albumin Globulin Ratio 1.1; Albumin Level 3.7 g/dL (3.4-5.0); Alkaline Phosphatase 113 U/L (46-116); Anion Gap 12.7; Aspartate Amino Transferase 29 U/L (15-37); BUN Creatinine Ratio 13.5; Bilirubin Total 0.8 mg/dL (0.2-1.0); Calcium 9.1 mg/dL (8.5-10.1); Carbon Dioxide 26.8 mmol/L (21.0-32.0); Chloride 104 mmol/L (98-107); Estimated GFR (African America >60 (>=60); Estimated GFR (Non-African Ame >60 (>=60); Globulin 3.4 g/dL; Glucose 113 mg/dL (74-106); Potassium 3.5 mmol/L (3.5-5.1); Sodium 140 mmol/L (136-145); Total Protein 7.1 g/dL (6.4-8.2); Troponin I High Sensitivity 10.9 pg/mL (4.0-51.3)
[2023-07-16 16:09] LABS: INR 1.09; Prothrombin Time 11.5 sec (9.0-11.6)
--- NOTE | 2023-07-16 17:15 | CT_ITS ---
The [address] [address] Patient Name: ISAAC TOURE MRN: [id number] date: 1940 Sex: F Assigned Patient Location: ER Current Patient Location: ER Accession/Order Number: [id number] Exam Date: 07/16/2023 17:05 Report Date: 07/16/2023 17:37 At the request of: ADITI WARREN Procedure: CT chest w con EXAM: CT chest w con HISTORY: r/o obstructive process with (R) UE swelling. COMPARISON: None. TECHNIQUE: CT imaging obtained through the chest with intravenous contrast. Coronal and axial MIP reformatted images obtained. FINDINGS: Heart size is enlarged. There is a left chest wall single-lead AICD in place. Moderate coronary calcification. Trace pericardial effusion. The thoracic aorta is heavily calcified without aneurysmal dilatation or dissection. Mild aortic valvular calcifications. The origins of the great vessels are mildly calcified, without focal significant stenosis. Pulmonary artery within normal size limits. No large or central pulmonary embolism. No thoracic lymphadenopathy. Central tracheobronchial tree is patent. There are trace pleural effusions. No pneumothorax. No miguel angel pulmonary edema. There is patchy bibasilar subsegmental atelectasis. Otherwise no consolidation. Bones and soft tissues: No suspicious bone findings. Significant degenerative change of the glenohumeral joints partially seen. Moderate thoracic spine degenerative change. Partially imaged upper abdomen: Limited. CT/CT chest w con IMPRESSION: A left chest wall single-lead AICD is in place, with the lead traversing the left brachiocephalic vein and SVC, which are otherwise normal in caliber. Otherwise no evidence for a centrally obstructing process. The heart is enlarged. There are trace pleural effusions present. Electronically authenticated by: EMI ALVAREZ Date: 07/16/2023 17:37
== END 2023-07-16 18:31 | disposition home or self-care (01) ==
PROVIDERS: Personal Emergency Response Attendant; Emergency Provider Emergency Medicine; PCP Internal Medicine
DX: I89.0 Lymphedema, not elsewhere classified (principal); R06.00 Dyspnea, unspecified; M25.521 Pain in right elbow; M19.90 Unspecified osteoarthritis, unspecified site; F41.9 Anxiety disorder, unspecified; J44.9 Chronic obstructive pulmonary disease, unspecified; I70.90 Unspecified atherosclerosis; I48.91 Unspecified atrial fibrillation; I10 Essential (primary) hypertension; Z87.891 Personal history of nicotine dependence; Z20.822 Contact with and (suspected) exposure to COVID-19; Z79.899 Other long term (current) drug therapy; Z79.890 Hormone replacement therapy; Z79.01 Long term (current) use of anticoagulants
CPT/HCPCS: 0202U; 36415; 51702; 71046; 71260; 73080; 80053; 81003; 83880; 84484; 85025; 85610; 85730; 93005; 93971; 96374; 99285; Q9967

== ENCOUNTER 2023-10-21 12:58 | Outpatient (OUT) | payer MEDICARE, SELFPAY ==
--- NOTE | 2023-10-21 13:04 | XR_ITS ---
The [address] [address] Patient Name: ISAAC TOURE MRN: [id number] date: 1940 Sex: F Assigned Patient Location: [facility] Current Patient Location: [facility] Accession/Order Number: [id number] Exam Date: 10/21/2023 13:10 Report Date: 10/21/2023 15:28 At the request of: BENSON CHAKRABORTY Procedure: XR DEXA axial skeleton EXAMINATION: XR DEXA axial skeleton, 10/21/2023 1:10 PM EDT HISTORY: Estrogen Deficiency E28.39 COMPARISON: 2019, 2017, 2013, 2011. TECHNIQUE: Dual-energy X-ray absorptiometry (DEXA) bone density study performed for the axial skeleton. FINDINGS: Bone mineral density of the right femur measures 0.861 g/sq cm. T score -1.2. Osteopenia Lowest bone mineral density is in the left forearm radius measuring 0.495 g/sq cm. T score -3.1. Osteoporosis Bone mineral density is improved from the prior exam XR/XR DEXA axial skeleton IMPRESSION: Osteoporosis. High fracture risk Pharmacologic treatment recommendations * No uniform recommendation applies to all patients. Management plans must be individualized. * Consider initiating pharmacologic treatment in postmenopausal women and men >= 50 years of age who have the following: Primary fracture prevention: * T-score <= - 2.5 at the femoral neck, total hip, lumbar spine, 33% radius (some uncertainty with existing data) by DXA. * Low bone mass (osteopenia: T-score between - 1.0 and - 2.5) at the femoral neck or total hip by DXA with a 10-year hip fracture risk >= 3% or a 10-year major osteoporosis-related fracture risk >= 20% (i.e., clinical vertebral, hip, forearm, or proximal humerus) based on the [place]-adapted FRAXregistered model. Secondary fracture prevention: * Fracture of the hip or vertebra regardless of BMD [4, 5]. * Fracture of proximal humerus, pelvis, or distal forearm in persons with low bone mass (osteopenia: T-score between - 1.0 and - 2.5). The decision to treat should be individualized in persons with a fracture of the proximal humerus, pelvis, or distal forearm who do not have osteopenia or low BMD [12, 13]. Michele MS, Horacio SL, Julio KL, Emily EM, Diana KG, AJ, Nikko ES. The clinician's guide to prevention and treatment of osteoporosis. Osteoporos Int. 2021;33(10):3827-1674. doi: 10.1007/o07341-817-94240-i. Epub 2021Jul 24. Erratum in: Osteoporos Int. 2021Oct 23;: PMID: [id number]; PMCID: [id number]. Electronically authenticated by: CONSTANTINE ROSAS Date: 10/21/2023 15:28
--- OUTSIDE RECORDS SUMMARY | 2023-10-21 13:08 | XMS_ITS | CCD ---
Author Organization [facility] CliniSyfl Care Team Providers Care Photocopying Machine Operator Name Role Phone SELF, REFERRED Referring Unavailable BERNARDO ALMONTE Primary Care Unavailable ILIANA MCKOY Admitting Unavailable ID Procedure Practitioner Unavailab ABAD Kong Surgeon Unavailable LYLE TRISTAN Attending Unavailable ABAD JOHNS Admitting Unavailable ABAD JOHNS Attending Unavailable LISANDRA JOHNSHEBLOSSOM Adrian Referring Unavailable BERNARDO ALMONTE Primary Care Unavailable ABAD JOHNS Admitting Unavailable ABAD JOHNS Attending Unavailable BERNARDO ALMONTE Referring Unavailable BERNARDO ALMONTE Primary Care Unavailable Bernardo Almonte II Primary Care Provider [phone] BERNARDO ALMONTE Primary Care Unavailable MYLENE, [...] TITUS Consulting Unavailable JULIANA TITUS Attending Unavailable SARAH TITUSA Admitting Unavailable MYLENE, DR KNOWLES Primary Care [...] STATON Referring Unavailable BENNY VICTORIA Attending Unavailable Bernardo Almonte MD Unavailable [phone] Bernardo Almonte MD Primary Care Provider [phone] CHAVO BRYANT Attending Unavailable CAROLYN ADKINS Referring Unavailable CAROLYN DAKINS Attending Unavailable BERNARDO ALMONTE Attending Unavailable BERNARDO ALMONTE Attending Unavailable CAROLYN ADKINS Attending Unavailable BERNARDO ALMONTE Attending Unavailable Allergies Allergy Classification Reported Allergen(s) Allergy Type Date of Onset Reaction(s) Facility Sulfanilamide (1 source) Sulfanilamide Drug Allergy 5 Unknown [facility] (4 sources) Sulfonamides (Antibiotic); Translations: [SULFA (SULFONAMIDE ANTIBIOTICS)] Drug allergy (disorder) [address] [facility] (1 source) Milk; Translations: [MILK] Propensity to adverse reactions to drug (disorder) [address] [facility] (4 sources) Cow milk Allergy to substance 2 [facility] (4 sources) Sulfanilamide Allergy to substance 3 Unknown [facility] Work Phone: Medications Current Medications Medication Drug Class(es) Dates Sig (Normalized) Sig (Original) acetaminophen 325 mg / HYDROcodone bitartrate 5 mg oral tablet (4 sources) Opioid Agonist take 1 tablet by mouth every eight hours as needed HYDROcodone-aceta minophen (Curtis) 5-325 MG tablet TAKE 1 TABLET BY [...] glaucoma of both eyes, unspecified glaucoma stage (CMS/HCC) Administer 1 drop into both eyes at [...] pulmonary disease with acute lower respiratory infection ([facility]/HCC) Inhale 2 puffs every 12 (twelve) hours. 3 inhalers, not 3 grams. 3 g 3 12/14/2022 Active calcitriol 0.42226 mg oral capsule (5 sources) Vitamin D3 Analog Start: 04-26-19 24 take 1 capsule by mouth once daily calcitriol (Rocaltrol) 0.25 MCG capsule Indications: Age-related osteoporosis without current pathological fracture ([facility]/HCC) TAKE 1 CAPSULE BY MOUTH EVERY DAY [...] Take 20 mg by mouth. Fish Oil-Cholecalciferol ([place]-3 Fish Oil/Vitamin D3) 8873-3514 MG-UNIT capsule (4 sources) Fish Oil-Cholecalciferol ([place]-3 Fish Oil/Vitamin D3) 1663-9855 MG-UNIT capsule Take by mouth at bedtime. [...] NASE) 50 mcg/actuation nasal spray Use 1 [place] in each nostril as needed. 0 Active Comment on above: Use 1 [place] in each nostril as needed. FLUTICASONE PROPIONATE, INHAL, IN (4 sources) FLUTICASONE PROPIONATE, INHAL, IN Inhale 2 Inhalation 1 (one) time each day. 0 Active furosemide 20 mg oral tablet (4 sources) Loop Diuretic Start: 3 take 1 tablet by mouth in the morning furosemide (Lasix) 20 MG tablet Take 20 mg by mouth in the morning. 0 06/29/2022 Active Pqiejc-Zucpk-Phgo Ac-Ca Fructo (Move Free [facility]) tablet (4 sources) take 1 tablet by mouth once daily Qddgtt-Arfsn-Ored Ac-Ca Fructo (Move Free [facility]) tablet Take 1 tablet by mouth [...] EVERY DAY 90 tablet 4 02/01/2023 Active [place]-3 Fatty Acids (Fish Oil) 1000 MG capsule delayed-release (4 sources) take 1 capsule by mouth once daily [place]-3 Fatty Acids (Fish Oil) 1000 MG capsule [...] Comment on above: Take 1,000 mcg by [facility] once daily. warfarin sodium 2 mg [...] above: Take by mouth once d aily. 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] Onset: 03-20-2018 Episodic Other aftercare (1 source) snf (current) use of aspirin; Translations: [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 Office Visiton 08-18-2022 Follow-up visit [id number] Isaac Toure 1940 F Date Provider Department Center 08/18/2022 BENNY BERGMAN [facility]LEY[facility] Family History Problem Relation Age of Onset Diabetes Mother Hypertension Mother Hyperlipidemia Mother Diabetes Father Hypertension Father Stroke Father Hyperlipidemia Father Family Status - Relation Status Age at Mother Father Level of Service:32407 ID OFFICE/OUTPATIENT ESTABLISHED MOD MDM 30-39 MIN Reason for Visit and Comments: Follow-up [055379] - 1 yr. Follow up Normal [facility] MG MAMM SCREEN TOM W CADon 1 04-01-2021 MG MAMM SCREEN TOM W CAD Patient: TOURE, ISAAC Wall. Exam Date: 01/30/2022 : 1940 Gender:F Ordering : DR BERNARDO ALMONTE M.D. Admission #: [id number] Family : Order #: [id number] CLICK HERE TO VIEW EXAM RADIOLOGY REPORT [...] breast cancer at age 46. LOCATION: [facility] BREAST COMPOSITION: Heterogeneously dense,which may obscure small [...] MD on 01/30/2022 at 13:03 Normal [facility] XR LSPINE MIN 4 VIEWSon 11-27 XR [...] CONSTANTINE ROSAS Date: 2021-12-12 16:39 Normal [facility] BNPon 06-16-2021 Natriuretic peptide B (Bld) [Mass/Vol] 1502.0 pg/mL Normal <=1,800.0 [facility] Comment on above: Performed By: #### B BARK SCALER, CMP #### [facility] [address] [place] [address] Dr. Phil Bobby PROF 14(COMP METB)on 022 Albumin [Mass/Vol] 3.9 g/dL Normal 3.4-5.0 [facility] Comment on above: Performed By: #### B BARK SCALER, CMP #### [facility] [address] [address] [address] Phil Bobby Albumin/Globulin [Mass ratio] 1.0 {ratio} Normal [facility] Comment on above: Performed By: #### B BARK SCALER, CMP #### [facility] [address] [place] [address] Dr. Phil Bobby ALP [Catalytic activity/Vol] 89 U/L Normal 46-116 [facility] Comment on above: Performed By: #### B BARK SCALER, CMP #### [facility] [address] [place] [address] Dr. Phil Bobby ALT [Catalytic activity/Vol] 51 U/L Normal 14-59 [facility] Comment on above: Performed By: #### B BARK SCALER, CMP #### [facility] [address] [place] [address] Dr. Phil Bobby Anion gap [Moles/Vol] 13.3 mmol/L Normal [facility] Comment on above: Performed By: #### B BARK SCALER, CMP #### [facility] [address] [place] [address] Dr. Phil Bobby AST [Catalytic activity/Vol] 29 U/L Normal 15-37 [facility] Comment on above: Performed By: #### B BARK SCALER, CMP #### [facility] [address] [place] [address] Dr. Phil Bobby Bilirubin [Mass/Vol] 0.4 mg/dL Normal 0.2-1.3 [facility] Comment on above: Performed By: #### B BARK SCALER, CMP #### [facility] [address] [place] [address] Dr. Phil Bobby Calcium [Mass/Vol] 8.5 mg/dL Normal 8.5-10.1 [facility] Comment on above: Performed By: #### B BARK SCALER, CMP #### [facility] [address] [address] [address] Phil Bobby Chloride [Moles/Vol] 102 mmol/L Normal 98-107 [facility] Comment on above: Performed By: #### B BARK SCALER, CMP #### [facility] [address] [place] [address] Dr. Phil Bobby CO2 [Moles/Vol] 27.9 mmol/L Normal 22.0-30.0 [facility] Comment on above: Performed By: #### B BARK SCALER, CMP #### [facility] [address] [place] [address] Dr. Phil Bobby Creatinine [Mass/Vol] 1.04 mg/dL Normal 0.52-1.04 [facility] Comment on above: Performed By: #### B BARK SCALER, CMP #### [facility] [address] [place] [address] Dr. Phil Bobby EGFR-AF LIBYAN >60 Normal >=60 [facility] Comment on above: Performed By: #### B BARK SCALER, CMP #### [facility] [address] [place] [address] Dr. Phil Bobby EGFR-NON AF LIBYAN 51 mL/min/1.73m2 Critically low >=60 [facility] Comment on above: Performed By: #### B BARK SCALER, CMP #### [facility] [address] [place] [address] Dr. Phil Bobby Globulin (S) [Mass/Vol] 4.0 g/dL Normal [facility] Comment on above: Performed By: #### B BARK SCALER, CMP #### [facility] [address] [place] [address] Dr. Phil Bobby Glucose [Mass/Vol] 118 mg/dL Critically high 74-106 [facility] Comment on above: Performed By: #### B BARK SCALER, CMP #### [facility] [address] [place] [address] Dr. Phil Bobby Potassium [Moles/Vol] 4.2 mmol/L Normal 3.4-5.0 [facility] Comment on above: Performed By: #### B BARK SCALER, CMP #### [facility] [address] [place] [address] Dr. Phil Bobby Protein [Mass/Vol] 7.9 g/dL Normal 6.1-8.2 [facility] Comment on above: Performed By: #### B BARK SCALER, CMP #### [facility] [address] [address] [address] Phil Bobby Sodium [Moles/Vol] 139 mmol/L Normal 137-145 [facility] Comment on above: Performed By: #### B BARK SCALER, CMP #### [facility] [address] [address] [address] Phil Bobby Urea nitrogen [Mass/Vol] 20.0 mg/dL Critically high 7.0-18.0 [facility] Comment on above: Performed By: #### B BARK SCALER, CMP #### [facility] [address] [address] [address] Phil Bobby Urea nitrogen/Creatinine [Mass ratio] 19.2 mg/mg Normal [facility] Comment on above: Performed By: #### B BARK SCALER, CMP #### [facility] [address] [address] [address] Phil Bobby Basic Metabolic Panelon 05-27 Anion gap [Moles/Vol] 18 mmol/L Normal 12-20 [facility] Comment on above: Result Comment: Effe ctive 04/03/2019 reference range changed. Performed By: #### B MP #### [facility] [address] [place], [place] [id number] Calcium [Mass/Vol] 8.8 mg/dL Normal 8.6-10.2 [facility] Comment on above: Performed By: #### B MP #### [facility] [address] [facility] [place] [id number] Chloride [Moles/Vol] 104 mmol/L Normal 98-107 [facility] Comment on above: Performed By: #### B MP #### [facility] [address] [place], [place] [id number] CO2 [Moles/Vol] 23 mmol/L Normal 20-31 [facility] Comment on above: Performed By: #### B MP #### [facility] [address] [place], [place] [id number] Creatinine [Mass/Vol] 0.9 mg/dL Normal 0.6-1.4 [facility] Comment on above: Performed By: #### B MP #### [facility] [address], [place] [id number] eGFRAA 77 mL/min/1.73m2 Normal >60 [facility] Comment on above: Performed By: #### B MP #### [facility] [address], [place] [id number] eGFRNAA 64 mL/min/1.73m2 Normal >60 [facility] Comment on above: Performed By: #### B MP #### [facility] [address] [place], [place] [id number] Glucose [Mass/Vol] 79 mg/dL Normal 65-99 [facility] Comment on above: Result Comment: For FASTING Glucose --- ADA reference ranges: Normal 65-99 mg/dl Prediabetes 100-125 Diabetes >/= 126 Performed By: #### B MP #### [facility] [address] [place], [place] [id number] Potassium [Moles/Vol] 4.0 mmol/L Normal 3.5-5.5 [facility] Comment on above: Performed By: #### B MP #### [facility] [address] [place], [place] [id number] Sodium [Moles/Vol] 141 mmol/L Normal 135-146 [facility] Comment on above: Performed By: #### B MP #### [facility] [address] [place], [place] [id number] Urea nitrogen [Mass/Vol] 17 mg/dL Normal 7-25 [facility] Comment on above: Performed By: #### B MP #### [facility] [address] [place], [place] [id number] XR CHEST 2 Von 06-06-2021 XR CHEST [...] by: MARGY AHUJA Date: 2021-06-06 13:25 Normal [facility] ECHOCARDIO M/2D COMPLETEon 0 05-07-2021 ECHOCARDIO M/2D COMPLETE Patient: ISAAC TOURE Exam Date: 05/07/2021 : 1940 Gender:F Ordering : JULIANA TITUS Admission #: [id number] Family : DR BERNARDO ALMONTE M.D. Order #: [id number] CLICK HERE TO VIEW EXAM ECHOCARDIOGRAM REPORT [...] Santo M.D. on 05/08/2021 at 12:15 Normal [facility] PROF CHEM 8 (BAS METB)on Anion gap [Moles/Vol] 7.3 mmol/L Normal [facility] Comment on above: Performed By: #### B MP #### [facility] [address] [address] [address] Phil Bobby Calcium [Mass/Vol] 9.3 mg/dL Normal 8.4-10.2 [facility] Comment on above: Performed By: #### B MP #### [facility] [address] [address] [address] Phil Bobby Chloride [Moles/Vol] 99 mmol/L Normal 98-107 [facility] Comment on above: Performed By: #### B MP #### [facility] [address] [address] [address] Phil Bobby CO2 [Moles/Vol] 34.1 mmol/L Critically high 22.0-30.0 [facility] Comment on above: Performed By: #### B MP #### [facility] [address] [address] [address] Phil Bobby Creatinine [Mass/Vol] 1.07 mg/dL Critically high 0.52-1.04 [facility] Comment on above: Performed By: #### B MP #### [facility] [address] [address] [address] Phil Bobby EGFR-AF LIBYAN =60 Normal >=60 [facility] Comment on above: Performed By: #### B MP #### [facility] [address] [address] [address] Phil Bobby EGFR-NON AF LIBYAN 49 mL/min/1.73m2 Critically low >=60 [facility] Comment on above: Performed By: #### B MP #### [facility] [address] [address] [address] Phil Bobby Glucose [Mass/Vol] 123 mg/dL Critically high 74-106 [facility] Comment on above: Performed By: #### B MP #### [facility] [address] [address] [address] Phil Bobby Potassium [Moles/Vol] 3.4 mmol/L Normal 3.4-5.0 [facility] Comment on above: Performed By: #### B MP #### [facility] [address] [address] [address] Phil Bobby Sodium [Moles/Vol] 137 mmol/L Normal 137-145 [facility] Comment on above: Performed By: #### B MP #### [facility] [address] [address] [address] Phil Bobby Urea nitrogen [Mass/Vol] 28.0 mg/dL Critically high 7.0-17.0 [facility] Comment on above: Performed By: #### B MP #### [facility] [address] [address] [address] Phil Bobby Urea nitrogen/Creatinine [Mass ratio] 26.2 mg/mg Normal [facility] Comment on above: Performed By: #### B MP #### [facility] [address] [address] [address] Phil Bobby LIPID PROFILEon 04-01-2021 CHOL-HDL RATIO NORM SEE BELOW Normal [facility] Comment on above: Result Comment: 3.3 - 4.4 LOW RISK 4.4 - 7.1 AVERAGE RISK 7.1 - 11.0 MODERATE RISK >11.0 HIGH RISK Performed By: #### L IPID ####[facility] [address] [address]Dr. Phil Bobby Cholesterol [Mass/Vol] 158 mg/dL Normal <=200 [facility] Comment on above: Performed By: #### L IPID ####[facility] [address] [address]Dr[address] Phil Bobby Cholesterol in HDL [Mass/Vol] 74 mg/dL Normal [facility] Comment on above: Performed By: #### L IPID ####[facility] [address] [address]Dr[address] Phil Bobby Cholesterol in LDL [Mass/Vol] 78.0 mg/dL Normal [facility] Comment on above: Performed By: #### L IPID ####[facility] [address] [address]Dr[address] Phil Bobby Cholesterol.total/C holesterol in HDL [Mass ratio] 2.1 {ratio} Normal [facility] Comment on above: Performed By: #### L IPID ####[facility] [address] [address]Dr. Phil Bobby HDL NORMAL > or = 60 mg/dl - LO W CARDIOVASCULAR RISK <40 mg/dl - HIGH CARDIOVASCULAR RISK Normal [facility] Comment on above: Performed By: #### L IPID ####[facility] [address] [address]Dr. Phil Bobby LDL CALC NORMAL SEE BELOW Normal [facility] Comment on above: Result Comment: <100 mg/dl OPTIMAL 100 - 129 mg/dl NEAR OR ABOVE OPTIMAL 130 - 159 mg/dl BORDERLINE HIGH 160 - 189 mg/dl HIGH >190 mg/dl VERY HIGH Performed By: #### L IPID ####[facility] [address] [place], [place] [address]Nn. Phil Bobby Triglyceride [Mass/Vol] 30 mg/dL Normal <=150 [facility] Comment on above: Performed By: #### L IPID ####[facility] [address] [place], [place] [address]Dw. Phil Bobby VLDL CALC 6.0 mg/dL Normal [facility] Comment on above: Performed By: #### L IPID ####[facility] [address] [address]Dr. Phil Bobby FEMUR LEFT 2 VWSon 9 FEMUR LEFT [address] [facility] Department of Radiology [address] [place] [id number] Patient Name: ISAAC TOURE : 1940 Sex: F Age: Race: White Pt. Location: 84 Patient Status: O Ordered Date: 06/22/2018 12:30:00 PM Completed Date: 06/22/2018 12:42 PM Requesting Provider: ABAD JOHNS Attending Provider: ABAD JOHNS Report Copy To: Signs & Symptoms: Z47.89 Encounter for other orthopedic aftercare I10 History: [place] Comments: , Views (X-RAY, FEMUR): AP, Lateral [...] alignment Electronically signed by:He Gomez. Transcribed by: [email or web address], User Resident: Electronically Signed by: HE GOMEZ @ 06/22/2018 01:23 PM Normal [facility] Comment on above: Order Comment: , Vie ws (X-RAY, FEMUR): AP, Lateral , Views (X- RAY, FEMUR): AP, Lateral , , , Ordering Provider - ABAD JOHNS MD , FEMUR LEFT 2 [facility] 9 FEMUR LEFT [address] [facility] Department of Radiology [address] [place] [phone] Patient Name: ISAAC TOURE : 1940 Sex: F Age: Race: White Pt. Location: Patient Status: O Ordered Date: 05/11/2018 12:20:00 PM Completed Date: 05/11/2018 12:24 PM Requesting Provider: ABAD JOHNS Attending Provider: ABAD JOHNS Report Copy To: BERNARDO ALMONTE Signs & Symptoms: Z47.89 Encounter for other orthopedic aftercare I10 History: [place] Comments: , Views (X-RAY, FEMUR): AP, Lateral , Views (X-RAY, FEMUR): AP, Lateral , , , Ordering Provider - ABAD JOHNS MD , Exam: FEMUR LEFT 2 S FEMUR LEFT 2 VWS 05/11/2018 12:24 PM [...] alignment Electronically signed by:He Gomez. Transcribed by: [email or web address], User Resident: Electronically Signed by: HE GOMEZ @ 05/11/2018 03:15 PM Normal [facility] Comment on above: Order Comment: , Katherine ws (X-RAY, FEMUR): AP, Lateral , Views (X- RAY, FEMUR): AP, Lateral , , , Ordering Provider - ABAD JOHNS MD , PROTHROMBIN TIMEon 9 INR Coag RelTime (PPP) 1.41 {INR} High 0.91-1.[address] [facility] Comment on above: Order Comment: Unkno [...] CHEST 1995;108:231S-246S. Performed By: #### 0 0071, [id number], 04303 #### [facility] [address] Prothrombin time (PT) Coag time (PPP) 17.3 s High 12.3-14.8 [facility] Comment on above: Order Comment: Unkno wn Result Comment: ALL RESULTS MUST BE INTERPRETED WITH RESPECT TO BLOOD DRAWING ARTIFACT OR DILUTION ERROR OF ANTICOAGULANT AT THE TIME OF SAMPLING. Performed By: #### 0 0071, 66097, 19738 #### [facility] [address] BASIC METABOLIC PANELon -0 Calcium mass conc 8.0 mg/dL Low 8.6-10.3 [facility] Comment on above: Order Comment: No: D o not add to previous draw Performed By: #### 0 0071, 64125, 35379 #### [facility] [address] [place] [address], [place] Chloride molar conc 102 mmol/L Normal 98-107 [facility] Comment on above: Order Comment: No: D o not add to previous draw Performed By: #### 0 0071, 23697, 31228 #### [facility] [address] [place] [id number], [place] CO2 molar conc 27 mmol/L Normal 21-31 [facility] Comment on above: Order Comment: No: D o not add to previous draw Performed By: #### 0 0071, 96295, 68155 #### [facility] [address] [place] [address], [place] Creatinine mass conc 0.70 mg/dL Normal 0.60-1.20 [facility] Comment on above: Order Comment: No: D o not add to previous draw Performed By: #### 0 0071, 44006, 08493 #### [facility] [address] [place] [address], [place] GFR/1.73 sq M predicted among blacks MDRD vol rate/area (S/P/Bld) mL/min/{1.73_m2} Normal >60 [facility] [place] Comment on above: Order Comment: No: D o not add to previous draw Result Comment: Calc ulation may not be valid for patients over 70 years Performed By: #### 0 0071, 80905, 34571 #### [facility] [address] [place] [address], [place] GFR/1.73 sq M predicted among non-blacks MDRD vol rate/area (S/P/Bld) mL/min/{1.73_m2} Normal >60 [facility] [place] Comment on above: Order Comment: No: D o not add to previous draw Result Comment: Calc ulation may not be valid for patients over 70 years Performed By: #### 0 0071, 01456, 46145 #### [facility] [address] [place] [address], [place] Glucose mass conc 104 mg/dL High 70-100 [facility] Comment on above: Order Comment: No: D o not add to previous draw Performed By: #### 0 0071, 41476, 21634 #### [facility] [address] [place] [address], [place] Potassium molar conc 3.7 mmol/L Normal 3.5-5.1 [facility] Comment on above: Order Comment: No: D o not add to previous draw Performed By: #### 0 0071, 77647, 18908 #### [facility] [address] [place] [address], [place] Sodium molar conc 135 mmol/L Low 136-145 [facility] Comment on above: Order Comment: No: D o not add to previous draw Performed By: #### 0 0071, 67658, 39975 #### [facility] [address] [place] [id number], [place] Urea nitrogen mass conc 17 mg/dL Normal 7-[address] [facility] Comment on above: Order Comment: No: D o not add to previous draw Performed By: #### 0 0071, 35314, 82399 #### [facility] [address] CBC COMPLETE BLOOD COUNTon 0 - Erythrocyte distribution width Ratio (RBC) 14.5 % Normal 11.5-15.0 [facility] Comment on above: Order Comment: No: D o not add to previous draw Performed By: #### 0 0071, 50858, 09451 #### [facility] [address] Hematocrit Volume Fraction (Bld) 23.8 % Low 36.0-45.[address] [facility] Comment on above: Order Comment: No: D o not add to previous draw Performed By: #### 0 0071, 47819, 68737 #### [facility] [address] [place] [id number], [place] Hemoglobin mass conc (Bld) 7.9 g/dL Low 12.0-15.[address] [facility] Comment on above: Order Comment: No: D o not add to previous draw Performed By: #### 0 0071, 95020, 61008 #### [facility] [address] [place] [id number], [place] MCH Entitic mass (RBC) 32.9 pg Normal 27.0-33.[address] [facility] Comment on above: Order Comment: No: D o not add to previous draw Performed By: #### 0 0071, 33864, 66886 #### [facility] [address] MCHC mass conc (RBC) 33.2 g/dL Normal 32.0-35.[address] [facility] Comment on above: Order Comment: No: D o not add to previous draw Performed By: #### 0 0071, 76969, 48412 #### [facility] [address] [facility] [address] MCV Entitic volume (RBC) 99.2 fL High 82.0-98.[address] [facility] Comment on above: Order Comment: No: D o not add to previous draw Performed By: #### 0 0071, 91847, 82149 #### [facility] [address] [facility] [address] Nucleated RBC/100 WBC Ratio (Bld) 3 % High 0-[address] [facility] Comment on above: Order Comment: No: D o not add to previous draw Performed By: #### 0 0071, 69082, 68019 #### [facility] [address] [facility] [place] [address], [place] PLAT CNT 401 10*3/uL High 150-400 [facility] Comment on above: Order Comment: No: D o not add to previous draw Performed By: #### 0 0071, 60567, 85486 #### [facility] [address] [facility] [place] [address], [place] RBC #/vol (Bld) 2.40 10*6/uL Low 3.80-5.00 [facility] Comment on above: Order Comment: No: D o not add to previous draw Performed By: #### 0 0071, 77022, 65901 #### [facility] [address] [place] [address], [place] WBC #/vol (Bld) 9.83 10*3/uL Normal 4.00-10.60 [facility] Comment on above: Order Comment: No: D o not add to previous draw Performed By: #### 0 0611, 38681, 32104 #### [facility] [address] [facility]. [address] PROTHROMBIN TIMEon 9 INR Coag RelTime (PPP) 1.31 {INR} High 0.91-1.[address] [facility] Comment on above: Order Comment: Ashwin wn Result Comment: [facility] P RECOMMENDED INR [...] CHEST 1995;108:231S-246S. Performed By: #### 0 0071, 03852, 50679 #### [facility] [address] [facility] [address] Prothrombin time (PT) Coag time (PPP) 16.3 s High 12.3-14.[address] [facility] Comment on above: Order Comment: Ashwin wn Result Comment: ALL RESULTS MUST BE INTERPRETED WITH RESPECT TO BLOOD DRAWING ARTIFACT OR DILUTION ERROR OF ANTICOAGULANT AT THE TIME OF SAMPLING. Performed By: #### 0 0071, 11551, 74684 #### [facility] [address] [facility] [place] [place] [address], [place] BASIC METABOLIC PANELon 12-3 Calcium mass conc 8.2 mg/dL Low 8.6-10.3 [facility] Comment on above: Order Comment: No: D o not add to previous draw Performed By: #### 0 0071, 24570, 26955 #### [facility] [address] [place] [address], [place] Chloride molar conc 101 mmol/L Normal 98-107 [facility] Comment on above: Order Comment: No: D o not add to previous draw Performed By: #### 0 0071, 80106, 09338 #### [facility] [address] [place] [address], [place] CO2 molar conc 26 mmol/L Normal 21-31 [facility] Comment on above: Order Comment: No: D o not add to previous draw Performed By: #### 0 0071, 76028, 52791 #### [facility] [address] [place] [address], [place] Creatinine mass conc 0.70 mg/dL Normal 0.60-1.[address] [facility] Comment on above: Order Comment: No: D o not add to previous draw Performed By: #### 0 0071, 92372, 29811 #### [facility] [address] [place] [address], [place] GFR/1.73 sq M predicted among blacks MDRD vol rate/area (S/P/Bld) mL/min/{1.73_m2} Normal >60 The [facility] Comment on above: Order Comment: No: D o not add to previous draw Result Comment: Calc ulation may not be valid for patients over 70 years Performed By: #### 0 0071, 47103, 62467 #### [facility] [address] [place] [address], [place] GFR/1.73 sq M predicted among non-blacks MDRD vol rate/area (S/P/Bld) mL/min/{1.73_m2} Normal >60 The [facility] Comment on above: Order Comment: No: D o not add to previous draw Result Comment: Calc ulation may not be valid for patients over 70 years Performed By: #### 0 0071, 46499, 07646 #### [facility] [address] [place] [address], [place] Glucose mass conc 108 mg/dL High 70-100 [facility] Comment on above: Order Comment: No: D o not add to previous draw Performed By: #### 0 0071, 37768, 40193 #### [facility] [address] [place] [address], [place] Potassium molar conc 4.0 mmol/L Normal 3.5-5.[address] [facility] Comment on above: Order Comment: No: D o not add to previous draw Performed By: #### 0 0071, 42025, 77244 #### [facility] [address] [place] [address], [place] Sodium molar conc 133 mmol/L Low 136-145 [facility] Comment on above: Order Comment: No: D o not add to previous draw Performed By: #### 0 0071, 10244, 85858 #### [facility] [address] [place] [address], [place] Urea nitrogen mass conc 17 mg/dL Normal 7-[address] [facility] Comment on above: Order Comment: No: D o not add to previous draw Performed By: #### 0 0071, 89617, 66560 #### [facility] [address] [place] [address], [place] CBC COMPLETE BLOOD COUNTon Erythrocyte distribution width Ratio (RBC) 14.3 % Normal 11.5-15.[address] [facility] Comment on above: Order Comment: No: D o not add to previous draw Performed By: #### 0 0071, 07785, 22939 #### [facility] [address] Hematocrit Volume Fraction (Bld) 22.9 % Low 36.0-45.[address] [facility] Comment on above: Order Comment: No: D o not add to previous draw Performed By: #### 0 0071, 37082, 71898 #### [facility] [address] [place] [address], [place] Hemoglobin mass conc (Bld) 7.6 g/dL Low 12.0-15.[address] [facility] Comment on above: Order Comment: No: D o not add to previous draw Performed By: #### 0 0071, 81333, 58849 #### [facility] [address] [place] [address], [place] MCH Entitic mass (RBC) 32.9 pg Normal 27.0-33.[address] [facility] Comment on above: Order Comment: No: D o not add to previous draw Performed By: #### 0 007, 61502, 22249 #### [facility] [address] [facility] [place] [place] [address], [place] MCHC mass conc (RBC) 33.2 g/dL Normal 32.0-35.[address] [facility] Comment on above: Order Comment: No: D o not add to previous draw Performed By: #### 0 007, 59866, 07841 #### [facility] [address] MCV Entitic volume (RBC) 99.1 fL High 82.0-98.[address] [facility] Comment on above: Order Comment: No: D o not add to previous draw Performed By: #### 0 0071, 40629, 10728 #### [facility] [address] [place] [address], [place] Nucleated RBC/100 WBC Ratio (Bld) 2 % High 0-[address] [facility] Comment on above: Order Comment: No: D o not add to previous draw Performed By: #### 0 0071, 42587, 28898 #### [facility] [address] [place] [address], [place] PLAT CNT 333 10*3/uL Normal 150-400 [facility] Comment on above: Order Comment: No: D o not add to previous draw Performed By: #### 0 0071, 13706, 71795 #### [facility] [address] [place] [address], [place] RBC #/vol (Bld) 2.31 10*6/uL Low 3.80-5.00 [facility] Comment on above: Order Comment: No: D o not add to previous draw Performed By: #### 0 0071, 15292, 40776 #### [facility] [address] [facility] [place] [address], [place] WBC #/vol (Bld) 13.64 10*3/uL High 4.00-10.60 [facility] Comment on above: Order Comment: No: D o not add to previous draw Performed By: #### 0 0071, 33514, 35404 #### [facility] [address] [facility] [address] MAGNESIUM BLOODon 03-28-2018 Magnesium mass conc 1.9 mg/dL Normal 1.9-2.7 [facility] Comment on above: Order Comment: No: D o not add to previous draw Performed By: #### 0 0071, 41892, 79624 #### [facility] [address] [facility] [address] PROTHROMBIN TIMEon 8 INR Coag RelTime (PPP) 1.29 {INR} High 0.91-1.[address] [facility] Comment on above: Order Comment: Unkno wn Result Comment: [facility] P RECOMMENDED INR FOR WARFARIN THERAPY ------ [...] CHEST 1995;108:231S-246S. Performed By: #### 0 0071, 60776, 91541 #### [facility] [address] Prothrombin time (PT) Coag time (PPP) 16.1 s High 12.3-14.8 [facility] Comment on above: Order Comment: Unkno wn Result Comment: ALL RESULTS MUST BE INTERPRETED WITH RESPECT TO BLOOD DRAWING ARTIFACT OR DILUTION ERROR OF ANTICOAGULANT AT THE TIME OF SAMPLING. Performed By: #### 0 0071, 65992, 33120 #### [facility] [address] BASIC METABOLIC PANELon 12-3 Calcium mass conc 7.9 mg/dL Low 8.6-10.3 [facility] Comment on above: Order Comment: This order is a replacement of the rejected order with accession number [id number]. Performed By: #### 0 0071, 45150, 35156 #### [facility] [address] Chloride molar conc 99 mmol/L Normal 98-107 [facility] Comment on above: Order Comment: This order is a replacement of the rejected order with accession number [id number]. Performed By: #### 0 0071, 76780, 80504 #### [facility] [address] [place] [address], [place] CO2 molar conc 28 mmol/L Normal 21-31 [facility] Comment on above: Order Comment: This order is a replacement of the rejected order with accession number [id number]. Performed By: #### 0 0071, 95709, 91220 #### [facility] [address] [place] [address], [place] Creatinine mass conc 0.77 mg/dL Normal 0.60-1.20 [facility] Comment on above: Order Comment: This order is a replacement of the rejected order with accession number [id number]. Performed By: #### 0 0071, 79821, 92856 #### [facility] [address] [facility] [place] [place] [address], [place] GFR/1.73 sq M predicted among blacks MDRD vol rate/area (S/P/Bld) mL/min/{1.73_m2} Normal >60 The [facility] Comment on above: Order Comment: This order is a replacement of the rejected order with accession number [id number]. Result Comment: Calc ulation may not be valid for patients over 70 years Performed By: #### 0 0071, 60627, 45450 #### [facility] [address] [place] [address], [place] GFR/1.73 sq M predicted among non-blacks MDRD vol rate/area (S/P/Bld) mL/min/{1.73_m2} Normal >60 [facility] Comment on above: Order Comment: This order is a replacement of the rejected order with accession number [id number]. Result Comment: Calc ulation may not be valid for patients over 70 years Performed By: #### 0 0071, 07487, 80295 #### [facility] [address] [place] [address], [place] Glucose mass conc 112 mg/dL High 70-100 [facility] Comment on above: Order Comment: This order is a replacement of the rejected order with accession number [id number]. Performed By: #### 0 0071, 62900, 31277 #### [facility] [address] [place] [address], [place] Potassium molar conc 3.1 mmol/L Low 3.5-5.1 [facility] Comment on above: Order Comment: This order is a replacement of the rejected order with accession number [id number]. Performed By: #### 0 0071, 94307, 43251 #### [facility] [address] [place] [address], [place] Sodium molar conc 133 mmol/L Low 136-145 [facility] Comment on above: Order Comment: This order is a replacement of the rejected order with accession number [id number]. Performed By: #### 0 0071, 97654, 49157 #### [facility] [address] [place] [address], [place] Urea nitrogen mass conc 17 mg/dL Normal 7-[address] [facility] Comment on above: Order Comment: This order is a replacement of the rejected order with accession number [id number]. Performed By: #### 0 0071, 14591, 90101 #### [facility] [address] [place] [address], [place] CBC COMPLETE BLOOD COUNTon 1 Erythrocyte distribution width Ratio (RBC) 14.3 % Normal 11.5-15.0 [facility] Comment on above: Order Comment: No: D o not add to previous draw Performed By: #### 0 0071, 07762, 05833 #### [facility] [address] [place] [address], [place] Hematocrit Volume Fraction (Bld) 23.7 % Low 36.0-45.[address] [facility] Comment on above: Order Comment: No: D o not add to previous draw Performed By: #### 0 0071, 61603, 38696 #### [facility] [address] [place] [address], [place] Hemoglobin mass conc (Bld) 8.0 g/dL Low 12.0-15.0 [facility] Comment on above: Order Comment: No: D o not add to previous draw Performed By: #### 0 0071, 89598, 21488 #### [facility] [address] [place] [address], [place] MCH Entitic mass (RBC) 33.1 pg High 27.0-33.[address] [facility] Comment on above: Order Comment: No: D o not add to previous draw Performed By: #### 0 0071, 98610, 18814 #### [facility] [address] MCHC mass conc (RBC) 33.8 g/dL Normal 32.0-35.[address] [facility] Comment on above: Order Comment: No: D o not add to previous draw Performed By: #### 0 0071, 57382, 00662 #### [facility] [address] MCV Entitic volume (RBC) 97.9 fL Normal 82.0-98.[address] [facility] Comment on above: Order Comment: No: D o not add to previous draw Performed By: #### 0 0071, 06106, 62642 #### [facility] [address] [facility] [address] Nucleated RBC/100 WBC Ratio (Bld) 1 % High 0-0 [facility] Comment on above: Order Comment: No: D o not add to previous draw Performed By: #### 0 0071, 47420, 56289 #### [facility] [address] [place] [address], [place] PLAT CNT 324 10*3/uL Normal 150-400 [facility] Comment on above: Order Comment: No: D o not add to previous draw Performed By: #### 0 0071, 42595, 33038 #### [facility] [address] [facility] RBC #/vol (Bld) 2.42 10*6/uL Low 3.80-5.00 [facility] Comment on above: Order Comment: No: D o not add to previous draw Performed By: #### 0 0071, 21664, 04549 #### [facility] [address] [place] [address], [place] WBC #/vol (Bld) 14.07 10*3/uL High 4.00-10.60 [facility] Comment on above: Order Comment: No: D o not add to previous draw Performed By: #### 0 0071, 51338, 53424 #### [facility] [address] [facility] [address] Erythrocyte distribution width Ratio (RBC) 14.2 % Normal 11.5-15.0 [facility] Comment on above: Order Comment: This order is a replacement of the rejected order with accession number [id number]. Performed By: #### 0 0071, 70869, 06640 #### [facility] [address] [facility] [address] Hematocrit Volume Fraction (Bld) 22.3 % Low 36.0-45.[address] [facility] Comment on above: Order Comment: This order is a replacement of the rejected order with accession number [id number]. Performed By: #### 0 0071, 03766, 19103 #### [facility] [address] [facility] [place] [address], [place] Hemoglobin mass conc (Bld) 7.4 g/dL Low 12.0-15.[address] [facility] Comment on above: Order Comment: This order is a replacement of the rejected order with accession number [id number]. Performed By: #### 0 0071, 74870, 63429 #### [facility] [address] [place] [address], [place] MCH Entitic mass (RBC) 32.5 pg Normal 27.0-33.0 [facility] [place] [facility] Comment on above: Order Comment: This order is a replacement of the rejected order with accession number [id number]. Performed By: #### 0 0071, 71517, 14220 #### [facility] [address] MCHC mass conc (RBC) 33.2 g/dL Normal 32.0-35.0 [facility] Comment on above: Order Comment: This order is a replacement of the rejected order with accession number [id number]. Performed By: #### 0 0071, 25795, 05513 #### [facility] [address] MCV Entitic volume (RBC) 97.8 fL Normal 82.0-98.0 [facility] Comment on above: Order Comment: This order is a replacement of the rejected order with accession number [id number]. Performed By: #### 0 70, 50411, 19894 #### [facility] [address] Nucleated RBC/100 WBC Ratio (Bld) 1 % High 0-0 [facility] Comment on above: Order Comment: This order is a replacement of the rejected order with accession number [id number]. Performed By: #### 0 1, 66134, 80047 #### [facility] [address] PLAT CNT 278 10*3/uL Normal 150-400 [facility] Comment on above: Order Comment: This order is a replacement of the rejected order with accession number [id number]. Performed By: #### 0 0071, 87248, 29003 #### [facility] [address] RBC #/vol (Bld) 2.28 10*6/uL Low 3.80-5.00 [facility] Comment on above: Order Comment: This order is a replacement of the rejected order with accession number [id number]. Performed By: #### 0 0071, 81690, 82559 #### [facility] [address] WBC #/vol (Bld) 11.31 10*3/uL High 4.00-10.60 [facility] Comment on above: Order Comment: This order is a replacement of the rejected order with accession number [id number]. Performed By: #### 0 0071, 57640, 23503 #### [facility] [address] MAGNESIUM BLOODon 03-27-2018 Magnesium mass conc 1.8 mg/dL Low 1.9-2.7 [facility] Comment on above: Order Comment: This order is a replacement of the rejected order with accession number [id number]. Performed By: #### 0 0071, 47643, 77204 #### [facility] [address] PROTHROMBIN TIMEon 8 INR Coag RelTime (PPP) 1.14 {INR} Normal 0.91-1.16 [facility] Comment on above: Order Comment: This order is a replacement of the rejected order with accession number [id number]. Result Comment: [facility] P RECOMMENDED INR FOR [...] CHEST 1995;108:231S-246S. Performed By: #### 0 0071, 92841, 43955 #### [facility] [address] Prothrombin time (PT) Coag time (PPP) 14.6 s Normal 12.3-14.8 [facility] Comment on above: Order Comment: This order is a replacement of the rejected order with accession number [id number]. Result Comment: ALL RESULTS MUST BE INTERPRETED WITH RESPECT TO BLOOD DRAWING ARTIFACT OR DILUTION ERROR OF ANTICOAGULANT AT THE TIME OF SAMPLING. Performed By: #### 0 0071, 89041, 89638 #### [facility] [address] [facility] [address] BASIC METABOLIC PANELon 12-2 Calcium mass conc 7.8 mg/dL Low 8.6-10.3 [facility] Comment on above: Order Comment: This order is a replacement of the rejected order with accession number [id number]. Performed By: #### 0 0071, 48552, 51127 #### [facility] [address] [place] [address], [place] Chloride molar conc 100 mmol/L Normal 98-107 [facility] Comment on above: Order Comment: This order is a replacement of the rejected order with accession number [id number]. Performed By: #### 0 0071, 26693, 79016 #### [facility] [address] [place] [id number], [place] CO2 molar conc 27 mmol/L Normal 21-31 [facility] Comment on above: Order Comment: This order is a replacement of the rejected order with accession number [id number]. Performed By: #### 0 0071, 48961, 36787 #### [facility] [address] [place] [address], [place] Creatinine mass conc 0.70 mg/dL Normal 0.60-1.20 [facility] Comment on above: Order Comment: This order is a replacement of the rejected order with accession number [id number]. Performed By: #### 0 0071, 56533, 37247 #### [facility] [address] [place] [address], [place] GFR/1.73 sq M predicted among blacks MDRD vol rate/area (S/P/Bld) mL/min/{1.73_m2} Normal >60 [facility] Comment on above: Order Comment: This order is a replacement of the rejected order with accession number [id number]. Result Comment: Calc ulation may not be valid for patients over 70 years Performed By: #### 0 0071, 59646, 93399 #### [facility] [address] [place] [address], [place] GFR/1.73 sq M predicted among non-blacks MDRD vol rate/area (S/P/Bld) mL/min/{1.73_m2} Normal >60 [facility] Comment on above: Order Comment: This order is a replacement of the rejected order with accession number [id number]. Result Comment: Calc ulation may not be valid for patients over 70 years Performed By: #### 0 0071, 22747, 85953 #### [facility] [address] [place] [address], [place] Glucose mass conc 118 mg/dL High 70-100 [facility] Comment on above: Order Comment: This order is a replacement of the rejected order with accession number [id number]. Performed By: #### 0 0071, 76600, 50704 #### [facility] [address] [place] [address], [place] Potassium molar conc 3.6 mmol/L Normal 3.5-5.1 [facility] Comment on above: Order Comment: This order is a replacement of the rejected order with accession number [id number]. Performed By: #### 0 0071, 65196, 67479 #### [facility] [address] Sodium molar conc 134 mmol/L Low 136-145 [facility] Comment on above: Order Comment: This order is a replacement of the rejected order with accession number [id number]. Performed By: #### 0 0071, 32957, 43749 #### [facility] [address] Urea nitrogen mass conc 16 mg/dL Normal 7-25 [facility] Comment on above: Order Comment: This order is a replacement of the rejected order with accession number [id number]. Performed By: #### 0 0071, 22464, 01337 #### [facility] [address] [address] CBC COMPLETE BLOOD COUNTon Erythrocyte distribution width Ratio (RBC) 13.9 % Normal 11.5-15.0 [facility] Comment on above: Order Comment: This order is a replacement of the rejected order with accession number [id number]. Performed By: #### 0 0071, 74165, 67777 #### [facility] [address] Hematocrit Volume Fraction (Bld) 23.4 % Low 36.0-45.0 [facility] Comment on above: Order Comment: This order is a replacement of the rejected order with accession number [id number]. Performed By: #### 0 0071, 69590, 23900 #### [facility] [address] Hemoglobin mass conc (Bld) 7.8 g/dL Low 12.0-15.0 [facility] Comment on above: Order Comment: This order is a replacement of the rejected order with accession number [id number]. Performed By: #### 0 0071, 07302, 92540 #### [facility] [address] MCH Entitic mass (RBC) 33.1 pg High 27.0-33.[address] [facility] Comment on above: Order Comment: This order is a replacement of the rejected order with accession number [id number]. Performed By: #### 0 007, 14443, 45355 #### [facility] [address] MCHC mass conc (RBC) 33.3 g/dL Normal 32.0-35.0 [facility] Comment on above: Order Comment: This order is a replacement of the rejected order with accession number [id number]. Performed By: #### 0 007, 48092, 19703 #### [facility] [address] MCV Entitic volume (RBC) 99.2 fL High 82.0-98.0 [facility] Comment on above: Order Comment: This order is a replacement of the rejected order with accession number [id number]. Performed By: #### 0 70, 48968, 23914 #### [facility] [address] Nucleated RBC/100 WBC Ratio (Bld) 0 % Normal 0-0 [facility] Comment on above: Order Comment: This order is a replacement of the rejected order with accession number [id number]. Performed By: #### 0 007, 22895, 01644 #### [facility] [address] PLAT CNT 252 10*3/uL Normal 150-400 [facility] Comment on above: Order Comment: This order is a replacement of the rejected order with accession number [id number]. Performed By: #### 0 0071, 90935, 39426 #### [facility] [address] RBC #/vol (Bld) 2.36 10*6/uL Low 3.80-5.00 [facility] Comment on above: Order Comment: This order is a replacement of the rejected order with accession number [id number]. Performed By: #### 0 0071, 00714, 17850 #### [facility] [address] WBC #/vol (Bld) 10.89 10*3/uL High 4.00-10.60 The [facility] Comment on above: Order Comment: This order is a replacement of the rejected order with accession number [id number]. Performed By: #### 0 0071, 41202, 44245 #### [facility] [address] LIVER BATTERYon 03-26-2018 Albumin mass conc 2.8 g/dL Low 3.5-5.7 [facility] Comment on above: Order Comment: This order is a replacement of the rejected order with accession number [id number]. Performed By: #### 0 0071, 44261, 58088 #### [facility] 3000 [facility]. [address] ALKALINE PHOSPH 120 IU/L High 34-104 [facility] Comment on above: Order Comment: This order is a replacement of the rejected order with accession number [id number]. Performed By: #### 0 0071, 93593, 06547 #### [facility] 3000 [facility] [address] ALT enzyme act/vol 46 U/L Normal 7-52 The [facility] Comment on above: Order Comment: This order is a replacement of the rejected order with accession number [id number]. Performed By: #### 0 0071, 15826, 47880 #### [facility] [address] AST enzyme act/vol 86 U/L High 13-39 [facility] Comment on above: Order Comment: This order is a replacement of the rejected order with accession number [id number]. Performed By: #### 0 0071, 95273, 38047 #### [facility] [address] Bilirubin mass conc 1.2 mg/dL High 0.3-1.0 The [facility] Comment on above: Order Comment: This order is a replacement of the rejected order with accession number [id number]. Performed By: #### 0 0071, 41099, 93111 #### [facility] 3000 [facility] [address] Bilirubin.direct mass conc 0.5 mg/dL High 0.0-0.[address] [facility] Comment on above: Order Comment: This order is a replacement of the rejected order with accession number [id number]. Performed By: #### 0 0071, 86137, 36186 #### [facility] [address] Protein mass conc 5.4 g/dL Low 6.0-8.3 [facility] Comment on above: Order Comment: This order is a replacement of the rejected order with accession number [id number]. Performed By: #### 0 0071, 94513, 30062 #### [facility] [address] MAGNESIUM BLOODon 03-26-2018 Magnesium mass conc 1.8 mg/dL Low 1.9-2.7 [facility] Comment on above: Order Comment: This order is a replacement of the rejected order with accession number [id number]. Performed By: #### 0 0071, 29816, 53229 #### [facility] [address] PROTHROMBIN TIMEon 8 INR Coag RelTime (PPP) 1.13 {INR} Normal 0.91-1.[address] [facility] Comment on above: Order Comment: This order is a replacement of the rejected order with accession number [id number]. Result Comment: ACC[facility] P RECOMMENDED INR FOR [...] CHEST 1995;108:231S-246S. Performed By: #### 0 0071, 14664, 92192 #### [facility] [address] Prothrombin time (PT) Coag time (PPP) 14.5 s Normal 12.3-14.8 [facility] Comment on above: Order Comment: This order is a replacement of the rejected order with accession number [id number]. Result Comment: ALL RESULTS MUST BE INTERPRETED WITH RESPECT TO BLOOD DRAWING ARTIFACT OR DILUTION ERROR OF ANTICOAGULANT AT THE TIME OF SAMPLING. Performed By: #### 0 0071, 54112, 56132 #### [facility] [address] BASIC METABOLIC PANELon 12-2 Calcium mass conc 7.5 mg/dL Low 8.6-10.3 [facility] Comment on above: Order Comment: This order is a replacement of the rejected order with accession number [id number]. Performed By: #### 6 2586 #### [facility] [address] [place] [address], [place] Chloride molar conc 101 mmol/L Normal 98-107 [facility] Comment on above: Order Comment: This order is a replacement of the rejected order with accession number [id number]. Performed By: #### 6 2586 #### [facility] [address] [place] [address], [place] CO2 molar conc 25 mmol/L Normal 21-31 [facility] Comment on above: Order Comment: This order is a replacement of the rejected order with accession number [id number]. Performed By: #### 6 2586 #### [facility] [address] [place] [address], [place] Creatinine mass conc 0.65 mg/dL Normal 0.60-1.20 [facility] Comment on above: Order Comment: This order is a replacement of the rejected order with accession number [id number]. Performed By: #### 6 2586 #### [facility] [address] [place] [address], [place] GFR/1.73 sq M predicted among blacks MDRD vol rate/area (S/P/Bld) mL/min/{1.73_m2} Normal >60 The [facility] Comment on above: Order Comment: This order is a replacement of the rejected order with accession number [id number]. Result Comment: Calc ulation may not be valid for patients over 70 years Performed By: #### 6 2586 #### [facility] [address] [place] [address], [place] GFR/1.73 sq M predicted among non-blacks MDRD vol rate/area (S/P/Bld) mL/min/{1.73_m2} Normal >60 The [facility] Comment on above: Order Comment: This order is a replacement of the rejected order with accession number [id number]. Result Comment: Calc ulation may not be valid for patients over 70 years Performed By: #### 6 2586 #### [facility] [address] [place] [address], [place] Glucose mass conc 115 mg/dL High 70-100 [facility] Comment on above: Order Comment: This order is a replacement of the rejected order with accession number [id number]. Performed By: #### 6 2586 #### [facility] [address] [place] [address], [place] Potassium molar conc 3.3 mmol/L Low 3.5-5.[address] [facility] Comment on above: Order Comment: This order is a replacement of the rejected order with accession number [id number]. Performed By: #### 6 2586 #### [facility] [address] [place] [address], [place] Sodium molar conc 134 mmol/L Low 136-145 [facility] Comment on above: Order Comment: This order is a replacement of the rejected order with accession number [id number]. Performed By: #### 6 2586 #### [facility] [address] [place] [address], [place] Urea nitrogen mass conc 14 mg/dL Normal 7-[address] [facility] Comment on above: Order Comment: This order is a replacement of the rejected order with accession number [id number]. Performed By: #### 6 2586 #### [facility] [address] CBC COMPLETE BLOOD COUNTon 05-26-2017 Erythrocyte distribution width Ratio (RBC) 13.5 % Normal 11.5-15.[address] [facility] Comment on above: Order Comment: This order is a replacement of the rejected order with accession number [id number]. Performed By: #### 6 2586 #### [facility] [address] [place] [address], [place] Hematocrit Volume Fraction (Bld) 24.1 % Low 36.0-45.[address] [facility] Comment on above: Order Comment: This order is a replacement of the rejected order with accession number [id number]. Performed By: #### 6 2586 #### [facility] [address] Hemoglobin mass conc (Bld) 8.2 g/dL Low 12.0-15.[address] [facility] Comment on above: Order Comment: This order is a replacement of the rejected order with accession number [id number]. Performed By: #### 6 2586 #### [facility] [address] MCH Entitic mass (RBC) 33.1 pg High 27.0-33.[address] [facility] Comment on above: Order Comment: This order is a replacement of the rejected order with accession number [id number]. Performed By: #### 6 2586 #### [facility] [address] MCHC mass conc (RBC) 34.0 g/dL Normal 32.0-35.[address] [facility] Comment on above: Order Comment: This order is a replacement of the rejected order with accession number [id number]. Performed By: #### 6 2586 #### [facility] [address] MCV Entitic volume (RBC) 97.2 fL Normal 82.0-98.[address] [facility] Comment on above: Order Comment: This order is a replacement of the rejected order with accession number [id number]. Performed By: #### 6 2586 #### [facility] [address] Nucleated RBC/100 WBC Ratio (Bld) 0 % Normal 0-[address] [facility] Comment on above: Order Comment: This order is a replacement of the rejected order with accession number [id number]. Performed By: #### 6 2586 #### [facility] [address] [place] [address], [place] PLAT CNT 206 10*3/uL Normal 150-400 [facility] Comment on above: Order Comment: This order is a replacement of the rejected order with accession number [id number]. Performed By: #### 6 2586 #### [facility] [address] RBC #/vol (Bld) 2.48 10*6/uL Low 3.80-5.00 [facility] Comment on above: Order Comment: This order is a replacement of the rejected order with accession number [id number]. Performed By: #### 6 2586 #### [facility] [address] WBC #/vol (Bld) 9.27 10*3/uL Normal 4.00-10.60 [facility] Comment on above: Order Comment: This order is a replacement of the rejected order with accession number [id number]. Performed By: #### 6 2586 #### [facility] [address] PROTHROMBIN TIMEon 8 INR Coag RelTime (PPP) 1.23 {INR} High 0.91-1.16 [facility] Comment on above: Order Comment: This order is a replacement of the rejected order with accession number [id number]. Result Comment: [facility] P RECOMMENDED INR FOR [...] 1995;108:231S-246S. Performed By: #### 6 2586 #### [facility] [address] [place] [address], [place] Prothrombin time (PT) Coag time (PPP) 15.5 s High 12.3-14.[address] [facility] Comment on above: Order Comment: This order is a replacement of the rejected order with accession number [id number]. Result Comment: ALL RESULTS MUST BE INTERPRETED WITH RESPECT TO BLOOD DRAWING ARTIFACT OR DILUTION ERROR OF ANTICOAGULANT AT THE TIME OF SAMPLING. Performed By: #### 6 2586 #### [facility] [address] [place], [place] [address] [place] [address] BASIC METABOLIC PANELon 12-2 Calcium mass conc 7.5 mg/dL Low 8.6-10.3 [facility] Comment on above: Order Comment: This order is a replacement of the rejected order with accession number [id number]. Performed By: #### 6 2586 #### [facility] [address] [place] [address], [place] Chloride molar conc 99 mmol/L Normal 98-107 [facility] Comment on above: Order Comment: This order is a replacement of the rejected order with accession number [id number]. Performed By: #### 6 2586 #### [facility] [address] [place] [address], [place] CO2 molar conc 24 mmol/L Normal 21-31 [facility] Comment on above: Order Comment: This order is a replacement of the rejected order with accession number [id number]. Performed By: #### 6 2586 #### [facility] [address] [place] [address], [place] Creatinine mass conc 0.62 mg/dL Normal 0.60-1.20 [facility] Comment on above: Order Comment: This order is a replacement of the rejected order with accession number [id number]. Performed By: #### 6 2586 #### [facility] [address] [place] [address], [place] GFR/1.73 sq M predicted among blacks MDRD vol rate/area (S/P/Bld) mL/min/{1.73_m2} Normal >60 [facility] Comment on above: Order Comment: This order is a replacement of the rejected order with accession number [id number]. Result Comment: Calc ulation may not be valid for patients over 70 years Performed By: #### 6 2586 #### [facility] [address] [place] [address], [place] GFR/1.73 sq M predicted among non-blacks MDRD vol rate/area (S/P/Bld) mL/min/{1.73_m2} Normal >60 [facility] Comment on above: Order Comment: This order is a replacement of the rejected order with accession number [id number]. Result Comment: Calc ulation may not be valid for patients over 70 years Performed By: #### 6 2586 #### [facility] [address] [place] [address], [place] Glucose mass conc 130 mg/dL High 70-100 [facility] Comment on above: Order Comment: This order is a replacement of the rejected order with accession number [id number]. Performed By: #### 6 2586 #### [facility] [address] [place] [address], [place] Potassium molar conc 3.3 mmol/L Low 3.5-5.1 [facility] Comment on above: Order Comment: This order is a replacement of the rejected order with accession number [id number]. Performed By: #### 6 2586 #### [facility] [address] [place] [address], [place] Sodium molar conc 133 mmol/L Low 136-145 [facility] Comment on above: Order Comment: This order is a replacement of the rejected order with accession number [id number]. Performed By: #### 6 2586 #### [facility] [address] Urea nitrogen mass conc 13 mg/dL Normal 7-[address] [facility] Comment on above: Order Comment: This order is a replacement of the rejected order with accession number [id number]. Performed By: #### 6 2586 #### [facility] [address] CBC COMPLETE BLOOD COUNTon 05-25-2017 Erythrocyte distribution width Ratio (RBC) 13.4 % Normal 11.5-15.0 [facility] Comment on above: Order Comment: This order is a replacement of the rejected order with accession number [id number]. Performed By: #### 5 7307, 38876 #### [facility] [address] Hematocrit Volume Fraction (Bld) 26.5 % Low 36.0-45.0 [facility] Comment on above: Order Comment: This order is a replacement of the rejected order with accession number [id number]. Performed By: #### 5 7307, 97614 #### [facility] [address] Hemoglobin mass conc (Bld) 9.2 g/dL Low 12.0-15.0 [facility] Comment on above: Order Comment: This order is a replacement of the rejected order with accession number [id number]. Performed By: #### 5 7307, 97556 #### [facility] [address] MCH Entitic mass (RBC) 33.7 pg High 27.0-33.[address] [facility] Comment on above: Order Comment: This order is a replacement of the rejected order with accession number [id number]. Performed By: #### 5 73, 21007 #### [facility] [address] MCHC mass conc (RBC) 34.7 g/dL Normal 32.0-35.0 [facility] Comment on above: Order Comment: This order is a replacement of the rejected order with accession number [id number]. Performed By: #### 5 7306, 53691 #### [facility] 3000 [facility]. [address] MCV Entitic volume (RBC) 97.1 fL Normal 82.0-98.0 [facility] Comment on above: Order Comment: This order is a replacement of the rejected order with accession number [id number]. Performed By: #### 5 7306, 76833 #### [facility] [address] Nucleated RBC/100 WBC Ratio (Bld) 0 % Normal 0-0 [facility] Comment on above: Order Comment: This order is a replacement of the rejected order with accession number [id number]. Performed By: #### 5 7306, 63608 #### [facility] 3000 [facility]. [address] PLAT CNT 187 10*3/uL Normal 150-400 [facility] Comment on above: Order Comment: This order is a replacement of the rejected order with accession number [id number]. Performed By: #### 5 73, 74768 #### [facility] [address] [facility]. [address] RBC #/vol (Bld) 2.73 10*6/uL Low 3.80-5.00 [facility] Comment on above: Order Comment: This order is a replacement of the rejected order with accession number [id number]. Performed By: #### 5 73, 68964 #### [facility] 3000 [facility] [address] WBC #/vol (Bld) 12.04 10*3/uL High 4.00-10.60 [facility] Comment on above: Order Comment: This order is a replacement of the rejected order with accession number [id number]. Performed By: #### 5 7307, 64521 #### [facility] 3000 [facility]. [address] MAGNESIUM BLOODon 03-24-2018 Magnesium mass conc 1.6 mg/dL Low 1.9-2.7 [facility] Comment on above: Performed By: #### 6 2586 #### [facility] 3000 [facility]. [address] PROTHROMBIN TIMEon 8 INR Coag RelTime (PPP) 1.41 {INR} High 0.91-1.16 [facility] Comment on above: Order Comment: This order is a replacement of the rejected order with accession number [id number]. Result Comment: [facility] P RECOMMENDED INR FOR [...] 1995;108:231S-246S. Performed By: #### 6 2586 #### [facility] [address] Prothrombin time (PT) Coag time (PPP) 17.3 s High 12.3-14.8 [facility] Comment on above: Order Comment: This order is a replacement of the rejected order with accession number [id number]. Result Comment: ALL RESULTS MUST BE INTERPRETED WITH RESPECT TO BLOOD DRAWING ARTIFACT OR DILUTION ERROR OF ANTICOAGULANT AT THE TIME OF SAMPLING. Performed By: #### 6 2586 #### [facility] [address] UFH HEPARIN ASSAYon 03-24-20 18 UNFRACTIONATED HEPARIN <0.10 Critically low 0.30-0.70 [facility] Comment on above: Result Comment: Eagle roxaban and Apixaban will interfere with the anti Xa assay used to monitor UFH and LMWH. RESULT CHECKED AND CALLED TO ALEKSANDRA 0729 Performed By: #### 6 2586 #### [facility] [address] BASIC METABOLIC PANELon - Calcium mass conc 8.0 mg/dL Low 8.6-10.3 [facility] Comment on above: Order Comment: This order is a replacement of the rejected order with accession number [id number]. Performed By: #### 5 7307, 94717 #### [facility] [address] Chloride molar conc 98 mmol/L Normal 98-107 [facility] Comment on above: Order Comment: This order is a replacement of the rejected order with accession number [id number]. Performed By: #### 5 7307, 98113 #### [facility] [address] CO2 molar conc 25 mmol/L Normal 21-31 [facility] Comment on above: Order Comment: This order is a replacement of the rejected order with accession number [id number]. Performed By: #### 5 7307, 00138 #### [facility] [address] [facility] [place] [address], [place] Creatinine mass conc 0.68 mg/dL Normal 0.60-1.20 [facility] Comment on above: Order Comment: This order is a replacement of the rejected order with accession number [id number]. Performed By: #### 5 7307, 67241 #### [facility] [address] [place] [address], [place] GFR/1.73 sq M predicted among blacks MDRD vol rate/area (S/P/Bld) mL/min/{1.73_m2} Normal >60 [facility] Comment on above: Order Comment: This order is a replacement of the rejected order with accession number [id number]. Result Comment: Calc ulation may not be valid for patients over 70 years Performed By: #### 5 73, 29070 #### [facility] [address] [facility] [place] [address], [place] GFR/1.73 sq M predicted among non-blacks MDRD vol rate/area (S/P/Bld) mL/min/{1.73_m2} Normal >60 [facility] Comment on above: Order Comment: This order is a replacement of the rejected order with accession number [id number]. Result Comment: Calc ulation may not be valid for patients over 70 years Performed By: #### 5 7307, 78155 #### [facility] [address] [place] [address], [place] Glucose mass conc 118 mg/dL High 70-100 [facility] Comment on above: Order Comment: This order is a replacement of the rejected order with accession number [id number]. Performed By: #### 5 7307, 63948 #### [facility] [address] [place] [address], [place] Potassium molar conc 3.0 mmol/L Low 3.5-5.1 [facility] Comment on above: Order Comment: This order is a replacement of the rejected order with accession number [id number]. Performed By: #### 5 73, 30610 #### [facility] [address] Sodium molar conc 132 mmol/L Low 136-145 [facility] Comment on above: Order Comment: This order is a replacement of the rejected order with accession number [id number]. Performed By: #### 5 73, 59917 #### [facility] [address] Urea nitrogen mass conc 8 mg/dL Normal 7-25 [facility] Comment on above: Order Comment: This order is a replacement of the rejected order with accession number [id number]. Performed By: #### 5 73, 94309 #### [facility] [address] CBC COMPLETE BLOOD COUNTon 05-24-2017 Erythrocyte distribution width Ratio (RBC) 13.4 % Normal 11.5-15.0 [facility] Comment on above: Order Comment: This order is a replacement of the rejected order with accession number [id number]. Performed By: #### 5 73, 85741 #### [facility] 3000 [facility]. [address] Hematocrit Volume Fraction (Bld) 32.2 % Low 36.0-45.0 [facility] Comment on above: Order Comment: This order is a replacement of the rejected order with accession number [id number]. Performed By: #### 5 73, 73219 #### [facility] [address] Hemoglobin mass conc (Bld) 11.0 g/dL Low 12.0-15.0 [facility] Comment on above: Order Comment: This order is a replacement of the rejected order with accession number [id number]. Performed By: #### 5 73, 85596 #### [facility] [address] [place] [address], [place] MCH Entitic mass (RBC) 33.3 pg High 27.0-33.0 [facility] Comment on above: Order Comment: This order is a replacement of the rejected order with accession number [id number]. Performed By: #### 5 7307, 20809 #### [facility] [address] MCHC mass conc (RBC) 34.2 g/dL Normal 32.0-35.[address] [facility] Comment on above: Order Comment: This order is a replacement of the rejected order with accession number [id number]. Performed By: #### 5 73, 94399 #### [facility] [address] MCV Entitic volume (RBC) 97.6 fL Normal 82.0-98.0 [facility] Comment on above: Order Comment: This order is a replacement of the rejected order with accession number [id number]. Performed By: #### 5 73, 72272 #### [facility] [address] Nucleated RBC/100 WBC Ratio (Bld) 0 % Normal 0-0 [facility] Comment on above: Order Comment: This order is a replacement of the rejected order with accession number [id number]. Performed By: #### 5 73, 11509 #### [facility] [address] PLAT CNT 195 10*3/uL Normal 150-400 [facility] Comment on above: Order Comment: This order is a replacement of the rejected order with accession number [id number]. Performed By: #### 5 7307, 70862 #### [facility] [address] RBC #/vol (Bld) 3.30 10*6/uL Low 3.80-5.00 [facility] Comment on above: Order Comment: This order is a replacement of the rejected order with accession number [id number]. Performed By: #### 5 7307, 35961 #### [address] WBC #/vol (Bld) 10.42 10*3/uL Normal 4.00-10.60 [facility] Comment on above: Order Comment: This order is a replacement of the rejected order with accession number [id number]. Performed By: #### 5 7307, 29865 #### [address] FEMUR LEFT 2 VWSon FEMUR LEFT [address] [facility] Department of Radiology [address] [place] [id number] Patient Name: ISAAC TOURE : 1940 Sex: F Age: Race: White Pt. Location: [id number] Patient Status: I Ordered Date: 03/23/2018 7:10:00 [...] alignment Electronically signed by:He Gomez. Transcribed by: [email or web address], User Resident: Electronically Signed by: HE GOMEZ @ 03/24/2018 09:03 AM Normal [facility] Comment on above: Order Comment: This order is a replacement of the rejected order with accession number [id number]. FEMUR LEFT 2 [facility] Department of Radiology [address] [place] [id number] Patient Name: ISAAC TOURE : 1940 Sex: F Age: Race: White Pt. Location: [address] [place] [address] Patient Status: I Ordered Date: 03/23/2018 6:25:00 AM Completed Date: 03/23/2018 06:10 PM Requesting Provider: ABAD JOHNS Attending Provider: ABAD JOHNS Report Copy To: Signs & Symptoms: LEFT FEMUR INTRAMEDULARY NAIL History: LEFT FEMUR INTRAMEDULARY NAIL Comments: LEFT FEMUR INTRAMEDULARY NAIL Exam: FEMUR LEFT 2 [facility] FEMUR LEFT 2 [facility] 03/23/2018 6:10 PM EST SIGNS AND SYMPTOMS: [...] findings. Electronically signed by:La Pang. Transcribed by: [email or web address], User Resident: NANCY DIAZ Electronically Signed by: LA PANG @ 03/25/2018 06:48 PM I personally read this/these film(s) with this resident Normal [facility] Comment on above: Order Comment: This order is a replacement of the rejected order with accession number [id number]. Operative Reporton 8 Operative Report MR#: [id number] [facility] Pt. Name: Isaac Toure Room #: 6AB [id number] Discharge Date: Birthdate: 1940 OPERATIVE REPORT DATE [...] of the femur. We then used perfect [place] technique to place 2 distal interlocks measuring [...] Nunez MD Date Trans: 03/23/2018 09:15 P/denise [id number] cc: Bernardo Almonte M.D. [address] [place] [address] [address] [facility] PROTHROMBIN TIMEon 8 INR Coag RelTime (PPP) 1.46 {INR} High 0.91-1.[address] [facility] Comment on above: Order Comment: This order is a replacement of the rejected order with accession number [id number]. Result Comment: ACC P RECOMMENDED INR FOR WARFARIN THERAPY ------ [...] CHEST 1995;108:231S-246S. Performed By: #### 5 7307, 49758 #### [facility] [address] Prothrombin time (PT) Coag time (PPP) 17.8 s High 12.3-14.[address] [facility] Comment on above: Order Comment: This order is a replacement of the rejected order with accession number [id number]. Result Comment: ALL RESULTS MUST BE INTERPRETED WITH RESPECT TO BLOOD DRAWING ARTIFACT OR DILUTION ERROR OF ANTICOAGULANT AT THE TIME OF SAMPLING. Performed By: #### 5 7307, 04932 #### [facility] [address] UFH HEPARIN ASSAYon 03-23-20 18 UNFRACTIONATED HEPARIN 0.66 IU/mL Normal 0.30-0.[address] [facility] Comment on above: Result Comment: Eagle roxaban and Apixaban will interfere with the anti Xa assay used to monitor UFH and LMWH. Performed By: #### 5 7307, 81027 #### [facility] [address] UNFRACTIONATED HEPARIN 0.79 IU/mL High 0.30-0.[address] [facility] Comment on above: Result Comment: Lily roxaban and Apixaban will interfere with the anti Xa assay used to monitor UFH and LMWH. Performed By: #### 5 7307, 91808 #### [facility] [address] APTTon 03-22-2018 aPTT Coag time (Bld) 27.1 s Normal 25.0-35.0 [facility] Comment on above: Order Comment: This order is a replacement of the rejected order with accession number [id number]. Result Comment: ALL RESULTS MUST BE INTERPRETED [...] THIS PURPOSE. Performed By: #### 5 7307, 68877 #### [facility] [address] BASIC METABOLIC PANELon 12-2 Calcium mass conc 7.6 mg/dL Low 8.6-10.3 [facility] Comment on above: Order Comment: This order is a replacement of the rejected order with accession number [id number]. Performed By: #### 5 73, 54683 #### [facility] [address] Chloride molar conc 101 mmol/L Normal 98-107 [facility] Comment on above: Order Comment: This order is a replacement of the rejected order with accession number [id number]. Performed By: #### 5 7307, 62749 #### [facility] [address] [place] [address], [place] CO2 molar conc 19 mmol/L Low 21-31 [facility] Comment on above: Order Comment: This order is a replacement of the rejected order with accession number [id number]. Performed By: #### 5 7307, 23586 #### [facility] [address] [place] [address], [place] Creatinine mass conc 0.76 mg/dL Normal 0.60-1.20 [facility] Comment on above: Order Comment: This order is a replacement of the rejected order with accession number [id number]. Performed By: #### 5 73, 46012 #### [facility] [address] [place] [address], [place] GFR/1.73 sq M predicted among blacks MDRD vol rate/area (S/P/Bld) mL/min/{1.73_m2} Normal >60 The [facility] Comment on above: Order Comment: This order is a replacement of the rejected order with accession number [id number]. Result Comment: Calc ulation may not be valid for patients over 70 years Performed By: #### 5 73, 96701 #### [facility] [address] [place] [address], [place] GFR/1.73 sq M predicted among non-blacks MDRD vol rate/area (S/P/Bld) mL/min/{1.73_m2} Normal >60 [facility] Comment on above: Order Comment: This order is a replacement of the rejected order with accession number [id number]. Result Comment: Calc ulation may not be valid for patients over 70 years Performed By: #### 5 73, 66158 #### [facility] [address] [place] [address], [place] Glucose mass conc 107 mg/dL High 70-100 [facility] Comment on above: Order Comment: This order is a replacement of the rejected order with accession number [id number]. Performed By: #### 5 7307, 35145 #### [facility] [address] [place] [address], [place] Potassium molar conc 4.4 mmol/L Normal 3.5-5.[address] [facility] Comment on above: Order Comment: This order is a replacement of the rejected order with accession number [id number]. Performed By: #### 5 7307, 59258 #### [facility] [address] [place] [address], [place] Sodium molar conc 132 mmol/L Low 136-145 [facility] Comment on above: Order Comment: This order is a replacement of the rejected order with accession number [id number]. Performed By: #### 5 73, 85539 #### [facility] [address] Urea nitrogen mass conc 11 mg/dL Normal 7-[address] [facility] Comment on above: Order Comment: This order is a replacement of the rejected order with accession number [id number]. Performed By: #### 5 73, 62533 #### [facility] [address] CBC COMPLETE BLOOD COUNTon 05-23-2017 Erythrocyte distribution width Ratio (RBC) 13.5 % Normal 11.5-15.[address] [facility] Comment on above: Order Comment: This order is a replacement of the rejected order with accession number [id number]. Performed By: #### 5 73, 88587 #### [facility] [address] Hematocrit Volume Fraction (Bld) 35.4 % Low 36.0-45.[address] [facility] Comment on above: Order Comment: This order is a replacement of the rejected order with accession number [id number]. Performed By: #### 5 73, 23481 #### [facility] [address] Hemoglobin mass conc (Bld) 12.0 g/dL Normal 12.0-15.[address] [facility] Comment on above: Order Comment: This order is a replacement of the rejected order with accession number [id number]. Performed By: #### 5 73, 75593 #### [facility] [address] MCH Entitic mass (RBC) 33.4 pg High 27.0-33.[address] [facility] Comment on above: Order Comment: This order is a replacement of the rejected order with accession number [id number]. Performed By: #### 5 73, 24779 #### [facility] [address] MCHC mass conc (RBC) 33.9 g/dL Normal 32.0-35.0 [facility] Comment on above: Order Comment: This order is a replacement of the rejected order with accession number [id number]. Performed By: #### 5 7307, 18492 #### [facility] [address] MCV Entitic volume (RBC) 98.6 fL High 82.0-98.0 [facility] Comment on above: Order Comment: This order is a replacement of the rejected order with accession number [id number]. Performed By: #### 5 73, 51405 #### [facility] [address] Nucleated RBC/100 WBC Ratio (Bld) 0 % Normal 0-0 [facility] Comment on above: Order Comment: This order is a replacement of the rejected order with accession number [id number]. Performed By: #### 5 73, 30022 #### [facility] [address] PLAT CNT 203 10*3/uL Normal 150-400 [facility] Comment on above: Order Comment: This order is a replacement of the rejected order with accession number [id number]. Performed By: #### 5 73, 38641 #### [facility] [address] RBC #/vol (Bld) 3.59 10*6/uL Low 3.80-5.00 [facility] Comment on above: Order Comment: This order is a replacement of the rejected order with accession number [id number]. Performed By: #### 5 7307, 34166 #### [facility] 3000 [facility] [address] WBC #/vol (Bld) 10.63 10*3/uL High 4.00-10.60 [facility] Comment on above: Order Comment: This order is a replacement of the rejected order with accession number [id number]. Performed By: #### 5 7307, 16159 #### [facility] [address] CBC W/DIFFon 03-22-2018 ABS BASOPHILS 0.1 10*3/uL Normal 0.0-0.2 [facility] Comment on above: Order Comment: This order is a replacement of the rejected order with accession number [id number]. Performed By: #### 5 7307, 80979 #### [facility] [address] ABS IMM GRANS 0.0 10*3/uL Normal 0.0-0.2 [facility] Comment on above: Order Comment: This order is a replacement of the rejected order with accession number [id number]. Performed By: #### 5 7307, 91967 #### [facility] [address] ABS NEUTROPHILS 7.6 10*3/uL Normal 1.6-7.[address] [facility] Comment on above: Order Comment: This order is a replacement of the rejected order with accession number [id number]. Performed By: #### 5 7307, 37178 #### [facility] [address] Basophils #/vol (Bld) 1.0 % Normal 0.0-1.[address] [facility] Comment on above: Order Comment: This order is a replacement of the rejected order with accession number [id number]. Performed By: #### 5 7307, 88031 #### [facility] [address] Eosinophils #/vol (Bld) 0.0 10*3/uL Normal 0.0-0.[address] [facility] Comment on above: Order Comment: This order is a replacement of the rejected order with accession number [id number]. Performed By: #### 5 73, 22115 #### [facility] [address] Erythrocyte distribution width Ratio (RBC) 14.0 % Normal 11.5-15.0 [facility] Comment on above: Order Comment: This order is a replacement of the rejected order with accession number [id number]. Performed By: #### 5 7306, 25591 #### [facility] [address] Hematocrit Volume Fraction (Bld) 35.1 % Low 36.0-45.0 [facility] Comment on above: Order Comment: This order is a replacement of the rejected order with accession number [id number]. Performed By: #### 5 7306, 14549 #### [facility] [address] Hemoglobin mass conc (Bld) 11.5 g/dL Low 12.0-15.0 [facility] Comment on above: Order Comment: This order is a replacement of the rejected order with accession number [id number]. Performed By: #### 5 73, 17007 #### [facility] [address] IMM PLATELET FRAC 3.8 % Normal 0.8-6.3 [facility] Comment on above: Order Comment: This order is a replacement of the rejected order with accession number [id number]. Performed By: #### 5 73, 22323 #### [facility] [address] Lymphocytes #/vol (Bld) 1.3 10*3/uL Normal 1.2-4.0 [facility] Comment on above: Order Comment: This order is a replacement of the rejected order with accession number [id number]. Performed By: #### 5 73, 28483 #### [facility] [address] Lymphocytes/100 WBC (Bld) 13.0 % Low 20.0-45.[address] [facility] Comment on above: Order Comment: This order is a replacement of the rejected order with accession number [id number]. Performed By: #### 5 7306, 21138 #### [facility] [address] MCH Entitic mass (RBC) 33.7 pg High 27.0-33.[address] [facility] Comment on above: Order Comment: This order is a replacement of the rejected order with accession number [id number]. Performed By: #### 5 7306, 57792 #### [facility] [address] MCHC mass conc (RBC) 32.8 g/dL Normal 32.0-35.[address] [facility] Comment on above: Order Comment: This order is a replacement of the rejected order with accession number [id number]. Performed By: #### 5 7306, 56312 #### [facility] [address] MCV Entitic volume (RBC) 102.9 fL High 82.0-98.[address] [facility] Comment on above: Order Comment: This order is a replacement of the rejected order with accession number [id number]. Performed By: #### 5 7306, 35624 #### [facility] [address] Monocytes #/vol (Bld) 0.7 10*3/uL Normal 0.1-1.[address] [facility] Comment on above: Order Comment: This order is a replacement of the rejected order with accession number [id number]. Performed By: #### 5 73, 66324 #### [facility] [address] MONOS 7.0 % Normal 5.0-12.[address] [facility] Comment on above: Order Comment: This order is a replacement of the rejected order with accession number [id number]. Performed By: #### 5 73, 48144 #### [facility] [address] Neutrophils/100 WBC (Bld) 79.0 % High 40.0-72.[address] [facility] Comment on above: Order Comment: This order is a replacement of the rejected order with accession number [id number]. Performed By: #### 5 73, 05567 #### [facility] 3000 [facility]. [address] OTHER 1 Normal red cell morphology seen Normal [facility] Comment on above: Order Comment: This order is a replacement of the rejected order with accession number [id number]. Performed By: #### 5 73, 58605 #### [facility] 3000 [facility] [address] PLAT CNT 186 10*3/uL Normal 150-400 [facility] Comment on above: Order Comment: This order is a replacement of the rejected order with accession number [id number]. Performed By: #### 5 73, 87908 #### [facility] 3000 [facility]. [address] RBC #/vol (Bld) 3.41 10*6/uL Low 3.80-5.00 [facility] Comment on above: Order Comment: This order is a replacement of the rejected order with accession number [id number]. Performed By: #### 5 73, 99921 #### [facility] 3000 [facility] [address] WBC #/vol (Bld) 9.65 10*3/uL Normal 4.00-10.60 [facility] Comment on above: Order Comment: This order is a replacement of the rejected order with accession number [id number]. Performed By: #### 5 7307, 76350 #### [facility] [address] MAGNESIUM BLOODon 03-22-2018 Magnesium mass conc 1.9 mg/dL Normal 1.9-2.7 [facility] Comment on above: Order Comment: This order is a replacement of the rejected order with accession number [id number]. Performed By: #### 5 7307, 57630 #### [facility] [address] POC GLUCOSE LABon 03-22-2018 Glucose mass conc 143 mg/dL High 70-100 [facility] Comment on above: Performed By: #### 5 7307, 02613 #### [facility] [address] PROTHROMBIN TIMEon 8 INR Coag RelTime (PPP) 1.58 {INR} High 0.91-1.16 [facility] Comment on above: Order Comment: This order is a replacement of the rejected order with accession number [id number]. Result Comment: ACCC P RECOMMENDED INR FOR [...] CHEST 1995;108:231S-246S. Performed By: #### 5 7307, 29241 #### [facility] [address] Prothrombin time (PT) Coag time (PPP) 18.9 s High 12.3-14.8 [facility] Comment on above: Order Comment: This order is a replacement of the rejected order with accession number [id number]. Result Comment: ALL RESULTS MUST BE INTERPRETED WITH RESPECT TO BLOOD DRAWING ARTIFACT OR DILUTION ERROR OF ANTICOAGULANT AT THE TIME OF SAMPLING. Performed By: #### 5 7307, 01351 #### [facility] [address] INR Coag RelTime (PPP) 1.75 {INR} High 0.91-1.[address] [facility] Comment on above: Order Comment: This order is a replacement of the rejected order with accession number [id number]. Result Comment: ACCC P RECOMMENDED INR FOR [...] CHEST 1995;108:231S-246S. Performed By: #### 5 7307, 00185 #### [facility] [address] Prothrombin time (PT) Coag time (PPP) 20.5 s High 12.3-14.8 [facility] Comment on above: Order Comment: This order is a replacement of the rejected order with accession number [id number]. Result Comment: ALL RESULTS MUST BE INTERPRETED WITH RESPECT TO BLOOD DRAWING ARTIFACT OR DILUTION ERROR OF ANTICOAGULANT AT THE TIME OF SAMPLING. Performed By: #### 5 7307, 23725 #### [facility] [address] UFH HEPARIN ASSAYon 03-22-20 UNFRACTIONATED HEPARIN 0.53 IU/mL Normal 0.30-0.70 [facility] Comment on above: Result Comment: Eagle roxaban and Apixaban will interfere with the anti Xa assay used to monitor UFH and LMWH. Performed By: #### 5 7307, 60516 #### [facility] [address] BASIC METABOLIC PANELon 02-27 Calcium mass conc 8.1 mg/dL Low 8.6-10.3 [facility] Comment on above: Order Comment: This order is a replacement of the rejected order with accession number [id number]. Performed By: #### 5 7307, 52879 #### [facility] [address] [place] [address], [place] Chloride molar conc 102 mmol/L Normal 98-107 [facility] Comment on above: Order Comment: This order is a replacement of the rejected order with accession number [id number]. Performed By: #### 5 7307, 37027 #### [facility] [address] [place] [address], [place] CO2 molar conc 26 mmol/L Normal 21-31 [facility] Comment on above: Order Comment: This order is a replacement of the rejected order with accession number [id number]. Performed By: #### 5 7307, 45682 #### [facility] [address] [place] [address], [place] Creatinine mass conc 0.72 mg/dL Normal 0.60-1.20 [facility] Comment on above: Order Comment: This order is a replacement of the rejected order with accession number [id number]. Performed By: #### 5 7307, 54747 #### [facility] [address] [place] [address], [place] GFR/1.73 sq M predicted among blacks MDRD vol rate/area (S/P/Bld) mL/min/{1.73_m2} Normal >60 The [facility] Comment on above: Order Comment: This order is a replacement of the rejected order with accession number [id number]. Result Comment: Calc ulation may not be valid for patients over 70 years Performed By: #### 5 7307, 64926 #### [facility] [address] [facility] [place] [address], [place] GFR/1.73 sq M predicted among non-blacks MDRD vol rate/area (S/P/Bld) mL/min/{1.73_m2} Normal >60 The [facility] Comment on above: Order Comment: This order is a replacement of the rejected order with accession number [id number]. Result Comment: Calc ulation may not be valid for patients over 70 years Performed By: #### 5 7307, 42431 #### [facility] [address] [place] [address], [place] Glucose mass conc 103 mg/dL High 70-100 [facility] Comment on above: Order Comment: This order is a replacement of the rejected order with accession number [id number]. Performed By: #### 5 7307, 00996 #### [facility] [address] [place] [address], [place] Potassium molar conc 3.3 mmol/L Low 3.5-5.1 [facility] Comment on above: Order Comment: This order is a replacement of the rejected order with accession number [id number]. Performed By: #### 5 7307, 83453 #### [facility] [address] Sodium molar conc 135 mmol/L Low 136-145 The [facility] Comment on above: Order Comment: This order is a replacement of the rejected order with accession number [id number]. Performed By: #### 5 7307, 34789 #### [facility] [address] Urea nitrogen mass conc 13 mg/dL Normal 7-[address] [facility] Comment on above: Order Comment: This order is a replacement of the rejected order with accession number [id number]. Performed By: #### 5 7307, 15434 #### [facility] [address] CBC W/DIFFon 03-21-2018 ABS BASOPHILS 0.0 10*3/uL Normal 0.0-0.2 The [facility] Comment on above: Order Comment: No: D o not add to previous draw Performed By: #### 5 0103 #### [facility] [address] ABS IMM GRANS 0.0 10*3/uL Normal 0.0-0.2 [facility] Comment on above: Order Comment: No: D o not add to previous draw Performed By: #### 5 0103 #### [facility] [address] ABS NEUTROPHILS 5.5 10*3/uL Normal 1.6-7.[address] [facility] Comment on above: Order Comment: No: D o not add to previous draw Performed By: #### 5 0103 #### [facility] [address] Basophils #/vol (Bld) 0.4 % Normal 0.0-1.[address] [facility] Comment on above: Order Comment: No: D o not add to previous draw Performed By: #### 5 0103 #### [facility] [address] [place] [address], [place] Eosinophils #/vol (Bld) 0.0 10*3/uL Normal 0.0-0.[address] [facility] Comment on above: Order Comment: No: D o not add to previous draw Performed By: #### 5 0103 #### [facility] [address] [place] [address], [place] Eosinophils/100 WBC (Bld) 0.3 % Normal 0.0-6.[address] [facility] Comment on above: Order Comment: No: D o not add to previous draw Performed By: #### 5 0103 #### [facility] [address] [facility] [address] Erythrocyte distribution width Ratio (RBC) 13.4 % Normal 11.5-15.[address] [facility] Comment on above: Order Comment: No: D o not add to previous draw Performed By: #### 5 0103 #### [facility] 3000 [facility]. [address] Hematocrit Volume Fraction (Bld) 35.5 % Low 36.0-45.[address] [facility] Comment on above: Order Comment: No: D o not add to previous draw Performed By: #### 5 3 #### [facility] [address] [facility] [address], [place] Hemoglobin mass conc (Bld) 12.0 g/dL Normal 12.0-15.[address] [facility] Comment on above: Order Comment: No: D o not add to previous draw Performed By: #### 5 0103 #### [facility] [address] [facility] [address], [place] IMMATURE GRANS 0.3 % Normal 0.0-1.0 [facility] Comment on above: Order Comment: No: D o not add to previous draw Performed By: #### 5 0103 #### [facility] [address] [place] [address], [place] Lymphocytes #/vol (Bld) 2.3 10*3/uL Normal 1.2-4.[address] [facility] Comment on above: Order Comment: No: D o not add to previous draw Performed By: #### 5 0103 #### [facility] [address] [place] [address], [place] Lymphocytes/100 WBC (Bld) 25.4 % Normal 20.0-45.[address] [facility] Comment on above: Order Comment: No: D o not add to previous draw Performed By: #### 5 0103 #### [facility] [address] [facility] [place] [place] [address], [place] MCH Entitic mass (RBC) 33.1 pg High 27.0-33.[address] [facility] Comment on above: Order Comment: No: D o not add to previous draw Performed By: #### 5 0103 #### [facility] [address] [facility] [place] [address], [place] MCHC mass conc (RBC) 33.8 g/dL Normal 32.0-35.[address] [facility] Comment on above: Order Comment: No: D o not add to previous draw Performed By: #### 5 0103 #### [facility] [address] [facility] [place] [place] [address], [place] MCV Entitic volume (RBC) 97.8 fL Normal 82.0-98.[address] [facility] Comment on above: Order Comment: No: D o not add to previous draw Performed By: #### 5 0103 #### [facility] [address] [facility] [address], [place] Monocytes #/vol (Bld) 1.2 10*3/uL High 0.1-1.[address] [facility] Comment on above: Order Comment: No: D o not add to previous draw Performed By: #### 5 0103 #### [facility] [address] [facility] [place] [place] [address], [place] MONOS 13.0 % High 5.0-12.[address] [facility] Comment on above: Order Comment: No: D o not add to previous draw Performed By: #### 5 0103 #### [facility] [address] [place] [address], [place] Neutrophils/100 WBC (Bld) 60.6 % Normal 40.0-72.[address] [facility] Comment on above: Order Comment: No: D o not add to previous draw Performed By: #### 5 0103 #### [facility] [address] [facility]. [address] Nucleated RBC/100 WBC Ratio (Bld) 0 % Normal 0-[address] [facility] Comment on above: Order Comment: No: D o not add to previous draw Performed By: #### 5 0103 #### [facility] [address] [facility] [address], [place] PLAT CNT 198 10*3/uL Normal 150-400 The [facility] Comment on above: Order Comment: No: D o not add to previous draw Performed By: #### 5 0103 #### [facility] [address] [facility] [address], [place] RBC #/vol (Bld) 3.63 10*6/uL Low 3.80-5.00 The [facility] Comment on above: Order Comment: No: D o not add to previous draw Performed By: #### 5 0103 #### [facility] [address] [facility] [address], [place] WBC #/vol (Bld) 9.10 10*3/uL Normal 4.00-10.60 The [facility] Comment on above: Order Comment: No: D o not add to previous draw Performed By: #### 5 0103 #### [facility] [address] [facility]. [address] MAGNESIUM BLOODon 03-21-2018 Magnesium mass conc 1.6 mg/dL Low 1.9-2.7 The [facility] Comment on above: Order Comment: This order is a replacement of the rejected order with accession number [id number]. Performed By: #### 5 7307, 59492 #### [facility] [address] [facility]. [address] PHOSPHORUS BLOODon 8 Phosphate mass conc 2.8 mg/dL Normal 2.5-5.0 The [facility] Comment on above: Order Comment: This order is a replacement of the rejected order with accession number [id number]. Performed By: #### 5 7307, 57236 #### [facility] [address] PROTHROMBIN TIMEon 8 INR Coag RelTime (PPP) 2.32 {INR} High 0.91-1.[address] [facility] Comment on above: Order Comment: This order is a replacement of the rejected order with accession number [id number]. Result Comment: [facility] P RECOMMENDED INR FOR [...] CHEST 1995;108:231S-246S. Performed By: #### 5 7307, 62680 #### [facility] [address] Prothrombin time (PT) Coag time (PPP) 25.6 s High 12.3-14.8 [facility] Comment on above: Order Comment: This order is a replacement of the rejected order with accession number [id number]. Result Comment: ALL RESULTS MUST BE INTERPRETED WITH RESPECT TO BLOOD DRAWING ARTIFACT OR DILUTION ERROR OF ANTICOAGULANT AT THE TIME OF SAMPLING. Performed By: #### 5 7307, 29471 #### [facility] [address] TSH3 WITH REFLEXon 8 T4 free mass conc 1.18 ng/dL Normal 0.71-1.85 [facility] Comment on above: Performed By: #### 5 7307, 34119 #### [facility] [address] [facility]. [address] TSH 3RD GENERATION 4.90 uIU/mL Normal 0.34-5.60 [facility] Comment on above: Performed By: #### 5 7307, 25745 #### [facility] [address] [facility]. [address] UFH HEPARIN ASSAYon 03-21-20 18 UNFRACTIONATED HEPARIN 0.29 IU/mL Low 0.30-0.70 [facility] Comment on above: Result Comment: Lily roxaban and Apixaban will interfere with the anti Xa assay used to monitor UFH and LMWH. Performed By: #### 3 0477 #### [facility] [address] APTTon 03-20-2018 aPTT Coag time (Bld) 28.7 s Normal 25.0-35.0 [facility] Comment on above: Order Comment: This order is a replacement of the rejected order with accession number [id number]. Result Comment: ALL RESULTS MUST BE INTERPRETED [...] THIS PURPOSE. Performed By: #### 5 7307, 82712 #### [facility] [address] BASIC METABOLIC PANELon 12-2 Calcium mass conc 8.4 mg/dL Low 8.6-10.3 [facility] Comment on above: Order Comment: This order is a replacement of the rejected order with accession number [id number]. Performed By: #### 0 0071, 75554, 02726 #### [facility] [address] [place] [address], [place] Chloride molar conc 100 mmol/L Normal 98-107 [facility] Comment on above: Order Comment: This order is a replacement of the rejected order with accession number [id number]. Performed By: #### 0 0071, 78982, 06341 #### [facility] [address] [facility] [place] [address], [place] CO2 molar conc 26 mmol/L Normal 21-31 [facility] Comment on above: Order Comment: This order is a replacement of the rejected order with accession number [id number]. Performed By: #### 0 0071, 54166, 35931 #### [facility] [address] [facility] [place] [place] [address], [place] Creatinine mass conc 0.87 mg/dL Normal 0.60-1.[address] [facility] Comment on above: Order Comment: This order is a replacement of the rejected order with accession number [id number]. Performed By: #### 0 0071, 62358, 67506 #### [facility] [address] [place] [address], [place] GFR/1.73 sq M predicted among blacks MDRD vol rate/area (S/P/Bld) mL/min/{1.73_m2} Normal >60 The [facility] Comment on above: Order Comment: This order is a replacement of the rejected order with accession number [id number]. Result Comment: Calc ulation may not be valid for patients over 70 years Performed By: #### 0 0071, 69483, 46053 #### [facility] [address] [place] [address], [place] GFR/1.73 sq M predicted among non-blacks MDRD vol rate/area (S/P/Bld) mL/min/{1.73_m2} Normal >60 The [facility] Comment on above: Order Comment: This order is a replacement of the rejected order with accession number [id number]. Result Comment: Calc ulation may not be valid for patients over 70 years Performed By: #### 0 0071, 13532, 06977 #### [facility] [address] [place] [address], [place] Glucose mass conc 113 mg/dL High 70-100 [facility] Comment on above: Order Comment: This order is a replacement of the rejected order with accession number [id number]. Performed By: #### 0 0071, 17286, 10204 #### [facility] [address] [place] [address], [place] Potassium molar conc 3.1 mmol/L Low 3.5-5.[address] [facility] Comment on above: Order Comment: This order is a replacement of the rejected order with accession number [id number]. Performed By: #### 0 0071, 23669, 39084 #### [facility] [address] [place] [address], [place] Sodium molar conc 137 mmol/L Normal 136-145 [facility] Comment on above: Order Comment: This order is a replacement of the rejected order with accession number [id number]. Performed By: #### 0 0071, 21925, 96241 #### [facility] [address] [place] [address], [place] Urea nitrogen mass conc 16 mg/dL Normal 7-[address] [facility] Comment on above: Order Comment: This order is a replacement of the rejected order with accession number [id number]. Performed By: #### 0 0071, 47120, 27032 #### [facility] [address] CBC COMPLETE BLOOD COUNTon 05-21-2017 Erythrocyte distribution width Ratio (RBC) 13.5 % Normal 11.5-15.[address] [facility] Comment on above: Performed By: #### 5 0608 #### [facility] [address] Hematocrit Volume Fraction (Bld) 41.0 % Normal 36.0-45.[address] [facility] Comment on above: Performed By: #### 5 0608 #### [facility] [address] Hemoglobin mass conc (Bld) 13.8 g/dL Normal 12.0-15.[address] [facility] Comment on above: Performed By: #### 5 0608 #### [facility] [address] [facility] [address] MCH Entitic mass (RBC) 32.9 pg Normal 27.0-33.[address] [facility] Comment on above: Performed By: #### 5 0608 #### [facility] [address] [place] [address], [place] MCHC mass conc (RBC) 33.7 g/dL Normal 32.0-35.[address] [facility] Comment on above: Performed By: #### 5 0608 #### [facility] [address] [place] [address], [place] MCV Entitic volume (RBC) 97.6 fL Normal 82.0-98.[address] [facility] Comment on above: Performed By: #### 5 0608 #### [facility] [address] Nucleated RBC/100 WBC Ratio (Bld) 0 % Normal 0-[address] [facility] Comment on above: Performed By: #### 5 0608 #### [facility] [address] PLAT CNT 235 10*3/uL Normal 150-400 The [facility] Comment on above: Performed By: #### 5 0608 #### [facility] [address] RBC #/vol (Bld) 4.20 10*6/uL Normal 3.80-5.00 [facility] Comment on above: Performed By: #### 5 0608 #### [facility] [address] WBC #/vol (Bld) 8.52 10*3/uL Normal 4.00-10.60 [facility] Comment on above: Performed By: #### 5 0608 #### [facility] [address] History and Physicalon 03-20 History and Physical MR#: [id number] [facility] Pt. Name: Isaac Toure Admitted: 03/20/2018 Date of : 1940 Attending Physician: Martin Marin MD Room #: 6AB [id number] Discharge Date: HISTORY AND PHYSICAL HISTORY OF PRESENT ILLNESS: The patient is a 77-year-old female. The patient is a poor historian, has hard time difficulty hearing. Past medical history is significant for hypertension; atrial flutter, for that the patient is on Coumadin; history of multiple stroke in the past; hypothyroidism; hyperlipidemia; presented to ED after a fall. The patient initially [facility] to [facility] for left femur fracture today. The patient [...] Marin MD Date Trans: 03/20/2018 06:03 P/denise [id number] [facility] PROTHROMBIN TIMEon 8 INR Coag RelTime (PPP) 1.91 {INR} High 0.91-1.16 The [facility] Comment on above: Order Comment: This order is a replacement of the rejected order with accession number [id number]. Result Comment: [facility] P RECOMMENDED INR FOR WARFARIN THERAPY ------ [...] CHEST 1995;108:231S-246S. Performed By: #### 5 7307, 23996 #### [facility] [address] [facility]. [address] Prothrombin time (PT) Coag time (PPP) 22.0 s High 12.3-14.8 [facility] Comment on above: Order Comment: This order is a replacement of the rejected order with accession number [id number]. Result Comment: ALL RESULTS MUST BE INTERPRETED WITH RESPECT TO BLOOD DRAWING ARTIFACT OR DILUTION ERROR OF ANTICOAGULANT AT THE TIME OF SAMPLING. Performed By: #### 5 7307, 56220 #### [facility] [address] [place] [address], [place] RBC'S 2 UNITSon 03-20-2018 CROSSMATCH INTERP 1 COMP Normal The [facility] Comment on above: Performed By: #### 8 6002 #### [facility] [address] [place] [address], [place] CROSSMATCH INTERP 2 COMP Normal The [facility] Comment on above: Performed By: #### 8 6002 #### [facility] [address] [place] [address], [place] Protein mass conc 336 g/dL Normal [facility] Comment on above: Performed By: #### 8 6002 #### [facility] [address] [place] [address], [place] Protein mass conc RE Normal [facility] Comment on above: Result Comment: Resu lt changed by IF on 03/24/2018 06:42. The previous value was XM. Performed By: #### 8 6002 #### [facility] [address] [place] [address], [place] UNIT ABO 1 A Normal [address] [facility] Comment on above: Performed By: #### 8 6002 #### [facility] [address] [place] [address], [place] UNIT ABO 2 A Normal [address] [facility] Comment on above: Performed By: #### 8 6002 #### [facility] [address] [place] [address], [place] UNIT ID 1 [id number] Normal [facility] Comment on above: Performed By: #### 8 6002 #### [facility] [address] [place] [address], [place] UNIT ID 2 [id number] Normal [facility] Comment on above: Performed By: #### 8 6002 #### [facility] [address] [place] [address], [place] UNIT RH 1 Positive Normal [facility] Comment on above: Performed By: #### 8 6002 #### [facility] [address] [place] [address], [place] UNIT RH 2 Positive Normal [address] [facility] Comment on above: Performed By: #### 8 6002 #### [facility] [address] TROPONIN-Ion 03-20-2018 Troponin I.cardiac mass conc 0.01 ng/mL Normal 0.00-0.04 [facility] Comment on above: Result Comment: REFE RENCE RANGES: 0.00 - 0.04 ng/ml NORMAL 0.05 - 0.50 ng/ml INDETERMINATE > 0.50 ng/ml CONSISTENT WITH AN M.I. Performed By: #### 0 0071, 43396, 79528 #### [facility] [address] TSH3 WITH REFLEXon 8 T4 free mass conc 1.38 ng/dL Normal 0.71-1.85 [facility] Comment on above: Performed By: #### 0 0071, 71974, 52528 #### [facility] [address] TSH 3RD GENERATION 3.20 uIU/mL Normal 0.34-5.60 [facility] Comment on above: Performed By: #### 0 0071, 55987, 02266 #### [facility] [address] TYPE AND SCREENon 03-20-2018 ABO INTERPRETATION A Normal The [facility] Comment on above: Order Comment: This order is a replacement of the rejected order with accession number [id number]. Performed By: #### 6 2586 #### [facility] [address] [place] [address], [place] RH INTERPRETATION Positive Normal [facility] Comment on above: Order Comment: This order is a replacement of the rejected order with accession number [id number]. Performed By: #### 6 2586 #### [facility] [address] [facility] [address] Vital Signs Date Time Vital Sign Value Performing Clinician Faci lity 05-05-2023 10:22-0500 Body height 152.4 cm Bernardo Almonte MD Work Phone: [facility] 05-05-2023 10:22-0500 Body mass index (BMI) [Ratio] 43.16 kg/m2 Bernardo Almonte MD Work Phone: [facility] 05-05-2023 10:22-0500 Body weight 100.25 kg Bernardo Almonte MD Work Phone: [facility] 05-05-2023 10:22-0500 Diastolic blood pressure 82 mm[Hg] Bernardo Almonte MD Work Phone: [facility] 05-05-2023 10:22-0500 Heart rate 67 /min Bernardo Almonte MD Work Phone: [facility] 05-05-2023 10:22-0500 SaO2% (BldA) [Mass fraction] 97 % Bernardo Almonte MD Work Phone: [facility] 05-05-2023 10:22-0500 Systolic blood pressure 138 mm[Hg] Bernardo Almonte MD Work Phone: [facility] Healthcare Encounters Encounter Date Encounter Type Care Provider Facility Start: 10-14-2023 End: 10-14-2023 ambulatory CHAVO BRYANT Not Available Start: 10-07-2023 End: 10-07-2023 ambulatory BERNARDO ALMONTE Not Available Start: 06-10-2023 End: 06-10-2023 ambulatory CAROLYN ADKINS Not Available Start: 05-13-2023 Refill Bernardo Almonte MD Work [...] fibrillation (CMS/HCC) Start: 05-04-2023 End: 05-04-2023 ambulatory [facility] Start: 04-28-2023 End: 04-28-2023 ambulatory CAROLYN ADKINS Not Available Start: 02-17-2023 End: 02-17-2023 ambulatory BERNARDO ALMONTE Not Available Start: 02-10-2023 End: 02-10-2023 ambulatory CHAVO H ANNETTE Not Available Start: 08-18-2022 End: 08-18-[address] [facility] Start: 07-21-2022 End: 07-21-2022 ambulatory [facility] Start: 01-30-2022 End: [...] End: 06-23-2018 Patient encounter procedure ABAD JOHNS Facility:[facility] Start: 05-11-2018 End: 05-12-2018 Patient encounter procedure ABAD Kaylah NAT Facility:[facility] Start: 03-20-2018 End: 03-30-2018 Evaluation and management of inpatient REFERRED SELF Facility:[facility] Start: 07-20-2016 End: 07-20-2016 Dionne Saini Work Phone: Cardiology Comment on above: Refill Request Procedures Date Procedure Procedure Detail Performing Clinician Start: 03-23-2018 REPOSITION L FEMUR SHAFT WITH INTRAMED FIX, PERC APPROACH ABAD JOHNS Start: 03-20-2018 Antibody screen REFERRE D SELF Comment on above: Order Comment: This order is a replacement of the rejected order with accession number [id number]. Performed By: #### 6 2586 #### [place] [address] [address] Start: 05-31-2015 H/O: hysterectomy History of hystere ctomy Bernardo Almonte MD Work Phone: Plan of Treatment Date Care Activity Detail Author Start: 08-14-2023 Medicare Annual Well ness (AWV) Medicare Annual Wellness (AWV) [facility] Start: 08-04-2023 End: 08-04-2023 Patient encounter procedure 08/04/2023 10:30 AM EDT Office Visit [facility] [address] [facility] [address] [place] [address] Bernardo Almonte MD [address] [facility] [address] [place] [address] [facility] Start: 07-22-2023 End: 07-22-2023 Patient encounter procedure 07/22/2023 1:30 PM EDT Office Visit [facility] [address] [facility] [address] [place] [address] Bernardo Almonte MD [address] [facility] [address] [place] [address] [facility] Start: 11-27-2020 Influenza vaccination INFLUENZA (Sea son Ended) [facility] Start: 2006 ADVANCE DIRECTIVE DISCUSSION ADVANCE DIRECTIVE DISCUSSION [facility] Start: 2006 BONE DENSITY BONE DENSITY [facility] Start: 2006 PNEUMOVAX AGE 65 AND OVER WITH 5YR LOOKBACK (#1) PNEUMOVAX AGE 65 AND OVER WITH 5YR LOOKBACK (#1) [facility] Start: 10-21-1991 Screening for malign ant neoplasm of colon [facility] Start: 10-21-1991 SHINGRIX VACCINE (1 of 2) SHINGRIX V ACCINE (1 of 2) [facility] Start: 1986 DIABETES SCREEN DIABETES SCREEN [facility] Start: 1960 Urine microalbumin profile DTAP,TDAP,TD (1 - Tdap) [facility] Start: 10-21-1959 HEPATITIS C SCREENING HEPATITIS C SC REENING [facility] Start: 1953 Adult depression screening assessment DEPRESSION SCREENING [facility] Immunizations Immunization Date Immunization Notes Care Provider Fa dane 12-12-2022 Influenza, Seasonal, Quadrivalent, Adjuvanted Bernardo Almonte MD Work Phone: [facility] 08-17-2022 tetanus toxoid, redu inderjit diphtheria toxoid, and acellular pertussis vaccine, adsorbed Bernardo Almonte MD Work Phone: [facility] 08-13-2022 Pneumococcal Conjuga te PCV 20 Bernardo Almonte MD Work Phone: [facility] 06-10-2022 zoster vaccine recombinant D aleida Almonte MD Work Phone: [facility] 01-05-[address] 12 Years And Older Bernardo Almonte MD Work Phone: [facility] 01-02-2022 Influenza, High-dose Seasonal, Quadrivalent, Preservative Free Bernardo Almonte MD Work Phone: [facility] 01-06-2021 Influenza, High-dose Seasonal, Quadrivalent, Preservative Free Bernardo Almonte MD Work Phone: [facility] 12-20-2019 influenza, high dose seasonal, preservative-free Bernardo Almonte MD Work Phone: [facility] 02-01-2019 influenza, injectabl e, madin emmie canine kidney, preservative free Bernardo Almonte MD Work Phone: [facility] 12-27-2017 influenza, high dose seasonal, preservative-free Bernardo Almonte MD Work Phone: [facility] 12-24-2016 Influenza, High-dose Seasonal, Quadrivalent, Preservative Free Bernardo Almonte MD Work Phone: [facility] 01-23-2016 pneumococcal conjuga te vaccine, 13 valent Bernardo Almonte MD Work Phone: [facility] 12-11-2015 influenza, injectabl e, quadrivalent, contains preservative Bernardo Almonte MD Work Phone: [facility] 12-18-2014 seasonal influenza, intradermal, preservative free Bernardo Almonte MD Work Phone: [facility] 05-31-2014 zoster vaccine, live Bernardo Almonte MD Work Phone: [facility] 05-28-2014 pneumococcal polysaccharide vaccine, 23 valent Bernardo Almonte MD Work Phone: [facility] 12-21-2012 seasonal influenza, intradermal, preservative free Bernardo Almonte MD Work Phone: [facility] Payers Date Payer Category Payer Medicare [employer] MEDICARE ADVANTAGE [facility] MEDICARE ADVANTAGE [id number] 2021-Present [address] [place] [address] [id number] 2014 Medicaid MEDICAID [facility] MEDICAID [id number] 2014-Present Medicaid [id number] 2008 Unknown [id number] 2001 Medicare MEDICARE MEDICAR E A AND B [id number] 2001-Present [place], [place] Medicare [id number] 1959 Self-pay [id number] 1959 Unknown [id number] 1941 Unknown [id number] 2.16.840.1.705544.3.579.2.647 1941 Unknown [id number] 2.16.840.1.453981.3.579.2.647 1941 Unknown [id number] 2.16.840.1.336463.3.579.2.647 1941 Unknown [id number] 2.16.840.1.628915.3.579.2.593 1941 Unknown [id number] 2.16.840.1.767078.3.579.2.593 1941 Unknown [id number] 2.16.840.1.503801.3.579.2.593 1941 Unknown [id number] 2.16.840.1.716381.3.579.2.593 1941 Unknown [id number] 2.16.840.1.323069.3.579.2.593 1941 Unknown [id number] 2.16.840.1.568292.3.579.2.593 1941 Unknown [id number] 2.16.840.1.091965.3.579.2.593 1941 Unknown [id number] 2.16.840.1.175832.3.579.2.593 1941 Unknown [id number] 2.16.840.1.199368.3.579.2.593 1941 Unknown [id number] 2.16.840.1.197634.3.579.2.593 1941 Unknown [id number] 2.16.840.1.518336.3.579.2.125 9 1941 Unknown [id number] 2.16.840.1.497412.3.579.2.125 9 1941 Unknown [id number] 2.16.840.1.642578.3.579.2.125 9 1941 Unknown [id number] 2.16.840.1.881138.3.579.2.125 9 1941 Unknown [id number] 2.16.840.1.605426.3.579.2.125 9 1941 Unknown [id number] 2.16.840.1.466030.3.579.2.125 9 1941 Unknown [id number] 2.16.840.1.883098.3.579.2.125 9 Medicare [id number] Social History Date Type Detail Facility [facility]: 08[facility]29-[facility] End: 03-29-1998 History of tobacco use Current smoker [facility] End: 03-29-1998 History of tobacco use Cigarette Smoker [facility] Start: 08-29-2015 End: 05-05-2023 Cigarettes smoked current (pack per day) - Reported [facility] Start: 08-29-2015 Alcohol intake Current non-dr 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 Never smoked tobacco [facility] Start: 09-08-2022 Tobacco use and exposure Smoke less tobacco non-user [facility] Start: 04-28-2023 End: 05-05-2023 Alcohol intake Lifetime non-drinker (finding) [facility] Start: 04-28-2023 End: 05-05-[address] [facility] Start: 02-10-2023 Alcohol Comment caffeine: yes, coffee; soda [facility] Clinical Notes 12-04-2021 to 05-05-2023 Bernardo Almonte [...] by mouth 1 (one) time each day. Vpifgnz-Ynelrgsblqt-Vwgsegaslf (Breztri Aerosphere) 160-9-4.8 MCG/ACT aerosol Inhale 2 [...] (NexIUM) [address] capsule Fish Oil-Cholecalciferol ([place]-3 Fish Oil/Vitamin D3) 3341-4236 MG-UNIT capsule Take by mouth at bedtime. fluticasone (Flonase) 50 MCG/ACT nasal spray SPRAY 2 SPRAYS INTO EACH NOSTRIL IN THE MORNING 48 mL 1 FLUTICASONE PROPIONATE, INHAL, IN Inhale 2 Inhalation 1 (one) time each day. furosemide (Lasix) 20 MG tablet Take 20 mg by mouth in the morning. Tspvbm-Lzdea-Aqko Ac-Ca Fructo (Move Free [facility]) tablet Take 1 tablet by mouth 1 (one) time each day. HYDROcodone-acetaminophen (Curtis) 5-325 MG tablet TAKE 1 TABLET BY [...] BY MOUTH EVERY DAY 90 tablet 4 [place]-3 Fatty Acids (Fish Oil) 1000 MG capsule [...] Father Past Medical History: Diagnosis Date A-fib (CMS/HCC) Anxiety Arthritis Cerebral infarction (CMS/HCC) Disease of thyroid gland (CMS/HCC) Femur fracture, left (CMS/HCC) 02/2018 GERD (gastroesophageal reflux disease) Glaucoma (CMS/HCC) History of sinoatrial node dysfunction Hypercalcemia Hyperlipemia (CMS/HCC) Hypertension (CMS/HCC) Magnesium metabolism disorder Peripheral neuropathy RLS (restless legs syndrome) Ulcerative colitis (CMS/HCC) Vitamin D deficiency Past Surgical History: Procedure Laterality Date APPENDECTOMY 1967 BACK SURGERY 2000 BACK SURGERY 1998 CARDIAC SURGERY 2009 Angioplasty [...] for Routine F/U. documented in this encounter [facility] 05-04-2023 Note Patient here for 6 m o follow up and device check. She did not have echo done that was ordered in July 2022 by Benny Victoria CNP. She was admitted to [facility] in Nov 2022 by pneumonia. Denies chest pain, palpitations, and lightheadedness/syncope. Denies bleeding on warfarin. Review of Systems HENT: Positive for hearing loss. Cardiovascular: Positive for dyspnea on exertion. Musculoskeletal: Positive for arthritis, joint pain, muscle weakness and myalgias. Neurological: Positive for weakness. All other systems reviewed and are negative. [facility] 05-04-2023 Note [place] Electrophysiology Consult Note Reason for visit: Afib/ PPM HPI: Isaac Toure is a 82 y.o. year old with past medical history of sick sinus syndrome s/p single chamber PPM ( SJD), chronic A-fib, hypertension, hyperlipidemia, carotid stenosis s/p left carotid stent 2009 in [place], HFpEF Was previously seen by Dr. Chatman and Dr. ENAMORADO. She was recently admitted to [facility] in November 2022 with pneumonia. subsequently she [...] MOUTH EVERY DAY 90 tablet 3 HYDROcodone-acetaminophen (Curtis) 5-325 mg tablet TAKE 1 TABLET BY [...] 90 days. potassium (more content not included)... [facility] 05-04-2023 Note Patient here for 6 m o follow up and device check. She did not have echo done that was ordered in July 2022 by Benny Victoria CNP. She was admitted to [facility] in Nov 2022 by pneumonia. Denies chest pain, palpitations, and lightheadedness/syncope. Denies bleeding on warfarin. Review of Systems HENT: Positive for hearing loss. Cardiovascular: Positive for dyspnea on exertion. Musculoskeletal: Positive for arthritis, back pain and joint pain. All other systems reviewed and are negative. [facility] 08-27-2022 Note -Carotid ultrasound 12/2019 showed possible [...] -Continue aspirin 81 mg daily and statin. [facility] 08-27-2022 Note Last device check TOBI 2.9 years, V paced 94%, high ventricular rate was noted 1 time 02/11/2022 -this is a single-chamber [facility] PPM. -will order TTE [facility] 08-27-2022 Note - recent device chec k shows normal device function and stable lead thresholds - she did have one high ventricular rate back in January 2022 - [facility] PPM TOBI approximately 3 years, V paced 94% - we will order echocardiogram as she should be having these annually with being paced almost 100% in the right ventricle [facility] 08-27-2022 Note - pressures controll ed - continue current medication [facility] 08-27-2022 Note -Stable, NYHA II - stable chronic LE edema -Continue GDMT: Lasix as needed, hydrochlorothiazide 25 mg, losartan 1 mg daily, amlodipine 10 mg daily, Toprol-XL 100 mg, Lasix as needed [facility] 08-18-2022 Note [place] Electrophysiology Consult Note Reason for visit: 1 year follow-up HPI: Isaac Toure is a 81 y.o. year old with past medical history of sick sinus syndrome s/p PPM, chronic A-fib, hypertension, hyperlipidemia, carotid stenosis s/p left carotid stent 2009 in [place], HFpEF She is here for 1 year [...] Pulse check heart rates 55 . ------- Isaac is seen in follow up. PMHx: SSS s/p PPM, chronic a.fib, HTN, HLD, carotid stenosis s/p left carotid stent in 2009 in [place] 06/06/21 -C/o worsening SOB with exertion -She [...] 2.03 m??? Me (more content not included)... [facility] 08-18-2022 Note Patient is here toda y for a 1 yr. Follow up Review of Systems Cardiovascular: Positive for irregular heartbeat. Musculoskeletal: Positive for arthritis. All other systems reviewed and are negative. 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 She does use heat which is beneficial to her. She has seen Dr. Jackman in the past who has provided her with bilateral knee injections. Recently, she was seen by her PCP, Dr. Almonte, who has placed her on antibiotics for a sinus infection. Current medications include Coumadin, Curtis 5/325 daily p.r.n. and [id number] Tylenol. She is unable to take NSAIDs. [...] care, would like to move forward. [facility] 12-12-2021 Note PROCEDURE: XR PELVIS 1_2 VIEWS [...] by: CONSTANTINE ROSAS Date: 2021-12-12 16:37 [facility] 12-04-2021 Note CONSULTATION CONSULTATION DATE: 12/06/2021 HISTORY [...] surgeries include a lumbar fusion in the [facility] in 1984 and lumbar anterolisthesis in 1999. Current medications include Curtis 5/325 q. 8 p.r.n. by her PCP. [...] x-ray review and interventional procedure discussion. [facility] Evaluation note Diagnosis Lymphedema of right arm- [...] Hospital Course Note MR#: [id number] [facility] Pt. Name: Isaac Toure Admitted: 03/20/2018 [...] a fall. The patient initially presented to [facility] in which they found a left femur fracture. Sh (more content not included)... Reason for Referral Specialty Diagnoses / Procedures Referred By Contac t Referred To Contact Diagnoses Osteoarthritis of lumbar spine with myelopathy Bernardo Almonte MD [address] [place] [id number] Referral ID Status Reason Start Date Expiration Date V isits Requested Visits Authorized [id number] Pending Review 1 1 Additional Source Comments INFORMATION SOURCE (unrecogn ized section and content) DATE CREATED AUTHOR 06/26/2018 [facility] DATE CREATED AUTHOR AUTHOR'S ORGANIZ ATION 06/13/2021 [facility] dical Specialist DATE CREATED AUTHOR AUTHOR'S ORGANIZ ATION 02/06/2022 [facility] DATE CREATED AUTHOR AUTHOR'S ORGANIZ ATION 05/05/2023 [facility] DATE CREATED AUTHOR AUTHOR'S ORGANIZ ATION 10/18/2023 [facility] dical Specialists EPIC Source Comments (unrecognize d section and content) In the event this informatio n is protected by the Federal Confidentiality of Alcohol and Drug Abuse Patient Records regulations: The Federal rules restrict any use of the information to criminally investigate or prosecute any alcohol or drug abuse patient.[facility] Reason for Visit (unrecogniz ed section and content) Reason Comments Refill Request Reason Comments Follow-up Appt with cardiology yesterday they advised pt she could stop the coumadin and switch to eliquis pt ? 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 Relationship Specialty Start Date End Date Bernardo Almonte MD [address] [facility] [address] [place] [address] PCP - Yanni ALLEN 03/29/21 Bernardo Almonte MD [address] [facility] [address] [place] [address] PCP - General Internal Medicine 09/07/22 Photocopying Machine Operator Relationship Specialty Start Date End Date Bernardo Almonte MD [address] [facility] [address] [place] [address] PCP - Yanni ALLEN 03/29/21 Bernardo Almonte MD [address] [facility] [address] [place] [address] PCP - General Internal Medicine 09/07/22 Photocopying Machine Operator Relationship Specialty Start Date End Date Bernardo Almonte MD [address] [facility] [address] [place] [address] PCP - Yanni ALLEN 03/29/21 Bernardo Almonte MD [address] [facility] [address] [place] [address] PCP - General Internal Medicine 09/07/22 FOR [...] BE BASED ON THE PRIMARY CLINICAL RECORDS. [facility]. provides no warranty or guarantee of the accuracy or completeness of information in this document.
== END 2023-10-21 12:59 | disposition home or self-care (01) ==
LOC: RAD 12:59
PROVIDERS: PCP Internal Medicine; Visit Provider Internal Medicine
DX: E28.39 Other primary ovarian failure (principal); M81.0 Age-related osteoporosis without current pathological fracture
CPT/HCPCS: 77080

== ENCOUNTER 2024-02-29 11:29 | Emergency (ER) | payer MEDICARE, SELFPAY ==
[2024-02-29] VITALS (8 sets, daily range): BP systolic 149–154; BP diastolic 56–62; PULSE 59–68; TEMP 36.9; O2SAT 93–98; BMI 103.3
--- OUTSIDE RECORDS SUMMARY | 2024-02-29 11:42 | XMS_ITS | CCD ---
Author Organization [facility] Care Team Providers Care Payroll Accounting Clerk Name Role Phone SELF, REFERRED Referring Unavailable BERNARDO ALMONTE Primary Care Unavailable ILIANA MCKOY Admitting Unavailable [place] Procedure Practitioner Unavailab ABAD Kong Surgeon Unavailable LYLE TRISTAN Attending Unavailable ABAD JOHNS Admitting Unavailable ABAD JOHNS Attending Unavailable LISANDRA JOHNSHEBLOSSOM Adrian Referring Unavailable BERNARDO ALMONTE Primary Care Unavailable ABAD JOHNS Admitting Unavailable ABAD JOHNS Attending Unavailable BERNARDO ALMONTE Referring Unavailable BERNARDO ALMONTE Primary Care Unavailable Bernardo Almonte II Primary Care Provider [phone] [address] BERNARDO ALMONTE Primary Care Unavailable MYLENE, [...] Unavailable DR BERNARDO ALMONTE Primary Care Unavailable [place], DR CONSTANTINE Farrell Consulting Unavailable Beranrdo Almonte MD Unavailable [phone] Bernardo Almonte MD Primary Care Provider CHAVO BRYANT Attending Unavailable CAROLYN ADKINS Referring Unavailable CAROLYN ADKINS Attending Unavailable BERNARDO ALMONTE Attending Unavailable CAROLYN ADKINS Attending Unavailable BERNARDO ALMONTE Attending Unavailable BERNARDO ALMONTE Attending Unavailable BERNARDO ALMONTE Attending Unavailable HALIMA STATON Referring Unavailable HALIMA STATON Attending Unavailable HALIMA STATON Referring Unavailable JULIANA TITUS Attending Unavailable Wednesday INSTRUMENT OPERATOR, Cammy Unavailable NON STAFF Primary Care Provider UnavailMD Devonte Zuniga Attending Provider NON STAFF Primary Care Unavailable Devonte Padilla Attending Devonte Rizvi Admitting Unavai labDevonte Pabon Admitting Unavai lable NON STAFF Primary Care Unavailable Devonte Padilla Attending Ina labjyotsna NON STAFF Primary Care Provider UnavailDevonte Zuniga MD Attending Provider Allergies Allergy Classification Reported Allergen(s) Allergy Type Date of Onset Reaction(s) Facility Sulfanilamide (1 source) Sulfanilamide Drug Allergy 5 Unknown [facility] (4 sources) Sulfonamides (Antibiotic); Translations: [SULFA (SULFONAMIDE ANTIBIOTICS)] Drug allergy (disorder) 3 [facility] (7 sources) Cow milk Allergy to substance 2 [facility] (7 sources) Sulfanilamide Allergy to substance 3 Unknown [facility] Work Phone: (1 source) Milk; Translations: [MILK] Propensity to adverse reactions to drug (disorder) 2 [facility] Medications Current Medications Medication Drug Class(es) Dates Sig (Normalized) Sig (Original) acetaminophen 325 mg oral capsule (3 sources) Start: 01-07-2024 take 1 capsule by mouth every six hours as needed Acetaminophen (Tylenol) 325 mg capsule Active 325 MG PO Every 6 hours as needed January 06, 2024 11:00pm acetaminophen 325 mg / HYDROcodone bitartrate 5 mg oral tablet (4 sources) Opioid Agonist take 1 tablet by mouth every eight hours as needed HYDROcodone-acetami nophen (Stewart) 5-325 MG tablet TAKE 1 TABLET BY MOUTH EVERY 8 HOURS NEEDED FOR 14 DAYS 0 Active albuterol 0.833 mg/ml / ipratropium bromide 0.167 mg/ml inhalation solution (10 sources) Anticholinergic, beta2-Adrenergic Agonist Start: 01-20-2024 ipratropium-albuter ol (Duo-Neb) 0.5-2.5 mg/3 mL nebulizer solution Indications: Pneumonia due to infectious organism, unspecified laterality, unspecified part of lung Take 3 mL by nebulization in the morning and 3 mL at noon and 3 mL in the evening and 3 mL before bedtime. 90 mL 3 01/20/2024 Active Start: 01-07-2024 take 1 mL by inhalat ion every six hours as needed Ipratropium-Albuterol 0.5 mg-3 mg(2.5 mg base)/3 mL solution for nebulization Active 3 ML INHALATION Every 6 hours as needed January 06, 2024 11:00pm Start: 12-15-2023 take 1 dose by inhal ation every six hours ipratropium-albuterol (Duo-Neb) 0.5-2.5 mg/3 mL nebulizer solution Indications: Pneumonia due to infectious organism, unspecified laterality, unspecified part of lung INHALE 1 VIAL VIA NEBULIZER EVERY 6 HOURS 90 mL 1 12/15/2023 Active Start: 04-06-2023 take 3 mL by inhalat ion every six hours ipratropium-albuterol (Duo-Neb) 0.5-2.5 mg/3 mL nebulizer solution Indications: Pneumonia due to infectious organism, unspecified laterality, unspecified part of lung INHALE 3 ML BY NEBULIZATION EVERY 6 HOURS 90 mL 1 04/06/2023 Active alendronic acid 70 mg oral tablet (11 sources) Bisphosphonate Start: 01-07-2024 take 1 tablet by mouth every week Alendronate 70 mg tablet Active 70 MG PO every week January 06, 2024 11:00pm Start: 09-20-2023 alendronate (F osamax) 70 MG tablet Indications: Age-related osteoporosis without current pathological fracture (CMS/HCC) TAKE 1 TAB BY MOUTH EVERY 7 DAYS. WITH PLAIN WATER 30 MINUTES PRIOR TO FIRST FOOD, DRINK OR MEDICINE 12 tablet 3 09/20/2023 Active Start: 10-07-2022 alendronate (F osamax) 70 MG tablet Indications: Age-related osteoporosis without current pathological fracture (CMS/HCC) Take 1 tablet (70 mg) by mouth every 7 (seven) days. With plain water 30 minutes prior to first food, drink or medicine 12 tablet 3 10/07/2022 Active take 1 tablet by olivier th every week alendronate (FOSAMAX) 70 mg tablet Take 70 mg by mouth once each week. 0 Active Comment on above: Take 70 mg by mouth once each week. ALPRAZolam 0.5 mg oral tablet (8 sources) Benzodiazepine take 1 tablet by mouth three times daily as needed for anxiety ALPRAZolam (Xanax) 0.5 MG tablet Take 1 tablet by mouth 3 (three) times a day as needed for anxiety or sleep. Active take 1 tablet by mouth once charissa y ALPRAZolam (XANAX) 0.5 mg tablet Take 0.5 mg by mouth once daily. 0 Active Comment on above: Take 0.5 mg by mouth once daily. amLODIPine 10 mg oral tablet (12 sources) Dihydropyridine Calcium Channel Murali Start: take 1 tablet by mouth once daily amLODIPine (Norvasc) 10 MG tablet Indications: Essential hypertension, benign (CMS/HCC) TAKE 1 TABLET BY MOUTH EVERY DAY 90 tablet 3 09/07/2023 Active Start: 09-16-2022 take 1 tablet by olivier th once daily amLODIPine (Norvasc) 10 MG tablet [...] 1 tablet by olivier th once daily. apixaban 5 mg oral tablet (6 sources) Factor Xa Inhibitor Start: 05-04-19 take 1 tablet by mouth in the morning apixaban (Eliquis) 5 MG tablet Take 5 mg by mouth in the morning and 5 mg in the evening. 05/04/2023 Active aspirin 81 mg delayed release oral tablet (10 sources) Platelet Aggregation Inhibitor, Nonsteroidal Anti-inflammatory Drug Start: 01-07-20 Aspirin (Adult Low Dose Aspirin) 81 mg tablet,delayed release (DR/EC) Active 81 MG PO Daily January 06, 2024 11:00pm atorvastatin 20 mg oral tablet (11 sources) HMG-CoA Reductase Inhibitor Start: 05-03-19 take 1 tablet by mouth once daily atorvastatin (Lipitor) 20 MG tablet Indications: Hyperlipidemia, unspecified ([facility]) TAKE 1 TABLET BY MOUTH EVERY DAY 90 tablet 3 05/03/2023 Active take 2 tablets by mouth once vidya ly atorvastatin (LIPITOR) 10 mg tablet Take 20 mg by mouth once daily. 0 Active Comment on above: Take 20 mg by mouth once daily. bimatoprost 0.3 mg/ml ophthalmic solution (12 sources) Prostaglandin Analog Start: take 0.03 drop(s) into the eye(s) once daily Bimatoprost 0.03 % drops Active 1 DROPS EYE-BOTH Daily January 06, 2024 11:00pm Start: 01-07-2024 take 1 drop(s) into the eye(s) once daily Bimatoprost Active 1 DROPS EYE-BOTH Daily January 07, 2024 12:00am Start: 10-07-2022 End: 01-04-2024 take 1 drop(s) into the eye(s) at bedtime bimatoprost (Lumigan) 0.03 % ophthalmic solution Indications: Primary open angle glaucoma of both eyes, unspecified glaucoma stage ([facility]) Administer 1 drop into both eyes at bedtime 5 mL 11 01/04/2024 Active take 1 drop(s) into the eye(s) once daily at bedtime bimatoprost (LUMIGAN) 0.03 % ophthalmic drops 1 Drop daily at bedtime. 0 Active Comment on above: 1 Drop daily at bedt jasmina. Biotin (7 sources) take 1 tablet by mouth once daily BIOTIN PO Take 1 tablet by mouth 1 (one) time each day. Active take 1 tablet by mouth once charissa y BIOTIN PO Take 1 tablet by mouth 1 (one) time each day. 0 Active 120 actuat budesonide 0.16 mg/actuat / formoterol fumarate 0.0048 mg/actuat / glycopyrrolate 0.009 mg/actuat metered dose inhaler (7 sources) Corticosteroid, beta2-Adrenergic Agonist Start: 10-14-2023 take 2 puff(s) by mouth every twelve hours Zvimhss-Subirpxszql-Zuoangbjyv (Breztri Aerosphere) 160-9-4.8 MCG/ACT aerosol Indications: Chronic obstructive pulmonary disease with acute lower respiratory infection (CMS/HCC) INHALE 2 PUFFS BY MOUTH EVERY 12 HOURS 10.7 g 3 10/14/2023 Active Start: 12-14-2022 take 2 puff(s) by inhalation once Aejnoky-Epcepjgexyd-Fuwolcrydq (Breztri Aerosphere) 160-9-4.8 MCG/ACT aerosol Indications: Chronic obstructive pulmonary disease with acute lower respiratory infection (CMS/HCC) Inhale 2 puffs every 12 (twelve) hours. 3 inhalers, not 3 grams. 3 g 3 12/14/2022 Active calcitriol 0.89251 mg oral capsule (11 sources) Vitamin D3 Analog Start: 04-26-2023 take 1 capsule by mouth once daily [...] once daily. Calcium Citrate / Vitamin D (7 sources) take 1 tablet by mouth once Calcium Citrate-Vitamin D (CALCIUM CITRATE +D PO) Take 1 tablet by mouth every 12 (twelve) hours. Active take 1 tablet by mouth once Calc ium Citrate-Vitamin D (CALCIUM CITRATE +D PO) Take 1 tablet by mouth every 12 (twelve) hours. 0 Active carvedilol 6.25 mg oral tablet (2 sources) alpha-Adrenergic Murali, beta-Adrenergic Murali Start: 01-07-2024 take 1 tablet by mouth twice daily at mealtime Carvedilol (Coreg) 6.25 mg tablet Active 6.25 MG PO Twice daily 60 30 January 06, 2024 11:00pm must administer with a meal/food cetirizine hydrochloride 10 mg oral tablet (3 sources) Histamine-1 Receptor Antagonist Start: 01-07-2024 take 1 tablet by mouth once daily as needed Cetirizine (Allergy Relief (Cetirizine)) 10 mg tablet Active 10 MG PO Daily as needed January 06, 2024 11:00pm cholecalciferol 0.025 mg oral capsule (9 sources) Vitamin D Start: 01-07-2024 take 1 capsule by mouth once daily Cholecalciferol (Vitamin D3) 25 mcg (1,000 unit) capsule Active 25 MCG PO Daily January 06, 2024 11:00pm Cholecalciferol (Vitamin D3) 1000 units capsule Vitamin D3 1000 Active Cholecalciferol (Vitamin D3) 1000 units capsule (1 source) Cholecalciferol (Vitamin D3) 1000 units capsule Vitamin D3 1000 0 Active doxazosin 2 mg oral tablet (10 sources) alpha-Adrenergi c Murali Start: 10-22-19 24 take 1 tablet by mouth at bedtime doxazosin (Cardura) 2 MG tablet Indications: Essential hypertension (CMS/HCC) TAKE 1 TABLET BY MOUTH AT BEDTIME 100 tablet 3 10/22/2023 Active Start: 10-07-2022 End: 10-07-2023 take 1 tablet by mouth at bedtime doxazosin (Cardura) 2 MG tablet Indications: Essential hypertension (CMS/HCC) Take 1 tablet (2 mg) by mouth at bedtime. 90 tablet 3 10/07/2022 10/07/2023 Active esomeprazole 20 mg delayed release oral capsule (5 sources) Proton Pump Inhibitor esomeprazo le (NexIUM) [address] capsule Comment on above: Take 20 mg by mouth. Fish Oil-Cholecalciferol ([place]-3 Fish Oil/Vitamin D3) 0223-5683 MG-UNIT capsule (4 sources) Fish Oil-Cholecalciferol ([place]-3 Fish Oil/Vitamin D3) 0600-0669 MG-UNIT capsule Take by mouth at bedtime. 0 Active fluticasone propionate 0.05 mg/actuat metered dose nasal spray (11 sources) Corticosteroid Start: 02-14-20 take 2 spray(s) nasal route once daily in the morning fluticasone (Flonase) 50 MCG/ACT nasal spray Indications: Sinusitis, unspecified chronicity, unspecified location USE 2 SPRAYS IN EACH NOSTRIL ONCE EVERY MORNING 48 mL 1 02/14/2024 Active Start: 01-07-2024 take 1 spray(s) nasa l route once daily Fluticasone Propionate 50 mcg/actuation spray,suspension Active 2 SPRAY INTRANASAL daily January 06, 2024 11:00pm administer into each nostril Start: 01-11-2023 take 2 spray(s) nasa l route in the morning fluticasone (Flonase) 50 MCG/ACT nasal spray Indications: Sinusitis, unspecified chronicity, unspecified location SPRAY 2 SPRAYS INTO EACH NOSTRIL IN THE MORNING 48 mL 1 01/11/2023 Active fluticasone (ANGELINA NASE) 50 mcg/actuation nasal spray Use 1 [place] in each nostril as needed. 0 Active Comment on above: Use 1 [place] in each nostril as needed. FLUTICASONE PROPIONATE, INHAL, IN (4 sources) FLUTICASONE PROPIONATE, INHAL, IN Inhale 2 Inhalation 1 (one) time each day. 0 Active furosemide 40 mg oral tablet (10 sources) Loop Diuretic Start: 10-07-2023 End: 10-06-2024 take 1 tablet by mouth once daily furosemide (Lasix) 40 MG tablet Indications: Chronic diastolic heart failure (CMS/HCC) Take 1 tablet (40 mg) by mouth Daily 30 tablet 10/07/2023 10/06/2024 Active Start: 06-29-2022 take 1 tablet by olivier th in the morning furosemide (Lasix) 20 MG tablet Take 20 mg by mouth in the morning. 0 06/29/2022 Active Rrdkhx-Mslew-Hhgj Ac-Ca Fruc to (Myows) tablet (7 sources) take 1 tablet by mouth once daily Ulsbyg-Syrkc-Ykhd Ac-Ca Fructo (Myows) tablet Take 1 tablet by mouth 1 (one) time each day. Active take 1 tablet by mouth once charissa y Sgjbnz-Ksejy-Mdpw Ac-Ca Fructo (Move Free [facility]) tablet Take 1 tablet by mouth 1 (one) time each day. 0 Active levothyroxine sodium 0.112 mg oral capsule (11 sources) l-Thyroxine Start: 01-07-2024 take 1 capsule by mouth once daily Levothyroxine 112 mcg capsule Active 112 MCG PO Daily January 06, 2024 11:00pm Start: 12-24-2023 take 1 tablet by olivier th once daily in the morning levothyroxine (Synthroid, Levoxyl) 112 MCG tablet Indications: Hypothyroidism, unspecified (CMS/HCC) TAKE 1 TABLET BY MOUTH EVERY DAY IN THE MORNING ON EMPTY STOMACH 90 tablet 4 12/24/2023 Active Start: 03-15-2023 take 1 tablet by olivier th once daily in the morning levothyroxine (Synthroid, [...] breakfast. losartan potassium 100 mg oral tablet (10 sources) Angiotensin 2 Receptor Murali Start: take 1 tablet by mouth once daily losartan (Cozaar) 100 MG tablet Indications: Essential (primary) hypertension (CMS/HCC) TAKE 1 TABLET BY MOUTH EVERY DAY 90 tablet 3 01/21/2024 Active Start: 02-01-2023 take 1 tablet by olivier th once daily losartan (Cozaar) 100 MG tablet Indications: Essential (primary) hypertension (CMS/HCC) TAKE 1 TABLET BY MOUTH EVERY DAY FOR 90 DAYS 90 tablet 3 02/01/2023 Active mesalamine 1200 mg delayed release oral tablet (8 sources) Aminosalicylate mesalamine (Lial da) 1.2 g EC tablet Active Mesalamine (LIAL DA) 1.2 gram EC tablet Take 1,200 mg by mouth daily with breakfast. 0 Active Comment on above: Take 1,200 mg by olivier th daily with breakfast. mirtazapine 15 mg oral tablet (5 sources) [...] 0 Active montelukast 10 mg oral tablet (7 sources) Leukotriene Receptor Antagonist Start: take 1 tablet by mouth once daily Montelukast 10 mg tablet Active 10 MG PO Daily January 06, 2024 11:00pm Start: 02-01-2023 take 1 tablet by olivier th once daily montelukast (Singulair) 10 MG tablet Indications: Allergic rhinitis, unspecified TAKE 1 TABLET BY MOUTH EVERY DAY 90 tablet 4 02/01/2023 Active Multivitamin preparation (2 sources) Start: 01-07-2024 take 1 tablet by mouth once daily Multivitamin Active 1 TAB PO Daily January 07, 2024 12:00am Multivitamin tablet (1 source) Start: 01-07-2024 take 1 tablet by mouth once daily Multivitamin tablet Active 1 TAB PO Daily January 06, 2024 11:00pm [place]-3 Fatty Acids (Fish Oil) 1000 MG capsule delayed-release (4 sources) take 1 capsule by mouth once daily [place]-3 Fatty Acids (Fish Oil) 1000 MG capsule delayed-release Take 1 capsule by mouth 1 (one) time each day at the same time. 0 Active omeprazole 40 mg delayed release oral capsule (10 sources) Proton Pump Inhibitor Start: 10-19-2023 End: 10-18-2024 take 1 capsule by mouth before mealtime omeprazole (PriLOSEC) [address] capsule Indications: Gastroesophageal Reflux Disease Take 1 capsule (40 mg) by mouth in the morning. Take before meals. Do not crush or chew.. 90 capsule 3 10/19/2023 10/18/2024 Active take 1 capsule by mouth before m ealtime omeprazole (PriLOSEC) [address] capsule Take 40 mg by mouth in the morning. Take before meals. 0 Active PARoxetine hydrochloride 10 mg oral tablet (10 sources) Serotonin Reuptake Inhibitor Start: 01-22-2024 take 1 tablet by mouth once daily in the morning PARoxetine (Paxil) 10 MG tablet Indications: Anxiety disorder, unspecified TAKE 1 TABLET BY MOUTH EVERY DAY IN THE MORNING 90 tablet 3 04/19/2023 Active polysaccharide iron complex 150 mg oral capsule (4 sources) Start: 12-20-2022 take 1 capsule by mouth in the morning iron polysaccharides (Nu-Iron,Niferex) 150 MG capsule Take 150 mg by mouth in the morning. 0 12/20/2022 Active microencapsulated potassium chloride 20 meq extended release oral tablet (10 sources) Start: 11-26-2023 take 1 tablet by mouth once daily potassium chloride CR (KLOR-CON) 20 MEQ ER tablet Indications: Potassium deficiency TAKE 1 TABLET BY MOUTH EVERY DAY 100 tablet 3 11/26/2023 Active Start: 12-04-2022 take 1 tablet by olivier th once daily potassium chloride CR (KLOR-CON) 20 MEQ ER tablet Indications: Potassium deficiency TAKE 1 TABLET BY MOUTH EVERY DAY 100 tablet 3 12/04/2022 Active Respiratory Therapy Supplies (Nebulizer Cup/Tubing) device (3 sources) Start: 06-10-2023 Respiratory Therapy Supplies (Nebulizer Cup/Tubing) device Indications: Chronic obstructive pulmonary disease with acute lower respiratory infection (CMS/HCC) 1 Device in the morning and 1 Device at noon and 1 Device in the evening and 1 Device before bedtime. 1 each 06/10/2023 Active spironolactone 25 mg oral tablet (7 sources) Aldosterone Antagonist take 1 tablet by mouth once daily spironolactone (Aldactone) 25 MG tablet spironolactone 25 mg tablet TAKE 1 TABLET BY MOUTH EVERY DAY Active sulfaSALAzine 500 mg oral tablet (10 sources) Aminosalicylate Start: 01-07-2024 take 1 tablet by mouth once daily at mealtime Sulfasalazine 500 mg tablet Active 0.5 GM PO Daily January 06, 2024 11:00pm give with food (meal/snack) Start: 01-07-2024 take 0.5 g by mouth once daily at mealtime Sulfasalazine Active 0.5 GM PO Daily January 07, 2024 12:00am give with food (meal/snack) Start: 01-08-2023 take 1 tablet by olivier th twice daily sulfaSALAzine (Azulfidine) 500 MG tablet Indications: Ulcerative colitis, unspecified, without complications (CMS/HCC) TAKE 1 TABLET BY MOUTH TWICE A DAY FOR 90 DAYS 180 tablet 3 01/08/2023 Active tiZANidine 4 mg oral tablet (4 sources) Central alpha-2 Adrenergic Agonist Start: 03-24-2023 take 1 tablet by mouth every eight hours as needed for muscle spasms and muscle spasms tiZANidine (Zanaflex) 4 MG tablet Indications: Muscle spasm Take 1 tablet (4 mg) by mouth every 8 (eight) hours if needed for muscle spasms 30 tablet 2 03/24/2023 Active traMADol hydrochloride 50 mg oral tablet (14 sources) Opioid Agonist Start: 01-07-2024 take 1 tablet by mouth every eight hours as needed Tramadol 50 mg tablet Active 50 MG PO Every 8 hours as needed January 06, 2024 11:00pm Start: 12-10-2023 End: 03-07-2024 take 1 tablet by mouth every six hours for pain traMADol (Ultram) 50 MG tablet Indications: Osteoarthritis of lumbar spine with myelopathy Take 1 tablet (50 mg) by mouth every 6 (six) hours if needed for severe pain for up to 15 days 60 tablet 02/21/2024 03/07/2024 Active Start: 03-24-2023 End: 05-13-2023 take 1 tablet by mouth every six hours for pain traMADol (Ultram) 50 MG tablet Indications: Osteoarthritis of lumbar spine with myelopathy Take 1 tablet (50 mg) by mouth every 6 (six) hours if needed for moderate pain 60 tablet 1 05/13/2023 Active valsartan 320 mg oral tablet (10 sources) Angiotensin 2 Receptor Murali Start: 01-07-2024 take 1 tablet by mouth once daily Valsartan 320 mg tablet Active 320 MG PO Daily January 06, 2024 11:00pm vitamin b12 0.1 mg oral tablet (5 [...] Comment on above: Take 1,000 mcg by [facility] once daily. Vitamins A,C,Y-Utqr-Fbvkde (Preservision Areds) 4,296 mcg-226 mg-90 mg capsule (3 sources) Start: 01-07-2024 take 1 capsule by mouth once daily Vitamins A,C,V-Esfw-Czytno (Preservision Areds) 4,296 mcg-226 mg-90 mg capsule Active 1 CAP PO Daily January 06, 2024 11:00pm Start: 01-07-2024 take 1 capsule by mo [facility] once daily Vitamins A,C,P-Gbvx-Rtbtvw (Preservision Areds) 4,296 mcg-226 mg-90 mg capsule Active 1 CAP PO Daily January 07, 2024 12:00am warfarin sodium 2 mg oral tablet (5 [...] 50,000 Units by mouth once each week. GLUC/CHND/OM3/DHA/EPA /FISH/STR (GLUCOSAMINE CHONDROITIN PLUS ORAL) (1 source) GLUC/CHND/OM3/DH A/ EPA/FISH/STR (GLUCOSAMINE CHONDROITIN PLUS ORAL) Take by mouth once daily. 0 Active Comment on above: Take by mouth once d aily. 24 hr metoprolol succinate 100 mg extended release oral tablet (11 sources) beta-Adrenergic Murali Start: 01-07-2024 End: 01-07-2024 take 1 tablet by mouth once daily Metoprolol Succinate 100 mg tablet extended release 24 hr Discontinued 100 MG PO Daily January 06, 2024 11:00pm January 07, 2024 10:52am Start: 11-07-2022 take 1 tablet by [facility] every twenty-four hours in the morning metoprolol [...] 2 tablets by mo uth once daily. AU-0-XAX-EPA-Fish Oil-Vit D3 300-1,000-1,000 mg-mg-unit cap (1 source) [id number]-7-[id number]-EPA-Fis h Oil-Vit D3 300-1,000-1,000 mg-mg-unit cap Take by mouth daily at bedtime. 0 Active Comment on above: Take by mouth daily at bedtime. Potassium Chloride gran (1 source) Potassium Chlori de gran 20 mEq once daily. 0 Active Comment on above: 20 mEq once daily. Problems Active Problems Problem Classification Problem Date Documented Date Episodic/Chronic Acute cerebrovascular disease (11 sources) Occlusion of cerebral artery with stroke; Translations: [Cerebral infarction due to unspecified occlusion or stenosis of unspecified cerebral artery] Onset: 02-15-2015 05-08-2014 Chronic Anxiety disorders (7 sources) Anxiety; Translations: [Anxiety disorder, unspecified] Onset: 09-08-2022 09-08-2022 Chronic Cardiac dysrhythmias (20 sources) Unspecified atrial flutter; Translations: [Unspecified atrial fibrillation] Onset: 05-07-2014 05-07-2014 Chronic Chronic obstructive pulmonary disease and bronchiectasis (7 sources) Chronic obstructive pulmonary disease with acute lower respiratory infection; Translations: [Chronic obstructive pulmonary disease with (acute) lower respiratory infection] Onset: 09-08-2022 09-08-2022 Chronic Complications of surgical procedures or medical care (1 source) Postprocedural hypothyroidism; Translations: [POSTPROCEDURAL HYPOTHYROIDISM] Onset: 03-20-2018 Chronic Conduction disorders (11 sources) Presence of cardiac pacemaker; Translations: [Cardiac pacemaker in situ] Onset: 05-10-2015 05-10-2015 Chronic Congestive heart failure; nonhypertensive (12 sources) Chronic diastolic (congestive) heart failure; Translations: [Acute diastolic (congestive) heart failure] Onset: 03-20-2018 Chronic Coronary atherosclerosis and other heart disease (1 source) Atherosclerotic heart disease of [place] coronary artery without angina pectoris; Translations: [ATHSCL HEART DISEASE OF [place] CORONARY ARTERY W/O ANG PCTRS] Onset: 03-20-2018 Chronic Disorders of lipid metabolism (9 sources) Hyperlipidemia, unspecified; Translations: [Hyperlipidemia] Onset: 03-20-2018 05-08-2014 Chronic Esophageal disorders (1 source) Gastro-esophageal reflux disease without esophagitis; Translations: [GASTRO-ESOPHAGEAL REFLUX DISEASE WITHOUT ESOPHAGITIS] Onset: 03-20-2018 Chronic Essential hypertension (18 sources) Hypertensive disorder; Translations: [Essential (primary) hypertension] Onset: 04-11-2021 05-08-2014 Chronic External cause codes: Fall (1 source) Other fall on same level, initial encounter; Translations: [OTHER FALL ON SAME LEVEL, INITIAL ENCOUNTER] Onset: 03-20-2018 Fracture of lower limb (4 sources) Other fracture of shaft of left femur, subsequent encounter for closed fracture with routine healing; Translations: [Unspecified fracture of shaft of left femur, initial encounter for closed fracture] Onset: 03-20-2018 Episodic Glaucoma (8 sources) Glaucoma; Translations: [Unspecified glaucoma] Onset: 09-08-2022 09-08-2022 Chronic Heart valve disorders (6 sources) Nonrheumatic mitral (valve) insufficiency; Translations: [Aortic valve stenosis] Onset: 05-13-2021 01-07-2024 Chronic Hypertension with complications and secondary hypertension (1 source) Hypertensive heart disease with heart failure; Translations: [HYPERTENSIVE HEART DISEASE WITH HEART FAILURE] Onset: 03-20-2018 Chronic Menopausal disorders (14 sources) Primary ovarian failure; Translations: [Other primary ovarian failure] Onset: 09-08-2022 09-08-2022 Chronic Nutritional deficiencies (7 sources) Vitamin D deficiency; Translations: [Vitamin D deficiency, unspecified] Onset: 09-08-2022 09-08-2022 Chronic Occlusion or stenosis of precerebral arteries (12 sources) Carotid artery stenosis; Translations: [Occlusion and stenosis of unspecified carotid artery] Onset: 04-01-2021 05-08-2014 Chronic Osteoarthritis (20 sources) Unilateral primary osteoarthritis, left hip; Translations: [Unilateral primary osteoarthritis, left knee] Onset: 12-15-2017 09-08-2022 Chronic Osteoporosis (7 sources) Osteoporosis; Translations: [Age-related osteoporosis without current pathological fracture] Onset: 09-08-2022 09-08-2022 Chronic Other aftercare (3 sources) Encounter for other orthopedic aftercare; Translations: [ENCOUNTER FOR OTHER ORTHOPEDIC AFTERCARE] Onset: 05-11-2018 Episodic Other connective tissue disease (7 sources) Cramp in lower limb; Translations: [Sleep related leg cramps] Onset: 09-08-2022 09-08-2022 Chronic Other connective tissue disease (1 source) Arthrodesis status; Translations: [ARTHRODESIS STATUS] Onset: 05-11-2018 Episodic Other connective tissue disease (2 sources) Muscle spasm of cervical muscle of neck; Translations: [Other muscle spasm] 05-05-2023 Episodic Other diseases of veins and lymphatics (8 sources) Lymphedema of right upper limb; Translations: [Lymphedema, not elsewhere classified] Onset: 05-05-2023 05-05-2023 Chronic Other ear and sense organ disorders (1 source) Unspecified hearing loss, unspecified ear; Translations: [UNSPECIFIED HEARING LOSS, UNSPECIFIED EAR] Onset: 03-20-2018 Chronic Other ear and sense organ disorders (7 sources) Bilateral hearing loss; Translations: [Unspecified hearing loss, bilateral] Onset: 09-08-2022 09-08-2022 Chronic Other ear and sense organ disorders (3 sources) Hearing loss; Translations: [Unspecified hearing loss, unspecified ear] Onset: 12-01-2017 06-10-2023 Chronic Other hereditary and degenerative nervous system conditions (1 source) Restless legs syndrome; Translations: [RESTLESS LEGS SYNDROME] Onset: 03-20-2018 Chronic Other hereditary and degenerative nervous system conditions (7 sources) Restless legs; Translations: [Restless legs syndrome] Onset: 09-08-2022 09-08-2022 Chronic Other nervous system disorders (7 sources) Hereditary peripheral neuropathy; Translations: [Hereditary and idiopathic neuropathy, unspecified] Onset: 09-08-2022 09-08-2022 Chronic Other nutritional; endocrine; and metabolic disorders (1 source) Hypomagnesemia; Translations: [HYPOMAGNESEMIA] Onset: 03-20-2018 Chronic Other nutritional; endocrine; and metabolic disorders (4 sources) Hypercalcemia; Translations: [Hypercalcemia] Onset: 08-18-2022 05-08-2014 Chronic Other nutritional; endocrine; and metabolic disorders (8 sources) Disorder of magnesium metabolism; Translations: [Disorders of magnesium metabolism, unspecified] Onset: 09-08-2022 05-08-2014 Chronic Other nutritional; endocrine; and metabolic disorders (7 sources) Body mass index 30+ - obesity; Translations: [Obesity, unspecified] Onset: 09-08-2022 09-08-2022 Chronic Other upper respiratory disease (7 sources) Allergic rhinitis; Translations: [Other allergic rhinitis] Onset: 09-08-2022 09-08-2022 Chronic Other upper respiratory infections (7 sources) Sinusitis; Translations: [Chronic sinusitis, unspecified] Onset: 09-08-2022 09-08-2022 Chronic Regional enteritis and ulcerative colitis (7 sources) Ulcerative colitis; Translations: [Ulcerative colitis, unspecified, without complications] Onset: 09-08-2022 09-08-2022 Chronic Residual codes; unclassified (1 source) Family history of malignant neoplasm of breast; Translations: [FAMILY HX MALIG NEOPLASM OF BREAST] Onset: 02-05-2022 Episodic Rheumatoid arthritis and related disease (8 sources) Rheumatoid arthritis, unspecified; Translations: [Rheumatoid arthritis] Onset: 03-20-2018 01-13-2023 Chronic Spondylosis; intervertebral disc disorders; other back problems (20 sources) Other spondylosis with radiculopathy, lumbar region; Translations: [Spondylosis without myelopathy or radiculopathy, lumbar region] Onset: 12-16-2021 09-08-2022 Chronic Spondylosis; intervertebral disc disorders; other back problems (5 sources) Intervertebral disc disorders with radiculopathy, lumbar region; Translations: [Radiculopathy, lumbar region] Onset: 12-12-2021 Episodic Thyroid disorders (7 sources) Hypothyroidism; Translations: [Hypothyroidism, unspecified] Onset: 09-08-2022 09-08-2022 Chronic Transient cerebral ischemia (7 sources) Transient cerebral ischemia; Translations: [Transient cerebral [...] STATUS TO SULFONAMIDES STATUS] Onset: 03-20-2018 Episodic Deficiency and other anemia (7 sources) Anemia; Translations: [Anemia, unspecified] Onset: 12-28-2022 12-28-2022 Episodic Fluid and electrolyte disorders (5 sources) Hypokalemia; Translations: [Hypokalemia] Onset: 03-20-2018 05-08-2014 Episodic Other aftercare (1 source) USP (current) use of anticoagulants; 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] Onset: 03-20-2018 Episodic Other aftercare (1 source) 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; Translations: [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] Onset: 03-20-2018 Episodic Other aftercare (3 sources) Long-term current use of anticoagulant; Translations: [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] Onset: 04-24-2011 06-10-2023 Episodic Other circulatory disease (1 source) Personal history of transient ischemic attack (TIA), and cerebral infarction without residual deficits; Translations: [PRSNL HX OF TIA (TIA), AND CEREB INFRC W/O RESID DEFICITS] Onset: 03-20-2018 Episodic Other connective tissue disease (3 sources) Cramp in lower leg associated with rest; Translations: [Cramp and spasm] Onset: 06-16-2017 06-10-2023 Episodic Other lower respiratory disease (4 sources) Other forms of dyspnea; Translations: [OTHER FORMS OF DYSPNEA] Onset: 05-07-2021 Episodic Other screening for suspected conditions (not mental disorders or infectious disease) (7 sources) Encounter for screening mammogram for malignant neoplasm of breast; Translations: [Blood chemistry abnormal] Onset: 04-22-2011 Episodic Residual codes; unclassified (7 sources) Acquired absence of cervix and uterus; Translations: [Acquired absence of both cervix and uterus] Onset: 09-08-2022 09-08-2022 Episodic Residual codes; unclassified (3 sources) Menopause present; Translations: [Asymptomatic menopausal state] Onset: 04-26-2017 06-10-2023 Episodic Screening and history of mental health and substance abuse codes (1 source) Personal history of nicotine dependence; Translations: [PERSONAL HISTORY OF NICOTINE DEPENDENCE] Onset: 03-20-2018 Episodic Unclassified (1 source) LOW BACK PAIN, UNSPECIFIED; Translations: [LOW BACK PAIN, UNSPECIFIED] Onset: 12-12-2021 Results Test Name Value Interpretation Reference Range Facility [facility] echo transthoracicon [facility] echo transthoracic [facility] [place] [address] Echocardiogram Signed Patient: Isaac Toure MR#: [id number] 5 : 1940 Acct:[id number] Age/Sex: 83 / F ADM Date: 02/07/24 Loc: Room: Type: [facility] Attending Dr: Devonte Padilla MD Ordering Provider: Devonte Padilla MD Date of Service: 02/07/2402/19/1317 [facility] echo transthoracic: I35.0 - Nonrheumatic aortic (valve) stenosis Copies to: MD Elizabet Ayala MD Weight: 270 lb Performed By: Halie Cruz BSA: 2.1 m2 BP: 153/73 mmHg HR: 66 Reason For Study: I35.0 - Nonrheumatic aortic (valve) stenosis History: COPD, TIA, Pacemaker, Former smoker Interpretation Summary Ejection Fraction = 60-65%. The left ventricular wall motion is normal. A variety of Doppler measurements indicate normal left ventricular diastolic function. Mild to moderate concentric left ventricular hypertrophy. The left atrium appears moderately dilated. Moderate valvular aortic stenosis. The aortic valve maximum pressure gradient is 57 mmHg. The aortic valve mean gradient is 27 mmHg. The aortic valve area is calculated to be .87 cm2. There is mild mitral regurgitation. There is mild tricuspid regurgitation. The right ventricular systolic pressure is 43 mmHg. Right ventricular systolic pressure is consistent with mild to moderate pulmonary hypertension. Right ventricular lead was seen. Compared to prior study, changes are noted. Aortic stenosis and the RV lead are normal. Procedure/Quality: A two-dimensional transthoracic echocardiogram with color flow and Doppler was performed. Left Ventricle: The left ventricular size is normal. Mild to moderate concentric left ventricular hypertrophy. Ejection Fraction = 60-65%. A variety of Doppler measurements indicate normal left ventricular diastolic function. The left ventricular wall motion is normal. Left Atrium: The left atrium appears moderately dilated. The atrial septum appears normal. Right Atrium: The right atrium appears normal in size. Right Ventricle: The right ventricular size, thickness and function are normal. Aortic Valve: The aortic valve is moderately calcified. Moderate valvular aortic stenosis. The aortic valve maximum pressure gradient is 57 mmHg. The aortic valve mean gradient is 27 mmHg. The aortic valve area is calculated to be .87 cm2. No aortic regurgitation is present. Mitral Valve: The mitral valve is normal in structure and function. There is mild mitral regurgitation. Tricuspid Valve: The tricuspid valve is normal in structure and function. There is mild tricuspid regurgitation. The right ventricular systolic pressure is 43 mmHg. Right ventricular systolic pressure is consistent with mild to moderate pulmonary hypertension. Pulmonic Valve: The pulmonic valve is normal in structure and function. Arteries: The aortic root is normal size. Pericardium/Pleura: No pericardial effusion seen. There is no pleural effusion. IVC/Hepatic Veins: The inferior vena cava is normal in size, with a normal collapsibility index. Miscellaneous: Right ventricular lead was seen. Measurements with Normals IVSd: 1.4 cm (0.7-1.1 cm)LVIDd: 4.3 cm (3.7-5.4 cm) LVPWd: 1.7 cm (0.7-1.1 cm)LVIDs: 3.2 cm (2.3-3.6 cm) LA dimension: 4.1 cm (2.3-4.0 cm)Ao root diam: 2.6 cm(2.0-3.6 cm) asc Aorta Diam: 3.2 cm(2.1-3.4cm) Doppler with Normals RVSP(TR): 43.7 mmHg (18-35mmHg) LV V1 max: 88.8 cm/sec(0.7-1.7m/s)MV E max jose elias: 175.0 cm/sec(0.8-1.3m/s) MMode/2D Measurements Calculations RVDd: 2.6 cm FS: 24.5 % Ao root area: LVOT diam: 2.0 cm TAPSE: 1.6 cm EDV(Teich): 81.1 ml 5.1 cm2 LVOT area: 3.0 cm2 RV S Jose Elias: ESV(Teich): 41.4 ml 9.8 cm/sec EF(Teich): 48.9 % __ LVLd ap4: 6.1 cm SV(MOD-sp4): 39.4 ml LAV(MOD-sp4): LA A2 area: 36.1 cm2 EDV(MOD-sp4): 154.0 ml 62.5 ml LAV(MOD-sp2): LA A4 area: 38.9 cm2 LVLs ap4: 5.4 cm 128.0 ml LA length (vol): ESV(MOD-sp4): 8.0 cm 23.1 ml LA vol: 149.2 ml EF(MOD-sp4): LA vol index: 63.0 % 70.5 ml/m2 __ RA Volume: RA Volume Index: 51.7 ml 24.4 ml/m2 Doppler Measurements Calculations MV dec time: MV max PG: E/E' lat: 20.1 MV dec slope: 0.24 sec 17.0 mmHg E/E' med: 20.1 739.9 cm/sec2 __ Ao V2 max: LV V1 max PG: MR max jose elias: TV max P.0 mmHg 377.3 cm/sec 3.2 mmHg 208.4 cm/sec Ao max PG: LV V1 mean PG: MR max P.0 mmHg 2.0 mmHg 17.5 mmHg Ao mean PG: LV V1 mean: 27.9 mmHg 65.5 cm/sec Ao V2 mean: LV V1 VTI: 28.0 cm 239.1 cm/sec Ao V2 VTI: 97.9 cm MAC(I,D): 0.87 cm2 MAC(V,D): 0.72 cm2 __ TR max jose elias: 298.6 cm/sec TR max P.7 mmHg RAP systole: 8.0 mmHg Transcribed By: ODILON Performed At: (more content not included)... Normal [facility] FPG ECG *CARDIOLOGY ONLY*on 01-07-2024 FPG ECG *CARDIOLOGY ONLY* [facility] Main [place] [address] [place] [address] Electrocardiograph Report Signed Patient: Isaac Toure MR#: [id number] 5 : 1940 Acct:[id number] Age/Sex: 83 / F ADM Date: 01/07/24 Loc: [facility] Room: Type: [facility] Attending Dr: Devonte Padilla MD Ordering Provider: Devonte Padilla MD Date of Service: 01/07/2402/19/1050 ECG/FPG ECG *CARDIOLOGY ONLY*: I48.91 - Unspecified atrial fibrillation Copies to: Test Reason : Blood Pressure : */* mmHG Vent. Rate : 62 BPM Atrial Rate : 258 BPM P-R Int : * ms QRS Dur : 164 ms QT Int : 498 ms P-R-T Axes : * -83 85 degrees QTcB Int : 505 ms Ventricular-paced rhythm with occasional premature ventricular complexes Abnormal ECG When compared with ECG of 13-Sep-2010 06:48, premature ventricular complexes are now present Confirmed by Devonte Padilla ([id number]) on 01/08/2024 10:55:39 AM Referred By: Electronically Signed By: Devonte Padilla Transcribed By: MUS Signed By Devonte Padilla MD 01/08/249 Normal [facility] Office Visiton 11-24-2023 Follow-up visit [id number] Isaac Toure 1940 F Date Provider Department Center 11/24/2023 JULIANA LIRA [facility] Family History Problem Relation Age of Onset Diabetes Mother Hypertension Mother Hyperlipidemia Mother Diabetes Father Hypertension Father Stroke Father Hyperlipidemia Father Family Status - Relation Status Age at Mother Father Level of Service:02376 [place] OFFICE/OUTPATIENT ESTABLISHED MOD MDM 30 MIN Normal [facility] Office Visiton 05-04-2023 Follow-up visit [id number] Isaac Toure N 1940 F Date Provider Department Center 05/04/2023 HALIMA GOMEZ [facility] Family History Problem Relation Age of Onset Diabetes Mother Hypertension Mother Hyperlipidemia Mother Diabetes Father Hypertension Father Stroke Father Hyperlipidemia Father Family Status - Relation Status Age at Mother Father Level of Service:89846 [place] OFFICE/OUTPATIENT NEW MODERATE MDM 45 MINUTES Normal [facility] MG MAMM SCREEN TOM W CADon 1 04-01-2021 MG MAMM SCREEN TOM W CAD Patient: ISAAC TOURE. Exam Date: 01/30/2022 : 1940 Gender:F Ordering : DR BERNARDO ALMONTE M.D. Admission #: [id number] Family : Order #: [id number] CLICK HERE TO VIEW EXAM RADIOLOGY REPORT [...] breast cancer at age 46. LOCATION: [facility] BREAST COMPOSITION: Heterogeneously dense,which may obscure [...] MD on 01/30/2022 at 13:03 Normal [facility] XR LSPINE MIN 4 VIEWSon 11-27 [...] by: CONSTANTINE ROSAS Date: 2021-12-12 16:39 Normal [facility] BNPon 06-16-2021 Natriuretic peptide B (Bld) [Mass/Vol] 1502.0 pg/mL Normal <=1,800.0 [facility] Comment on above: Performed By: #### B MUSICAL STRING MAKER, CMP #### [facility] [address] [place] [address] Dr. Phil Bobby PROF 14(COMP METB)on 022 Albumin [Mass/Vol] 3.9 g/dL Normal 3.4-5.0 [facility] Comment on above: Performed By: #### B MUSICAL STRING MAKER, CMP #### [facility] [address] [place] [address] Dr. Phil Bobby Albumin/Globulin [Mass ratio] 1.0 {ratio} Normal [facility] Comment on above: Performed By: #### B MUSICAL STRING MAKER, CMP #### [facility] [address] [place] [address] Dr. Phil Bobby ALP [Catalytic activity/Vol] 89 U/L Normal 46-116 [facility] Comment on above: Performed By: #### B MUSICAL STRING MAKER, CMP #### [facility] [address] [place] [address] Dr. Phil Bobby ALT [Catalytic activity/Vol] 51 U/L Normal 14-59 [facility] Comment on above: Performed By: #### B MUSICAL STRING MAKER, CMP #### [facility] [address] [place] [address] Dr. Phil Bobby Anion gap [Moles/Vol] 13.3 mmol/L Normal [facility] Comment on above: Performed By: #### B MUSICAL STRING MAKER, CMP #### [facility] [address] [place] [address] Dr. Phil Bobby AST [Catalytic activity/Vol] 29 U/L Normal 15-37 [facility] Comment on above: Performed By: #### B MUSICAL STRING MAKER, CMP #### [facility] [address] [address] [address] Phil Bobby Bilirubin [Mass/Vol] 0.4 mg/dL Normal 0.2-1.3 [facility] Comment on above: Performed By: #### B MUSICAL STRING MAKER, CMP #### [facility] [address] [place] [address] Dr. Phil Bobby Calcium [Mass/Vol] 8.5 mg/dL Normal 8.5-10.1 [facility] Comment on above: Performed By: #### B MUSICAL STRING MAKER, CMP #### [facility] [address] [place] [address] Dr. Phil Bobby Chloride [Moles/Vol] 102 mmol/L Normal 98-107 [facility] Comment on above: Performed By: #### B MUSICAL STRING MAKER, CMP #### [facility] [address] [place] [address] Dr. Phil Bobby CO2 [Moles/Vol] 27.9 mmol/L Normal 22.0-30.0 [facility] Comment on above: Performed By: #### B MUSICAL STRING MAKER, CMP #### [facility] [address] [place] [address] Dr. Phil Bobby Creatinine [Mass/Vol] 1.04 mg/dL Normal 0.52-1.04 [facility] Comment on above: Performed By: #### B MUSICAL STRING MAKER, CMP #### [facility] [address] [place] [address] Dr. Phil Bobby EGFR-AF CITIZEN [place] >60 Normal >=60 [facility] Comment on above: Performed By: #### B MUSICAL STRING MAKER, CMP #### [facility] [address] [place] [address] Dr. Phil Bobby EGFR-NON AF CITIZEN [place] 51 mL/min/1.73m2 Critically low >=60 [facility] Comment on above: Performed By: #### B MUSICAL STRING MAKER, CMP #### [facility] [address] [place] [address] Dr. Phil Bobby Globulin (S) [Mass/Vol] 4.0 g/dL Normal [facility] Comment on above: Performed By: #### B MUSICAL STRING MAKER, CMP #### [facility] [address] [address] [address] Phil Bobby Glucose [Mass/Vol] 118 mg/dL Critically high 74-[address] [facility] Comment on above: Performed By: #### B MUSICAL STRING MAKER, CMP #### [facility] [address] [address] [address] Phil Bobby Potassium [Moles/Vol] 4.2 mmol/L Normal 3.4-5.0 [facility] Comment on above: Performed By: #### B MUSICAL STRING MAKER, CMP #### [facility] [address] [address] [address] Phil Bobby Protein [Mass/Vol] 7.9 g/dL Normal 6.1-8.2 [facility] Comment on above: Performed By: #### B MUSICAL STRING MAKER, CMP #### [facility] [address] [address] [address] Phil Bobby Sodium [Moles/Vol] 139 mmol/L Normal 137-145 [facility] Comment on above: Performed By: #### B MUSICAL STRING MAKER, CMP #### [facility] [address] [address] [address] Phil Bobby Urea nitrogen [Mass/Vol] 20.0 mg/dL Critically high 7.0-18.0 [facility] Comment on above: Performed By: #### B MUSICAL STRING MAKER, CMP #### [facility] [address] [address] [address] Phil Bobby Urea nitrogen/Creatinine [Mass ratio] 19.2 mg/mg Normal [facility] Comment on above: Performed By: #### B MUSICAL STRING MAKER, CMP #### [facility] [address] [address] [address] Phil Bobby Basic Metabolic Panelon 05-27 Anion gap [Moles/Vol] 18 mmol/L Normal 12-20 [facility] Color Worker Comment on above: Result Comment: Effe ctive 04/03/2019 reference range changed. Performed By: #### B MP #### [facility] [address] [place], [place] [id number] Calcium [Mass/Vol] 8.8 mg/dL Normal 8.6-10.2 Tg [facility] Color Worker Comment on above: Performed By: #### B MP #### [facility] [address] [place], [place] [id number] Chloride [Moles/Vol] 104 mmol/L Normal 98-107 [facility] Comment on above: Performed By: #### B MP #### [facility] [address] [facility] [place] [id number] CO2 [Moles/Vol] 23 mmol/L Normal 20-31 [facility] Comment on above: Performed By: #### B MP #### [facility] [address] [facility] [place] [id number] Creatinine [Mass/Vol] 0.9 mg/dL Normal 0.6-1.4 [facility] Specialist Comment on above: Performed By: #### B MP #### [facility] [address] [place], [place] [id number] eGFRAA 77 mL/min/1.73m2 Normal >60 [facility] Specialist Comment on above: Performed By: #### B MP #### [facility] [address] [facility] [place] [id number] eGFRNAA 64 mL/min/1.73m2 Normal >60 [facility] Specialist Comment on above: Performed By: #### B MP #### [facility] [address] [place], [place] [id number] Glucose [Mass/Vol] 79 mg/dL Normal 65-99 Tg [facility] Color Worker Comment on above: Result Comment: For FASTING Glucose --- ADA reference ranges: Normal 65-99 mg/dl Prediabetes 100-125 Diabetes >/= 126 Performed By: #### B MP #### [facility] [address] [facility] [id number] Potassium [Moles/Vol] 4.0 mmol/L Normal 3.5-5.5 [facility] Specialist Comment on above: Performed By: #### B MP #### [facility] [address] [place], [place] [id number] Sodium [Moles/Vol] 141 mmol/L Normal 135-146 Tg [facility] Color Worker Comment on above: Performed By: #### B MP #### [facility] [address] [place], [place] [id number] Urea nitrogen [Mass/Vol] 17 mg/dL Normal - [facility] Color Worker Comment on above: Performed By: #### B MP #### [facility] [address] [place], [place] [id number] XR CHEST 2 Von 06-06-2021 XR CHEST [...] by: MARGY AHUJA Date: 2021-06-06 13:25 Normal [facility] ECHOCARDIO M/2D COMPLETEon 0 05-07-2021 ECHOCARDIO M/2D COMPLETE Patient: ISAAC TOURE Exam Date: 05/07/2021 : 1940 Gender:F Ordering : JULIANA TITUS Admission #: [id number] Family : DR BERNARDO ALMONTE M.D. Order #: [id number] CLICK HERE TO VIEW EXAM ECHOCARDIOGRAM REPORT [...] Garcia M.D. on 05/08/2021 at 12:15 Normal [facility] PROF CHEM 8 (BAS METB)on Anion gap [Moles/Vol] 7.3 mmol/L Normal [facility] Comment on above: Performed By: #### B MP #### [facility] [address] [place] [address] Dr. Phil Bobby Calcium [Mass/Vol] 9.3 mg/dL Normal 8.4-10.2 [facility] Comment on above: Performed By: #### B MP #### [facility] [address] [address] [address] Phil Bobby Chloride [Moles/Vol] 99 mmol/L Normal 98-107 [facility] Comment on above: Performed By: #### B MP #### [facility] [address] [address] [address] Phil Bobby CO2 [Moles/Vol] 34.1 mmol/L Critically high 22.0-30.0 [facility] Comment on above: Performed By: #### B MP #### [facility] [address] [address] [address] Phil Bobby Creatinine [Mass/Vol] 1.07 mg/dL Critically high 0.52-1.04 [facility] Comment on above: Performed By: #### B MP #### [facility] [address] [address] [address] Phil Bobby EGFR-AF CITIZEN [place] =60 Normal >=60 [facility] Comment on above: Performed By: #### B MP #### [facility] [address] [address] [address] Phil Bobby EGFR-NON AF CITIZEN OF [place] 49 mL/min/1.73m2 Critically low >=60 [facility] Comment on above: Performed By: #### B MP #### [facility] [address] [address] [address] Phil Bboby Glucose [Mass/Vol] 123 mg/dL Critically high 74-106 [facility] Comment on above: Performed By: #### B MP #### [facility] [address] [address] [address] Phil Bobby Potassium [Moles/Vol] 3.4 mmol/L Normal 3.4-5.0 [facility] Comment on above: Performed By: #### B MP #### [facility] [address] [address] [address] Phil Bobby Sodium [Moles/Vol] 137 mmol/L Normal 137-145 [facility] Comment on above: Performed By: #### B MP #### [facility] Laboratory [address] [address] [address] Phil Bobby Urea nitrogen [Mass/Vol] 28.0 mg/dL Critically high 7.0-17.0 [facility] Comment on above: Performed By: #### B MP #### [facility] [address] [address] [address] Phil Bobby Urea nitrogen/Creatinine [Mass ratio] 26.2 mg/mg Normal [facility] Comment on above: Performed By: #### B MP #### [facility] [address] [address] [address] Phil Bobby LIPID PROFILEon 04-01-2021 CHOL-HDL RATIO NORM SEE BELOW Normal [facility] Comment on above: Result Comment: 3.3 - 4.4 LOW RISK 4.4 - 7.1 AVERAGE RISK 7.1 - 11.0 MODERATE RISK >11.0 HIGH RISK Performed By: #### L IPID ####[facility] [address] [place], [place] [address]Kj. Phil Bobby Cholesterol [Mass/Vol] 158 mg/dL Normal <=200 [facility] Comment on above: Performed By: #### L IPID ####[facility] [id number] [place], [place] [address]Wc. Phil Bobby Cholesterol in HDL [Mass/Vol] 74 mg/dL Normal [facility] Comment on above: Performed By: #### L IPID ####[facility] [address] [place], [place] [address]Hl. Phil Kanu Cholesterol in LDL [Mass/Vol] 78.0 mg/dL Normal [facility] Comment on above: Performed By: #### L IPID ####[facility] [address] [place], [place] [address]Wa. Phil Bobby Cholesterol.total/Ch olesterol in HDL [Mass ratio] 2.1 {ratio} Normal [facility] Comment on above: Performed By: #### L IPID ####[facility] [address] [place], [place] [address]Ud. Phil Bobby HDL NORMAL > or = 60 mg/dl - LO W CARDIOVASCULAR RISK <40 mg/dl - HIGH CARDIOVASCULAR RISK Normal [facility] Comment on above: Performed By: #### L IPID ####[facility] [address] [place], [place] [address]Vk. Phil Bobby LDL CALC NORMAL SEE BELOW Normal [facility] Comment on above: Result Comment: <100 mg/dl OPTIMAL 100 - 129 mg/dl NEAR OR ABOVE OPTIMAL 130 - 159 mg/dl BORDERLINE HIGH 160 - 189 mg/dl HIGH >190 mg/dl VERY HIGH Performed By: #### L IPID ####[facility] [id number] [id number][address] Phil Kanu Triglyceride [Mass/Vol] 30 mg/dL Normal <=150 [facility] Comment on above: Performed By: #### L IPID ####[facility] [address] [place], [place] [address]Hm. Phil Bobby VLDL CALC 6.0 mg/dL Normal [facility] Comment on above: Performed By: #### L IPID ####[facility] [address] [place], [place] [address]Cj. Phil Bobby FEMUR LEFT 2 VWSon 9 FEMUR LEFT 2 VWS [facility] Department of Radiology [address] [place] [phone] Patient Name: ISAAC TOURE : 1940 Sex: F Age: Race: White Pt. Location: Patient Status: O Ordered Date: 06/22/2018 12:30:00 PM Completed Date: 06/22/2018 12:42 PM Requesting Provider: ABAD JOHNS Attending Provider: ABAD JOHNS Report Copy To: Signs & Symptoms: Z47.89 Encounter for other orthopedic aftercare I10 History: [place] Comments: , Views (X-RAY, FEMUR): AP, Lateral , Views (X-RAY, FEMUR): AP, Lateral , , , Ordering Provider - ABAD JOHNS MD , Exam: FEMUR LEFT 2 VWS FEMUR LEFT 2 S 06/22/2018 12:42 PM EDT SIGNS AND SYMPTOMS: [...] alignment Electronically signed by:He Gomez. Transcribed by: [email or web address], User Resident: Electronically Signed by: HE GOMEZ @ 06/22/2018 01:23 PM Normal [facility] Comment on above: Order Comment: , Vie ws (X-RAY, FEMUR): AP, Lateral , Views (X-RAY, FEMUR): AP, Lateral , , , Ordering Provider - ABAD JOHNS MD , FEMUR LEFT 2 [facility] 9 FEMUR LEFT 2 [facility] Department of Radiology [address] [place] [phone] Patient Name: ISAAC TOURE : 1940 [...] alignment Electronically signed by:He Gomez. Transcribed by: [email or web address], User Resident: Electronically Signed by: HE GOMEZ @ 05/11/2018 03:15 PM [facility] Comment on above: Order Comment: , Katherine ws (X-RAY, FEMUR): AP, Lateral , Views (X-RAY, FEMUR): AP, Lateral , , , Ordering Provider - ABAD JOHNS MD , PROTHROMBIN TIMEon 9 INR Coag RelTime (PPP) 1.41 {INR} High 0.91-1.16 [facility] Comment on above: Order Comment: Ashwin vazquez Result Comment: [facility] P RECOMMENDED INR FOR WARFARIN THERAPY ------- ------- CONDITION INR PROPHYLAXIS OF VENOUS THROMBOSIS 2-3 (HIGH-RISK SURGERY) TREATMENT OF VENOUS THROMBOSIS 2-3 TREATMENT OF PULMONARY EMBOLISM 2-3 PREVENTION OF SYSTEMIC EMBOLISM: 2-3 ACUTE MYOCARDIAL INFARCTION TISSUE HEART VALVES VALVULAR HEART DISEASE ATRIAL FIBRILLATION RECURRENT SYSTEMIC EMBOLISM MECHANICAL HEART VALVE 2.5-3.5 FROM: ORAL ANTICOAGULANTS. MECHANISM OF ACTION, CLINICAL EFFECTIVENESS, AND OPTIMAL THERAPEUTIC RANGE. CHEST 1995;108:231S-246S. Performed By: #### 0 0071, 25444, 51882 #### [facility] [address] Prothrombin time (PT) Coag time (PPP) 17.3 s High 12.3-14.8 [facility] Comment on above: Order Comment: Ashwin vazquez Result Comment: ALL RESULTS MUST BE INTERPRETED WITH RESPECT TO BLOOD DRAWING ARTIFACT OR DILUTION ERROR OF ANTICOAGULANT AT THE TIME OF SAMPLING. Performed By: #### 0 0071, 30533, 59038 #### [facility] [address] [facility]. [address] BASIC METABOLIC PANELon Calcium mass conc 8.0 mg/dL Low 8.6-10.3 [facility] Comment on above: Order Comment: No: D o not add to previous draw Performed By: #### 0 0071, 69745, 96521 #### [facility] [address] [place] [address], [place] Chloride molar conc 102 mmol/L Normal 98-107 [facility] Comment on above: Order Comment: No: D o not add to previous draw Performed By: #### 0 0071, 89326, 78426 #### [facility] [address] [place] [address], [place] CO2 molar conc 27 mmol/L Normal 21-31 [facility] Comment on above: Order Comment: No: D o not add to previous draw Performed By: #### 0 0071, 17138, 85176 #### [facility] [address] [place] [address], [place] Creatinine mass conc 0.70 mg/dL Normal 0.60-1.20 [facility] Comment on above: Order Comment: No: D o not add to previous draw Performed By: #### 0 0071, 33527, 69525 #### [facility] [address] [place] [address], [place] GFR/1.73 sq M predicted among blacks MDRD vol rate/area (S/P/Bld) mL/min/{1.73_m2} Normal >60 [facility] Comment on above: Order Comment: No: D o not add to previous draw Result Comment: Calc ulation may not be valid for patients over 70 years Performed By: #### 0 0071, 57307, 59153 #### [facility] [address] [place] [address], [place] GFR/1.73 sq M predicted among non-blacks MDRD vol rate/area (S/P/Bld) mL/min/{1.73_m2} Normal >60 [facility] Comment on above: Order Comment: No: D o not add to previous draw Result Comment: Calc ulation may not be valid for patients over 70 years Performed By: #### 0 0071, 83498, 13134 #### [facility] [address] [place] [address], [facility] Glucose mass conc 104 mg/dL High 70-100 [facility] Comment on above: Order Comment: No: D o not add to previous draw Performed By: #### 0 0071, 61079, 88809 #### [facility] [address] [place] [address], [place] Potassium molar conc 3.7 mmol/L Normal 3.5-5.1 [facility] Comment on above: Order Comment: No: D o not add to previous draw Performed By: #### 0 0071, 46774, 35492 #### [facility] [address] [place] [address], [facility] Sodium molar conc 135 mmol/L Low 136-145 [facility] Comment on above: Order Comment: No: D o not add to previous draw Performed By: #### 0 0071, 98083, 68399 #### [facility] [address] [place] [address], [facility] Urea nitrogen mass conc 17 mg/dL Normal 7-25 [facility] Comment on above: Order Comment: No: D o not add to previous draw Performed By: #### 0 0071, 50896, 17250 #### [facility] [address] [place] [address], [facility] CBC COMPLETE BLOOD COUNTon 0 - Erythrocyte distribution width Ratio (RBC) 14.5 % Normal 11.5-15.0 [facility] Comment on above: Order Comment: No: D o not add to previous draw Performed By: #### 0 0071, 66718, 20811 #### [facility] [address] [place] [address], [place] Hematocrit Volume Fraction (Bld) 23.8 % Low 36.0-45.0 [facility] Comment on above: Order Comment: No: D o not add to previous draw Performed By: #### 0 0071, 15297, 57230 #### [facility] [address] [place] [address], [facility] Hemoglobin mass conc (Bld) 7.9 g/dL Low 12.0-15.0 [facility] Comment on above: Order Comment: No: D o not add to previous draw Performed By: #### 0 0071, 10919, 78054 #### [facility] [address] [place] [address], [facility] MCH Entitic mass (RBC) 32.9 pg Normal 27.0-33.0 [facility] Comment on above: Order Comment: No: D o not add to previous draw Performed By: #### 0 0071, 85462, 96111 #### [facility] [address] [place] [address], [facility] MCHC mass conc (RBC) 33.2 g/dL Normal 32.0-35.0 [facility] Comment on above: Order Comment: No: D o not add to previous draw Performed By: #### 0 0071, 25508, 84849 #### [facility] [address] [place] [address], [facility] MCV Entitic volume (RBC) 99.2 fL High 82.0-98.0 [facility] Comment on above: Order Comment: No: D o not add to previous draw Performed By: #### 0 0071, 09540, 07717 #### [facility] [address] [facility]. [address] Nucleated RBC/100 WBC Ratio (Bld) 3 % High 0-0 [facility] Comment on above: Order Comment: No: D o not add to previous draw Performed By: #### 0 0071, 47539, 70867 #### [facility] [address] [place] [address], [facility] PLAT CNT 401 10*3/uL High 150-400 [facility] Comment on above: Order Comment: No: D o not add to previous draw Performed By: #### 0 0071, 46050, 80390 #### [facility] [address] [address], [facility] RBC #/vol (Bld) 2.40 10*6/uL Low 3.80-5.00 [facility] Comment on above: Order Comment: No: D o not add to previous draw Performed By: #### 0 0071, 78607, 37997 #### [facility] [address] [address], [facility] WBC #/vol (Bld) 9.83 10*3/uL Normal 4.00-10.60 [facility] Comment on above: Order Comment: No: D o not add to previous draw Performed By: #### 0 0071, 55239, 89415 #### [facility] [address] PROTHROMBIN TIMEon 9 INR Coag RelTime (PPP) 1.31 {INR} High 0.91-1.16 [facility] Comment on above: Order Comment: Unkno wn Result Comment: [facility] P RECOMMENDED INR FOR WARFARIN THERAPY ------- ------- CONDITION INR PROPHYLAXIS OF VENOUS THROMBOSIS 2-3 (HIGH-RISK SURGERY) TREATMENT OF VENOUS THROMBOSIS 2-3 TREATMENT OF PULMONARY EMBOLISM 2-3 PREVENTION OF SYSTEMIC EMBOLISM: 2-3 ACUTE MYOCARDIAL INFARCTION TISSUE HEART VALVES VALVULAR HEART DISEASE ATRIAL FIBRILLATION RECURRENT SYSTEMIC EMBOLISM MECHANICAL HEART VALVE 2.5-3.5 FROM: ORAL ANTICOAGULANTS. MECHANISM OF ACTION, CLINICAL EFFECTIVENESS, AND OPTIMAL THERAPEUTIC RANGE. CHEST 1995;108:231S-246S. Performed By: #### 0 0071, 26788, 62609 #### [facility] [address] [place] [address], [facility] Prothrombin time (PT) Coag time (PPP) 16.3 s High 12.3-14.8 [facility] Comment on above: Order Comment: Unkno wn Result Comment: ALL RESULTS MUST BE INTERPRETED WITH RESPECT TO BLOOD DRAWING ARTIFACT OR DILUTION ERROR OF ANTICOAGULANT AT THE TIME OF SAMPLING. Performed By: #### 0 0071, 64547, 37802 #### [facility] [address] [place] [address], [facility] BASIC METABOLIC PANELon 12-3 Calcium mass conc 8.2 mg/dL Low 8.6-10.3 [facility] Comment on above: Order Comment: No: D o not add to previous draw Performed By: #### 0 0071, 56320, 54661 #### [facility] [address] [place] [address], [place] Chloride molar conc 101 mmol/L Normal 98-107 The [facility] Comment on above: Order Comment: No: D o not add to previous draw Performed By: #### 0 0071, 53208, 23660 #### [facility] [address] [place] [address], [place] CO2 molar conc 26 mmol/L Normal 21-31 [facility] Comment on above: Order Comment: No: D o not add to previous draw Performed By: #### 0 0071, 64537, 25811 #### [facility] [address] [place] [address], [place] Creatinine mass conc 0.70 mg/dL Normal 0.60-1.20 [facility] Comment on above: Order Comment: No: D o not add to previous draw Performed By: #### 0 0071, 70361, 35265 #### [facility] [address] [place] [address], [place] GFR/1.73 sq M predicted among blacks MDRD vol rate/area (S/P/Bld) mL/min/{1.73_m2} Normal >60 [facility] Comment on above: Order Comment: No: D o not add to previous draw Result Comment: Calc ulation may not be valid for patients over 70 years Performed By: #### 0 0071, 97511, 21327 #### [facility] [address] [place] [address], [facility] GFR/1.73 sq M predicted among non-blacks MDRD vol rate/area (S/P/Bld) mL/min/{1.73_m2} Normal >60 [facility] Comment on above: Order Comment: No: D o not add to previous draw Result Comment: Calc ulation may not be valid for patients over 70 years Performed By: #### 0 0071, 63625, 54940 #### [facility] [address] [place] [address], [facility] Glucose mass conc 108 mg/dL High 70-100 [facility] Comment on above: Order Comment: No: D o not add to previous draw Performed By: #### 0 0071, 85296, 84583 #### [facility] [address] [place] [address], [facility] Potassium molar conc 4.0 mmol/L Normal 3.5-5.1 [facility] Comment on above: Order Comment: No: D o not add to previous draw Performed By: #### 0 0071, 45346, 41512 #### [facility] [address] [place] [address], [place] Sodium molar conc 133 mmol/L Low 136-145 [facility] Comment on above: Order Comment: No: D o not add to previous draw Performed By: #### 0 0071, 62136, 60796 #### [facility] [address] [place] [address], [place] Urea nitrogen mass conc 17 mg/dL Normal 7-25 [facility] Comment on above: Order Comment: No: D o not add to previous draw Performed By: #### 0 0071, 90155, 07957 #### [facility] [address] [place] [address], [facility] CBC COMPLETE BLOOD COUNTon 1 Erythrocyte distribution width Ratio (RBC) 14.3 % Normal 11.5-15.0 [facility] Comment on above: Order Comment: No: D o not add to previous draw Performed By: #### 0 0071, 58139, 53122 #### [facility] [address] [place] [address], [facility] Hematocrit Volume Fraction (Bld) 22.9 % Low 36.0-45.0 [facility] Comment on above: Order Comment: No: D o not add to previous draw Performed By: #### 0 0071, 63309, 68095 #### [facility] [address] [place] [address], [facility] Hemoglobin mass conc (Bld) 7.6 g/dL Low 12.0-15.0 [facility] Comment on above: Order Comment: No: D o not add to previous draw Performed By: #### 0 0071, 53500, 68979 #### [facility] [address] [place] [address], [facility] MCH Entitic mass (RBC) 32.9 pg Normal 27.0-33.0 [facility] Comment on above: Order Comment: No: D o not add to previous draw Performed By: #### 0 0071, 23070, 98871 #### [facility] [address] [place] [address], [facility] MCHC mass conc (RBC) 33.2 g/dL Normal 32.0-35.0 [facility] Comment on above: Order Comment: No: D o not add to previous draw Performed By: #### 0 0071, 70442, 39369 #### [facility] [address] MCV Entitic volume (RBC) 99.1 fL High 82.0-98.0 [facility] Comment on above: Order Comment: No: D o not add to previous draw Performed By: #### 0 0071, 99592, 99265 #### [facility] [address] [place] [address], [facility] Nucleated RBC/100 WBC Ratio (Bld) 2 % High 0-0 [facility] Comment on above: Order Comment: No: D o not add to previous draw Performed By: #### 0 0071, 22224, 47808 #### [facility] [address] [place] [address], [facility] PLAT CNT 333 10*3/uL Normal 150-400 [facility] Comment on above: Order Comment: No: D o not add to previous draw Performed By: #### 0 0071, 38397, 06963 #### [facility] [address] [place] [address], [facility] RBC #/vol (Bld) 2.31 10*6/uL Low 3.80-5.00 [facility] Comment on above: Order Comment: No: D o not add to previous draw Performed By: #### 0 0071, 43090, 03108 #### [facility] [address] [address], [facility] WBC #/vol (Bld) 13.64 10*3/uL High 4.00-10.60 [facility] Comment on above: Order Comment: No: D o not add to previous draw Performed By: #### 0 0071, 40033, 31746 #### [facility] [address] [place] [address], [facility] MAGNESIUM BLOODon 03-28-2018 Magnesium mass conc 1.9 mg/dL Normal 1.9-2.7 The [facility] Comment on above: Order Comment: No: D o not add to previous draw Performed By: #### 0 0071, 60970, 38924 #### [facility] [address] PROTHROMBIN TIMEon 8 INR Coag RelTime (PPP) 1.29 {INR} High 0.91-1.16 [facility] Comment on above: Order Comment: Ashwin vazquez Result Comment: [facility] P RECOMMENDED INR FOR WARFARIN THERAPY ------- ------- CONDITION INR PROPHYLAXIS OF VENOUS THROMBOSIS 2-3 (HIGH-RISK SURGERY) TREATMENT OF VENOUS THROMBOSIS 2-3 TREATMENT OF PULMONARY EMBOLISM 2-3 PREVENTION OF SYSTEMIC EMBOLISM: 2-3 ACUTE MYOCARDIAL INFARCTION TISSUE HEART VALVES VALVULAR HEART DISEASE ATRIAL FIBRILLATION RECURRENT SYSTEMIC EMBOLISM MECHANICAL HEART VALVE 2.5-3.5 FROM: ORAL ANTICOAGULANTS. MECHANISM OF ACTION, CLINICAL EFFECTIVENESS, AND OPTIMAL THERAPEUTIC RANGE. CHEST 1995;108:231S-246S. Performed By: #### 0 0071, 17004, 08778 #### [facility] [address] Prothrombin time (PT) Coag time (PPP) 16.1 s High 12.3-14.8 [facility] Comment on above: Order Comment: Ashwin vazquez Result Comment: ALL RESULTS MUST BE INTERPRETED WITH RESPECT TO BLOOD DRAWING ARTIFACT OR DILUTION ERROR OF ANTICOAGULANT AT THE TIME OF SAMPLING. Performed By: #### 0 0071, 72224, 43157 #### [facility] [address] BASIC METABOLIC PANELon 12 Calcium mass conc 7.9 mg/dL Low 8.6-10.3 [facility] Comment on above: Order Comment: This order is a replacement of the rejected order with accession number [id number]. Performed By: #### 0 0071, 59273, 19549 #### [facility] [address] [place] [address], [facility] Chloride molar conc 99 mmol/L Normal 98-107 The [facility] Comment on above: Order Comment: This order is a replacement of the rejected order with accession number [id number]. Performed By: #### 0 0071, 48765, 89135 #### [facility] [address] [place] [address], [facility] CO2 molar conc 28 mmol/L Normal 21-31 The [facility] Comment on above: Order Comment: This order is a replacement of the rejected order with accession number [id number]. Performed By: #### 0 0071, 99304, 49884 #### [facility] [address] [place] [address], [facility] Creatinine mass conc 0.77 mg/dL Normal 0.60-1.20 [facility] Comment on above: Order Comment: This order is a replacement of the rejected order with accession number [id number]. Performed By: #### 0 0071, 31066, 82079 #### [facility] [address] [place] [address], [place] GFR/1.73 sq M predicted among blacks MDRD vol rate/area (S/P/Bld) mL/min/{1.73_m2} Normal >60 [facility] Comment on above: Order Comment: This order is a replacement of the rejected order with accession number [id number]. Result Comment: Calc ulation may not be valid for patients over 70 years Performed By: #### 0 0071, 35850, 21663 #### [facility] [address] [place] [address], [place] GFR/1.73 sq M predicted among non-blacks MDRD vol rate/area (S/P/Bld) mL/min/{1.73_m2} Normal >60 [facility] Comment on above: Order Comment: This order is a replacement of the rejected order with accession number [id number]. Result Comment: Calc ulation may not be valid for patients over 70 years Performed By: #### 0 0071, 43695, 53507 #### [facility] [address] [place] [address], [facility] Glucose mass conc 112 mg/dL High 70-100 [facility] Comment on above: Order Comment: This order is a replacement of the rejected order with accession number [id number]. Performed By: #### 0 0071, 55035, 57306 #### [facility] [address] [place] [address], [facility] Potassium molar conc 3.1 mmol/L Low 3.5-5.1 [facility] Comment on above: Order Comment: This order is a replacement of the rejected order with accession number [id number]. Performed By: #### 0 0071, 69963, 57258 #### [facility] [address] [place] [address], [facility] Sodium molar conc 133 mmol/L Low 136-145 [facility] Comment on above: Order Comment: This order is a replacement of the rejected order with accession number [id number]. Performed By: #### 0 0071, 23960, 74754 #### [facility] [address] [place] [address], [facility] Urea nitrogen mass conc 17 mg/dL Normal 7-25 [facility] Comment on above: Order Comment: This order is a replacement of the rejected order with accession number [id number]. Performed By: #### 0 0071, 20522, 56629 #### [facility] [address] [place] [address], [facility] CBC COMPLETE BLOOD COUNTon Erythrocyte distribution width Ratio (RBC) 14.3 % Normal 11.5-15.0 [facility] Comment on above: Order Comment: No: D o not add to previous draw Performed By: #### 0 0071, 31093, 04538 #### [facility] [address] [place] [address], [facility] Hematocrit Volume Fraction (Bld) 23.7 % Low 36.0-45.0 [facility] Comment on above: Order Comment: No: D o not add to previous draw Performed By: #### 0 0071, 30875, 34869 #### [facility] [address] [place] [address], [facility] Hemoglobin mass conc (Bld) 8.0 g/dL Low 12.0-15.0 [facility] Comment on above: Order Comment: No: D o not add to previous draw Performed By: #### 0 0071, 59401, 16632 #### [facility] [address] [place] [address], [facility] MCH Entitic mass (RBC) 33.1 pg High 27.0-33.0 [facility] Comment on above: Order Comment: No: D o not add to previous draw Performed By: #### 0 0071, 07867, 81937 #### [facility] [address] [place] [address], [facility] MCHC mass conc (RBC) 33.8 g/dL Normal 32.0-35.0 [facility] Comment on above: Order Comment: No: D o not add to previous draw Performed By: #### 0 0071, 65479, 47040 #### [facility] [address] [place] [address], [facility] MCV Entitic volume (RBC) 97.9 fL Normal 82.0-98.0 [facility] Comment on above: Order Comment: No: D o not add to previous draw Performed By: #### 0 0071, 54425, 08712 #### [facility] [address] Nucleated RBC/100 WBC Ratio (Bld) 1 % High 0-0 [facility] Comment on above: Order Comment: No: D o not add to previous draw Performed By: #### 0 0071, 91319, 20020 #### [facility] [address] [place] [id number], [facility] PLAT CNT 324 10*3/uL Normal 150-400 [facility] Comment on above: Order Comment: No: D o not add to previous draw Performed By: #### 0 0071, 69746, 11050 #### [facility] [address] [place] [address], [facility] RBC #/vol (Bld) 2.42 10*6/uL Low 3.80-5.00 [facility] Comment on above: Order Comment: No: D o not add to previous draw Performed By: #### 0 0071, 30393, 40223 #### [facility] [address] [place] [address], [facility] WBC #/vol (Bld) 14.07 10*3/uL High 4.00-10.60 [facility] Comment on above: Order Comment: No: D o not add to previous draw Performed By: #### 0 0071, 15760, 88518 #### [facility] [address] [place] [address], [facility] Erythrocyte distribution width Ratio (RBC) 14.2 % Normal 11.5-15.0 [facility] Comment on above: Order Comment: This order is a replacement of the rejected order with accession number [id number]. Performed By: #### 0 0071, 20963, 13822 #### [facility] [address] [place] [address], [facility] Hematocrit Volume Fraction (Bld) 22.3 % Low 36.0-45.0 [facility] Comment on above: Order Comment: This order is a replacement of the rejected order with accession number [id number]. Performed By: #### 0 0071, 06055, 76634 #### [facility] [address] Hemoglobin mass conc (Bld) 7.4 g/dL Low 12.0-15.0 [facility] Comment on above: Order Comment: This order is a replacement of the rejected order with accession number [id number]. Performed By: #### 0 0071, 74534, 84221 #### [facility] [address] MCH Entitic mass (RBC) 32.5 pg Normal 27.0-33.0 [facility] Comment on above: Order Comment: This order is a replacement of the rejected order with accession number [id number]. Performed By: #### 0 0071, 35510, 52075 #### [facility] [address] [facility] [address] MCHC mass conc (RBC) 33.2 g/dL Normal 32.0-35.0 [facility] Comment on above: Order Comment: This order is a replacement of the rejected order with accession number [id number]. Performed By: #### 0 0071, 13437, 46553 #### [facility] [address] [facility] MCV Entitic volume (RBC) 97.8 fL Normal 82.0-98.0 [facility] Comment on above: Order Comment: This order is a replacement of the rejected order with accession number [id number]. Performed By: #### 0 0071, 37993, 07695 #### [facility] [address] [facility] Nucleated RBC/100 WBC Ratio (Bld) 1 % High 0-0 [facility] Comment on above: Order Comment: This order is a replacement of the rejected order with accession number [id number]. Performed By: #### 0 0071, 75976, 29480 #### [facility] [address] [facility]. [address] PLAT CNT 278 10*3/uL Normal 150-400 [facility] Comment on above: Order Comment: This order is a replacement of the rejected order with accession number [id number]. Performed By: #### 0 0071, 14966, 01366 #### [facility] [address] RBC #/vol (Bld) 2.28 10*6/uL Low 3.80-5.00 [facility] Comment on above: Order Comment: This order is a replacement of the rejected order with accession number [id number]. Performed By: #### 0 0071, 03469, 69880 #### [facility] [address] WBC #/vol (Bld) 11.31 10*3/uL High 4.00-10.60 [facility] Comment on above: Order Comment: This order is a replacement of the rejected order with accession number [id number]. Performed By: #### 0 0071, 06483, 10210 #### [facility] [address] MAGNESIUM BLOODon 03-27-2018 Magnesium mass conc 1.8 mg/dL Low 1.9-2.7 [facility] Comment on above: Order Comment: This order is a replacement of the rejected order with accession number [id number]. Performed By: #### 0 0071, 65451, 53575 #### [facility] [address] PROTHROMBIN TIMEon 8 INR Coag RelTime (PPP) 1.14 {INR} Normal 0.91-1.16 [facility] Comment on above: Order Comment: This order is a replacement of the rejected order with accession number [id number]. Result Comment: ACCC P RECOMMENDED INR FOR WARFARIN THERAPY ------- ------- CONDITION INR PROPHYLAXIS OF VENOUS THROMBOSIS 2-3 (HIGH-RISK SURGERY) TREATMENT OF VENOUS THROMBOSIS 2-3 TREATMENT OF PULMONARY EMBOLISM 2-3 PREVENTION OF SYSTEMIC EMBOLISM: 2-3 ACUTE MYOCARDIAL INFARCTION TISSUE HEART VALVES VALVULAR HEART DISEASE ATRIAL FIBRILLATION RECURRENT SYSTEMIC EMBOLISM MECHANICAL HEART VALVE 2.5-3.5 FROM: ORAL ANTICOAGULANTS. MECHANISM OF ACTION, CLINICAL EFFECTIVENESS, AND OPTIMAL THERAPEUTIC RANGE. CHEST 1995;108:231S-246S. Performed By: #### 0 0071, 57871, 35697 #### [facility] [address] Prothrombin time (PT) Coag time (PPP) 14.6 s Normal 12.3-14.8 [facility] Comment on above: Order Comment: This order is a replacement of the rejected order with accession number [id number]. Result Comment: ALL RESULTS MUST BE INTERPRETED WITH RESPECT TO BLOOD DRAWING ARTIFACT OR DILUTION ERROR OF ANTICOAGULANT AT THE TIME OF SAMPLING. Performed By: #### 0 0071, 49189, 92155 #### [facility] [address] BASIC METABOLIC PANELon 12-2 Calcium mass conc 7.8 mg/dL Low 8.6-10.3 [facility] Comment on above: Order Comment: This order is a replacement of the rejected order with accession number [id number]. Performed By: #### 0 0071, 73633, 60824 #### [facility] [address] [place] [address], [facility] Chloride molar conc 100 mmol/L Normal 98-107 [facility] Comment on above: Order Comment: This order is a replacement of the rejected order with accession number [id number]. Performed By: #### 0 0071, 23268, 52894 #### [facility] [address] [place] [address], [facility] CO2 molar conc 27 mmol/L Normal 21-31 [facility] Comment on above: Order Comment: This order is a replacement of the rejected order with accession number [id number]. Performed By: #### 0 0071, 24756, 97363 #### [facility] [address] [place] [address], [facility] Creatinine mass conc 0.70 mg/dL Normal 0.60-1.20 [facility] Comment on above: Order Comment: This order is a replacement of the rejected order with accession number [id number]. Performed By: #### 0 0071, 66188, 50408 #### [facility] [address] [place] [address], [place] GFR/1.73 sq M predicted among blacks MDRD vol rate/area (S/P/Bld) mL/min/{1.73_m2} Normal >60 [facility] Comment on above: Order Comment: This order is a replacement of the rejected order with accession number [id number]. Result Comment: Calc ulation may not be valid for patients over 70 years Performed By: #### 0 0071, 47098, 82999 #### [facility] [address] [place] [address], [place] GFR/1.73 sq M predicted among non-blacks MDRD vol rate/area (S/P/Bld) mL/min/{1.73_m2} Normal >60 [facility] Comment on above: Order Comment: This order is a replacement of the rejected order with accession number [id number]. Result Comment: Calc ulation may not be valid for patients over 70 years Performed By: #### 0 0071, 91130, 53266 #### [facility] [address] [place] [address], [facility] Glucose mass conc 118 mg/dL High 70-100 [facility] Comment on above: Order Comment: This order is a replacement of the rejected order with accession number [id number]. Performed By: #### 0 0071, 55186, 77521 #### [facility] [address] [place] [address], [facility] Potassium molar conc 3.6 mmol/L Normal 3.5-5.1 [facility] Comment on above: Order Comment: This order is a replacement of the rejected order with accession number [id number]. Performed By: #### 0 0071, 64658, 43716 #### [facility] [address] [place] [address], [facility] Sodium molar conc 134 mmol/L Low 136-145 [facility] Comment on above: Order Comment: This order is a replacement of the rejected order with accession number [id number]. Performed By: #### 0 0071, 60514, 18544 #### [facility] [address] [place] [address], [facility] Urea nitrogen mass conc 16 mg/dL Normal 7-25 [facility] Comment on above: Order Comment: This order is a replacement of the rejected order with accession number [id number]. Performed By: #### 0 0071, 42235, 00181 #### [facility] [address] CBC COMPLETE BLOOD COUNTon Erythrocyte distribution width Ratio (RBC) 13.9 % Normal 11.5-15.0 [facility] Comment on above: Order Comment: This order is a replacement of the rejected order with accession number [id number]. Performed By: #### 0 0071, 72163, 62595 #### [facility] [address] Hematocrit Volume Fraction (Bld) 23.4 % Low 36.0-45.0 [facility] Comment on above: Order Comment: This order is a replacement of the rejected order with accession number [id number]. Performed By: #### 0 007, 05912, 72590 #### [facility] [address] Hemoglobin mass conc (Bld) 7.8 g/dL Low 12.0-15.0 [facility] Comment on above: Order Comment: This order is a replacement of the rejected order with accession number [id number]. Performed By: #### 0 0071, 86207, 30678 #### [facility] [address] MCH Entitic mass (RBC) 33.1 pg High 27.0-33.0 [facility] Comment on above: Order Comment: This order is a replacement of the rejected order with accession number [id number]. Performed By: #### 0 007, 73970, 99661 #### [facility] 3000 [facility] MCHC mass conc (RBC) 33.3 g/dL Normal 32.0-35.0 [facility] Comment on above: Order Comment: This order is a replacement of the rejected order with accession number [id number]. Performed By: #### 0 70, 86500, 31376 #### [facility] [address] MCV Entitic volume (RBC) 99.2 fL High 82.0-98.0 [facility] Comment on above: Order Comment: This order is a replacement of the rejected order with accession number [id number]. Performed By: #### 0 0071, 54513, 90233 #### [facility] [address] Nucleated RBC/100 WBC Ratio (Bld) 0 % Normal 0-0 [facility] Comment on above: Order Comment: This order is a replacement of the rejected order with accession number [id number]. Performed By: #### 0 0071, 15643, 78755 #### [facility] [address] [facility]. [address] PLAT CNT 252 10*3/uL Normal 150-400 [facility] Comment on above: Order Comment: This order is a replacement of the rejected order with accession number [id number]. Performed By: #### 0 0071, 02659, 14437 #### [facility] [address] RBC #/vol (Bld) 2.36 10*6/uL Low 3.80-5.00 [facility] Comment on above: Order Comment: This order is a replacement of the rejected order with accession number [id number]. Performed By: #### 0 0071, 55849, 38263 #### [facility] [address] WBC #/vol (Bld) 10.89 10*3/uL High 4.00-10.60 [facility] Comment on above: Order Comment: This order is a replacement of the rejected order with accession number [id number]. Performed By: #### 0 0071, 93236, 69975 #### [facility] [address] LIVER BATTERYon 03-26-2018 Albumin mass conc 2.8 g/dL Low 3.5-5.7 [facility] Comment on above: Order Comment: This order is a replacement of the rejected order with accession number [id number]. Performed By: #### 0 0071, 68225, 25925 #### [facility] [address] ALKALINE PHOSPH 120 IU/L High 34-104 [facility] Comment on above: Order Comment: This order is a replacement of the rejected order with accession number [id number]. Performed By: #### 0 0071, 81650, 39015 #### [facility] [address] [place] [address], [facility] ALT enzyme act/vol 46 U/L Normal 7-52 [facility] Comment on above: Order Comment: This order is a replacement of the rejected order with accession number [id number]. Performed By: #### 0 0071, 89194, 91962 #### [facility] [address] [place] [address], [facility] AST enzyme act/vol 86 U/L High 13-39 [facility] Comment on above: Order Comment: This order is a replacement of the rejected order with accession number [id number]. Performed By: #### 0 0071, 74885, 68079 #### [facility] [address] [place] [address], [facility] Bilirubin mass conc 1.2 mg/dL High 0.3-1.0 [facility] Comment on above: Order Comment: This order is a replacement of the rejected order with accession number [id number]. Performed By: #### 0 0071, 55661, 45277 #### [facility] [address] [place] [address], [facility] Bilirubin.direct mass conc 0.5 mg/dL High 0.0-0.2 [facility] Comment on above: Order Comment: This order is a replacement of the rejected order with accession number [id number]. Performed By: #### 0 0071, 86421, 90149 #### [facility] [address] [place] [address], [facility] Protein mass conc 5.4 g/dL Low 6.0-8.3 [facility] Comment on above: Order Comment: This order is a replacement of the rejected order with accession number [id number]. Performed By: #### 0 0071, 01941, 70706 #### [facility] [address] [facility]. [address] MAGNESIUM BLOODon 03-26-2018 Magnesium mass conc 1.8 mg/dL Low 1.9-2.7 [facility] Comment on above: Order Comment: This order is a replacement of the rejected order with accession number [id number]. Performed By: #### 0 0071, 95801, 29793 #### [facility] [address] [facility]. [address] PROTHROMBIN TIMEon 8 INR Coag RelTime (PPP) 1.13 {INR} Normal 0.91-1.16 [facility] Comment on above: Order Comment: This order is a replacement of the rejected order with accession number [id number]. Result Comment: [facility] P RECOMMENDED INR FOR WARFARIN THERAPY ------- ------- CONDITION INR PROPHYLAXIS OF VENOUS THROMBOSIS 2-3 (HIGH-RISK SURGERY) TREATMENT OF VENOUS THROMBOSIS 2-3 TREATMENT OF PULMONARY EMBOLISM 2-3 PREVENTION OF SYSTEMIC EMBOLISM: 2-3 ACUTE MYOCARDIAL INFARCTION TISSUE HEART VALVES VALVULAR HEART DISEASE ATRIAL FIBRILLATION RECURRENT SYSTEMIC EMBOLISM MECHANICAL HEART VALVE 2.5-3.5 FROM: ORAL ANTICOAGULANTS. MECHANISM OF ACTION, CLINICAL EFFECTIVENESS, AND OPTIMAL THERAPEUTIC RANGE. CHEST 1995;108:231S-246S. Performed By: #### 0 0071, 42985, 49603 #### [facility] [address] Prothrombin time (PT) Coag time (PPP) 14.5 s Normal 12.3-14.8 [facility] Comment on above: Order Comment: This order is a replacement of the rejected order with accession number [id number]. Result Comment: ALL RESULTS MUST BE INTERPRETED WITH RESPECT TO BLOOD DRAWING ARTIFACT OR DILUTION ERROR OF ANTICOAGULANT AT THE TIME OF SAMPLING. Performed By: #### 0 0071, 74730, 57751 #### [facility] [address] [place] [address], [facility] BASIC METABOLIC PANELon 12-2 Calcium mass conc 7.5 mg/dL Low 8.6-10.3 [facility] Comment on above: Order Comment: This order is a replacement of the rejected order with accession number [id number]. Performed By: #### 6 2586 #### [facility] [address] [place] [address], [facility] Chloride molar conc 101 mmol/L Normal 98-107 [facility] Comment on above: Order Comment: This order is a replacement of the rejected order with accession number [id number]. Performed By: #### 6 2586 #### [facility] [address] [place] [address], [facility] CO2 molar conc 25 mmol/L Normal 21-31 [facility] Comment on above: Order Comment: This order is a replacement of the rejected order with accession number [id number]. Performed By: #### 6 2586 #### [facility] [address] [place] [address], [facility] Creatinine mass conc 0.65 mg/dL Normal 0.60-1.20 [facility] Comment on above: Order Comment: This order is a replacement of the rejected order with accession number [id number]. Performed By: #### 6 2586 #### [facility] [address] [place] [address], [facility] GFR/1.73 sq M predicted among blacks MDRD vol rate/area (S/P/Bld) mL/min/{1.73_m2} Normal >60 [facility] Comment on above: Order Comment: This order is a replacement of the rejected order with accession number [id number]. Result Comment: Calc ulation may not be valid for patients over 70 years Performed By: #### 6 2586 #### [facility] [address] [place] [address], [facility] GFR/1.73 sq M predicted among non-blacks MDRD vol rate/area (S/P/Bld) mL/min/{1.73_m2} Normal >60 [facility] Comment on above: Order Comment: This order is a replacement of the rejected order with accession number [id number]. Result Comment: Calc ulation may not be valid for patients over 70 years Performed By: #### 6 2586 #### [facility] [address] [facility]. [address] Glucose mass conc 115 mg/dL High 70-100 [facility] Comment on above: Order Comment: This order is a replacement of the rejected order with accession number [id number]. Performed By: #### 6 2586 #### [facility] [address] [facility] [place] [address], [facility] Potassium molar conc 3.3 mmol/L Low 3.5-5.1 [facility] Comment on above: Order Comment: This order is a replacement of the rejected order with accession number [id number]. Performed By: #### 6 2586 #### [facility] [address] [facility] [place] [address], [facility] Sodium molar conc 134 mmol/L Low 136-145 [facility] Comment on above: Order Comment: This order is a replacement of the rejected order with accession number [id number]. Performed By: #### 6 2586 #### [facility] [address] [place] [address], [facility] Urea nitrogen mass conc 14 mg/dL Normal 7-25 [facility] Comment on above: Order Comment: This order is a replacement of the rejected order with accession number [id number]. Performed By: #### 6 2586 #### [facility] [address] CBC COMPLETE BLOOD COUNTon 05-26-2017 Erythrocyte distribution width Ratio (RBC) 13.5 % Normal 11.5-15.0 [facility] Comment on above: Order Comment: This order is a replacement of the rejected order with accession number [id number]. Performed By: #### 6 2586 #### [facility] [address] Hematocrit Volume Fraction (Bld) 24.1 % Low 36.0-45.0 [facility] Comment on above: Order Comment: This order is a replacement of the rejected order with accession number [id number]. Performed By: #### 6 2586 #### [facility] [address] Hemoglobin mass conc (Bld) 8.2 g/dL Low 12.0-15.0 [facility] Comment on above: Order Comment: This order is a replacement of the rejected order with accession number [id number]. Performed By: #### 6 2586 #### [facility] [address] [facility] MCH Entitic mass (RBC) 33.1 pg High 27.0-33.0 [facility] Comment on above: Order Comment: This order is a replacement of the rejected order with accession number [id number]. Performed By: #### 6 2586 #### [facility] [address] MCHC mass conc (RBC) 34.0 g/dL Normal 32.0-35.0 [facility] Comment on above: Order Comment: This order is a replacement of the rejected order with accession number [id number]. Performed By: #### 6 2586 #### [facility] [address] [place] [address], [facility] MCV Entitic volume (RBC) 97.2 fL Normal 82.0-98.0 [facility] Comment on above: Order Comment: This order is a replacement of the rejected order with accession number [id number]. Performed By: #### 6 2586 #### [facility] [address] Nucleated RBC/100 WBC Ratio (Bld) 0 % Normal 0-0 [facility] Comment on above: Order Comment: This order is a replacement of the rejected order with accession number [id number]. Performed By: #### 6 2586 #### [facility] [address] PLAT CNT 206 10*3/uL Normal 150-400 [facility] Comment on above: Order Comment: This order is a replacement of the rejected order with accession number [id number]. Performed By: #### 6 2586 #### [facility] [address] RBC #/vol (Bld) 2.48 10*6/uL Low 3.80-5.00 [facility] Comment on above: Order Comment: This order is a replacement of the rejected order with accession number [id number]. Performed By: #### 6 2586 #### [facility] [address] WBC #/vol (Bld) 9.27 10*3/uL Normal 4.00-10.60 [facility] Comment on above: Order Comment: This order is a replacement of the rejected order with accession number [id number]. Performed By: #### 6 2586 #### [facility] [address] PROTHROMBIN TIMEon 8 INR Coag RelTime (PPP) 1.23 {INR} High 0.91-1.16 [facility] Comment on above: Order Comment: This order is a replacement of the rejected order with accession number [id number]. Result Comment: [facility] P RECOMMENDED INR FOR WARFARIN THERAPY ------- ------- CONDITION INR PROPHYLAXIS OF VENOUS THROMBOSIS 2-3 (HIGH-RISK SURGERY) TREATMENT OF VENOUS THROMBOSIS 2-3 TREATMENT OF PULMONARY EMBOLISM 2-3 PREVENTION OF SYSTEMIC EMBOLISM: 2-3 ACUTE MYOCARDIAL INFARCTION TISSUE HEART VALVES VALVULAR HEART DISEASE ATRIAL FIBRILLATION RECURRENT SYSTEMIC EMBOLISM MECHANICAL HEART VALVE 2.5-3.5 FROM: ORAL ANTICOAGULANTS. MECHANISM OF ACTION, CLINICAL EFFECTIVENESS, AND OPTIMAL THERAPEUTIC RANGE. CHEST 1995;108:231S-246S. Performed By: #### 6 2586 #### [facility] [address] Prothrombin time (PT) Coag time (PPP) 15.5 s High 12.3-14.8 [facility] Comment on above: Order Comment: This order is a replacement of the rejected order with accession number [id number]. Result Comment: ALL RESULTS MUST BE INTERPRETED WITH RESPECT TO BLOOD DRAWING ARTIFACT OR DILUTION ERROR OF ANTICOAGULANT AT THE TIME OF SAMPLING. Performed By: #### 6 2586 #### [facility] 3000 [facility] BASIC METABOLIC PANELon 12-2 Calcium mass conc 7.5 mg/dL Low 8.6-10.3 [facility] Comment on above: Order Comment: This order is a replacement of the rejected order with accession number [id number]. Performed By: #### 6 2586 #### [facility] [address] Chloride molar conc 99 mmol/L Normal 98-107 The [facility] Comment on above: Order Comment: This order is a replacement of the rejected order with accession number [id number]. Performed By: #### 6 2586 #### [facility] [address] [place] [address], [facility] CO2 molar conc 24 mmol/L Normal 21-31 The [facility] Comment on above: Order Comment: This order is a replacement of the rejected order with accession number [id number]. Performed By: #### 6 2586 #### [facility] [address] [place] [address], [facility] Creatinine mass conc 0.62 mg/dL Normal 0.60-1.20 [facility] Comment on above: Order Comment: This order is a replacement of the rejected order with accession number [id number]. Performed By: #### 6 2586 #### [facility] [address] [place] [address], [facility] GFR/1.73 sq M predicted among blacks MDRD vol rate/area (S/P/Bld) mL/min/{1.73_m2} Normal >60 [facility] Comment on above: Order Comment: This order is a replacement of the rejected order with accession number [id number]. Result Comment: Calc ulation may not be valid for patients over 70 years Performed By: #### 6 2586 #### [facility] [address] [place] [address], [facility] GFR/1.73 sq M predicted among non-blacks MDRD vol rate/area (S/P/Bld) mL/min/{1.73_m2} Normal >60 The [facility] Comment on above: Order Comment: This order is a replacement of the rejected order with accession number [id number]. Result Comment: Calc ulation may not be valid for patients over 70 years Performed By: #### 6 2586 #### [facility] [address] [place] [address], [facility] Glucose mass conc 130 mg/dL High 70-100 The [facility] Comment on above: Order Comment: This order is a replacement of the rejected order with accession number [id number]. Performed By: #### 6 2586 #### [facility] [address] [place] [address], [facility] Potassium molar conc 3.3 mmol/L Low 3.5-5.1 [facility] Comment on above: Order Comment: This order is a replacement of the rejected order with accession number [id number]. Performed By: #### 6 2586 #### [facility] [address] [place] [address], [facility] Sodium molar conc 133 mmol/L Low 136-145 [facility] Comment on above: Order Comment: This order is a replacement of the rejected order with accession number [id number]. Performed By: #### 6 2586 #### [facility] [address] Urea nitrogen mass conc 13 mg/dL Normal 7-25 [facility] Comment on above: Order Comment: This order is a replacement of the rejected order with accession number [id number]. Performed By: #### 6 2586 #### [facility] [address] CBC COMPLETE BLOOD COUNTon 05-25-2017 Erythrocyte distribution width Ratio (RBC) 13.4 % Normal 11.5-15.0 [facility] Comment on above: Order Comment: This order is a replacement of the rejected order with accession number [id number]. Performed By: #### 5 7307, 42889 #### [facility] [address] Hematocrit Volume Fraction (Bld) 26.5 % Low 36.0-45.0 [facility] Comment on above: Order Comment: This order is a replacement of the rejected order with accession number [id number]. Performed By: #### 5 7307, 97567 #### [facility] [address] Hemoglobin mass conc (Bld) 9.2 g/dL Low 12.0-15.0 [facility] Comment on above: Order Comment: This order is a replacement of the rejected order with accession number [id number]. Performed By: #### 5 73, 62750 #### [facility] [address] MCH Entitic mass (RBC) 33.7 pg High 27.0-33.0 [facility] Comment on above: Order Comment: This order is a replacement of the rejected order with accession number [id number]. Performed By: #### 5 73, 38318 #### [facility] [address] MCHC mass conc (RBC) 34.7 g/dL Normal 32.0-35.0 [facility] Comment on above: Order Comment: This order is a replacement of the rejected order with accession number [id number]. Performed By: #### 5 73, 50374 #### [facility] 3000 [facility] [address] MCV Entitic volume (RBC) 97.1 fL Normal 82.0-98.0 [facility] Comment on above: Order Comment: This order is a replacement of the rejected order with accession number [id number]. Performed By: #### 5 73, 39434 #### [facility] [address] Nucleated RBC/100 WBC Ratio (Bld) 0 % Normal 0-0 [facility] Comment on above: Order Comment: This order is a replacement of the rejected order with accession number [id number]. Performed By: #### 5 73, 32319 #### [facility] [address] [place] [address], [facility] PLAT CNT 187 10*3/uL Normal 150-400 [facility] Comment on above: Order Comment: This order is a replacement of the rejected order with accession number [id number]. Performed By: #### 5 7307, 83245 #### [facility] [address] RBC #/vol (Bld) 2.73 10*6/uL Low 3.80-5.00 [facility] Comment on above: Order Comment: This order is a replacement of the rejected order with accession number [id number]. Performed By: #### 5 7307, 78866 #### [facility] [address] WBC #/vol (Bld) 12.04 10*3/uL High 4.00-10.60 [facility] Comment on above: Order Comment: This order is a replacement of the rejected order with accession number [id number]. Performed By: #### 5 7307, 42021 #### [facility] [address] MAGNESIUM BLOODon 03-24-2018 Magnesium mass conc 1.6 mg/dL Low 1.9-2.7 [facility] Comment on above: Performed By: #### 6 2586 #### [facility] 3000 [facility] [address] PROTHROMBIN TIMEon 8 INR Coag RelTime (PPP) 1.41 {INR} High 0.91-1.16 [facility] Comment on above: Order Comment: This order is a replacement of the rejected order with accession number [id number]. Result Comment: ACCC P RECOMMENDED INR FOR WARFARIN THERAPY ------- ------- CONDITION INR PROPHYLAXIS OF VENOUS THROMBOSIS 2-3 (HIGH-RISK SURGERY) TREATMENT OF VENOUS THROMBOSIS 2-3 TREATMENT OF PULMONARY EMBOLISM 2-3 PREVENTION OF SYSTEMIC EMBOLISM: 2-3 ACUTE MYOCARDIAL INFARCTION TISSUE HEART VALVES VALVULAR HEART DISEASE ATRIAL FIBRILLATION RECURRENT SYSTEMIC EMBOLISM MECHANICAL HEART VALVE 2.5-3.5 FROM: ORAL ANTICOAGULANTS. MECHANISM OF ACTION, CLINICAL EFFECTIVENESS, AND OPTIMAL THERAPEUTIC RANGE. CHEST 1995;108:231S-246S. Performed By: #### 6 2586 #### [facility] [address] Prothrombin time (PT) Coag time (PPP) 17.3 s High 12.3-14.8 [facility] Comment on above: Order Comment: This order is a replacement of the rejected order with accession number [id number]. Result Comment: ALL RESULTS MUST BE INTERPRETED WITH RESPECT TO BLOOD DRAWING ARTIFACT OR DILUTION ERROR OF ANTICOAGULANT AT THE TIME OF SAMPLING. Performed By: #### 6 2586 #### [facility] [address] UFH HEPARIN ASSAYon 03-24-20 18 UNFRACTIONATED HEPARIN <0.10 Critically low 0.30-0.70 [facility] Comment on above: Result Comment: [place] roxaban and Apixaban will interfere with the anti Xa assay used to monitor UFH and LMWH. RESULT CHECKED AND CALLED TO ALEKSANDRA 0729 Performed By: #### 6 2586 #### [facility] [address] BASIC METABOLIC PANELon -2 Calcium mass conc 8.0 mg/dL Low 8.6-10.3 [facility] Comment on above: Order Comment: This order is a replacement of the rejected order with accession number [id number]. Performed By: #### 5 7307, 86676 #### [facility] 3000 [place] [address], [facility] Chloride molar conc 98 mmol/L Normal 98-107 [facility] Comment on above: Order Comment: This order is a replacement of the rejected order with accession number [id number]. Performed By: #### 5 7307, 93670 #### [facility] [address] [place] [address], [place] CO2 molar conc 25 mmol/L Normal 21-31 [facility] Comment on above: Order Comment: This order is a replacement of the rejected order with accession number [id number]. Performed By: #### 5 7307, 01303 #### [facility] [address] [place] [address], [facility] Creatinine mass conc 0.68 mg/dL Normal 0.60-1.20 [facility] Comment on above: Order Comment: This order is a replacement of the rejected order with accession number [id number]. Performed By: #### 5 7307, 42824 #### [facility] [address] [place] [address], [place] GFR/1.73 sq M predicted among blacks MDRD vol rate/area (S/P/Bld) mL/min/{1.73_m2} Normal >60 [facility] Comment on above: Order Comment: This order is a replacement of the rejected order with accession number [id number]. Result Comment: Calc ulation may not be valid for patients over 70 years Performed By: #### 5 7307, 66611 #### [facility] [address] [place] [address], [place] GFR/1.73 sq M predicted among non-blacks MDRD vol rate/area (S/P/Bld) mL/min/{1.73_m2} Normal >60 [facility] Comment on above: Order Comment: This order is a replacement of the rejected order with accession number [id number]. Result Comment: Calc ulation may not be valid for patients over 70 years Performed By: #### 5 73, 70496 #### [facility] [address] [place] [id number], [facility] Glucose mass conc 118 mg/dL High 70-100 [facility] Comment on above: Order Comment: This order is a replacement of the rejected order with accession number [id number]. Performed By: #### 5 73, 13915 #### [facility] [address] [place] [address], [facility] Potassium molar conc 3.0 mmol/L Low 3.5-5.1 [facility] Comment on above: Order Comment: This order is a replacement of the rejected order with accession number [id number]. Performed By: #### 5 73, 79283 #### [facility] [address] [place] [address], [facility] Sodium molar conc 132 mmol/L Low 136-145 [facility] Comment on above: Order Comment: This order is a replacement of the rejected order with accession number [id number]. Performed By: #### 5 73, 40836 #### [facility] [address] [place] [address], [facility] Urea nitrogen mass conc 8 mg/dL Normal 7-25 [facility] Comment on above: Order Comment: This order is a replacement of the rejected order with accession number [id number]. Performed By: #### 5 73, 03979 #### [facility] [address] CBC COMPLETE BLOOD COUNTon 05-24-2017 Erythrocyte distribution width Ratio (RBC) 13.4 % Normal 11.5-15.0 [facility] Comment on above: Order Comment: This order is a replacement of the rejected order with accession number [id number]. Performed By: #### 5 73, 92409 #### [facility] [address] Hematocrit Volume Fraction (Bld) 32.2 % Low 36.0-45.0 [facility] Comment on above: Order Comment: This order is a replacement of the rejected order with accession number [id number]. Performed By: #### 5 73, 41186 #### [facility] [address] Hemoglobin mass conc (Bld) 11.0 g/dL Low 12.0-15.0 [facility] Comment on above: Order Comment: This order is a replacement of the rejected order with accession number [id number]. Performed By: #### 5 73, 02264 #### [facility] 3000 [facility] MCH Entitic mass (RBC) 33.3 pg High 27.0-33.0 [facility] Comment on above: Order Comment: This order is a replacement of the rejected order with accession number [id number]. Performed By: #### 5 73, 86033 #### [facility] [address] MCHC mass conc (RBC) 34.2 g/dL Normal 32.0-35.0 [facility] Comment on above: Order Comment: This order is a replacement of the rejected order with accession number [id number]. Performed By: #### 5 73, 32911 #### [facility] 3000 [facility] MCV Entitic volume (RBC) 97.6 fL Normal 82.0-98.0 [facility] Comment on above: Order Comment: This order is a replacement of the rejected order with accession number [id number]. Performed By: #### 5 7307, 55263 #### [facility] [address] Nucleated RBC/100 WBC Ratio (Bld) 0 % Normal 0-0 [facility] Comment on above: Order Comment: This order is a replacement of the rejected order with accession number [id number]. Performed By: #### 5 7307, 15450 #### [address] PLAT CNT 195 10*3/uL Normal 150-400 [facility] Comment on above: Order Comment: This order is a replacement of the rejected order with accession number [id number]. Performed By: #### 5 7307, 60948 #### [address] RBC #/vol (Bld) 3.30 10*6/uL Low 3.80-5.00 [facility] Comment on above: Order Comment: This order is a replacement of the rejected order with accession number [id number]. Performed By: #### 5 7307, 00551 #### [address] WBC #/vol (Bld) 10.42 10*3/uL Normal 4.00-10.60 [facility] Comment on above: Order Comment: This order is a replacement of the rejected order with accession number [id number]. Performed By: #### 5 7307, 00794 #### [address] FEMUR LEFT 2 [facility] 8 FEMUR LEFT 2 S [facility] Department of Radiology [address] [place] [phone] Patient Name: ISAAC TOURE : 1940 Sex: F Age: Race: White Pt. Location: [address] [place] [address] Patient Status: I Ordered Date: 03/23/2018 7:10:00 PM Completed Date: 03/23/2018 08:19 PM Requesting Provider: KEVIN NUNEZ Attending Provider: ANDREW JONES Report Copy To: Signs & Symptoms: Pain ( specify Location) History: Patient history not available Comments: Hardware Evaluation, post op Exam: FEMUR LEFT 2 [facility] FEMUR LEFT 2 [facility] 03/23/2018 8:19 PM EST SIGNS AND SYMPTOMS: [...] alignment Electronically signed by:He Gomez. Transcribed by: [email or web address], User Resident: Electronically Signed by: HE GOMEZ @ 03/24/2018 09:03 AM Normal [facility] Comment on above: Order Comment: This order is a replacement of the rejected order with accession number [id number]. FEMUR LEFT 2 [facility] Department of Radiology [address] [place] [phone] Patient Name: ISAAC TOURE : 1940 Sex: F Age: Race: White Pt. Location: [address] [place] [address] Patient Status: I Ordered Date: 03/23/2018 6:25:00 [...] findings. Electronically signed by:La Pang. Transcribed by: [email or web address], User Resident: NANCY DIAZ Electronically Signed by: LA PANG @ 03/25/2018 06:48 PM I personally read this/these film(s) with this resident Normal [facility] Comment on above: Order Comment: This order is a replacement of the rejected order with accession number [id number]. Operative Reporton 8 Operative Report MR#: [id number] I [facility] Pt. Name: Isaac Toure Room #: 6AB [id number] Discharge Date: Birthdate: 1940 OPERATIVE REPORT DATE [...] Nunez MD Date Trans: 03/23/2018 09:15 P/denise [id number] cc: Bernardo Almonte M.D. [address] [place] [address] TIMEon 8 INR Coag RelTime (PPP) 1.46 {INR} High 0.91-1.16 [facility] Comment on above: Order Comment: This order is a replacement of the rejected order with accession number [id number]. Result Comment: ACC P RECOMMENDED INR FOR WARFARIN THERAPY ------- ------- CONDITION INR PROPHYLAXIS OF VENOUS THROMBOSIS 2-3 (HIGH-RISK SURGERY) TREATMENT OF VENOUS THROMBOSIS 2-3 TREATMENT OF PULMONARY EMBOLISM 2-3 PREVENTION OF SYSTEMIC EMBOLISM: 2-3 ACUTE MYOCARDIAL INFARCTION TISSUE HEART VALVES VALVULAR HEART DISEASE ATRIAL FIBRILLATION RECURRENT SYSTEMIC EMBOLISM MECHANICAL HEART VALVE 2.5-3.5 FROM: ORAL ANTICOAGULANTS. MECHANISM OF ACTION, CLINICAL EFFECTIVENESS, AND OPTIMAL THERAPEUTIC RANGE. CHEST 1995;108:231S-246S. Performed By: #### 5 7307, 99926 #### [facility] [address] Prothrombin time (PT) Coag time (PPP) 17.8 s High 12.3-14.8 [facility] Comment on above: Order Comment: This order is a replacement of the rejected order with accession number [id number]. Result Comment: ALL RESULTS MUST BE INTERPRETED WITH RESPECT TO BLOOD DRAWING ARTIFACT OR DILUTION ERROR OF ANTICOAGULANT AT THE TIME OF SAMPLING. Performed By: #### 5 7307, 26927 #### [facility] [address] UFH HEPARIN ASSAYon 03-23-20 18 UNFRACTIONATED HEPARIN 0.66 IU/mL Normal 0.30-0.70 [facility] Comment on above: Result Comment: [place] roxaban and Apixaban will interfere with the anti Xa assay used to monitor UFH and LMWH. Performed By: #### 5 7307, 92169 #### [facility] [address] UNFRACTIONATED HEPARIN 0.79 IU/mL High 0.30-0.70 [facility] Comment on above: Result Comment: [place] roxaban and Apixaban will interfere with the anti Xa assay used to monitor UFH and LMWH. Performed By: #### 5 73, 55128 #### [facility] [address] APTTon 03-22-2018 aPTT Coag time (Bld) 27.1 s Normal 25.0-35.0 [facility] Comment on above: Order Comment: This order is a replacement of the rejected order with accession number [id number]. Result Comment: ALL RESULTS MUST BE INTERPRETED [...] THIS PURPOSE. Performed By: #### 5 7307, 10950 #### [facility] [address] BASIC METABOLIC PANELon - Calcium mass conc 7.6 mg/dL Low 8.6-10.3 [facility] Comment on above: Order Comment: This order is a replacement of the rejected order with accession number [id number]. Performed By: #### 5 73, 42099 #### [facility] [address] Chloride molar conc 101 mmol/L Normal 98-107 [facility] Comment on above: Order Comment: This order is a replacement of the rejected order with accession number [id number]. Performed By: #### 5 73, 17684 #### [facility] [address] [place] [address], [place] CO2 molar conc 19 mmol/L Low 21-31 [facility] Comment on above: Order Comment: This order is a replacement of the rejected order with accession number [id number]. Performed By: #### 5 73, 54665 #### [facility] [address] [place] [address], [facility] Creatinine mass conc 0.76 mg/dL Normal 0.60-1.20 [facility] Comment on above: Order Comment: This order is a replacement of the rejected order with accession number [id number]. Performed By: #### 5 73, 84955 #### [facility] [address] [place] [address], [place] GFR/1.73 sq M predicted among blacks MDRD vol rate/area (S/P/Bld) mL/min/{1.73_m2} Normal >60 [facility] Comment on above: Order Comment: This order is a replacement of the rejected order with accession number [id number]. Result Comment: Calc ulation may not be valid for patients over 70 years Performed By: #### 5 7307, 30428 #### [facility] [address] [place] [address], [place] GFR/1.73 sq M predicted among non-blacks MDRD vol rate/area (S/P/Bld) mL/min/{1.73_m2} Normal >60 [facility] Comment on above: Order Comment: This order is a replacement of the rejected order with accession number [id number]. Result Comment: Calc ulation may not be valid for patients over 70 years Performed By: #### 5 7307, 39505 #### [facility] [address] [place] [address], [place] Glucose mass conc 107 mg/dL High 70-100 [facility] Comment on above: Order Comment: This order is a replacement of the rejected order with accession number [id number]. Performed By: #### 5 7306, 09664 #### [facility] [address] [place] [address], [facility] Potassium molar conc 4.4 mmol/L Normal 3.5-5.1 [facility] Comment on above: Order Comment: This order is a replacement of the rejected order with accession number [id number]. Performed By: #### 5 7306, 30996 #### [facility] [address] Sodium molar conc 132 mmol/L Low 136-145 [facility] Comment on above: Order Comment: This order is a replacement of the rejected order with accession number [id number]. Performed By: #### 5 7306, 46855 #### [facility] [address] Urea nitrogen mass conc 11 mg/dL Normal 7-25 [facility] Comment on above: Order Comment: This order is a replacement of the rejected order with accession number [id number]. Performed By: #### 5 73, 11020 #### [facility] [address] CBC COMPLETE BLOOD COUNTon 05-23-2017 Erythrocyte distribution width Ratio (RBC) 13.5 % Normal 11.5-15.0 [facility] Comment on above: Order Comment: This order is a replacement of the rejected order with accession number [id number]. Performed By: #### 5 73, 69014 #### [facility] [address] Hematocrit Volume Fraction (Bld) 35.4 % Low 36.0-45.0 [facility] Comment on above: Order Comment: This order is a replacement of the rejected order with accession number [id number]. Performed By: #### 5 73, 14696 #### [facility] [address] Hemoglobin mass conc (Bld) 12.0 g/dL Normal 12.0-15.0 [facility] Comment on above: Order Comment: This order is a replacement of the rejected order with accession number [id number]. Performed By: #### 5 73, 32087 #### [facility] [address] MCH Entitic mass (RBC) 33.4 pg High 27.0-33.0 [facility] Comment on above: Order Comment: This order is a replacement of the rejected order with accession number [id number]. Performed By: #### 5 73, 88032 #### [facility] [address] MCHC mass conc (RBC) 33.9 g/dL Normal 32.0-35.0 [facility] Comment on above: Order Comment: This order is a replacement of the rejected order with accession number [id number]. Performed By: #### 5 73, 03962 #### [facility] [address] MCV Entitic volume (RBC) 98.6 fL High 82.0-98.0 [facility] Comment on above: Order Comment: This order is a replacement of the rejected order with accession number [id number]. Performed By: #### 5 73, [address] #### [facility] [address] Nucleated RBC/100 WBC Ratio (Bld) 0 % Normal 0-0 [facility] Comment on above: Order Comment: This order is a replacement of the rejected order with accession number [id number]. Performed By: #### 5 7307, 22913 #### [facility] [address] PLAT CNT 203 10*3/uL Normal 150-400 [facility] Comment on above: Order Comment: This order is a replacement of the rejected order with accession number [id number]. Performed By: #### 5 7307, 66767 #### [facility] [address] RBC #/vol (Bld) 3.59 10*6/uL Low 3.80-5.00 [facility] Comment on above: Order Comment: This order is a replacement of the rejected order with accession number [id number]. Performed By: #### 5 7307, 86075 #### [facility] [address] WBC #/vol (Bld) 10.63 10*3/uL High 4.00-10.60 [facility] Comment on above: Order Comment: This order is a replacement of the rejected order with accession number [id number]. Performed By: #### 5 7307, 07790 #### [address] CBC W/DIFFon 03-22-2018 ABS BASOPHILS 0.1 10*3/uL Normal 0.0-0.2 The [facility] Comment on above: Order Comment: This order is a replacement of the rejected order with accession number [id number]. Performed By: #### 5 7307, 42012 #### [address] ABS IMM GRANS 0.0 10*3/uL Normal 0.0-0.2 The [facility] Comment on above: Order Comment: This order is a replacement of the rejected order with accession number [id number]. Performed By: #### 5 7307, 81674 #### [facility] [address] ABS NEUTROPHILS 7.6 10*3/uL Normal 1.6-7.6 The [facility] Comment on above: Order Comment: This order is a replacement of the rejected order with accession number [id number]. Performed By: #### 5 7306, 47545 #### [facility] [address] Basophils #/vol (Bld) 1.0 % Normal 0.0-1.0 [facility] Comment on above: Order Comment: This order is a replacement of the rejected order with accession number [id number]. Performed By: #### 5 7306, 54891 #### [facility] [address] Eosinophils #/vol (Bld) 0.0 10*3/uL Normal 0.0-0.5 [facility] Comment on above: Order Comment: This order is a replacement of the rejected order with accession number [id number]. Performed By: #### 5 7306, 03179 #### [facility] [address] [facility] [address] Erythrocyte distribution width Ratio (RBC) 14.0 % Normal 11.5-15.0 [facility] Comment on above: Order Comment: This order is a replacement of the rejected order with accession number [id number]. Performed By: #### 5 7306, 51645 #### [facility] [address] Hematocrit Volume Fraction (Bld) 35.1 % Low 36.0-45.0 [facility] Comment on above: Order Comment: This order is a replacement of the rejected order with accession number [id number]. Performed By: #### 5 7306, 21173 #### [facility] [address] Hemoglobin mass conc (Bld) 11.5 g/dL Low 12.0-15.0 [facility] Comment on above: Order Comment: This order is a replacement of the rejected order with accession number [id number]. Performed By: #### 5 7306, 15433 #### [facility] [address] IMM PLATELET FRAC 3.8 % Normal 0.8-6.3 The [facility] Comment on above: Order Comment: This order is a replacement of the rejected order with accession number [id number]. Performed By: #### 5 7307, 35825 #### [facility] [address] Lymphocytes #/vol (Bld) 1.3 10*3/uL Normal 1.2-4.0 [facility] Comment on above: Order Comment: This order is a replacement of the rejected order with accession number [id number]. Performed By: #### 5 73, 18958 #### [facility] [address] Lymphocytes/100 WBC (Bld) 13.0 % Low 20.0-45.0 [facility] Comment on above: Order Comment: This order is a replacement of the rejected order with accession number [id number]. Performed By: #### 5 73, 10904 #### [facility] [address] MCH Entitic mass (RBC) 33.7 pg High 27.0-33.0 [facility] Comment on above: Order Comment: This order is a replacement of the rejected order with accession number [id number]. Performed By: #### 5 7307, 37284 #### [facility] [address] MCHC mass conc (RBC) 32.8 g/dL Normal 32.0-35.0 [facility] Comment on above: Order Comment: This order is a replacement of the rejected order with accession number [id number]. Performed By: #### 5 7307, 60881 #### [facility] [address] MCV Entitic volume (RBC) 102.9 fL High 82.0-98.0 The [facility] Comment on above: Order Comment: This order is a replacement of the rejected order with accession number [id number]. Performed By: #### 5 73, 11037 #### [facility] 3000 [facility]. [address] Monocytes #/vol (Bld) 0.7 10*3/uL Normal 0.1-1.0 [facility] Comment on above: Order Comment: This order is a replacement of the rejected order with accession number [id number]. Performed By: #### 5 7306, 58528 #### [facility] [address] MONOS 7.0 % Normal 5.0-12.0 [facility] Comment on above: Order Comment: This order is a replacement of the rejected order with accession number [id number]. Performed By: #### 5 7306, 61353 #### [facility] [address] Neutrophils/100 WBC (Bld) 79.0 % High 40.0-72.0 [facility] Comment on above: Order Comment: This order is a replacement of the rejected order with accession number [id number]. Performed By: #### 5 7306, 25436 #### [facility] [address] OTHER 1 Normal red cell morphology seen Normal [facility] Comment on above: Order Comment: This order is a replacement of the rejected order with accession number [id number]. Performed By: #### 5 73, 19114 #### [facility] [address] PLAT CNT 186 10*3/uL Normal 150-400 [facility] Comment on above: Order Comment: This order is a replacement of the rejected order with accession number [id number]. Performed By: #### 5 73, 68407 #### [facility] [address] RBC #/vol (Bld) 3.41 10*6/uL Low 3.80-5.00 [facility] Comment on above: Order Comment: This order is a replacement of the rejected order with accession number [id number]. Performed By: #### 5 7307, 58152 #### [facility] 3000 [facility]. [address] WBC #/vol (Bld) 9.65 10*3/uL Normal 4.00-10.60 [facility] Comment on above: Order Comment: This order is a replacement of the rejected order with accession number [id number]. Performed By: #### 5 7307, 87127 #### [facility] [address] MAGNESIUM BLOODon 03-22-2018 Magnesium mass conc 1.9 mg/dL Normal 1.9-2.7 The [facility] Comment on above: Order Comment: This order is a replacement of the rejected order with accession number [id number]. Performed By: #### 5 7307, 67260 #### [facility] [address] POC GLUCOSE LABon 03-22-2018 Glucose mass conc 143 mg/dL High 70-100 [facility] Comment on above: Performed By: #### 5 7307, 77623 #### [facility] [address] PROTHROMBIN TIMEon 8 INR Coag RelTime (PPP) 1.58 {INR} High 0.91-1.16 [facility] Comment on above: Order Comment: This order is a replacement of the rejected order with accession number [id number]. Result Comment: [facility] P RECOMMENDED INR FOR WARFARIN THERAPY ------- ------- CONDITION INR PROPHYLAXIS OF VENOUS THROMBOSIS 2-3 (HIGH-RISK SURGERY) TREATMENT OF VENOUS THROMBOSIS 2-3 TREATMENT OF PULMONARY EMBOLISM 2-3 PREVENTION OF SYSTEMIC EMBOLISM: 2-3 ACUTE MYOCARDIAL INFARCTION TISSUE HEART VALVES VALVULAR HEART DISEASE ATRIAL FIBRILLATION RECURRENT SYSTEMIC EMBOLISM MECHANICAL HEART VALVE 2.5-3.5 FROM: ORAL ANTICOAGULANTS. MECHANISM OF ACTION, CLINICAL EFFECTIVENESS, AND OPTIMAL THERAPEUTIC RANGE. CHEST 1995;108:231S-246S. Performed By: #### 5 7307, 52322 #### [facility] [address] Prothrombin time (PT) Coag time (PPP) 18.9 s High 12.3-14.8 The [facility] Comment on above: Order Comment: This order is a replacement of the rejected order with accession number [id number]. Result Comment: ALL RESULTS MUST BE INTERPRETED WITH RESPECT TO BLOOD DRAWING ARTIFACT OR DILUTION ERROR OF ANTICOAGULANT AT THE TIME OF SAMPLING. Performed By: #### 5 7307, 03045 #### [facility] [address] INR Coag RelTime (PPP) 1.75 {INR} High 0.91-1.16 [facility] Comment on above: Order Comment: This order is a replacement of the rejected order with accession number [id number]. Result Comment: [facility] P RECOMMENDED INR FOR WARFARIN THERAPY ------- ------- CONDITION INR PROPHYLAXIS OF VENOUS THROMBOSIS 2-3 (HIGH-RISK SURGERY) TREATMENT OF VENOUS THROMBOSIS 2-3 TREATMENT OF PULMONARY EMBOLISM 2-3 PREVENTION OF SYSTEMIC EMBOLISM: 2-3 ACUTE MYOCARDIAL INFARCTION TISSUE HEART VALVES VALVULAR HEART DISEASE ATRIAL FIBRILLATION RECURRENT SYSTEMIC EMBOLISM MECHANICAL HEART VALVE 2.5-3.5 FROM: ORAL ANTICOAGULANTS. MECHANISM OF ACTION, CLINICAL EFFECTIVENESS, AND OPTIMAL THERAPEUTIC RANGE. CHEST 1995;108:231S-246S. Performed By: #### 5 7307, 92430 #### [facility] [address] Prothrombin time (PT) Coag time (PPP) 20.5 s High 12.3-14.8 [facility] Comment on above: Order Comment: This order is a replacement of the rejected order with accession number [id number]. Result Comment: ALL RESULTS MUST BE INTERPRETED WITH RESPECT TO BLOOD DRAWING ARTIFACT OR DILUTION ERROR OF ANTICOAGULANT AT THE TIME OF SAMPLING. Performed By: #### 5 7307, 63667 #### [facility] [address] UFH HEPARIN ASSAYon 03-22-20 18 UNFRACTIONATED HEPARIN 0.53 IU/mL Normal 0.30-0.70 [facility] Comment on above: Result Comment: Lily roxaban and Apixaban will interfere with the anti Xa assay used to monitor UFH and LMWH. Performed By: #### 5 7307, 14518 #### [facility] [address] BASIC METABOLIC PANELon 12-2 Calcium mass conc 8.1 mg/dL Low 8.6-10.3 [facility] Comment on above: Order Comment: This order is a replacement of the rejected order with accession number [id number]. Performed By: #### 5 7307, 83626 #### [facility] 3000 [facility] Chloride molar conc 102 mmol/L Normal 98-107 [facility] Comment on above: Order Comment: This order is a replacement of the rejected order with accession number [id number]. Performed By: #### 5 7307, 29623 #### [facility] [address] [place] [address], [facility] CO2 molar conc 26 mmol/L Normal 21-31 The [facility] Comment on above: Order Comment: This order is a replacement of the rejected order with accession number [id number]. Performed By: #### 5 7307, 51786 #### [facility] [address] [place] [address], [facility] Creatinine mass conc 0.72 mg/dL Normal 0.60-1.20 [facility] Comment on above: Order Comment: This order is a replacement of the rejected order with accession number [id number]. Performed By: #### 5 73, 61258 #### [facility] [address] [place] [address], [facility] GFR/1.73 sq M predicted among blacks MDRD vol rate/area (S/P/Bld) mL/min/{1.73_m2} Normal >60 The [facility] Comment on above: Order Comment: This order is a replacement of the rejected order with accession number [id number]. Result Comment: Calc ulation may not be valid for patients over 70 years Performed By: #### 5 7307, 95424 #### [facility] [address] [place] [address], [facility] GFR/1.73 sq M predicted among non-blacks MDRD vol rate/area (S/P/Bld) mL/min/{1.73_m2} Normal >60 [facility] Comment on above: Order Comment: This order is a replacement of the rejected order with accession number [id number]. Result Comment: Calc ulation may not be valid for patients over 70 years Performed By: #### 5 7307, 16008 #### [facility] 3000 [facility]. [address] Glucose mass conc 103 mg/dL High 70-100 [facility] Comment on above: Order Comment: This order is a replacement of the rejected order with accession number [id number]. Performed By: #### 5 7307, 38411 #### [facility] [address] Potassium molar conc 3.3 mmol/L Low 3.5-5.1 [facility] Comment on above: Order Comment: This order is a replacement of the rejected order with accession number [id number]. Performed By: #### 5 7307, 54169 #### [facility] 3000 [facility]. [address] Sodium molar conc 135 mmol/L Low 136-145 [facility] Comment on above: Order Comment: This order is a replacement of the rejected order with accession number [id number]. Performed By: #### 5 7307, 42692 #### [facility] [address] Urea nitrogen mass conc 13 mg/dL Normal 7-25 [facility] Comment on above: Order Comment: This order is a replacement of the rejected order with accession number [id number]. Performed By: #### 5 7307, 15323 #### [facility] [address] CBC W/DIFFon 03-21-2018 ABS BASOPHILS 0.0 10*3/uL Normal 0.0-0.2 The [facility] Comment on above: Order Comment: No: D o not add to previous draw Performed By: #### 5 0103 #### [facility] [address] ABS IMM GRANS 0.0 10*3/uL Normal 0.0-0.2 The [facility] Comment on above: Order Comment: No: D o not add to previous draw Performed By: #### 5 0103 #### [facility] [address] [place] [address], [facility] ABS NEUTROPHILS 5.5 10*3/uL Normal 1.6-7.6 The [facility] Comment on above: Order Comment: No: D o not add to previous draw Performed By: #### 5 0103 #### [facility] [address] [place] [address], [facility] Basophils #/vol (Bld) 0.4 % Normal 0.0-1.0 [facility] Comment on above: Order Comment: No: D o not add to previous draw Performed By: #### 5 0103 #### [facility] [address] [place] [address], [facility] Eosinophils #/vol (Bld) 0.0 10*3/uL Normal 0.0-0.5 [facility] Comment on above: Order Comment: No: D o not add to previous draw Performed By: #### 5 0103 #### [facility] [address] [facility] [address], [facility] Eosinophils/100 WBC (Bld) 0.3 % Normal 0.0-6.0 [facility] Comment on above: Order Comment: No: D o not add to previous draw Performed By: #### 5 0103 #### [facility] 3000 [facility] [address] Erythrocyte distribution width Ratio (RBC) 13.4 % Normal 11.5-15.0 [facility] Comment on above: Order Comment: No: D o not add to previous draw Performed By: #### 5 0103 #### [facility] [address] [place] [address], [facility] Hematocrit Volume Fraction (Bld) 35.5 % Low 36.0-45.0 [facility] Comment on above: Order Comment: No: D o not add to previous draw Performed By: #### 5 0103 #### [facility] 3000 [facility] [place] [address], [facility] Hemoglobin mass conc (Bld) 12.0 g/dL Normal 12.0-15.0 [facility] Comment on above: Order Comment: No: D o not add to previous draw Performed By: #### 5 3 #### [facility] [address] [place] [address], [facility] IMMATURE GRANS 0.3 % Normal 0.0-1.0 The [facility] Comment on above: Order Comment: No: D o not add to previous draw Performed By: #### 5 3 #### [facility] [address] [place] [address], [facility] Lymphocytes #/vol (Bld) 2.3 10*3/uL Normal 1.2-4.0 [facility] Comment on above: Order Comment: No: D o not add to previous draw Performed By: #### 5 3 #### [facility] [address] [place] [address], [facility] Lymphocytes/100 WBC (Bld) 25.4 % Normal 20.0-45.0 [facility] Comment on above: Order Comment: No: D o not add to previous draw Performed By: #### 5 3 #### [facility] [address] [place] [address], [facility] MCH Entitic mass (RBC) 33.1 pg High 27.0-33.0 [facility] Comment on above: Order Comment: No: D o not add to previous draw Performed By: #### 5 3 #### [facility] [address] [place] [address], [facility] MCHC mass conc (RBC) 33.8 g/dL Normal 32.0-35.0 [facility] Comment on above: Order Comment: No: D o not add to previous draw Performed By: #### 5 3 #### [facility] [address] [place] [address], [facility] MCV Entitic volume (RBC) 97.8 fL Normal 82.0-98.0 [facility] Comment on above: Order Comment: No: D o not add to previous draw Performed By: #### 5 0103 #### [facility] [address] [place] [address], [facility] Monocytes #/vol (Bld) 1.2 10*3/uL High 0.1-1.0 [facility] Comment on above: Order Comment: No: D o not add to previous draw Performed By: #### 5 0103 #### [facility] [address] [place] [address], [facility] MONOS 13.0 % High 5.0-12.0 [facility] Comment on above: Order Comment: No: D o not add to previous draw Performed By: #### 5 0103 #### [facility] [address] [place] [address], [facility] Neutrophils/100 WBC (Bld) 60.6 % Normal 40.0-72.0 [facility] Comment on above: Order Comment: No: D o not add to previous draw Performed By: #### 5 0103 #### [facility] [address] [place] [id number], [facility] Nucleated RBC/100 WBC Ratio (Bld) 0 % Normal 0-0 [facility] Comment on above: Order Comment: No: D o not add to previous draw Performed By: #### 5 0103 #### [facility] [address] [place] [address], [facility] PLAT CNT 198 10*3/uL Normal 150-400 [facility] Comment on above: Order Comment: No: D o not add to previous draw Performed By: #### 5 3 #### [facility] [address] [place] [address], [facility] RBC #/vol (Bld) 3.63 10*6/uL Low 3.80-5.00 [facility] Comment on above: Order Comment: No: D o not add to previous draw Performed By: #### 5 0103 #### [facility] [address] WBC #/vol (Bld) 9.10 10*3/uL Normal 4.00-10.60 [facility] Comment on above: Order Comment: No: D o not add to previous draw Performed By: #### 5 0103 #### [facility] [address] MAGNESIUM BLOODon 03-21-2018 Magnesium mass conc 1.6 mg/dL Low 1.9-2.7 The [facility] Comment on above: Order Comment: This order is a replacement of the rejected order with accession number [id number]. Performed By: #### 5 7307, 58686 #### [facility] [address] PHOSPHORUS BLOODon 8 Phosphate mass conc 2.8 mg/dL Normal 2.5-5.0 The [facility] Comment on above: Order Comment: This order is a replacement of the rejected order with accession number [id number]. Performed By: #### 5 7307, 53894 #### [facility] 3000 [facility]. [address] PROTHROMBIN TIMEon 8 INR Coag RelTime (PPP) 2.32 {INR} High 0.91-1.16 [facility] Comment on above: Order Comment: This order is a replacement of the rejected order with accession number [id number]. Result Comment: [facility] P RECOMMENDED INR FOR WARFARIN THERAPY ------- ------- CONDITION INR PROPHYLAXIS OF VENOUS THROMBOSIS 2-3 (HIGH-RISK SURGERY) TREATMENT OF VENOUS THROMBOSIS 2-3 TREATMENT OF PULMONARY EMBOLISM 2-3 PREVENTION OF SYSTEMIC EMBOLISM: 2-3 ACUTE MYOCARDIAL INFARCTION TISSUE HEART VALVES VALVULAR HEART DISEASE ATRIAL FIBRILLATION RECURRENT SYSTEMIC EMBOLISM MECHANICAL HEART VALVE 2.5-3.5 FROM: ORAL ANTICOAGULANTS. MECHANISM OF ACTION, CLINICAL EFFECTIVENESS, AND OPTIMAL THERAPEUTIC RANGE. CHEST 1995;108:231S-246S. Performed By: #### 5 7307, 57713 #### [facility] 3000 [facility] Prothrombin time (PT) Coag time (PPP) 25.6 s High 12.3-14.8 The [facility] Comment on above: Order Comment: This order is a replacement of the rejected order with accession number [id number]. Result Comment: ALL RESULTS MUST BE INTERPRETED WITH RESPECT TO BLOOD DRAWING ARTIFACT OR DILUTION ERROR OF ANTICOAGULANT AT THE TIME OF SAMPLING. Performed By: #### 5 7307, 25239 #### [facility] [address] TSH3 WITH REFLEXon 8 T4 free mass conc 1.18 ng/dL Normal 0.71-1.85 [facility] Comment on above: Performed By: #### 5 7307, 76827 #### [facility] 3000 [facility] [place] [place] [address], [facility] TSH 3RD GENERATION 4.90 uIU/mL Normal 0.34-5.60 The [facility] Comment on above: Performed By: #### 5 7307, 79008 #### [facility] [address] [place] [address], [facility] UFH HEPARIN ASSAYon 03-21-20 18 UNFRACTIONATED HEPARIN 0.29 IU/mL Low 0.30-0.70 [facility] Comment on above: Result Comment: Lily roxaban and Apixaban will interfere with the anti Xa assay used to monitor UFH and LMWH. Performed By: #### 3 0477 #### [facility] [address] APTTon 03-20-2018 aPTT Coag time (Bld) 28.7 s Normal 25.0-35.0 [facility] Comment on above: Order Comment: This order is a replacement of the rejected order with accession number [id number]. Result Comment: ALL RESULTS MUST BE INTERPRETED [...] THIS PURPOSE. Performed By: #### 5 7307, 61181 #### [facility] 3000 [facility]. [address] BASIC METABOLIC PANELon - Calcium mass conc 8.4 mg/dL Low 8.6-10.3 [facility] Comment on above: Order Comment: This order is a replacement of the rejected order with accession number [id number]. Performed By: #### 0 0071, 71393, 20504 #### [facility] [address] [facility] [place] [place] [address], [facility] Chloride molar conc 100 mmol/L Normal 98-107 [facility] Comment on above: Order Comment: This order is a replacement of the rejected order with accession number [id number]. Performed By: #### 0 0071, 47207, 65195 #### [facility] [address] [place] [address], [facility] CO2 molar conc 26 mmol/L Normal 21-31 The [facility] Comment on above: Order Comment: This order is a replacement of the rejected order with accession number [id number]. Performed By: #### 0 0071, 08985, 37917 #### [facility] [address] [place] [address], [facility] Creatinine mass conc 0.87 mg/dL Normal 0.60-1.20 [facility] Comment on above: Order Comment: This order is a replacement of the rejected order with accession number [id number]. Performed By: #### 0 0071, [id number], [id number] #### [facility] [address] [place] [address], [place] GFR/1.73 sq M predicted among blacks MDRD vol rate/area (S/P/Bld) mL/min/{1.73_m2} Normal >60 [facility] Comment on above: Order Comment: This order is a replacement of the rejected order with accession number [id number]. Result Comment: Calc ulation may not be valid for patients over 70 years Performed By: #### 0 0071, 10600, 68868 #### [facility] [address] [place] [address], [place] GFR/1.73 sq M predicted among non-blacks MDRD vol rate/area (S/P/Bld) mL/min/{1.73_m2} Normal >60 [facility] Comment on above: Order Comment: This order is a replacement of the rejected order with accession number [id number]. Result Comment: Calc ulation may not be valid for patients over 70 years Performed By: #### 0 0071, 58238, 75094 #### [facility] [address] [place] [address], [place] Glucose mass conc 113 mg/dL High 70-100 [facility] Comment on above: Order Comment: This order is a replacement of the rejected order with accession number [id number]. Performed By: #### 0 0071, 18602, 61571 #### [facility] [address] [place] [address], [place] Potassium molar conc 3.1 mmol/L Low 3.5-5.1 [facility] Comment on above: Order Comment: This order is a replacement of the rejected order with accession number [id number]. Performed By: #### 0 0071, 34505, 32272 #### [facility] [address] [place] [address], [facility] Sodium molar conc 137 mmol/L Normal 136-145 [facility] Comment on above: Order Comment: This order is a replacement of the rejected order with accession number [id number]. Performed By: #### 0 0071, 71590, 99263 #### [facility] [address] [place] [id number], [facility] Urea nitrogen mass conc 16 mg/dL Normal 7-25 [facility] Comment on above: Order Comment: This order is a replacement of the rejected order with accession number [id number]. Performed By: #### 0 0071, 50337, 95650 #### [facility] [address] [place], [place] [id number] [place] [address] CBC COMPLETE BLOOD COUNTon 05-21-2017 Erythrocyte distribution width Ratio (RBC) 13.5 % Normal 11.5-15.0 [facility] Comment on above: Performed By: #### 5 0608 #### [facility] [address] [place] [address], [facility] Hematocrit Volume Fraction (Bld) 41.0 % Normal 36.0-45.0 [facility] Comment on above: Performed By: #### 5 0608 #### [facility] [address] [place] [address], [facility] Hemoglobin mass conc (Bld) 13.8 g/dL Normal 12.0-15.0 [facility] Comment on above: Performed By: #### 5 0608 #### [facility] [address] [place] [address], [facility] MCH Entitic mass (RBC) 32.9 pg Normal 27.0-33.0 [facility] Comment on above: Performed By: #### 5 0608 #### [facility] [address] MCHC mass conc (RBC) 33.7 g/dL Normal 32.0-35.0 [facility] Comment on above: Performed By: #### 5 0608 #### [facility] [address] MCV Entitic volume (RBC) 97.6 fL Normal 82.0-98.0 [facility] Comment on above: Performed By: #### 5 0608 #### [facility] [address] Nucleated RBC/100 WBC Ratio (Bld) 0 % Normal 0-0 [facility] Comment on above: Performed By: #### 5 0608 #### [facility] [address] PLAT CNT 235 10*3/uL Normal 150-400 [facility] Comment on above: Performed By: #### 5 0608 #### [facility] [address] RBC #/vol (Bld) 4.20 10*6/uL Normal 3.80-5.00 [facility] Comment on above: Performed By: #### 5 0608 #### [facility] [address] WBC #/vol (Bld) 8.52 10*3/uL Normal 4.00-10.60 [facility] Comment on above: Performed By: #### 5 0608 #### [facility] [address] History and Physicalon 03-20 History and Physical MR#: [id number] [facility] Pt. Name: Isaac Toure Admitted: 03/20/2018 Date of : 1940 Attending Physician: Martin Marin MD Room #: 6AB [id number] Discharge Date: HISTORY AND PHYSICAL HISTORY OF PRESENT ILLNESS: The patient is a 77-year-old female. The patient is a poor historian, has hard time difficulty hearing. Past medical history is significant for hypertension; atrial flutter, for that the patient is on Coumadin; history of multiple stroke in the past; hypothyroidism; hyperlipidemia; presented to ED after a fall. The patient initially went to [facility] for left femur fracture today. The [...] P/Martin Marin MD Date Trans: 03/20/2018 06:03 P/mmo DN_JN:[id number] Normal [facility] PROTHROMBIN TIMEon 8 INR Coag RelTime (PPP) 1.91 {INR} High 0.91-1.16 [facility] Comment on above: Order Comment: This order is a replacement of the rejected order with accession number [id number]. Result Comment: ACCC P RECOMMENDED INR FOR WARFARIN THERAPY ------- ------- CONDITION INR PROPHYLAXIS OF VENOUS THROMBOSIS 2-3 (HIGH-RISK SURGERY) TREATMENT OF VENOUS THROMBOSIS 2-3 TREATMENT OF PULMONARY EMBOLISM 2-3 PREVENTION OF SYSTEMIC EMBOLISM: 2-3 ACUTE MYOCARDIAL INFARCTION TISSUE HEART VALVES VALVULAR HEART DISEASE ATRIAL FIBRILLATION RECURRENT SYSTEMIC EMBOLISM MECHANICAL HEART VALVE 2.5-3.5 FROM: ORAL ANTICOAGULANTS. MECHANISM OF ACTION, CLINICAL EFFECTIVENESS, AND OPTIMAL THERAPEUTIC RANGE. CHEST 1995;108:231S-246S. Performed By: #### 5 7307, 91338 #### [address] Prothrombin time (PT) Coag time (PPP) 22.0 s High 12.3-14.8 [facility] Comment on above: Order Comment: This order is a replacement of the rejected order with accession number [id number]. Result Comment: ALL RESULTS MUST BE INTERPRETED WITH RESPECT TO BLOOD DRAWING ARTIFACT OR DILUTION ERROR OF ANTICOAGULANT AT THE TIME OF SAMPLING. Performed By: #### 5 7307, 53364 #### [facility] [address] [place] [address], [facility] RBC'S 2 UNITSon 03-20-2018 CROSSMATCH INTERP 1 COMP Normal [facility] Comment on above: Performed By: #### 8 6002 #### [facility] [address] [facility]. [address] CROSSMATCH INTERP 2 COMP Normal [facility] Comment on above: Performed By: #### 8 6002 #### [facility] [address] [facility]. [address] Protein mass conc 336 g/dL Normal [facility] Comment on above: Performed By: #### 8 6002 #### [facility] [address] [facility]. [address] Protein mass conc RE Normal [facility] Comment on above: Result Comment: Resu lt changed by IF on 03/24/2018 06:42. The previous value was XM. Performed By: #### 8 6002 #### [facility] [address] [facility]. [address] UNIT ABO 1 A Normal [facility] Comment on above: Performed By: #### 8 6002 #### [facility] [address] [facility] [place] [address], [facility] UNIT ABO 2 A Normal [facility] Comment on above: Performed By: #### 8 6002 #### [facility] [address] [facility]. [address] UNIT ID 1 [id number] Normal [facility] Comment on above: Performed By: #### 8 6002 #### [facility] [address] UNIT ID 2 [id number] Normal [facility] Comment on above: Performed By: #### 8 6002 #### [facility] [address] UNIT RH 1 Positive Normal [facility] Comment on above: Performed By: #### 8 6002 #### [facility] [address] UNIT RH 2 Positive Normal [facility] Comment on above: Performed By: #### 8 6002 #### [facility] [address] [facility] [address] TROPONIN-Ion 03-20-2018 Troponin I.cardiac mass conc 0.01 ng/mL Normal 0.00-0.04 [facility] Comment on above: Result Comment: REFE RENCE RANGES: 0.00 - 0.04 ng/ml NORMAL 0.05 - 0.50 ng/ml INDETERMINATE > 0.50 ng/ml CONSISTENT WITH AN M.I. Performed By: #### 0 0071, 42518, 03330 #### [facility] [address] [facility]. [address] TSH3 WITH REFLEXon 8 T4 free mass conc 1.38 ng/dL Normal 0.71-1.85 [facility] Comment on above: Performed By: #### 0 0071, 08654, 62904 #### [facility] [address] [facility]. [address] TSH 3RD GENERATION 3.20 uIU/mL Normal 0.34-5.60 [facility] Comment on above: Performed By: #### 0 0071, 72500, 10924 #### [facility] [address] [address], [facility] TYPE AND SCREENon 03-20-2018 ABO INTERPRETATION A Normal [facility] Comment on above: Order Comment: This order is a replacement of the rejected order with accession number [id number]. Performed By: #### 6 2586 #### [facility] [address] [place] [address], [facility] RH INTERPRETATION Positive Normal [facility] Comment on above: Order Comment: This order is a replacement of the rejected order with accession number [id number]. Performed By: #### 6 2586 #### [facility] [address] [place] [address], [facility] Vital Signs Date Time Vital Sign Value Performing Clinician Facility 01-07-2024 10:50-0400 Body height 165.1 cm [facility] 01-07-2024 10:50-0400 Body mass index (BMI) [Ratio] 34.4 kg/m2 [facility] 01-07-2024 10:50-0400 Body weight 93.89 kg [facility] 01-07-2024 10:50-0400 Diastolic blood pressure 84 mm[Hg] [facility] 01-07-2024 10:50-0400 Heart rate 60 /min [facility] 01-07-2024 10:50-0400 Respiratory rate 18 /min [facility] 01-07-2024 10:50-0400 SaO2% (BldA) [Mass fraction] 96 % [facility] 01-07-2024 10:50-0400 Systolic blood pressure 156 mm[Hg] [facility] 05-05-2023 10:22-0500 Body height 152.4 cm Bernardo Almonte MD Work Phone: [facility] 05-05-2023 10:22-0500 Body mass index (BMI) [Ratio] 43.16 kg/m2 Bernardo Almonte MD Work Phone: [facility] 05-05-2023 10:22-0500 Body weight 100.25 kg Bernardo Almonte MD Work Phone: [facility] 05-05-2023 10:22-0500 Diastolic blood pressure 82 mm[Hg] Bernardo Almonte MD Work Phone: [facility] 05-05-2023 10:22-0500 Heart rate 67 /min Bernardo Almonte MD Work Phone: [facility] 05-05-2023 10:22-0500 SaO2% (BldA) [Mass fraction] 97 % Bernardo Almonte MD Work Phone: [facility] 05-05-2023 10:22-0500 Systolic blood pressure 138 mm[Hg] Bernardo Almonte MD Work Phone: [facility] Healthcare Encounters Encounter Date Encounter Type Care Provider Facility Start: 02-21-2024 End: 02-21-2024 Refill Bernardo Almonte MD Work Phone: [facility] Comment on above: 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 Start: 02-07-2024 End: 02-07-2024 Patient encounter procedure [facility] Work Phone: Start: 02-07-2024 End: 02-07-2024 ambulatory Devonte Koyuk Manajermainadrian Facility:[facility] Start: 01-31-2024 End: 01-31-2024 Refill Bernardo Almonte MD Work Phone: [facility] Comment on above: 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 Start: 01-07-2024 End: 01-07-2024 ambulatory NON STAFF [facility] Work Phone: Start: 01-07-2024 End: 01-07-2024 Patient encounter procedure [facility] Work Phone: Start: 01-04-2024 End: 01-04-2024 Refill Bernardo Almonte MD Work Phone: [facility] Comment on above: 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; Primary open angle glaucoma of both eyes, unspecified glaucoma stage (CMS/HCC) Start: 11-24-2023 End: 11-24-2023 ambulatory JULIANA [facility] Start: 11-23-2023 End: 11-23-2023 ambulatory [facility] Start: 10-27-2023 End: 10-27-2023 ambulatory BERNARDO ALMONTE Not Available Start: 10-14-2023 End: 10-14-2023 ambulatory CHAVO BRYANT [...] fibrillation (CMS/HCC) Start: 05-04-2023 End: 05-04-2023 ambulatory [facility] Start: 04-28-2023 End: 04-28-2023 ambulatory CAROLYN ADKINS Not Available Start: 02-17-2023 End: 02-17-2023 ambulatory BERNARDO ALMONTE Not Available Start: 02-10-2023 End: 02-10-2023 ambulatory CHAVO BRYANT Not Available Start: 01-30-2022 End: 01-31-[address] BERNARDO ALMONTE Facility:[facility] Start: 12-17-2021 End: 12-18-[address] SIVAKUMAR HUERTAS Facility:[facility] Start: 12-12-2021 End: 12-13-2021 ambulatory BETTIE NAVID Facility:[facility] Start: 12-04-2021 End: 12-05-[address] SIVAKUMAR HUERTAS Facility:[facility] Start: 07-04-[address] BERNARDO ALMONTE Facilit y:[facility] Start: 06-16-2021 End: 06-17-2021 ambulatory JULIANA TITUS Facility:[facility] Start: 06-06-2021 End: 06-07-2021 ambulatory JULIANA TITUS Facility:[facility] Start: 05-07-2021 End: 05-08-2021 ambulatory JULIANA MICHELECKER Facility:[facility] Start: 04-11-2021 End: 04-12-2021 ambulatory JULIANA MICHELECKER Facility:[facility] Start: 04-01-2021 End: 04-02-2021 ambulatory JULIANA MICHELECKER Facility:[facility] Start: 06-22-2018 End: 06-23-2018 Patient encounter procedure ABADWILLIAM JOHNS Facility:[facility] Start: 05-11-2018 End: 05-12-2018 Patient encounter procedure ABAD JOHNS Facility:[facility] Start: 03-20-2018 End: 03-30-2018 Evaluation and management of inpatient REFERRED SELF Facility:[facility] Start: 07-20-2016 End: 07-20-2016 Refmerlene Saini Work Phone: Cardiology Comment on above: Refill Request Procedures Date Procedure Procedure Detail Performing Clinician Start: 03-23-2018 REPOSITION L FEMUR SHAFT WITH INTRAMED FIX, PERC APPROACH ABAD JOHNS Start: 03-20-2018 Antibody screen REFERRE D SELF Comment on above: Order Comment: This order is a replacement of the rejected order with accession number [id number]. Performed By: #### 6 2586 #### [address] [place] [address], [facility] Start: 05-31-2015 H/O: hysterectomy History of hystere ctomy Bernardo Almonte MD Work Phone: Plan of Treatment Date Care Activity Detail Author Start: 10-06-2024 Medicare Annual Wellness (AWV) Medicare Annual Wellness (AWV) [facility] Start: 03-20-2024 End: 03-20-2024 Patient encounter procedure 03/20/2024 2:15 PM EST Office Visit [facility] [address] [place] [address] Bernardo Almonte MD [address] [place] [address] [facility] Start: 01-26-2024 End: 01-26-2024 Patient encounter procedure 01/26/2024 11:30 AM EDT Office Visit [facility] [address] [place] [address] Bernardo Almonte MD [address] [place] [address] [facility] Start: 01-07-2024 [facility] Start: 11-28-2023 Influenza vaccination Influenza Vaccine (#1) [facility] Start: 08-14-2023 Medicare Annual Wellness (AWV) Medicare Annual Wellness (AWV) [facility] Start: 08-04-2023 End: 08-04-2023 Patient encounter procedure 08/04/2023 10:30 AM EDT Office Visit [facility] [address] [place] [address] Bernardo Almonte MD [address] [place] [address] [facility] Start: 07-22-2023 End: 07-22-2023 Patient encounter procedure 07/22/2023 1:30 PM EDT Office Visit [facility] [address] [place] [address] Bernardo Almonte MD [address] [place] [address] [facility] Start: 11-27-2020 Influenza vaccination INFLUENZA (Season Ended) [facility] Start: 2006 ADVANCE DIRECTIVE DISCUSSION ADVANCE DIRECTIVE DISCUSSION [facility] Start: 2006 BONE DENSITY BONE DENSITY [facility] Start: 07-25-2007 PNEUMOVAX AGE 65 AND OVER WITH 5YR LOOKBACK (#1) PNEUMOVAX AGE 65 AND OVER WITH 5YR LOOKBACK (#1) [facility] Start: 10-21-1991 Screening for malignant neoplasm of colon [facility] Start: 10-21-1991 SHINGRIX VACCINE (1 of 2) SHINGRIX VACCINE (1 of 2) [facility] Start: 1986 DIABETES SCREEN DIABETES SCREEN [facility] Start: 1960 Urine microalbumin profile DTAP,TDAP,TD (1 - Tdap) [facility] Start: 10-21-1959 HEPATITIS C SCREENING HEPATITIS C SCREENING [facility] Start: 1953 Adult depression screening assessment DEPRESSION SCREENING [facility] Immunizations Immunization Date Immunization Notes Care Provider Fa dane 01-05-2024 influenza, high dose seasonal, preservative-free Bernardo Almonte MD Work Phone: [facility] 12-12-2022 Influenza, Seasonal, Quadrivalent, Adjuvanted Bernardo Almonte MD Work Phone: [facility] 12-12-2022 influenza virus vacc ine, unspecified formulation Bernardo Almonte MD Work Phone: [facility] 08-17-2022 tetanus toxoid, redu inderjit diphtheria toxoid, and acellular pertussis vaccine, adsorbed Bernardo Almonte MD Work Phone: [facility] 08-13-2022 Pneumococcal Conjuga te PCV 20 Bernardo Almonte MD Work Phone: [facility] 06-10-2022 zoster vaccine recombinant D aleida Almonte MD Work Phone: [facility] 01-05-[address] 12 Years And Older Bernardo Almonte MD Work Phone: [facility] 01-02-2022 Influenza, High-dose Seasonal, Quadrivalent, Preservative Free Bernardo Almonte MD Work Phone: [facility] 01-06-2021 Influenza, High-dose Seasonal, Quadrivalent, Preservative Free Bernardo Almonte MD Work Phone: [facility] 12-20-2019 influenza, high dose seasonal, preservative-free Bernardo Almonte MD Work Phone: [facility] 02-01-2019 influenza, injectabl e, madin emmie canine kidney, preservative free Bernardo Almonte MD Work Phone: [facility] 12-27-2017 influenza, high dose seasonal, preservative-free Bernardo Almonte MD Work Phone: [facility] 12-24-2016 Influenza, High-dose Seasonal, Quadrivalent, Preservative Free Bernardo Almonte MD Work Phone: [facility] 01-23-2016 pneumococcal conjuga te vaccine, 13 valent Bernardo Almonte MD Work Phone: [facility] 12-11-2015 influenza, injectabl e, quadrivalent, contains preservative Bernardo Almonte MD Work Phone: [facility] 12-18-2014 seasonal influenza, intradermal, preservative free Bernardo Almonte MD Work Phone: [facility] 05-31-2014 zoster vaccine, live Bernardo Almonte MD Work Phone: [facility] 05-28-2014 pneumococcal polysaccharide vaccine, 23 valent Bernardo Almonte MD Work Phone: [facility] 12-21-2012 seasonal influenza, intradermal, preservative free Bernardo Almonte MD Work Phone: [facility] Payers Date Payer Category Payer Self-pay 2021 Medicare ANTHEM MEDICARE ADVANTAGE ANTHEM MEDICARE ADVANTAGE [id number] 2021-Present [address] [place] [address] [id number] 2021 Medicare (Managed Care) [facility] [id number] 2014 Medicaid MEDICAID [facility] MEDICAID [id number] 2014-Present Medicaid [id number] 2008 Unknown [id number] 2001 Medicare MEDICARE MEDICAR E A AND B [id number] 2001-Present [place], [place] Medicare [id number] 1959 Self-pay [id number] 1959 Unknown [id number] 1941 Unknown [id number] 2.16840.1.064313.3.579.2. 647 1941 Unknown [id number] 2.16840.1.051075.3.579.2. 647 1941 Unknown [id number] 2.16840.1.351708.3.579.2. 647 1941 Unknown [id number] 2.16840.1.465730.3.579.2. 593 1941 Unknown [id number] 2.16.840.1.623542.3.579.2. 593 1941 Unknown [id number] 2.16.840.1.302412.3.579.2. 593 1941 Unknown [id number] 2.16.840.1.360364.3.579.2. 593 1941 Unknown [id number] 2.16.840.1.176079.3.579.2. 593 1941 Unknown [id number] 2.16840.1.735835.3.579.2. 593 1941 Unknown [id number] 2.16.840.1.606667.3.579.2. 593 1941 Unknown [id number] 2.16.840.1.809134.3.579.2. 593 1941 Unknown [id number] 2.16.840.1.094235.3.579.2. 593 1941 Unknown [id number] 2.16.840.1.487340.3.579.2. 593 1941 Unknown [id number] 2.16.840.1.010190.3.579.2. 1259 1941 Unknown [id number] 2.16.840.1.408183.3.579.2. 1259 1941 Unknown [id number] 2.16.840.1.031116.3.579.2. 1259 1941 Unknown [id number] 2.16.840.1.778980.3.579.2. 1259 1941 Unknown [id number] 2.16.840.1.149148.3.579.2. 1259 1941 Unknown [id number] 2.16.840.1.292725.3.579.2. 1259 1941 Unknown [id number] 2.16.840.1.699039.3.579.2. 1259 1941 Unknown [id number] 2.16.840.1.665717.3.579.2. 1259 Medicaid Medicaid [id number] Medicare [id number] Unknown [id number] 2.16.840.1.171777.3.579.2. 531 Unknown [id number] 2.16.840.1.080410.3.579.2. 531 Social History Date Type Detail Facility Start: 08-29-2015 End: 09-24-2023 Tobacco smoking status NHIS Former smoker [facility] Work Phone: End: 03-29-1998 History of tobacco use Current smoker [facility] End: 03-29-1998 History of tobacco use Cigarette Smoker [facility] Start: 08-29-2015 End: 10-25-2023 Cigarettes smoked current (pack per day) - Reported [facility] Work Phone: Start: 08-29-2015 Alcohol intake Current non-dr staff assistant of alcohol (finding) [facility] Start: 1940 Sex Assigned At Not on file C [facility] Start: 09-08-2022 Tobacco smoking stat us [facility] Never smoked tobacco [facility] Start: 09-08-2022 End: 09-24-2023 Tobacco use and exposure Smokeless tobacco non-user [facility] Start: 04-28-2023 End: 10-27-2023 Alcohol intake Lifetime non-drinker (finding) [facility] Start: 04-28-2023 End: 10-25-2023 Tobacco use panel [facility] Work Phone: Start: 02-10-2023 Alcohol Comment caffeine: yes, coffee; soda [facility] How often do you nee d to have someone help you when you read instructions, pamphlets, or other written material from your doctor or pharmacy [SILS] Sometimes [facility] Work Phone: Within the last year , have you been afraid of your partner or ex-partner? No [facility] Are you now , , , , never or living with a partner? [facility] How often to you hav e a drink containing alcohol? Never [facility] How hard is it for y ou to pay for the very basics like food, housing, medical care, and heating Not very hard [facility] Do you feel stress - tense, restless, nervous, or anxious, or unable to sleep at night because your mind is troubled all the time - these days [OSQ] To some extent [facility] (I/We) worried wheth er (my/our) food would run out before (I/we) got money to buy more. Never true [facility] Start: 1940 Sex Assigned At Female F [facility] Start: 02-08-2024 Sex Female (finding) [facility] Clinical Notes 12-04-2021 to 02-21-2024 Telephone Encounter - GIO Pickens - 02/21/2024 1:10 PM ESTTelephone Encounter - GIO Pickens - 02/21/2024 1:10 PM ESTTelephone Encounter - Fabiola Lozano - 02/21/2024 10:29 AM EST Note Date & Type Note Facility 02-21-2024 Telephone encounter Note Form atting of this note might be different from the original. OARRS reviewed, Rx sent into patient's pharmacy. [facility] 02-21-2024 Miscellaneous Notes Formattin g of this note might be different from the original. OARRS reviewed, Rx sent into patient's pharmacy. traMADol (Ultram) [facility] MG [facility] documented in this encounter [facility] 02-21-2024 Telephone encounter Note Form atting of this note might be different from the original. traMADol (Ultram) [facility] MG tablet [facility] 01-31-2024 Telephone encounter Note Form atting of this note might be different from the original. traMADol (Ultram) [facility] MG tablet [facility] [place] [facility] 01-31-2024 Miscellaneous Notes Formattin g of this note might be different from the original. traMADol (Ultram) [facility] MG tablet [facility] documented in this encounter [facility] 01-07-2024 Evaluation note Diagnosis Onset Date Resolution Essential (primary) hypertension acute January 06 10:49am Moderate to severe aortic stenosis acute January 06 10:49am Pacemaker acute January 07, 2024 10:49am Persistent atrial fibrillation acute January 06 10:49am Sick sinus syndrome acute Octob er 2023 10:49am [facility] Work Phone: 1(386) 588-310610-08-2024 Telephone encounter Note* Telephone Encounter - GIO Pickens - 01/04/2024 11:13 AM EDT OARRS reviewed, Rx sent into patient's pharmacy. [id number] Miscellaneous Notes* Telephone Encounter - GIO Pickens - 01/04/2024 11:13 AM EDT OARRS reviewed, Rx sent into patient's pharmacy. * Telephone Encounter - Princess Capps - 01/04/2024 10:42 AM EDT traMADol (Ultram) 50 MG tablet bimatoprost (Lumigan) 0.03 % ophthalmic solution [facility] [id number] Telephone encounter Note* Telephone Encounter - Princess Capps - 01/04/2024 10:42 AM EDT traMADol (Ultram) 50 MG tablet bimatoprost (Lumigan) 0.03 % ophthalmic solution [id number] [facility]Cardiovascular Medicine [facility] SUBJECTIVE No chief complaint on file. Isaac Toure is a 83 y.o. female here for follow-up. HPI PMHx: sick sinus syndrome s/p single chamber PPM (SJD), chronic A-fib, hypertension, hyperlipidemia, carotid stenosis s/p left carotid stent 2009 in [place], HFpEF 11/24/2023 Since last seen she came to [facility] for c/o fluid retention. She was given lasix IV and then discharged her with increased lasix at 40mg daily. Her weight is down 22lbs since last seen. She is feeling better. Her activity is limited due to issues with her knee. Leg swelling is stable. Denies CP, orthopnea, PND, palpitations, dizziness, syncope. Patient Active Problem List Diagnosis Chronic diastolic heart failure (CMS/HCC) Cardiac pacemaker in situ Carotid artery stenosis Hyperlipidemia Hypertensive disorder Hypothyroidism Peripheral nerve disease Restless legs Rheumatoid arthritis (CMS/HCC) Sinus node dysfunction (CMS/HCC) Transient ischemic attack Vitamin D deficiency Ulcerative colitis (CMS/HCC) Status post hysterectomy Primary ovarian failure Primary localized osteoarthritis of pelvic region and thigh Osteoporosis Osteoarthrosis Menopause Obesity Lumbar spondylosis with myelopathy Hypopotassemia Lumbosacral spondylosis without myelopathy Hypercalcemia Hearing loss Glaucoma Disorder of magnesium metabolism 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 Family History Problem Relation Name Age of Onset Diabetes Mother Hypertension Mother Hyperlipidemia Mother Diabetes Father Hypertension Father Stroke Father Hyperlipidemia Father Social History Tobacco Use Smoking status: Former Types: Cigarettes Smokeless tobacco: Never Substance Use Topics Alcohol use: Not Currently Drug use: Never Allergies Allergen Reactions Milk Sulfa (Sulfonamide Antibiotics) Review of Systems Constitutional: Positive for weight loss. Negative for chills, decreased appetite, fever, malaise/fatigue and weight gain. Cardiovascular: Positive for dyspnea on exertion and leg swelling. Negative for chest pain, irregular heartbeat, near-syncope, orthopnea, palpitations, paroxysmal nocturnal dyspnea and syncope. Hematologic/Lymphatic: Negative for bleeding problem. Does not bruise/bleed easily. OBJECTIVE Visit Vitals BP 138/69 (BP Location: Right arm, Patient Position: Sitting) Pulse 60 Ht 1.626 m (5' 4 ) Wt 92.1 kg (203 lb) SpO2 94% BMI 34.84 kg/m??? Smoking Status Former BSA 2.04 m??? Medications: Current Outpatient Medications: alendronate (Fosamax) 70 mg tablet, TAKE 1 TAB BY MOUTH EVERY 7 DAYS. WITH PLAIN WATER 30 MINUTES PRIOR TO FIRST FOOD, DRINK OR MEDICINE, Disp: , Rfl: amLODIPine (Norvasc) 10 mg tablet, Take 1 tablet by mouth in the morning., Disp: , Rfl: apixaban (Eliquis) 5 mg tablet, Take 1 tablet (5 mg) by mouth in the morning and at bedtime., Disp: 60 tablet, Rfl: 11 atorvastatin (Lipitor) 20 mg tablet, TAKE 1 TABLET BY MOUTH EVERY DAY FOR 90 DAYS, Disp: , Rfl: ntcqwqxrzo-ylezfvkt-qhgskppevw (Breztri Aerosphere) 160-9-4.8 mcg/actuation HFA aerosol inhaler, Inhale 2 puffs every 12 (twelve) hours., Disp: , Rfl: calcitriol (Rocaltrol) 0.25 mcg capsule, Take 1 tablet by mouth in the morning., Disp: , Rfl: doxazosin (Cardura) 2 mg tablet, Take 1 tablet by mouth in the morning., Disp: , Rfl: furosemide (Lasix) 40 mg tablet, Take 1 tablet (40 mg) by mouth in the morning., Disp: 90 tablet, Rfl: 3 HYDROcodone-acetaminophen (Stewart) 5-325 mg tablet, TAKE 1 TABLET BY MOUTH EVERY 8 HOURS NEEDED FOR 14 DAYS, Disp: , Rfl: ipratropium-albuteroL (Duo-Neb) 0.5-2.5 mg/3 mL nebulizer solution, INHALE 3 ML BY NEBULIZATION EVERY 6 HOURS, Disp: , Rfl: levothyroxine (Synthroid, Levoxyl) 112 mcg tablet, Take 1 tablet every day by oral route for 30 days., Disp: , Rfl: losartan (Cozaar) 100 mg tablet, TAKE 1 TABLET BY MOUTH EVERY DAY FOR 90 DAYS, Disp: , Rfl: metoprolol succinate XL (Toprol-XL) 100 mg 24 hr tablet, Take 1 tablet by mouth in the morning., Disp: , Rfl: montelukast (Singulair) 10 mg tablet, Take 1 tablet by mouth in the morning., Disp: , Rfl: omeprazole (PriLOSEC) [address] capsule, Take 1 tablet by mouth in the morning., Disp: , Rfl: potassium chloride CR (Klor-Con M20) 20 mEq ER tablet, Take 1 tablet by mouth in the morning., Disp: , Rfl: sul (more content not included)...[facility]08-28-2024 NotePt is here for a six month follow up. Pt had labs drawn yesterday, and a chest CT. Pt has chronic diastolic heart failure, chronic afib. Pt denies any chest pain, palpatation, dizziness Review of Systems HENT: Positive for hearing loss. Cardiovascular: Positive for dyspnea on exertion. Respiratory: Positive for shortness of breath (copd). Musculoskeletal: Positive for arthritis, joint pain, muscle weakness and myalgias. Neurological: Positive for weakness. All other systems reviewed and are negative.[facility] 05-05-2023 History of Present illness Narrative* Bernardo Almonte MD - 05/05/2023 10:15 AM EST HPI Follow-up Additional comments: Appt with cardiology yesterday they advised pt she could stop the coumadin andswitch to eliquis pt ? If that is [...] (three) times a day as needed for anxietyor sleep. amLODIPine (Norvasc) 10 MG tablet TAKE [...] by mouth 1 (one) time each day. Cakayor-Yciqmqnjfwo-Uzeqcymlxw (Breztri Aerosphere) 160-9-4.8 MCG/ACT aerosol Inhale 2 [...] (NexIUM) [address] capsule Fish Oil-Cholecalciferol (Montgomery-3 Fish Oil/Vitamin D3) 2003-3887 MG-UNIT capsule Take by mouth at bedtime. fluticasone (Flonase) 50 MCG/ACT nasal spray SPRAY 2 SPRAYS INTO EACH NOSTRIL IN THE MORNING 48 mL 1 FLUTICASONE PROPIONATE, INHAL, IN Inhale 2 Inhalation 1 (one) time each day. furosemide (Lasix) 20 MG tablet Take 20 mg by mouth in the morning. Wkganh-Dmupj-Gsfc Ac-Ca Fructo (Move Free Joint Health Advance) tablet Take 1 tablet by mouth 1 (one) time each day. HYDROcodone-acetaminophen (Stewart) 5-325 MG tablet TAKE 1 TABLET BY [...] BY MOUTH EVERY DAY 90 tablet 4 Montgomery-3 Fatty Acids (Fish Oil) 1000 MG capsule delayed-release Take 1 capsule by mouth 1 (one) timeeach day at the same time. omeprazole (PriLOSEC) [...] mouth every 8 (eight) hours if needed formuscle spasms 30 tablet 2 traMADol (Ultram) 50 [...] 08/03/2023) for Routine F/U. documented in this encounterB[facility] [id number] NotePatient here for 6 mo follow up and device check. She did not have echo done that was ordered in July 2022 by David Victoria CNP. She was admitted to [facility] in Nov 2022 by pneumonia. Denies chest pain, palpitations, and lightheadedness/syncope. Denies bleeding on warfarin. Review of Systems HENT: Positive for hearing loss. Cardiovascular: Positive for dyspnea on exertion. Musculoskeletal: Positive for arthritis, joint pain, muscle weakness and myalgias. Neurological: Positive for weakness. All other systems reviewed and are negative.[facility] 05-04-2023 NoteUT Electrophysiology Consult Note Reason for visit: Afib/ PPM HPI: Isaac Toure is a 82 y.o. year old with past medical history of sick sinus syndrome s/p single chamber PPM ( SJD), chronic A-fib, hypertension, hyperlipidemia, carotid stenosis s/p left carotid stent 2009 in [place], HFpEF Was previously seen by Dr. Chatman and Dr. ENAMORADO. She was recently admitted to [facility] in November 2022 with pneumonia. subsequently [...] of reduction in the left carotid bulb. PMH: No past medical history on file. [...] MOUTH EVERY DAY 90 tablet 3 HYDROcodone-acetaminophen (Stewart) 5-325 mg tablet TAKE 1 TABLET BY [...] for 90 days. potassium (more content not included)...[facility] 05-04-2023 NotePatient here for 6 mo follow up and device check. She did not have echo done that was ordered in July 2022 by David Victoria CNP. She was admitted to [facility] in Nov 2022 by pneumonia. Denies chest pain, palpitations, and lightheadedness/syncope. Denies bleeding on warfarin. Review of Systems HENT: Positive for hearing loss. Cardiovascular: Positive for dyspnea on exertion. Musculoskeletal: Positive for arthritis, back pain and joint pain. All other systems reviewed and are negative.[facility] 12-17-2021 NoteCONSULTATION CONSULTATION DATE: 12/17/2021 HISTORY OF PRESENT ILLNESS: [...] that aggravate her pain are standing, lying, fleecer and evening hours, housework, any physical activity and changes in the weather. She does use heat which is beneficial to her. She has seen Dr. Jackman in the past who has provided her with bilateral knee injections. Recently, she was seen by her PCP, Dr. Almonte, who has placed her on antibiotics for a sinus infection. Current medications include Coumadin, Stewart 5/325 daily p.r.n. and zojl-cbp-xgjxyim Tylenol. She is unable to take NSAIDs. [...] plan of care, would like to move forward.[facility] [id number] NotePROCEDURE: XR PELVIS 1_2 VIEWS COMPARISON: None. HISTORY: [...] Electronically authenticated by: CONSTANTINE ROSAS Date: 2021-12-12 16:37[facility] [id number] NoteCONSULTATION CONSULTATION DATE: 12/06/2021 HISTORY OF PRESENT ILLNESS: [...] surgeries include a lumbar fusion in the [facility] in 1984 and lumbar anterolisthesis in 1999. Current medications include Stewart 5/325 q. 8 p.r.n. by her PCP. [...] shortly for x-ray review and interventional procedure discussion.[facility]* Diagnosis Lymphedema of right arm- Primary Trapezius muscle spasm Longstanding persistent atrial fibrillation (CMS/HCC) documented in this encounter [facility] HealthcareEvaluation note* Diagnosis Osteoarthritis of lumbar spine with myelopathy documented in this encounter [facility] HealthcareEvaluation note* Diagnosis Osteoarthritis of lumbar spine with myelopathy Primary open angle glaucoma of both eyes, unspecified glaucoma stage (CMS/HCC) documented in this encounter [facility] HealthcareEvaluation noteNo assessment information availableCorey Hospital Work Phone: Evaluation note* Diagnosis Onset Date Resolution Status Essential (primary) hypertension acute Moderate to severe aortic stenosis acute Pacemaker acute Persistent atrial fibrillation acute Sick sinus syndrome acute [facility] Work Phone: Evaluation note* Diagnosis Osteoarthritis of lumbar spine with myelopathy documented in this encounter [facility] HealthcareEvaluation note* Diagnosis Osteoarthritis of lumbar spine with myelopathy documented in this encounter [facility] Healthcare Summary Purpose Family History Relationship Condition Age at Onset Recorded Date/T jasmina mother Chronic obstructive pulmonary disease Unk nown Diabetes mellitus Unknown father Alzheimer's dementia Unknown brother Malignant neoplasm Unknown brother Heart disease Unknown History of percutane ous transluminal coronary angioplasty Unknown Advance Directives Documents on File Type Date Recorded Patient Spiral Spring Winder Expl anation Power of Bilingual Sales Representative 10/18/2023 12:27 PM 2023 [facility] Power of Bilingual Sales Representative Advance Directive Response Recorded Date/ Time Advance Directives Yes November 03 1:20pm Advance Directive Response Recorded Date/ Time Advance Directives Yes November 03 12:20pm Hospital Course Note MR#: [id number] [facility] Pt. Name: Isaac Toure Admitted: [...] a fall. The patient initially presented to [facility] in which they found a left femur fracture. Sh (more content not included)... Reason for Referral Specialty Diagnoses / Procedures Referred By Contac t Referred To Contact Diagnoses Osteoarthritis of lumbar spine with myelopathy Bernardo Almonte MD [address] [facility] [address] [place] [address] Referral ID Status Reason Start Date Expiration Date V isits Requested Visits Authorized [id number] Pending Review 1 1 Chief Complaint and Reason for Visit Chief Complaint New pt wants to esta blish Chief Complaint New pt wants to esta blish I48.91 Reason for Visit Essential (primary) hypertension Moderate to severe aortic stenosis Pacemaker Persistent atrial fibrillation Sick sinus syndrome Chief Complaint Admit Date New pt wants to establish January 07, 2024 10:49am I48.91 January 07, 2024 1 0:50am I35.0 February 07, 2024 1:07pm Reason for Visit Admit Date Essential (primary) hypertension January 07, 2024 10:49am Moderate to severe aortic stenosis Octob er 2023 10:49am Pacemaker January 07, 2024 1 0:49am Persistent atrial fibrillation December 272023 10:49am Sick sinus syndrome January 07, 2024 1 0:49am Additional Source Comments INFORMATION SOURCE (unrecogn ized section and content) DATE CREATED AUTHOR 06/26/2018 [facility] DATE CREATED AUTHOR AUTHOR'S ORGANIZ ATION 06/13/2021 [facility] dical Specialist DATE CREATED AUTHOR AUTHOR'S ORGANIZ ATION 02/06/2022 [facility] DATE CREATED AUTHOR AUTHOR'S ORGANIZ ATION 10/29/2023 [facility] dical Specialists EPIC DATE CREATED AUTHOR AUTHOR'S ORGANIZ ATION 11/25/2023 [facility] DATE CREATED AUTHOR AUTHOR'S ORGANIZ ATION 02/08/2024 [facility] ys[facility] Group Source Comments (unrecognize d section and content) In the event this informatio n is protected by the Federal Confidentiality of Alcohol and Drug Abuse Patient Records regulations: The Federal rules restrict any use of the information to criminally investigate or prosecute any alcohol or drug abuse patient.[facility] Reason for Visit (unrecogniz ed section and content) Reason Comments Refill Request Reason Comments Follow-up Appt with cardiology yesterday they advised pt she could stop the coumadin and switch to eliquis pt ? If that is what she should do Arm Pain Reason Onset Date Comments Med Refill 05/13/2023 [id number] LEVUE Reason Onset Date Comments Med Refill 01/04/2024 Care Teams (unrecognized sec tion and content) Payroll Accounting Clerk Relationship Specialty Start Date End Date Bernardo Almonte MD [address] [place] [address] PCP - Yanni ALLEN 03/29/21 Bernardo Almonte MD [address] [place] [address] PCP - General Internal Medicine 09/07/22 Payroll Accounting Clerk Relationship Specialty Start Date End Date Bernardo Almonte MD [address] [place] [address] PCP - Yanni ALLEN 03/29/21 Bernardo Almonte MD [address] [place] [address] PCP - General Internal Medicine 09/07/22 Payroll Accounting Clerk Relationship Specialty Start Date End Date Bernardo Almonte MD [address] [place] [address] PCP - Yanni ALLEN 03/29/21 Bernardo Almonte MD [address] [place] [address] PCP - General Internal Medicine 09/07/22 Payroll Accounting Clerk Relationship Specialty Start Date End Date Bernardo Almonte MD [address] [place] [address] PCP - Yanni ALLEN 03/29/21 Bernardo Almonte MD [address] [place] [address] PCP - General Internal Medicine 09/07/22Wednesday, Cammy, INSTRUMENT OPERATOR [address] [place] [address] Licensed Practical Nurse Family Medicine 09/24/23 Team Status: Active Member Role Status Dates NON STAFF Primary Care Provider Active Team Status: Inactive Member Role Status Dates NON STAFF Primary Care Provider Active Start: January 07, 2024 End: January 07, 2024 Devonte Padilla MD Attending Provider Activ e Start: January 07, 2024 End: January 07, 2024 Team Status: Active Member Role Status Dates NON STAFF Primary Care Provider Active Start: January 07, 2024 Devonte Padilla MD Attending Provider Activ e Start: January 07, 2024 Payroll Accounting Clerk Relationship Specialty Start Date End Date Bernardo Almonte MD [address] [place] [address] PCP - Yanni ALLEN 03/29/21 Bernardo Almonte MD [address] [place] [address] PCP - General Internal Medicine 09/07/22Wednesday, Cammy, INSTRUMENT OPERATOR [address] [place] [address] Licensed Practical Nurse Family Medicine 09/24/23 Team Status: Inactive Member Role Status Dates NON STAFF Primary Care Provider Active Start: February 07, 2024 End: February 07, 2024 Devonte Padilla MD Attending Provider Activ e Start: February 07, 2024 End: February 07, 2024 Payroll Accounting Clerk Relationship Specialty Start Date End Date Bernardo Almonte MD [address] [place] [address] PCP - Yanni ALLEN 03/29/21 Bernardo Almonte MD [address] [place] [address] PCP - General Internal Medicine 09/07/22Wednesday, GILMA Chawla [address] [place] [address] Licensed Practical Nurse Family Medicine 09/24/23 Goals (unrecognized section and content) Goals may be documented in a n alternate sectionGoals may be documented in an alternate sectionGoals may be documented in an alternate section FOR RECORDS PERTAINING TO PATIENTS WHO ARE [...] BE BASED ON THE PRIMARY CLINICAL RECORDS. [employer] [facility]. provides no warranty or guarantee of the accuracy or completeness of information in this document.
--- NOTE | 2024-02-29 11:56 | XR_ITS ---
The [address] [address] Patient Name: ISAAC TOURE MRN: [id number] date: 1940 Sex: F Assigned Patient Location: ED.MAIN Current Patient Location: ER Accession/Order Number: [id number] Exam Date: 02/29/2024 12:21 Report Date: 02/29/2024 12:44 At the request of: MAXIMILIANO BRAVO Procedure: XR chest 1V EXAMINATION: XR chest 1V HISTORY: cp COMPARISON: 07/16/23. TECHNIQUE: ap port FINDINGS: LUNGS: No significant pulmonary parenchymal abnormalities. VASCULATURE: No increased pulmonary vasculature. PLEURA: No pneumothorax, effusion, or pleural thickening. CARDIAC: Moderate stable cardiomegaly. MEDIASTINUM: No visible mass or adenopathy. Left aicd BONES: No fracture or visible bone lesion. Cervical hardware OTHER: Negative. XR/XR chest 1V IMPRESSION: Stable cardiomegaly, clear lungs Electronically authenticated by: CONSTANTINE ROSAS Date: 02/29/2024 12:44
--- NOTE | 2024-02-29 11:56 | ECG_ITS ---
The [facility] Test Date: 2024-02-29 Pat Name: ISAAC TOURE Department: Room: - Gender: Female Technology Teacher: : 1940 Requested By: [id number] Order Number: [id number] Reading MD: OLIVAI NAJERA Measurements Intervals [place] Rate: 60 P: -59387 HI: -88762 QRS: 117 QRSD: 142 T: 70 QT: 486 QTc: 486 Interpretive Statements Atrial fibrillation 2330 Nonspecific intraventricular conduction block 3532 Remote lateral myocardial infarction, 9150 abnormal ECG Electronically Signed On 02-29-2024 20:17:50 EST by OLIVIA NAJERA
[2024-02-29] MEDS: 0.9 % SODIUM CHLORIDE 500 ML IV (12:09)
[2024-02-29 12:18] LABS: Basophils Absolute Auto 0.1 10^3/uL (0.0-0.1); Basophils Percent Auto 1.4 % (0.2-2.0); Eosinophils Absolute Auto 0.1 10^3/uL (0.0-0.7); Eosinophils Percent Auto 1.6 % (0.9-7.0); Hematocrit 25.3 % (36.0-48.0); Immature Granulocytes Abs Auto 0.01 10^3/uL (0.00-0.03); Immature Granulocytes Pct Auto 0.2 % (0.0-0.5); Mean Corpuscular HGB Conc 31.6 g/dL (29.9-35.2); Mean Corpuscular Hemoglobin 29.9 pg (26.7-34.0); Mean Corpuscular Volume 94.4 fL (81.0-99.0); Mean Platelet Volume 10.2 fL (9.5-13.5); Neutrophils Absolute Auto 2.9 10^3/uL (1.4-6.5); Neutrophils Percent Auto 57.8 % (43.0-75.0); Platelet Count 222 10^3/uL (150-450); Red Blood Count 2.68 10^6/uL (4.20-5.40); Red Cell Distribution Width 15.6 % (11.0-15.0); White Blood Count 5.1 10^3/uL (4.0-11.0)
[2024-02-29 12:29] LABS: Influenza Virus A Antigen Negative; Influenza Virus B Antigen Negative; Internal Control Within Normal Limits; SARS-CoV-2 Ag NEGATIVE (NEGATIVE)
[2024-02-29 12:37] LABS: Alanine Aminotransferase 40 U/L (14-59); Albumin Level 3.2 g/dL (3.4-5.0); Alkaline Phosphatase 98 U/L (46-116); Anion Gap 12.5; Aspartate Amino Transferase 28 U/L (15-37); Bilirubin Total 0.6 mg/dL (0.2-1.0); Calcium 8.8 mg/dL (8.5-10.1); Carbon Dioxide 27.3 mmol/L (21.0-32.0); Chloride 104 mmol/L (98-107); Estimated GFR (African America 57 (>=60 mL/min/1.73m^2); Estimated GFR (Non-African Ame 47 (>=60 mL/min/1.73m^2); Globulin 3.2 g/dL; Glucose 130 mg/dL (74-106); Potassium 3.8 mmol/L (3.5-5.1); Sodium 140 mmol/L (136-145); Total Protein 6.4 g/dL (6.4-8.2); Troponin I High Sensitivity 11.2 pg/mL (4.0-51.3)
--- NOTE | 2024-02-29 12:44 | ED_ITS ---
HPI HPI - General Adult General Chief complaint: Chest Pain Stated complaint: ARM PAIN, SOB Time Seen by Provider: 02/29/24 11:44 Source: patient Mode of arrival: Wheelchair Limitations: no limitations History of Present Illness HPI narrative: Patient presents ED complaining of chest pain prior to arrival. Patient states she had left-sided chest pain and pain into her left arm. No nausea vomiting or diaphoresis. She does have a pacemaker and states that it is due for a change. She does have a technician preventative medicine at [facility]. She denies any abdominal pain. She said overall she just feels kind of tired and weak. She said now that she is here the chest pain is better. She has chest pain for this time. She came in by private vehicle. She denies shortness of breath. Vital signs stable. Slightly hypertensive. She denies any cough. No dark stools. No Abdomen: Related Data Home Medications ?Medication ?Instructions ?Recorded ?Confirmed amlodipine 10 mg tablet 10 mg PO DAILY 12/18/22 02/29/24 calcitriol 0.25 mcg capsule 0.25 mcg PO DAILY 12/18/22 02/29/24 fluticasone propionate 50 1 spray intranasal DAILY PRN 12/18/22 07/16/23 mcg/actuation nasal allergy symptoms spray,suspension (24 Hour Allergy Relief) furosemide 20 mg tablet 20 mg PO DAILY 12/18/22 07/16/23 hydrocodone 5 mg-acetaminophen 325 1 tab PO Q8H PRN pain 12/18/22 07/16/23 mg tablet levothyroxine 112 mcg tablet 112 mcg PO DAILY 12/18/22 07/16/23 (Levo-T) losartan 100 mg tablet 100 mg PO DAILY 12/18/22 07/16/23 metoprolol succinate 100 mg 100 mg PO DAILY 12/18/22 07/16/23 tablet,extended release 24 hr montelukast 10 mg tablet 10 mg PO DAILY 12/18/22 07/16/23 paroxetine HCl 10 mg tablet 10 mg PO DAILY 12/18/22 07/16/23 potassium chloride 20 mEq oral 20 meq PO DAILY 12/18/22 07/16/23 packet (Klor-Con) sulfasalazine 500 mg tablet 0.5 g PO BID 12/18/22 07/16/23 apixaban 5 mg tablet (Eliquis) 5 mg PO Q12H 07/16/23 02/29/24 atorvastatin 20 mg tablet 20 mg PO DAILY 07/16/23 02/29/24 bimatoprost 0.03 % eye drops 1 drp ophthalmic (eye) BEDTIME 07/16/23 02/29/24 budesonide 160 mcg-glycopyr 9 2 inh inhalation BID 07/16/23 02/29/24 mcg-formot 4.8 mcg/actuation HFA inhaler (Breztri Aerosphere) doxazosin 2 mg tablet 2 mg PO .hs 07/16/23 07/16/23 ipratropium 0.5 mg-albuterol 3 mg 3 ml inhalation Q6H PRN shortness 07/16/23 07/16/23 (2.5 mg base)/3 mL nebulization of breath soln montelukast 10 mg tablet 10 mg PO DAILY 07/16/23 07/16/23 (Singulair) omeprazole 40 mg capsule,delayed 40 mg PO DAILY 07/16/23 07/16/23 release tizanidine 4 mg tablet 4 mg PO Q8H PRN muscle spasticity 07/16/23 07/16/23 tramadol 50 mg tablet 50 mg PO Q6H PRN pain 07/16/23 07/16/23 Allergies Allergy/AdvReac Type Severity Reaction Status Date / Time Sulfa (Sulfonamide AdvReac Intermediate Unknown Verified 02/29/24 11:53 Antibiotics) Opioid HPI Opioid Management Most Recent Opioid Data: Last Pain Scale 3 07/16/23 15:16 07/16/23 Last Pain Intensity 3 12/18/22 15:37 12/18/22 Review of Systems ROS Status of ROS 10 or more systems reviewed and unremark able except as noted in history and below [facility] Medical History (Updated 02/29/24 @ 14:34 by Indiana Marino DO) Arthritis ?M19.90 - Unspecified osteoarthritis, unspecified site (ICD-10) Anxiety ?F41.9 - Anxiety disorder, unspecified (ICD-10) Seasonal allergies ?J30.2 - Other seasonal allergic rhinitis (ICD-10) COPD (chronic obstructive pulmonary disease) ?J44.9 - Chronic obstructive pulmonary disease, unspecified (ICD-10) Atherosclerosis ?I70.90 - Unspecified atherosclerosis (ICD-10) Afib ?I48.91 - Unspecified atrial fibrillation (ICD-10) Hypertension ?I10 - Essential (primary) hypertension (ICD-10) Surgical History Family History Mother Family history of COPD (chronic obstructive pulmonary disease) Family history of hypertension Brother Family history of diabetes mellitus Father Family history of hypertension Social History Within the past year, how often did you have a drink containing alcohol: never Within the past year, how often did you have six or more drinks on one occasion: never Score interpretation: A score less than 3 is consistent with normal alcohol consumption. Smoking status: Former smoker Non-prescribed substance use: denies use Previous occupational history: retired Highest level of school completed/degree received: high school graduate Are you now , , , , never or living with a partner: Little interest or pleasure in doing things: not at all Feeling down, depressed, or hopeless: not at all Feel stressed/tense/nervous/anxious/difficulty sleeping: only a little Do you think of yourself as: straight/heterosexual Gender Identity: female Exam Narrative Exam Narrative: Time Seen: [] Vital Signs: [Per nurse's notes.] General: [Alert] Skin: [Warm, dry, no rash.] Head: [Normocephalic, atraumatic.] Neck: [Supple, trachea midline.] Eye: [Pupils are equal, round and reactive to light, extraocular movements are intact, normal conjunctiva.] Ears, nose, mouth and throat: oral mucosa moist. Cardiovascular: [Regular rate and rhythm, no murmur.] Respiratory: [Lungs are clear to auscultation, respirations are non-labored, breath sounds are equal.] Chest wall: [No tenderness, no deformity.] Gastrointestinal: [Soft, nontender, non distended, normal bowel sounds.] MSK: 5 out of 5 muscle strength x 4 extremities no calf pain or edema Lymphatics: [No lymphadenopathy.] Psychiatric: [Cooperative, appropriate mood & affect.] Neurological: [Alert and oriented to person, place, time, and situation, no focal neurological deficit observed.] Constitutional Vital Signs, click to edit/add: Last Vital Signs Temp 98.4 F 02/29/24 11:53 Pulse 59 L 02/29/24 14:30 Resp 21 H 02/29/24 14:30 BP 153/62 H 02/29/24 14:30 Pulse Ox 97 02/29/24 14:30 O2 Del Method Room Air 02/29/24 11:53 Course Vital Signs Vital signs: Vital Signs Temperature 98.4 F 02/29/24 11:53 Pulse Rate 63 02/29/24 11:53 Respiratory Rate 20 02/29/24 11:53 Blood Pressure 154/57 H 02/29/24 11:53 Pulse Oximetry 96 02/29/24 11:53 Oxygen Delivery Method Room Air 02/29/24 11:53 Temperature 98.4 F 02/29/24 11:53 Pulse Rate 59 L 02/29/24 14:30 Respiratory Rate 21 H 02/29/24 14:30 Blood Pressure 153/62 H 02/29/24 14:30 Pulse Oximetry 97 02/29/24 14:30 Oxygen Delivery Method Room Air 02/29/24 11:53 Medical Decision Making MDM Narrative Medical decision making narrative: Patient's labs are relatively nonacute. Her hemoglobin is down to 8 which previously was 11. She denies any blood in the stool. She has had anemia in the past. No hypotension no syncope. She states she has been chest pain-free since she has been here. Second troponin was done approximately 2 hours after the first which remained negative. She states she has a follow-up appointment with her technician preventative medicine on March 14. I told her to come back if anything worsens otherwise follow-up as scheduled. Patient wishes to go home and is comfortable with care plan for home Differential Diagnosis Differential Diagnosis: Chest pain, atypical chest pain, pneumonia, viral syndrome Medical Records Medical records reviewed: Yes I reviewed the patient's medical records Lab Data Lab results reviewed: Yes I reviewed the patient's lab results Labs: Lab Results 02/29/24 02/29/24 02/29/24 Range/Units 12:07 12:08 13:54 WBC 5.1 (4.0-11.0) 10^3/uL RBC 2.68 L (4.20-5.40) 10^6/uL Hgb 8.0 L (12.0-16.0) g/dL Hct 25.3 L (36.0-48.0) % MCV 94.4 (81.0-99.0) fL MCH 29.9 (26.7-34.0) pg MCHC 31.6 (29.9-35.2) g/dL RDW 15.6 H (11.0-15.0) % Plt Count 222 (150-450) 10^3/uL MPV 10.2 (9.5-13.5) fL Neut % (Auto) 57.8 (43.0-75.0) % Lymph % (Auto) 19.0 L (20.5-60.0) % Bay % (Auto) 20.0 H (1.7-12.0) % Eos % (Auto) 1.6 (0.9-7.0) % Baso % (Auto) 1.4 (0.2-2.0) % Neut # (Auto) 2.9 (1.4-6.5) 10^3/uL Lymph # (Auto) 1.0 L (1.2-3.8) 10^3/uL Bay # (Auto) 1.0 H (0.3-0.8) 10^3/uL Eos # (Auto) 0.1 (0.0-0.7) 10^3/uL Baso # (Auto) 0.1 (0.0-0.1) 10^3/uL Abs Immat Gran (auto) 0.01 (0.00-0.03) 10^3/uL Imm/Tot Granulo (auto) 0.2 (0.0-0.5) % Sodium 140 (136-145) mmol/L Potassium 3.8 (3.5-5.1) mmol/L Chloride 104 (98-107) mmol/L Carbon Dioxide 27.3 (21.0-32.0) mmol/L Anion Gap 12.5 BUN 20.0 H (7.0-18.0) mg/dL Creatinine 1.11 H (0.55-1.02) mg/dL Est GFR ( Amer) 57 L (>=60 mL/min/1.73m^2) Est GFR (Non-Af Amer) 47 L (>=60 mL/min/1.73m^2) BUN/Creatinine Ratio 18.0 Glucose 130 H (74-106) mg/dL Calcium 8.8 (8.5-10.1) mg/dL Total Bilirubin 0.6 (0.2-1.0) mg/dL AST 28 (15-37) U/L ALT 40 (14-59) U/L Alkaline Phosphatase 98 (46-116) U/L Troponin I High Sens 11.2 11.7 (4.0-51.3) pg/mL Total Protein 6.4 (6.4-8.2) g/dL Albumin 3.2 L (3.4-5.0) g/dL Globulin 3.2 g/dL Albumin/Globulin Ratio 1.0 Influenza Type A Ag Negative Influenza Type B Ag Negative SARS-CoV-2 Ag (CV2AG) Negative (NEGATIVE) Imaging Data Chest x-ray: Radiologist's impression: ITS Impressions Chest X-Ray 02/29/24 11:56 IMPRESSION: Stable cardiomegaly, clear lungs Electronically authenticated by: CONSTANTINE ROSAS Date: 02/29/2024 12:44 ECG Data Attestation: I personally reviewed and interpreted this ECG as follows: Interpretation: EKG INTERPRETATION Time: [] 1156 Rate: [] 60 Rhythm: _ []paced ST segments: _ [] T waves: _ [] Ectopy: _ [] P wave/KS interval: _ [] QRS interval: _ [] QT interval: _ [] Comparison: _ [] Comparison EKG date: [] Performed by: [self] no acute ST elevation or depression Discharge Plan Discharge Chief Complaint: Chest Pain Clinical Impression: Atypical chest pain Patient Disposition: Home, Self-Care Time of Disposition Decision: 14:34 Condition: Good Mode of Transportation: Private Vehicle Prescriptions / Home Meds: No Action montelukast 10 mg tablet 10 mg PO DAILY sulfasalazine 500 mg tablet 0.5 g PO BID Patient Comments: PER PATIENT TAKES TWICE A DAY Rx Instructions: give with food (meal/snack) hydrocodone-acetaminophen 5-325 mg tablet 1 tab PO Q8H PRN (Reason: pain) potassium chloride [Klor-Con] 20 mEq packet 20 meq PO DAILY fluticasone propionate [24 Hour Allergy Relief] 50 mcg/actuation spray ,suspension 1 spray intranasal DAILY PRN (Reason: allergy symptoms) Rx Instructions: administer into each nostril furosemide 20 mg tablet 20 mg PO DAILY levothyroxine [Levo-T] 112 mcg tablet 112 mcg PO DAILY metoprolol succinate 100 mg tablet extended release 24 hr 100 mg PO DAILY paroxetine HCl 10 mg tablet 10 mg PO DAILY calcitriol 0.25 mcg capsule 0.25 mcg PO DAILY amlodipine 10 mg tablet 10 mg PO DAILY losartan 100 mg tablet 100 mg PO DAILY Eliquis 5 mg tablet 5 mg PO Q12H atorvastatin 20 mg tablet 20 mg PO DAILY bimatoprost 0.03 % drops 1 drp OPHTHALMIC (EYE) BEDTIME Breztri Aerosphere 160-9-4.8 mcg/actuation HFA aerosol inhaler 2 inh INHALATION BID ipratropium-albuterol 0.5 mg-3 mg(2.5 mg base)/3 mL solution for nebulization 3 ml INHALATION Q6H PRN (Reason: shortness of breath) omeprazole 40 mg capsule,delayed release(DR/EC) 40 mg PO DAILY tramadol 50 mg tablet 50 mg PO Q6H PRN (Reason: pain) tizanidine 4 mg tablet 4 mg PO Q8H PRN (Reason: muscle spasticity) doxazosin 2 mg tablet 2 mg PO .hs montelukast [Singulair] 10 mg tablet 10 mg PO DAILY Print Language: Pashto Instructions: Chest Pain (ED) Referrals: BENSON CHAKRABORTY [Primary Care Provider] - 1 week Discharge Date/Time: 02/29/24 14:57
[2024-02-29 14:24] LABS: Troponin I High Sensitivity 11.7 pg/mL (4.0-51.3)
== END 2024-02-29 14:57 | disposition home or self-care (01) ==
PROVIDERS: Emergency Provider Emergency Medicine; PCP Internal Medicine
DX: R07.89 Other chest pain (principal); Z95.0 Presence of cardiac pacemaker; Z87.891 Personal history of nicotine dependence
CPT/HCPCS: 36415; 71045; 80053; 84484; 85025; 87804; 87811; 93005; 99285